=== PATIENT | female | born 1970 | race Caucasian/White ===

== ENCOUNTER → 2019-12-31 15:32 | Outpatient (BNVA) | payer MEDICAID, SELFPAY | PROVIDERS: PCP Nurse Practitioner Family; Referring Provider Nurse Practitioner Family; Visit Provider Nurse Practitioner | DX: Z76.89 Persons encountering health services in other specified circumstances (principal) ==

== ENCOUNTER → 2020-01-03 09:29 | Outpatient (BNVA) | payer MEDICAID, SELFPAY | PROVIDERS: PCP Nurse Practitioner Family; Visit Provider Nurse Practitioner | DX: R10.9 Unspecified abdominal pain (principal); N25.89 Other disorders resulting from impaired renal tubular function; K90.41 Non-celiac gluten sensitivity; E73.9 Lactose intolerance, unspecified; K21.9 Gastro-esophageal reflux disease without esophagitis; R14.0 Abdominal distension (gaseous); K58.0 Irritable bowel syndrome with diarrhea; Z87.891 Personal history of nicotine dependence; Z91.02 Food additives allergy status; Z91.040 Latex allergy status; Z91.048 Other nonmedicinal substance allergy status | CPT/HCPCS: 99212 ==

== ENCOUNTER → 2020-02-05 14:14 | Outpatient (BNVA) | payer MEDICAID, SELFPAY | PROVIDERS: PCP Nurse Practitioner Family; Referring Provider Nurse Practitioner Family; Visit Provider Nurse Practitioner | DX: Z76.89 Persons encountering health services in other specified circumstances (principal) ==

== ENCOUNTER → 2020-09-22 16:01 | Outpatient (BNVA) | payer MEDICAID, SELFPAY | PROVIDERS: PCP Nurse Practitioner Family; Visit Provider Nurse Practitioner ==

== ENCOUNTER 2020-09-23 14:58 | Outpatient (REF) | payer MEDICAID, SELFPAY ==
--- NOTE | ~2020-09-23 | MM_ITS ---
EXAMINATION: MM SCREENING DIGITAL BREAST TOMOSYNTHESIS, BILATERAL CLINICAL INFORMATION: Screening. Asymptomatic. The lifetime risk of breast cancer based on the Tyrer-Cuzick Model is 7%. COMPARISON: Mammography: 06/23/2016 TECHNIQUE: Digital breast tomosynthesis is performed in both the craniocaudal and mediolateral oblique views along with computer-aided detection (CAD). Synthesized 2D images are generated from the tomosynthesis. FINDINGS: There are scattered areas of fibroglandular density (ACR BI-RADS breast composition Category b). There are no significant masses, abnormal calcifications, or other abnormalities. Breast parenchymal pattern is similar to prior studies. The skin contours are smooth. MM/MM tomosynthesis screening BI IMPRESSION: No mammographic evidence of malignancy. ASSESSMENT: BI-RADS 1: Negative RECOMMENDATION: Routine annual mammography screening. This patient's information was entered into a reminder system with a target due date for their next mammogram.
[2020-09-23 15:42] LABS: MANUAL DIFF FLAG NO
[2020-09-23 15:44] LABS: Basophils Percent Auto 0.5 % (0-2); Eosinophils Absolute Auto 0.4 X10*3/uL (0.0-0.4); Eosinophils Percent Auto 4.2 % (0-4); Hematocrit 37.7 % (37-47); Hemoglobin 12.8 g/dl (12.0-16.0); Imm Gran Abs Auto 0.05 X10*3/uL (0.00-0.03); Imm Gran Pct Auto 0.6 % (0.0-0.4); Lymphocytes Absolute Auto 1.9 X10*3/uL (1.2-4.9); Lymphocytes Percent Auto 21.5 % (20-40); Mean Corpuscular Hemoglobin 31.7 pg (27.0-33.0); Mean Corpuscular Volume 93.3 fL (80-98); Mean Platelet Volume 9.7 fL (9.4-12.3); Monocytes Absolute Auto 0.6 X10*3/uL (0.1-1.2); Monocytes Percent Auto 7.2 % (2-11); Neutrophils Absolute Auto 5.7 X10*3/uL (2.0-8.3); Platelet Count 240 X10*3/uL (160-400); Red Blood Count 4.04 X10*6/uL (4.20-5.50); White Blood Count 8.6 X10*3/uL (4.8-10.8)
[2020-09-23 16:07] LABS: Alanine Aminotransferase 11 U/L (0-31); Aspartate Amino Transferase 18 U/L (5-31); Gamma Glutamyl Transpeptidase 22 U/L (7-33)
[2020-09-23 16:13] LABS: Anion Gap 11 (12-20); Aspartate Amino Transferase 19 U/L (5-31); Bilirubin Total 0.5 mg/dL (0.0-1.0); Calcium 9.3 mg/dL (8.4-10.2); Carbon Dioxide 26 mmol/L (22-29); Chloride 105 mmol/L (96-108); Potassium 4.4 mmol/L (3.3-5.1); Sodium 138 mmol/L (135-145); Total Protein 7.1 g/dL (6.5-8.0)
[2020-09-23 16:17] LABS: Alanine Aminotransferase 11 U/L (0-31); Albumin Level 4.3 g/dL (3.5-5.0); Alkaline Phosphatase 62 U/L (39-117); Blood Urea Nitrogen 10 mg/dL (9-16); Estimated Glomerular Filt Rate > 60; Glucose Random 82 mg/dL (60-115)
== END 2020-09-23 14:59 | disposition home or self-care (01) ==
LOC: HO.MAMMO 14:58
PROVIDERS: Specialist; PCP Nurse Practitioner Family; Referring Provider Nurse Practitioner; Visit Provider Registered Nurse Community Health
DX: Z12.31 Encounter for screening mammogram for malignant neoplasm of breast (principal); D12.6 Benign neoplasm of colon, unspecified
CPT/HCPCS: 36415; 77063; 77067; 80053; 82977; 84450; 84460; 85025

== ENCOUNTER 2020-12-02 12:50 | Day surgery (SDC) | payer MEDICAID, SELFPAY ==
[2020-11-27 12:06] VITALS: BMI 34.0
--- NOTE | 2020-12-01 10:53 | P.CONAN_ITS ---
Documented by User: Vonnie Sanchez NP 12/01/20 10:55 HPI - Anesthesia Eval Consult details Narrative: 49yo F for Colonoscopy suboxone daily PMFSH Active Problems Active Problems: All Active Problems (Updated 11/27/20 @ 12:02 by Ana Carranza, BRITTANY) Irritable bowel syndrome with diarrhea (Acute) Abdominal bloating (Acute) GERD (gastroesophageal reflux disease) (Acute) Lactose intolerance (Acute) Non-celiac gluten sensitivity (Acute) Renal tubular acidosis (Acute) Nausea and vomiting (Acute) Tubular adenoma of colon (Acute) Past Medical History Medical History (Updated 12/02/20 @ 13:59 by Ilene Wang MD) Asthma Chronic kidney disease COVID-19 vaccine series completed Depression Frequent headaches GERD (gastroesophageal reflux disease) Hiatal hernia History of intravenous drug use in remission Hx MRSA infection Hypoglycemia IBS (irritable bowel syndrome) OCD (obsessive compulsive disorder) NO (obstructive sleep apnea) PTSD (post-traumatic stress disorder) Renal tubular acidosis Seizure disorder Family History Family History Father Melanoma Mother Overdose Maternal Grandfather Cancer Melanoma Brother FH: testicular cancer Brother Brain aneurysm Brother HIV (human immunodeficiency virus infection) Surgical History Surgical History History of esophagogastroduodenoscopy (EGD) History of lung surgery Hx laparoscopic cholecystectomy Hx of section Hx of colonoscopy (~2013) Social History Social History Household Members: Spouse Housing: Apartment Are you a primary intensive care specialist to a significant other at home: No Do you presently have visiting nurse or other home services: Yes Alcohol intake: current Alcohol intake frequency: does not drink Patient Tobacco Use Status: Current everyday Tobacco user Tobacco use type: Cigarette Cigarette Packs Per Day: 0.25 Cigarettes Per Day: 5.0 Years Smoked: 20 + Smoked in Last 30 Days: Yes Patient Interested in Nicotine Replacement: Yes (Starting on Chantix) Patient Given Instructions on How to Stop Smoking: Yes Date Education Initiated: 11/27/20 Use of substances other than those prescribed or required for medical reasons: No Substance Use Type Other:: on Zubzolv Daily Have you been hit, kicked, punched, or otherwise hurt by someone within the past year? If so, by whom?: No Are you DNR?: No Advance Directives: No Advance Directives Information Provided: No (mailed to patient) Advance Directives on File: No Recently lost weight without trying: No Eating poorly because of decreased appetite: No Nutrition Risks: No Nutritional Risk Patient : No Meds Allergies Allergy/AdvReac Type Severity Reaction Status Date / Time gluten [GLUTEN] Allergy Severe VOMITING, Verified 12/02/20 13:43 DIARRHEA lactose [LACTOSE] Allergy Severe VOMITING, Verified 12/02/20 13:43 DIARRHEA adhesive tape [Adhesive Tape] Allergy Unknown RASH Verified 12/02/20 13:43 cedarwood [Cedarwood] Allergy Unknown THROAT Verified 12/02/20 13:43 CLOSES, SWELLING, RASH Home Medications Medication Instructions Recorded Confirmed Last Taken Type albuterol sulfate 90 mcg/actuation 2 puff PO Q4H PRN 11/27/20 11/27/20 Unknown History aerosol inhaler budesonide-formoterol HFA 160 2 puff PO BID 11/27/20 11/27/20 Unknown History mcg-4.5 mcg/actuation aerosol inhaler (Symbicort) buprenorphine 5.7 mg-naloxone 1.4 2 tab SUBLINGUAL DAILY 11/27/20 11/27/20 Unknown History mg sublingual tablet (Zubsolv) cholecalciferol (vitamin D3) 50 1 cap PO DAILY 11/27/20 11/27/20 Unknown History mcg (2,000 unit) capsule epinephrine 0.3 mg/0.3 mL 0.3 mg IM NEEDED 11/27/20 11/27/20 Unknown History injection, auto-injector ergocalciferol (vitamin D2) 1,250 1 cap PO QWEEK 11/27/20 11/27/20 Unknown History mcg (50,000 unit) capsule fenofibrate micronized 43 mg 1 cap PO DAILY 11/27/20 11/27/20 Unknown History capsule fluoxetine 20 mg capsule 2 cap PO DAILY 11/27/20 11/27/20 Unknown History fluticasone propionate 50 1 spray INTRANASAL Q OTHER DAY 11/27/20 11/27/20 Unknown History mcg/actuation nasal spray,suspension glycopyrronium tosylate 2.4 % TOPICAL DAILY 11/27/20 Unknown History towelette (Qbrexza) hydroxyzine pamoate 50 mg capsule 1 cap PO BID 11/27/20 11/27/20 Unknown History lamotrigine 100 mg tablet 1 tab PO BID 11/27/20 11/27/20 Unknown History lidocaine 5 % topical patch 1 patch TRANSDERMAL DAILY PRN 11/27/20 11/27/20 Unknown History loratadine 10 mg tablet 1 tab PO DAILY PRN 11/27/20 11/27/20 Unknown History multivitamin with folic acid 400 1 tab PO DAILY 11/27/20 11/27/20 Unknown History mcg tablet (Daily-Lisa (with folic acid)) naloxone 4 mg/actuation nasal 1 spray INTRANASAL 11/27/20 Unknown History spray (Narcan) prazosin 1 mg capsule 1 cap PO QAM 11/27/20 11/27/20 Unknown History prazosin 2 mg capsule 2 cap PO BEDTIME 11/27/20 11/27/20 Unknown History propranolol 80 mg capsule,24 1 cap PO BEDTIME 11/27/20 11/27/20 Unknown History hr,extended release quetiapine 200 mg tablet 1 tab PO BEDTIME 11/27/20 11/27/20 Unknown History quetiapine 50 mg tablet 1 tab PO QAM 11/27/20 11/27/20 Unknown History sumatriptan succinate 50 mg tablet mg PO 11/27/20 Unknown History valacyclovir 1 gram tablet 1 tab PO DAILY 11/27/20 11/27/20 Unknown History varenicline 1 mg tablet (Chantix) 1 tab PO BID 11/27/20 11/27/20 Unknown History zolpidem 10 mg tablet 1 tab PO BEDTIME 11/27/20 11/27/20 Unknown History Exam Exam Date and Time: December 01, 2020 1053 Height,Weight and Vital Signs: Height 5 ft 4 in Weight 89.811 kg Pertinent Lab Results Pertinent Lab Results: Laboratory Tests 09/23/20 09/23/20 15:26 15:26 WBC 8.6 Hgb 12.8 Hct 37.7 Plt Count 240 Sodium 138 Potassium 4.4 Chloride 105 Carbon Dioxide 26 BUN 10 Creatinine 0.97 Assessment and Plan Assessment Anesthesia Assessment: Chart Reviewed Documented by User: Ilene Wang MD 12/02/20 14:05 HPI - Anesthesia Eval Consult details Narrative: 49yo F for Colonoscopy suboxone daily. No suboxone today PMFSH Past Medical History Medical History (Updated 12/02/20 @ 13:59 by Ilene Wang MD) Asthma Chronic kidney disease COVID-19 vaccine series completed Depression Frequent headaches GERD (gastroesophageal reflux disease) Hiatal hernia History of intravenous drug use in remission Hx MRSA infection Hypoglycemia IBS (irritable bowel syndrome) OCD (obsessive compulsive disorder) NO (obstructive sleep apnea) PTSD (post-traumatic stress disorder) Renal tubular acidosis Seizure disorder Family History Family History Father Melanoma Mother Overdose Maternal Grandfather Cancer Melanoma Brother FH: testicular cancer Brother Brain aneurysm Brother HIV (human immunodeficiency virus infection) Family history of problems with anesthesia: No Surgical History Surgical History History of esophagogastroduodenoscopy (EGD) History of lung surgery Hx laparoscopic cholecystectomy Hx of section Hx of colonoscopy (~2013) History of Problems with Anesthesia: No Social History Social History Household Members: Spouse Housing: Apartment Are you a primary intensive care specialist to a significant other at home: No Do you presently have visiting nurse or other home services: Yes Alcohol intake: current Alcohol intake frequency: does not drink Patient Tobacco Use Status: Current everyday Tobacco user Tobacco use type: Cigarette Cigarette Packs Per Day: 0.25 Cigarettes Per Day: 5.0 Years Smoked: 20 + Smoked in Last 30 Days: Yes Patient Interested in Nicotine Replacement: Yes (Starting on Chantix) Patient Given Instructions on How to Stop Smoking: Yes Date Education Initiated: 11/27/20 Use of substances other than those prescribed or required for medical reasons: No Substance Use Type Other:: on Zubzolv Daily Have you been hit, kicked, punched, or otherwise hurt by someone within the past year? If so, by whom?: No Are you DNR?: No Advance Directives: No Advance Directives Information Provided: No (mailed to patient) Advance Directives on File: No Recently lost weight without trying: No Eating poorly because of decreased appetite: No Nutrition Risks: No Nutritional Risk Patient : No Meds Allergies Allergy/AdvReac Type Severity Reaction Status Date / Time gluten [GLUTEN] Allergy Severe VOMITING, Verified 12/02/20 13:43 DIARRHEA lactose [LACTOSE] Allergy Severe VOMITING, Verified 12/02/20 13:43 DIARRHEA adhesive tape [Adhesive Tape] Allergy Unknown RASH Verified 12/02/20 13:43 cedarwood [Cedarwood] Allergy Unknown THROAT Verified 12/02/20 13:43 CLOSES, SWELLING, RASH Home Medications Medication Instructions Recorded Confirmed Last Taken Type albuterol sulfate 90 mcg/actuation 2 puff PO Q4H PRN 11/27/20 11/27/20 Unknown History aerosol inhaler budesonide-formoterol HFA 160 2 puff PO BID 11/27/20 11/27/20 Unknown History mcg-4.5 mcg/actuation aerosol inhaler (Symbicort) buprenorphine 5.7 mg-naloxone 1.4 2 tab SUBLINGUAL DAILY 11/27/20 11/27/20 Unknown History mg sublingual tablet (Zubsolv) cholecalciferol (vitamin D3) 50 1 cap PO DAILY 11/27/20 11/27/20 Unknown History mcg (2,000 unit) capsule epinephrine 0.3 mg/0.3 mL 0.3 mg IM NEEDED 11/27/20 11/27/20 Unknown History injection, auto-injector ergocalciferol (vitamin D2) 1,250 1 cap PO QWEEK 11/27/20 11/27/20 Unknown History mcg (50,000 unit) capsule fenofibrate micronized 43 mg 1 cap PO DAILY 11/27/20 11/27/20 Unknown History capsule fluoxetine 20 mg capsule 2 cap PO DAILY 11/27/20 11/27/20 Unknown History fluticasone propionate 50 1 spray INTRANASAL Q OTHER DAY 11/27/20 11/27/20 Unknown History mcg/actuation nasal spray,suspension glycopyrronium tosylate 2.4 % TOPICAL DAILY 11/27/20 Unknown History towelette (Qbrexza) hydroxyzine pamoate 50 mg capsule 1 cap PO BID 11/27/20 11/27/20 Unknown History lamotrigine 100 mg tablet 1 tab PO BID 11/27/20 11/27/20 Unknown History lidocaine 5 % topical patch 1 patch TRANSDERMAL DAILY PRN 11/27/20 11/27/20 Unknown History loratadine 10 mg tablet 1 tab PO DAILY PRN 11/27/20 11/27/20 Unknown History multivitamin with folic acid 400 1 tab PO DAILY 11/27/20 11/27/20 Unknown History mcg tablet (Daily-Lisa (with folic acid)) naloxone 4 mg/actuation nasal 1 spray INTRANASAL 11/27/20 Unknown History spray (Narcan) prazosin 1 mg capsule 1 cap PO QAM 11/27/20 11/27/20 Unknown History prazosin 2 mg capsule 2 cap PO BEDTIME 11/27/20 11/27/20 Unknown History propranolol 80 mg capsule,24 1 cap PO BEDTIME 11/27/20 11/27/20 Unknown History hr,extended release quetiapine 200 mg tablet 1 tab PO BEDTIME 11/27/20 11/27/20 Unknown History quetiapine 50 mg tablet 1 tab PO QAM 11/27/20 11/27/20 Unknown History sumatriptan succinate 50 mg tablet mg PO 11/27/20 Unknown History valacyclovir 1 gram tablet 1 tab PO DAILY 11/27/20 11/27/20 Unknown History varenicline 1 mg tablet (Chantix) 1 tab PO BID 11/27/20 11/27/20 Unknown History zolpidem 10 mg tablet 1 tab PO BEDTIME 11/27/20 11/27/20 Unknown History Exam Height,Weight and Vital Signs: Height 5 ft 4 in Weight 89.811 kg Vital Signs Temp Pulse Resp BP Pulse Ox 12/02/20 13:43 97.9 F 65 16 105/64 95 Pertinent Lab Results Pertinent Lab Results: Lab Results 12/02/20 Range/Units 13:25 Urine Test NEGATIVE (NEGATIVE) Laboratory Tests 09/23/20 09/23/20 15:26 15:26 WBC 8.6 Hgb 12.8 Hct 37.7 Plt Count 240 Sodium 138 Potassium 4.4 Chloride 105 Carbon Dioxide 26 BUN 10 Creatinine 0.97 Airway Mallampati Class: II TM Dist: >3cm Neck ROM: Full Denture: Upper and Lower (Does not wear) Heart: RRR Lungs: CTAB Assessment and Plan Assessment Anesthesia Assessment: Anesthesia Plan Discussed Final Anesthetic Review Family History of Problems with Anesthesia: No History of Problems with Anesthesia: No NPO: Yes ASA Class: III Final Preanesthetic Review: No Changes in Pt Med Stat, Meds/Allgs Chart Reviewed, Consent Obtained/Reviewed and Anes Risks/Benef Reviewed Patient Risk: Intermediate Procedure Risk: Low Assessment/Block/Sedation in SS: Assess/Block/Sedation-SS Anesthetic Plan Anesthetic Plan: MAC: Disposition: Standard PACU
[2020-12-02 13:32] LABS: UPreg QC Valid YES
[2020-12-02 13:36] LABS: Urine Pregnancy NEGATIVE (NEGATIVE)
[2020-12-02 13:43] VITALS: BP 105/64; PULSE 65; RESP 16; TEMP 36.6; O2SAT 95
[2020-12-02] MEDS: Lactated Ringers 1,000 ML 100 ML IVCONT (13:59)
--- NOTE | 2020-12-02 14:39 | MHC.SHP ---
Pre-Procedural Eval Section A Date of Service: 12/02/20 Section B Chief Complaint: reflux disease,irritable bowel syndrome Relevant Family History (Specify if Yes): No Relevant Social History: Tobacco Use Present Medications: see Short Stay Collaborative assessment Medical History: Significant History (Asthma Chronic kidney disease COVID-19 vaccine series completed Depression Frequent headaches GERD (gastroesophageal reflux disease) Hiatal hernia History of intravenous drug use in remission Hx MRSA infection Hypoglycemia IBS (irritable bowel syndrome) OCD (obsessive compulsive disorder) NO (obstr) History of Previous Operations: Relevant previous surgery/procedure and date(s) (History of esophagogastroduodenoscopy (EGD) History of lung surgery Hx laparoscopic cholecystectomy Hx of section Hx of colonoscopy (~2013)) Allergies: Allergies Allergy/AdvReac Type Severity Reaction Status Date / Time gluten [GLUTEN] Allergy Severe VOMITING, Verified 12/02/20 13:43 DIARRHEA lactose [LACTOSE] Allergy Severe VOMITING, Verified 12/02/20 13:43 DIARRHEA adhesive tape [Adhesive Tape] Allergy Unknown RASH Verified 12/02/20 13:43 cedarwood [Cedarwood] Allergy Unknown THROAT Verified 12/02/20 13:43 CLOSES, SWELLING, RASH Review of Systems Sugical H&P ROS: Negative: Constitution, Cardiovascular, Respiratory, Neurological, Psychiatric, Hem-Onc, Allergic/Immunologic, Gastrointestinal, Genitourinary, Musculoskeletal, Integumentary, Endocrine and Eyes/Ears/Nose/Throat Exam Surgical H&P Exam: Normal: HEENT, Normal: Heart, Normal: Lungs, Normal: Extremities, Normal: Abdomen, Normal: Skin and Normal: Neurological Plan Diagnosis/Plan: Unchanged I have reviewed the history and physical and performed a pertinent physical examination on my patient. No changes have occurred unless specified.
--- NOTE | 2020-12-02 14:45 | PM.OP ---
Brief Operative Note Date of Service: 12/02/20 Pre-op diagnosis: diarrhea Post-op diagnosis: same Procedure: see op note Surgeon: Hazel Perez MD Anesthesia: MAC Was an Telephone Plant Power Operator used for this Procedure?: No Estimated blood loss (mL): 0 Condition: stable Disposition: PACU
--- NOTE | 2020-12-02 14:45 | W.PM.OPN ---
Operative Note Operative Note Date of Service: 12/02/20 Narrative: Operative Information Procedure Description: Colonoscopy COLONOSCOPY Instrument: Olympus variable stiffness adult scope 190L Colonoscopy Monitoring: Vital signs and clinical assessment, continuous EKG monitoring, Pulse oximetry, Carbon Dioxide monitoring and blood pressure monitoring were done throughout the procedure. Colon withdrawal time was 8 minutes. Procedure: The patient was placed in the left lateral decubitis position and pre-procedure medications were administered. After a digital rectal examination of the ano-rectum, the video colonoscope was inserted into the rectum and advanced through the colon to the cecum/TI. The colonoscope was slowly withdrawn in a retrograde panoramic fashion and the colon mucosa was carefully examined including a retroflexed view of the rectum. Findings and interventions are described below. Procedure Difficulty:moderate due to poor prep Findings: Terminal Ileum-normal, bx taken random colon bx taken Cecum:normal Ascending Colon: normal Transverse Colon -normal Descending Colon:normal Sigmoid Colon: normal Rectum: Retroflexion with small internal hemorrhoids, grade I---8-9 mm sessile polyp removed with cold snare Anorectum - normal Some formed stool balls seen with lots of corn and beans, particulate matter Colon preparation: [place] Bowel Preparation Scale Right colon; 1 Transverse colon: 2 Left colon; 1 (0 = Unprepared colon segment with mucosa not seen due to solid stool that cannot be cleared. 1 = Portion of mucosa of the colon segment seen, but other areas of the colon segment not well seen due to staining, residual stool and/or opaque liquid. 2 = Minor amount of residual staining, small fragments of stool and/or opaque liquid, but mucosa of colon segment seen well. 3 = Entire mucosa of colon segment seen well with no residual staining, small fragments of stool or opaque liquid) Impression and Post Procedure Diagnosis: polyp internal hemorrhoids Plan: High fiber diet leaflet Avoid straining at stool, epsom salts and sitz bath, anusol supps or cream Repeat Colonoscopy in 6-12 months or earlier if clinically indicated, r/v bowel prep instructions for next time Above findings were reviewed with the patient and relevant handouts were provided if indicated.
[2020-12-02 15:23] VITALS: BP 99/66; PULSE 89; RESP 16; TEMP 36.6; O2SAT 97
[2020-12-02 15:38] VITALS: BP 97/73; PULSE 78; RESP 16; O2SAT 99
[2020-12-02 15:53] VITALS: BP 105/65; PULSE 75; RESP 16; TEMP 36.6; O2SAT 99
== END 2020-12-02 16:06 | disposition home or self-care (01) ==
PROVIDERS: Nurse Practitioner; PCP Nurse Practitioner Family; Visit Provider Internal Medicine Gastroenterology
PROC: 0DJD8ZZ Inspection of Lower Intestinal Tract, Via Natural or Artificial Opening Endoscopic (ICD-10-PCS; CPT 45378; principal; 2020-12-02 14:00)
DX: K58.0 Irritable bowel syndrome with diarrhea (principal); Z86.010 Personal history of colon polyps; K62.1 Rectal polyp; K64.0 First degree hemorrhoids; K21.9 Gastro-esophageal reflux disease without esophagitis; R14.0 Abdominal distension (gaseous); G40.909 Epilepsy, unspecified, not intractable, without status epilepticus; K90.41 Non-celiac gluten sensitivity; E73.9 Lactose intolerance, unspecified; N18.2 Chronic kidney disease, stage 2 (mild); N25.89 Other disorders resulting from impaired renal tubular function; K44.9 Diaphragmatic hernia without obstruction or gangrene; J45.909 Unspecified asthma, uncomplicated; R11.2 Nausea with vomiting, unspecified; G47.33 Obstructive sleep apnea (adult) (pediatric); Z79.899 Other long term (current) drug therapy; F17.210 Nicotine dependence, cigarettes, uncomplicated; F11.11 Opioid abuse, in remission; Z90.49 Acquired absence of other specified parts of digestive tract; Z86.14 Personal history of Methicillin resistant Staphylococcus aureus infection; Z91.040 Latex allergy status
CPT/HCPCS: 45385; 45380; 81025; 88305

== ENCOUNTER → 2020-12-18 14:56 | Outpatient (BNVA) | payer MEDICAID, SELFPAY | PROVIDERS: PCP Nurse Practitioner Family; Visit Provider Nurse Practitioner ==

== ENCOUNTER 2021-06-02 13:16 | Outpatient (REF) | payer MEDICAID, SELFPAY ==
--- NOTE | ~2021-06-02 | US_ITS ---
EXAMINATION: US VENOUS ULTRASOUND WITH DOPPLER LOWER EXTREMITY, BILATERAL CLINICAL INFORMATION: Bilateral leg edema. COMPARISON: None TECHNIQUE: Ultrasound of the deep veins is performed from the hip to the calf with compression sonography and color and pulse Doppler assessment. Spectral analysis with color-flow imaging is performed. FINDINGS: RIGHT: There is normal venous compression and respiratory variation and augmented flow. The visualized common femoral vein, superficial femoral vein, profunda femoral vein, popliteal vein, and the trifurcation region shows no evidence of deep venous thrombosis. No popliteal cyst. The subcutaneous soft tissues are unremarkable. LEFT: There is normal venous compression and respiratory variation and augmented flow. The visualized common femoral vein, superficial femoral vein, profunda femoral vein, popliteal vein, and the trifurcation region shows no evidence of deep venous thrombosis. No popliteal cyst. The subcutaneous soft tissues are unremarkable. If the patient's symptoms persist, followup ultrasound in 5 days 7 days might be of value to exclude proximal propagation from a non-visualized calf vein. US/US venous duplex LE BI IMPRESSION: No evidence for deep venous thrombosis in the visualized veins of the bilateral lower extremities.
== END 2021-06-02 13:17 | disposition home or self-care (01) ==
LOC: HO.US 13:16
PROVIDERS: Visit Provider Registered Nurse
DX: R06.00 Dyspnea, unspecified (principal); R60.0 Localized edema
CPT/HCPCS: 93970

== ENCOUNTER → 2021-06-25 16:30 | Outpatient (BNVA) | payer MEDICAID, SELFPAY | PROVIDERS: PCP Nurse Practitioner Family; Visit Provider Nurse Practitioner | DX: K58.0 Irritable bowel syndrome with diarrhea (principal); K21.9 Gastro-esophageal reflux disease without esophagitis; Z86.010 Personal history of colon polyps; Z79.899 Other long term (current) drug therapy | CPT/HCPCS: 99212 ==

== ENCOUNTER → 2021-09-24 15:51 | Outpatient (BNVA) | payer MEDICAID, SELFPAY | PROVIDERS: PCP Nurse Practitioner Family; Visit Provider Nurse Practitioner | DX: K21.9 Gastro-esophageal reflux disease without esophagitis (principal); K58.0 Irritable bowel syndrome with diarrhea; R42 Dizziness and giddiness; R14.0 Abdominal distension (gaseous); Z86.010 Personal history of colon polyps; Z79.899 Other long term (current) drug therapy | CPT/HCPCS: 99212 ==

== ENCOUNTER → 2022-03-29 15:31 | Outpatient (BNVA) | payer MEDICAID, SELFPAY | PROVIDERS: Visit Provider Nurse Practitioner | DX: Z01.818 Encounter for other preprocedural examination (principal); K58.0 Irritable bowel syndrome with diarrhea; K21.9 Gastro-esophageal reflux disease without esophagitis; D12.6 Benign neoplasm of colon, unspecified | CPT/HCPCS: 99212 ==

== ENCOUNTER 2022-06-28 13:44 | Outpatient (RCR) | payer MEDICAID, SELFPAY ==
[2022-06-28 13:53] VITALS: BP 110/70; PULSE 72; O2SAT 95
== END 2023-04-14 09:25 | disposition home or self-care (01) ==
LOC: HO.PTWFD 13:44
PROVIDERS: PCP Registered Nurse; Visit Provider Registered Nurse
DX: H81.13 Benign paroxysmal vertigo, bilateral (principal)
CPT/HCPCS: 97163; 97535

== ENCOUNTER 2022-09-20 15:17 | Outpatient (REF) | payer MEDICAID, SELFPAY ==
[2022-09-20 16:27] LABS: MANUAL DIFF FLAG NO
[2022-09-20 18:19] LABS: Basophils Absolute Auto 0.1 X10*3/uL (0.0-0.2); Basophils Percent Auto 0.7 % (0-2); Eosinophils Absolute Auto 0.4 X10*3/uL (0.0-0.4); Eosinophils Percent Auto 5.1 % (0-4); Hematocrit 40.9 % (37.0-47.0); Hemoglobin 13.5 g/dl (12.0-16.0); Imm Gran Abs Auto 0.05 X10*3/uL (0.00-0.03); Imm Gran Pct Auto 0.6 % (0.0-0.4); Lymphocytes Absolute Auto 1.9 X10*3/uL (1.2-4.9); Lymphocytes Percent Auto 23.3 % (20-40); Mean Platelet Volume 10.3 fL (9.4-12.3); Monocytes Absolute Auto 0.6 X10*3/uL (0.1-1.2); Monocytes Percent Auto 7.2 % (2-11); Neutrophils Absolute Auto 5.2 x10*3/uL (2.0-8.3); Neutrophils Percent Auto 63.1 % (45-73); Platelet Count 282 X10*3/uL (160-400); Red Blood Count 4.35 X10*6/uL (4.20-5.50); Red Cell Distribution Width 11.6 % (11.0-16.0); White Blood Count 8.2 X10*3/uL (4.8-10.8)
[2022-09-20 18:41] LABS: Alanine Aminotransferase 12 U/L (0-31); Albumin Level 4.5 g/dL (3.5-5.0); Alkaline Phosphatase 37 U/L (39-117); Anion Gap 14 (12-20); Aspartate Amino Transferase 17 U/L (5-31); Bilirubin Total 0.4 mg/dL (0.0-1.0); Blood Urea Nitrogen 12 mg/dL (9-16); Carbon Dioxide 26 mmol/L (22-29); Chloride 106 mmol/L (96-108); Estimated Glomerular Filt Rate 49; Glucose Random 77 mg/dL (60-115); Potassium 4.5 mmol/L (3.3-5.1); Sodium 141 mmol/L (135-145); Total Protein 7.6 g/dL (6.5-8.0)
== END 2022-09-20 15:18 | disposition home or self-care (01) ==
LOC: HO.LAB 15:17
PROVIDERS: PCP Registered Nurse; Visit Provider Nurse Practitioner
DX: Z01.818 Encounter for other preprocedural examination (principal); K58.0 Irritable bowel syndrome with diarrhea; R14.0 Abdominal distension (gaseous); K21.9 Gastro-esophageal reflux disease without esophagitis; E73.9 Lactose intolerance, unspecified; D21.6 Benign neoplasm of connective and other soft tissue of trunk, unspecified
CPT/HCPCS: 36415; 80053; 85025; 99213

== ENCOUNTER 2022-09-20 15:17 | Outpatient (AMB) | payer MEDICAID, SELFPAY ==
[2022-09-20 15:20] VITALS: BP 139/76; PULSE 78; BMI 36.4
--- NOTE | 2022-09-20 15:20 | MHC.OFFVIS ---
Intake Vital Signs 09/20/22 15:20 Height 5 ft 6 in Weight 225 lb 4.999 oz BMI 36.4 BP 139/76 Blood Pressure Location Rt brachial Position Sitting Pulse 78 Intake Visit Reasons: 6 month follow up Intake Note: Sera presents in the office as a follow up for IBS, GERD. CC: Patient states my medications work . Patient reports she was told after having MRI done that she might have MS and that's what's causing her imbalance, dizziness, and nausea. She states diarrhea is controlled with medication and denies any other GI symptoms. [employer] Required: No Accompanied by: Self / Same As Patient Allergies gluten [GLUTEN] Allergy (Severe, Verified 09/20/22 15:33) VOMITING, DIARRHEA lactose [LACTOSE] Allergy (Severe, Verified 09/20/22 15:33) VOMITING, DIARRHEA adhesive tape [Adhesive Tape] Allergy (Unknown, Verified 09/20/22 15:33) RASH cedarwood [Cedarwood] Allergy (Unknown, Verified 09/20/22 15:33) THROAT CLOSES, SWELLING, RASH HPI 6 month follow up HPI Details Assessment & Plan (1) Irritable bowel syndrome with diarrhea: ?Code(s): K58.0 - Irritable bowel syndrome with diarrhea ?Plan: Overdue for repeat scope r/t poor prep in 2020. Needs 2 day prep, but mag citrate not available. She had trouble with the volume and taste of prep, see if smaller volume with dulcolax ? ins coverage? There are no prior problems with anesthesia or sedation.? She is on Suboxone therapy. She has obstructive sleep apnea but no cardiac disease.? She has a history of MRSA infection in 2011. Needs to send [facility]. Doing well with the meclizine and omeprazole. ROV 6 mos. (2) GERD (gastroesophageal reflux disease): ?Code(s): K21.9 - Gastro-esophageal reflux disease without esophagitis (3) Tubular adenoma of colon: ?Comment: 2013 SCOPE TA , 2020 scope insufficient prep repeat in 1 year, will need 2 day prep ?Code(s): D12.6 - Benign neoplasm of colon, unspecified (4) Pre-op examination: ?Code(s): Z01.818 - Encounter for other preprocedural examination ? ? ? Medications: Refilled diphenoxylate-atro pine 2.5-0.025 mgE 1 tab PO Q8H PRN 9 0 tabs 0RF diarrhe a 30 days K58.0 - Irritable bowel syndrome wit h diarrhea ? omeprazole 40 mg PO DAILY 30 caps 6RF 30 days ? ? meclizine 25 mg PO TID 90 ta bs 6RF R42 - Dizziness an d giddiness ? TODAY'S VISIT She says she was never called to schedule the colonoscopy. She continues to do well with her IBS on her Lomotil and omeprazole and also utilizes meclizine for dizziness. Her dizziness did not seem to be from BPV and they are considering if it is MS. There are no prior problems with anesthesia or sedation.? She is on Suboxone therapy. She has obstructive sleep apnea but no cardiac disease.? She has a history of MRSA infection in 2011. Return office visit in 6 months and after her colonoscopy. [facility] Medical History Asthma Chronic kidney disease COVID-19 vaccine series completed Depression Frequent headaches GERD (gastroesophageal reflux disease) Hiatal hernia History of intravenous drug use in remission Hx MRSA infection Hypoglycemia IBS (irritable bowel syndrome) OCD (obsessive compulsive disorder) NO (obstructive sleep apnea) PTSD (post-traumatic stress disorder) Renal tubular acidosis Seizure disorder Surgical History History of esophagogastroduodenoscopy (EGD) History of lung surgery Hx laparoscopic cholecystectomy Hx of section Hx of colonoscopy (~2013) Family History Father Melanoma Mother Overdose Maternal Grandfather Cancer Melanoma Brother FH: testicular cancer Brother Brain aneurysm Brother HIV (human immunodeficiency virus infection) Social History Household Members: Spouse Housing: Apartment Are you a primary career based intervention coordinator to a significant other at home: No Do you presently have visiting nurse or other home services: Yes Alcohol intake: current Alcohol intake frequency: does not drink Patient Tobacco Use Status: Former Tobacco user Tobacco use type: Cigarette Cigarette Packs Per Day: 0.25 Cigarettes Per Day: 5.0 Years Smoked: 20+, quit 2017 Review of Systems Const Denies fatigue, Denies fever(s), Denies night sweats, Denies poor appetite and Denies weight loss ENT Reports Normal hearing present, Denies dental pain, Denies dysphagia, Reports dizziness, Denies hearing loss, Denies mouth pain, Denies odynophagia, Denies throat swelling, Denies tongue swelling and Reports other (Dentition adequate) Card Reports no additional complaints Resp Reports no additional complaints GI Denies abdominal pain, Denies melena, Reports bloating, Denies hematochezia, Denies constipation, Reports GI cramping, Denies dysphagia, Denies excessive flatus, Denies early satiety, Reports heartburn, Reports diarrhea, Denies nausea, Denies odynophagia, Denies vomiting and Denies hematemesis Skin/Breast Denies pruritus, Denies lesions, Denies rash and Denies jaundice Neuro Reports Normal hearing present, Denies Abnormal speech present and Reports dizziness Endo Denies fatigue Aller/Immun Denies throat swelling and Denies tongue swelling Physical Exam Vital Signs: Last Vital Signs Pulse 78 09/20/22 15:20 BP 139/76 09/20/22 15:20 BMI result Body Mass Index 36.4 Const General: cooperative, no acute distress, well developed and well groomed Nutritional Appearance: well nourished and obese Orientation/consciousness: oriented to person, oriented to place and oriented to time Limitations: No language barrier HEENT Head: Yes normocephalic and Yes atraumatic Eyes General: appearance normal, both eyes and all related structures Pupils: Equal, round and reactive pupils present Neck Neck: Yes normal visual inspection and Yes no lymphadenopathy Thyroid: Thyroid normal Resp Effort & Inspection: normal respiratory effort and able to speak in complete sentences Auscultation: clear to auscultation bilaterally Cardio Rate: regular rate Rhythm: regular rhythm Heart sounds: Normal, physiologic split S2 sound present Peripheral pulses: radial pulses present and posterior tibial pulses present GI Inspection: No distended, Yes Abdominal panniculus present and Yes obesity Palpation (GI): Soft to palpation, nontender, no guarding, not rigid and No hepatosplenomegaly present Percussion: Yes normal to percussion Auscultation: normal bowel sounds Rectal Exam - Female: deferred Skin General skin exam: no rashes or lesions noted, turgor normal, skin not dry, no jaundice, No spider nevi and no striae Rashes: no rashes Nails: normal Neuro General: oriented to person, oriented to place and oriented to time Cranial nerves: Yes Equal, round and reactive pupils present and Yes Normal hearing present Speech: No Abnormal speech present Extrem General: Yes normal to inspection, No clubbing, No cyanosis and No edema Psych Appearance: grossly normal and well kempt Mental Status: mental status grossly normal Speech and movement: Normal speech and movement present Affect: normal affect Attitude: cooperative Thought process: Normal thought process present and not confabulating Thought content: Normal thought content present Insight: Limited insight present (Psych) Judgement: Limited judgement present (Psych) Assessment & Plan Assessment & Plan (1) Irritable bowel syndrome with diarrhea: Code(s): K58.0 - Irritable bowel syndrome with diarrhea Plan: She says she was never called to schedule the colonoscopy. She continues to do well with her IBS on her Lomotil and omeprazole and also utilizes meclizine for dizziness. Her dizziness did not seem to be from BPV and they are considering if it is MS. There are no prior problems with anesthesia or sedation.? She is on Suboxone therapy. She has obstructive sleep apnea but no cardiac disease.? She has a history of MRSA infection in 2011. Return office visit in 6 months and after her colonoscopy. COLONOSCOPY BIOPSY (2) Abdominal bloating: Code(s): R14.0 - Abdominal distension (gaseous) (3) GERD (gastroesophageal reflux disease): Code(s): K21.9 - Gastro-esophageal reflux disease without esophagitis (4) Lactose intolerance: Code(s): E73.9 - Lactose intolerance, unspecified (5) Tubular adenoma of colon: Comment: 2013 SCOPE TA , 2020 scope insufficient prep repeat in 1 year, will need 2 day prep Code(s): D12.6 - Benign neoplasm of colon, unspecified (6) Pre-op examination: Code(s): Z01.818 - Encounter for other preprocedural examination Orders: Orders Complete Blood Count Auto Diff 09/20/22 Z.818 - Encounter for other preprocedural examination Comprehensive Met. Panel 09/20/22 Z.818 - Encounter for other preprocedural examination Colonoscopy - GI Use Only 09/20/22 Z01.818 - Encounter for other preprocedural examination Medications: New sod picosulf-mag ox-citric ac 10 mg-3.5 gram- 12 gram/160 mL (Clenpiq) administer approximately 5 hours before colonoscopy 160 mL PO ONCE 320 mL 0RF 1 dose Refilled ondansetron 8 mg PO BID 60 tabs 3RF R11.2 - Nausea with vomiting, unspecified, N25.89 - Other disorders resulting from impaired renal tubular function Coding Level of Care Code Est Pt Level 3 (45815) Diagnoses Irritable bowel syndrome with diarrhea K58.0 Abdominal bloating R14.0 GERD (gastroesophageal reflux disease) K21.9 Lactose intolerance E73.9 Tubular adenoma of colon D12.6 Pre-op examination Z01.818
== END 2022-09-20 16:09 | disposition home or self-care (01) ==
PROVIDERS: Visit Provider Nurse Practitioner
DX: K58.0 Irritable bowel syndrome with diarrhea (principal); R14.0 Abdominal distension (gaseous); K21.9 Gastro-esophageal reflux disease without esophagitis; E73.9 Lactose intolerance, unspecified; D12.6 Benign neoplasm of colon, unspecified; Z01.818 Encounter for other preprocedural examination
CPT/HCPCS: 99213

== ENCOUNTER 2023-07-12 12:30 | Outpatient (AMB) | payer MEDICAID, SELFPAY ==
--- NOTE | 2023-07-12 12:31 | A.OFFVIS_ITS ---
Vital Signs 07/12/23 12:35 Height 5 ft 6 in Weight 225 lb 12.054 oz BMI 36.4 BP 115/60 Blood Pressure Location Lt brachial Position Sitting Pulse 77 Intake Visit Reasons: discuss prep Intake Note: Patient in office today in follow up to discuss prep for colonoscopy. CC: Patient states that she's had trouble with previous colonoscopy prep. Pt reports occasional diarrhea. [employer] Required: No Accompanied by: Self / Same As Patient Allergies gluten [GLUTEN] Allergy (Severe, Verified 07/12/23 12:42) VOMITING, DIARRHEA lactose [LACTOSE] Allergy (Severe, Verified 07/12/23 12:42) VOMITING, DIARRHEA adhesive tape [Adhesive Tape] Allergy (Unknown, Verified 07/12/23 12:42) RASH cedarwood [Cedarwood] Allergy (Unknown, Verified 07/12/23 12:42) THROAT CLOSES, SWELLING, RASH HPI HPI discuss prep: Details: Assessment & Plan (1) Irritable bowel syndrome with diarrhea: Code(s): K58.0 - Irritable bowel syndrome with diarrhea Plan: She says she was never called to schedule the colonoscopy. She continues to do well with her IBS on her Lomotil and omeprazole and also utilizes meclizine for dizziness. Her dizziness did not seem to be from BPV and they are considering if it is MS. There are no prior problems with anesthesia or sedation.? She is on Suboxone therapy. She has obstructive sleep apnea but no cardiac disease.? She has a history of MRSA infection in 2011. Return office visit in 6 months and after her colonoscopy. COLONOSCOPY Scheduled for 04/13/2023 BIOPSY (2) Abdominal bloating: Code(s): R14.0 - Abdominal distension (gaseous) (3) GERD (gastroesophageal reflux disease): Code(s): K21.9 - Gastro-esophageal reflux disease without esophagitis (4) Lactose intolerance: Code(s): E73.9 - Lactose intolerance, unspecified (5) Tubular adenoma of colon: Comment: 2013 SCOPE TA , 2020 scope insufficient prep repeat in 1 year, will need 2 day prep Code(s): D12.6 - Benign neoplasm of colon, unspecified (6) Pre-op examination: Code(s): Z01.818 - Encounter for other preprocedural examination Orders: Orders Complete Blood Count Auto Diff 09/20/22 Z01.818 - Encounter for other preprocedural examination Comprehensive Met. Panel 09/20/22 Z01.818 - Encounter for other preprocedural examination Colonoscopy - GI Use Only 09/20/22 Z01.818 - Encounter for other preprocedural examination Medications: New sod picosulf-mag ox-citric ac 10 mg-3.5 gram- 12 gram/160 mL (Clenpiq) administer approximately 5 hours before colonoscopy 160 mL PO ONCE 320 mL 0RF 1 dose Refilled ondansetron 8 mg PO BID 60 tabs 3RF R11.2 - Nausea with vomiting, unspecified, N25.89 - Other disorders resulting from impaired renal tubular function CORRESPONDENCE On 04/21/23 @ 14:44 Elvin Martínez Wrote To Colonoscopy was cancelled d/t poor prep she is waiting to be r/s for procedure. diphenoxylate-atropine 2.5 mg-0.025 mg tablet - 1 tab PO TID 90 tabs 0RF Last Rx written: 03/14/23 Chavez (could not tolerate PEG due to taste in volume, clean picked did not clear her, next try Dulcolax and MiraLax prep On 06/12/23 @ 16:22 Love Preciado Wrote To Chavez (2) Spoke to patient, reports she can not drink this prep even with using Crystal Light and zofran + emesis. Procedure will need to be r/s. June I think she will need to start prepping a week before. Clenpiq did not work and that was the second failed colonoscopies due to poor prep. We discussed potentially starting clear liquid diet 2 days before, and 3 days before that do Low residue diet. ? mag citrate also. I did not cancel her f/u appt, do you want to kept this appt (I can change reason for appt) and discuss prep? let me know. ty TODAY'S VISIT She thinks that she do a low residue diet a week before, use bisacodyl for 4 days prior, Miralax prep (she wanted Clenpic as this had a delayed effect but last time we gave her a sample and this is not available now.), and she admits she over ate magalis day before because of not being able to eat for the prep day. I think will will do is give her MiraLax prep to drink the night before but start her taking 2 bisacodyl twice a day 4 days prior to her colonoscopy while maintaining a low residue diet and encouraging her not to ovary prior to her procedure. She feels that she will be able to do this. So, I will send a request for reschedule. She takes omeprazole once a day with good control of her GERD. Return office visit in 6 months and after the colonoscopy [facility] Medical History Renal tubular acidosis Chronic kidney disease Asthma COVID-19 vaccine series completed History of intravenous drug use in remission Hiatal hernia Hx MRSA infection Hypoglycemia Frequent headaches OCD (obsessive compulsive disorder) PTSD (post-traumatic stress disorder) Depression Seizure disorder NO (obstructive sleep apnea) IBS (irritable bowel syndrome) GERD (gastroesophageal reflux disease) Surgical History Hx laparoscopic cholecystectomy History of lung surgery Hx of section History of esophagogastroduodenoscopy (EGD) Hx of colonoscopy (~2013) Family History Father Melanoma Mother Overdose Maternal Grandfather Cancer Melanoma Brother FH: testicular cancer Brother Brain aneurysm Brother HIV (human immunodeficiency virus infection) Social History Household Members: Spouse Housing: Apartment Are you a primary career placement services counselor to a significant other at home: No Do you presently have visiting nurse or other home services: Yes Alcohol intake: current Alcohol intake frequency: does not drink Patient Tobacco Use Status: Former Tobacco user Tobacco use type: Cigarette Cigarette Packs Per Day: 0.25 Cigarettes Per Day: 5.0 Years Smoked: 20+, quit 2017 Review of Systems Const Denies fatigue, Denies fever(s), Denies night sweats, Denies poor appetite and Denies weight loss ENT Reports Normal hearing present, Denies dental pain, Denies dysphagia, Denies hearing loss, Denies mouth pain, Denies odynophagia, Denies throat swelling, Denies tongue swelling and Reports other (Dentition adequate) Card Reports no additional complaints Resp Reports no additional complaints GI Details: Denies abdominal pain, Denies melena, Denies bloating, Denies hematochezia, Denies constipation, Reports GI cramping, Denies dysphagia, Denies excessive flatus, Denies early satiety, Reports heartburn, Denies diarrhea, Denies nausea, Denies odynophagia, Denies vomiting and Denies hematemesis Skin/Breast Denies pruritus, Denies lesions, Denies rash and Denies jaundice Neuro Reports Normal hearing present and Denies Abnormal speech present Endo Denies fatigue Aller/Immun Denies throat swelling and Denies tongue swelling Physical Exam Vital Signs: Last Vital Signs Pulse 77 07/12/23 12:35 BP 115/60 07/12/23 12:35 BMI result Body Mass Index 36.4 Const General: cooperative, no acute distress, well developed and well groomed Nutritional Appearance: well nourished and obese Orientation/consciousness: oriented to person, oriented to place and oriented to time Limitations: No language barrier HEENT Head: Yes normocephalic and Yes atraumatic Eyes General: appearance normal, both eyes and all related structures Pupils: Equal, round and reactive pupils present Neck Neck: Yes normal visual inspection and Yes no lymphadenopathy Thyroid: Thyroid normal Resp Effort & Inspection: normal respiratory effort and able to speak in complete sentences Auscultation: clear to auscultation bilaterally Cardio Rate: regular rate Rhythm: regular rhythm Heart sounds: Normal, physiologic split S2 sound present Peripheral pulses: radial pulses present and posterior tibial pulses present GI Inspection: No distended, Yes Abdominal panniculus present and Yes obesity Palpation (GI): Soft to palpation, nontender, no guarding, not rigid and No hepatosplenomegaly present Percussion: Yes normal to percussion Auscultation: normal bowel sounds Rectal Exam - Female: deferred Skin General skin exam: no rashes or lesions noted, turgor normal, skin not dry, no jaundice, No spider nevi and no striae Rashes: no rashes Nails: normal Neuro General: oriented to person, oriented to place and oriented to time Cranial nerves: Yes Equal, round and reactive pupils present and Yes Normal hearing present Speech: No Abnormal speech present Extrem General: Yes normal to inspection, No clubbing, No cyanosis and No edema Psych Appearance: grossly normal and well kempt Mental Status: mental status grossly normal Speech and movement: Normal speech and movement present Affect: normal affect Attitude: cooperative Thought process: Normal thought process present and not confabulating Thought content: Normal thought content present Insight: Limited insight present (Psych) Judgement: Limited judgement present (Psych) Assessment & Plan Assessment & Plan (1) Tubular adenoma of colon: Comment: 2013 SCOPE TA , 2020 scope insufficient prep repeat in 1 year, will need 2 day prep Code(s): D12.6 - Benign neoplasm of colon, unspecified Category: Medical (2) GERD (gastroesophageal reflux disease): Code(s): K21.9 - Gastro-esophageal reflux disease without esophagitis Category: Medical (3) Abdominal bloating: Code(s): R14.0 - Abdominal distension (gaseous) Category: Medical (4) Irritable bowel syndrome with diarrhea: Code(s): K58.0 - Irritable bowel syndrome with diarrhea Category: Medical Plan The patient has been lost to follow-up since 2021 She thinks that she do a low residue diet a week before, use bisacodyl for 4 days prior, Miralax prep (she wanted Clenpic as this had a delayed effect but last time we gave her a sample and this is not available now.), and she admits she over ate magalis day before because of not being able to eat for the prep day. I think will will do is give her MiraLax prep to drink the night before but start her taking 2 bisacodyl twice a day 4 days prior to her colonoscopy while maintaining a low residue diet and encouraging her not to ovary prior to her procedure. She feels that she will be able to do this. So, I will send a request for reschedule. She takes omeprazole once a day with good control of her GERD. Return office visit in 6 months and after the colonoscopy Medications: New polyethylene glycol 3350 (Miralax) 238 grams PO ONCE 1 day 238 grams 0RF bisacodyl (Dulcolax (bisacodyl)) 10 mg (2 x 5 mg) PO BEDTIME 8 tabs 0RF 4 days polyethylene glycol 3350 (Miralax) 238 grams PO ONCE 238 grams 0RF 1 day Refilled ondansetron 8 mg PO BID 60 tabs 3RF N25.89 - Other disorders resulting from impaired renal tubular function, R11.2 - Nausea with vomiting, unspecified omeprazole 40 mg PO DAILY 90 caps 1RF ondansetron 8 mg PO BID 60 tabs 3RF N25.89 - Other disorders resulting from impaired renal tubular function, R11.2 - Nausea with vomiting, unspecified Discontinued bisacodyl (Dulcolax (bisacodyl)) take at noon the day before colonoscopy Discontinued Reason: Doctor's Order 20 mg (4 x 5 mg) PO ONCE 1 day 4 tabs 0RF bisacodyl (Dulcolax (bisacodyl)) Discontinued Reason: Doctor's Order 10 mg (2 x 5 mg) PO BEDTIME 3 days 6 tabs 0RF Coding Level of Care Code Est Pt Level 3 (36526) Diagnoses Tubular adenoma of colon D12.6 GERD (gastroesophageal reflux disease) K21.9 Abdominal bloating R14.0 Irritable bowel syndrome with diarrhea K58.0
[2023-07-12 12:35] VITALS: BP 115/60; PULSE 77; BMI 36.4
== END 2023-07-12 13:02 | disposition home or self-care (01) ==
PROVIDERS: PCP Registered Nurse; Visit Provider Nurse Practitioner
DX: D12.6 Benign neoplasm of colon, unspecified (principal); K21.9 Gastro-esophageal reflux disease without esophagitis; R14.0 Abdominal distension (gaseous); K58.0 Irritable bowel syndrome with diarrhea
CPT/HCPCS: 99213

== ENCOUNTER → 2023-07-12 12:30 | Outpatient (BNVA) | payer MEDICAID, SELFPAY | PROVIDERS: PCP Registered Nurse; Visit Provider Nurse Practitioner | DX: K21.9 Gastro-esophageal reflux disease without esophagitis (principal); K58.0 Irritable bowel syndrome with diarrhea; D12.6 Benign neoplasm of colon, unspecified; R14.0 Abdominal distension (gaseous) | CPT/HCPCS: 99212 ==

== ENCOUNTER 2023-12-26 15:58 | Outpatient (REF) | payer MEDICAID, SELFPAY ==
[2023-12-26 17:57] LABS: Hematocrit 39.6 % (37.0-47.0); Hemoglobin 13.6 g/dl (12.0-16.0); Mean Corpuscular HGB Conc 34.3 g/dl (31.0-35.0); Mean Corpuscular Hemoglobin 31.2 pg (27.0-33.0); Mean Corpuscular Volume 90.8 fL (80.0-98.0); Platelet Count 302 X10*3/uL (160-400); Red Blood Count 4.36 X10*6/uL (4.20-5.50); Red Cell Distribution Width 11.7 % (11.0-16.0); White Blood Count 9.2 X10*3/uL (4.8-10.8)
[2023-12-26 18:16] LABS: Alanine Aminotransferase 11 U/L (0-31); Albumin Level 4.8 g/dL (3.5-5.0); Alkaline Phosphatase 43 U/L (39-117); Anion Gap 15 (12-20); Aspartate Amino Transferase 25 U/L (5-31); Bilirubin Total 0.4 mg/dL (0.0-1.0); Blood Urea Nitrogen 21 mg/dL (9-16); Calcium 10.7 mg/dL (8.4-10.2); Carbon Dioxide 23 mmol/L (22-29); Chloride 107 mmol/L (96-108); Cholesterol 203 mg/dL (<200); Estimated Glomerular Filt Rate 49; Glucose Random 95 mg/dL (60-115); HDL Cholesterol 63 mg/dL (>40); LDL Cholesterol Calculated 123 mg/dL (<100); Potassium 4.4 mmol/L (3.3-5.1); Sodium 141 mmol/L (135-145); Total Protein 8.2 g/dL (6.5-8.0); Triglycerides 85 mg/dL (<150)
[2023-12-26 18:23] LABS: Creatinine Urine 213.46 mg/dL; Microalbum/Creatinine Ratio Ur 4.6 ug/mg cr (<30)
[2023-12-26 18:36] LABS: Free T4 (Free Thyroxine) 0.97 ng/dL (0.71-1.85); Thyroid Stimulating Hormone 4.53 uIU/mL (0.32-4.0); Vitamin D 25-OH Total 48.9 ng/mL (>30)
[2023-12-26 18:48] LABS: Vitamin B12 344 pg/mL (200-900)
[2023-12-27 05:23] LABS: Estimated Average Glucose 108 mg/dL; Hemoglobin A1C 121.9862 umol/L; Hemoglobin A1c % 5.4 % (<6.0); Total Hemoglobin (HGBA1C) 3439.0702 umol/L
[2023-12-27 09:57] LABS: Syphilis Screen Nonreactive (Nonreactive)
[2023-12-27 10:43] LABS: HBS Num1 43.33 mIU/mL (0-7.99); HBc Num1 2.69 S/CO (0.00-0.79); HBsAGNum1 0.36 S/CO (0.00-0.99); HIV AB/AG Nonreactive (Nonreactive); HIV Num 1 0.05 S/CO (0.00-0.99); Hepatitis B Surface Antigen Negative (Negative); ~HepC Num1 14.26 S/CO (0.00-0.79); ~Hepatitis B Surface Antibody REACTIVE (Nonreactive); ~Hepatitis C Antibody Reactive (Nonreactive)
[2023-12-27 11:43] LABS: HBc Num2 2.72 S/CO; HBc Num3 2.72 S/CO; Hepatitis B Core Antibody Reactive (Nonreactive)
[2023-12-27 12:16] LABS: CT PCR NOT DETECTED (Not Detect.); NG PCR NOT DETECTED (Not Detect.)
[2023-12-29 14:29] LABS: HCV Log PCR <1.18 NOT DETECTED Log IU/mL (NOT DETECTED); HepC Viral Load <15 NOT DETECTED IU/mL (NOT DETECTED)
== END 2023-12-26 15:59 | disposition home or self-care (01) ==
LOC: HO.HHCL 15:58
PROVIDERS: Visit Provider Student in an Organized Health Care Education/Training Program
DX: Z00.00 Encounter for general adult medical examination without abnormal findings (principal)
CPT/HCPCS: 36415; 80053; 80061; 82043; 82306; 82570; 82607; 82746; 83036; 84439; 84443; 85027; 86704; 86706; 86780; 86803; 87340; 87389; 87491; 87522; 87591

== ENCOUNTER 2024-02-23 16:21 | Outpatient (AMB) | payer MEDICAID, SELFPAY ==
[2024-02-23 16:26] VITALS: BMI 38.6
--- NOTE | 2024-02-23 16:26 | MHC.OFFVIS ---
Vital Signs 02/23/24 16:26 Height 5 ft 6 in Weight 238 lb 15.697 oz BMI 38.6 Intake Visit Reasons: 6 months follow up Intake Note: Patient in office today in 6 months follow up of GERD. CC: Patient reports doing well and denies having any new GI symptoms. She states that she would like to discuss a medication prescribed to her to help her lose weight. Fisher [place] Net Required: No Accompanied by: Self / Same As Patient Allergies gluten [GLUTEN] Allergy (Severe, Verified 07/12/23 12:42) VOMITING, DIARRHEA lactose [LACTOSE] Allergy (Severe, Verified 07/12/23 12:42) VOMITING, DIARRHEA adhesive tape [Adhesive Tape] Allergy (Unknown, Verified 07/12/23 12:42) RASH cedarwood [Cedarwood] Allergy (Unknown, Verified 07/12/23 12:42) THROAT CLOSES, SWELLING, RASH No Known Drug Allergies Allergy (Unknown, Verified 02/23/24 16:29) none HPI HPI 6 months follow up: Details: Assessment & Plan (1) Tubular adenoma of colon: Comment: 2013 SCOPE TA , 2020 scope insufficient prep repeat in 1 year, will need 2 day prep Code(s): D12.6 - Benign neoplasm of colon, unspecified Category: Medical (2) GERD (gastroesophageal reflux disease): Code(s): K21.9 - Gastro-esophageal reflux disease without esophagitis Category: Medical (3) Abdominal bloating: Code(s): R14.0 - Abdominal distension (gaseous) Category: Medical (4) Irritable bowel syndrome with diarrhea: Code(s): K58.0 - Irritable bowel syndrome with diarrhea Category: Medical Plan The patient has been lost to follow-up since 2021 She thinks that she do a low residue diet a week before, use bisacodyl for 4 days prior, Miralax prep (she wanted Clenpic as this had a delayed effect but last time we gave her a sample and this is not available now.), and she admits she over ate magalis day before because of not being able to eat for the prep day. I think will will do is give her MiraLax prep to drink the night before but start her taking 2 bisacodyl twice a day 4 days prior to her colonoscopy while maintaining a low residue diet and encouraging her not to ovary prior to her procedure. She feels that she will be able to do this. So, I will send a request for reschedule. She takes omeprazole once a day with good control of her GERD. Return office visit in 6 months and after the colonoscopy Medications: New polyethylene glycol 3350 (Miralax) 238 grams PO ONCE 1 day 238 grams 0RF bisacodyl (Dulcolax (bisacodyl)) 10 mg (2 x 5 mg) PO BEDTIME 8 tabs 0RF 4 days polyethylene glycol 3350 (Miralax) 238 grams PO ONCE 238 grams 0RF 1 day Refilled ondansetron 8 mg PO BID 60 tabs 3RF N25.89 - Other disorders resulting from impaired renal tubular function, R11.2 - Nausea with vomiting, unspecified omeprazole 40 mg PO DAILY 90 caps 1RF ondansetron 8 mg PO BID 60 tabs 3RF N25.89 - Other disorders resulting from impaired renal tubular function, R11.2 - Nausea with vomiting, unspecified Discontinued bisacodyl (Dulcolax (bisacodyl)) take at noon the day before colonoscopy Discontinued Reason: Doctor's Order 20 mg (4 x 5 mg) PO ONCE 1 day 4 tabs 0RF bisacodyl (Dulcolax (bisacodyl)) Discontinued Reason: Doctor's Order 10 mg (2 x 5 mg) PO BEDTIME 3 days 6 tabs 0RF TODAY'S VISIT She continues on her omeprazole 40 mg once a day with good control of her GERD. Also continues to use Zofran intermittently. Her EGD was rescheduled for New Years Bernarda. SHe asks me about going on Wegovy, she is having increased difficulty breathing and wt loss is advised r/t restrictive lung disease. With her baseline nausea, she migh not do well on it - but she will not really know until she tries it. ROV after 03/05 EGD ON LICENSE OF [facility] Medical History (Updated 02/23/24 @ 16:38 by CROW Duff) Nausea and vomiting Pre-op examination Renal tubular acidosis Chronic kidney disease Asthma COVID-19 vaccine series completed History of intravenous drug use in remission Hiatal hernia Hx MRSA infection Hypoglycemia Frequent headaches OCD (obsessive compulsive disorder) PTSD (post-traumatic stress disorder) Depression Seizure disorder NO (obstructive sleep apnea) IBS (irritable bowel syndrome) GERD (gastroesophageal reflux disease) Surgical History Hx laparoscopic cholecystectomy History of lung surgery Hx of section History of esophagogastroduodenoscopy (EGD) Hx of colonoscopy (~2013) Family History Father Melanoma Mother Overdose Maternal Grandfather Cancer Melanoma Brother FH: testicular cancer Brother Brain aneurysm Brother HIV (human immunodeficiency virus infection) Social History Household Members: Spouse Housing: Apartment Are you a primary out of school hours care worker to a significant other at home: No Do you presently have visiting nurse or other home services: Yes Alcohol intake: current Alcohol intake frequency: does not drink Patient Tobacco Use Status: Former Tobacco user Tobacco use type: Cigarette Cigarette Packs Per Day: 0.25 Cigarettes Per Day: 5.0 Years Smoked: 20+, quit 2017 Review of Systems Const Denies fatigue, Denies fever(s), Denies night sweats, Denies poor appetite, Reports weight gain and Denies weight loss ENT Reports Normal hearing present, Denies dental pain, Denies dysphagia, Denies hearing loss, Denies mouth pain, Denies odynophagia, Denies throat swelling, Denies tongue swelling and Reports other (Dentition adequate) Card Reports no additional complaints and Reports dyspnea on exertion Resp Reports dyspnea on exertion GI Details: Denies abdominal pain, Denies melena, Denies bloating, Denies hematochezia, Denies constipation, Denies GI cramping, Denies dysphagia, Denies excessive flatus, Denies early satiety, Reports heartburn, Denies diarrhea, Reports nausea, Denies odynophagia, Denies vomiting and Denies hematemesis Skin/Breast Denies pruritus, Denies lesions, Denies rash and Denies jaundice Neuro Reports Normal hearing present and Denies Abnormal speech present Endo Denies fatigue Aller/Immun Denies throat swelling and Denies tongue swelling Physical Exam Vital Signs: BMI result Body Mass Index 38.6 Const General: cooperative, no acute distress, well developed and well groomed Nutritional Appearance: well nourished and obese Orientation/consciousness: oriented to person, oriented to place and oriented to time Limitations: No language barrier HEENT Head: Yes normocephalic and Yes atraumatic Eyes General: appearance normal, both eyes and all related structures Pupils: Equal, round and reactive pupils present Neck Neck: Yes normal visual inspection and Yes no lymphadenopathy Thyroid: Thyroid normal Resp Effort & Inspection: normal respiratory effort and able to speak in complete sentences Auscultation: clear to auscultation bilaterally Cardio Rate: regular rate Rhythm: regular rhythm Heart sounds: Normal, physiologic split S2 sound present Peripheral pulses: radial pulses present and posterior tibial pulses present GI Inspection: No distended, Yes Abdominal panniculus present and Yes obesity Palpation (GI): Soft to palpation, nontender, no guarding, not rigid and No hepatosplenomegaly present Percussion: Yes normal to percussion Auscultation: normal bowel sounds Rectal Exam - Female: deferred Skin General skin exam: no rashes or lesions noted, turgor normal, skin not dry, no jaundice, No spider nevi and no striae Rashes: no rashes Nails: normal Neuro General: oriented to person, oriented to place and oriented to time Cranial nerves: Yes Equal, round and reactive pupils present and Yes Normal hearing present Speech: No Abnormal speech present Extrem General: Yes normal to inspection, No clubbing, No cyanosis and No edema Psych Appearance: grossly normal and well kempt Mental Status: mental status grossly normal Speech and movement: Normal speech and movement present Affect: normal affect Attitude: cooperative Thought process: Normal thought process present and not confabulating Thought content: Normal thought content present Insight: Limited insight present (Psych) Judgement: Limited judgement present (Psych) Assessment & Plan Assessment & Plan (1) Irritable bowel syndrome with diarrhea: Code(s): K58.0 - Irritable bowel syndrome with diarrhea Category: Medical (2) Abdominal bloating: Code(s): R14.0 - Abdominal distension (gaseous) Category: Medical (3) GERD (gastroesophageal reflux disease): Code(s): K21.9 - Gastro-esophageal reflux disease without esophagitis Category: Medical (4) Lactose intolerance: Code(s): E73.9 - Lactose intolerance, unspecified Category: Medical Plan She continues on her omeprazole 40 mg once a day with good control of her GERD. Also continues to use Zofran intermittently. Her EGD was rescheduled for New Years Bernarda. SHe asks me about going on Wegovy, she is having increased difficulty breathing and wt loss is advised r/t restrictive lung disease. With her baseline nausea, she migh not do well on it - but she will not really know until she tries it. ROV after 03/05 EGD Coding Level of Care Code Est Pt Level 3 (06861) Diagnoses Irritable bowel syndrome with diarrhea K58.0 Abdominal bloating R14.0 GERD (gastroesophageal reflux disease) K21.9 Lactose intolerance E73.9
== END 2024-02-23 16:48 | disposition home or self-care (01) ==
PROVIDERS: PCP Student in an Organized Health Care Education/Training Program; Visit Provider Nurse Practitioner
DX: K58.0 Irritable bowel syndrome with diarrhea (principal); R14.0 Abdominal distension (gaseous); K21.9 Gastro-esophageal reflux disease without esophagitis; E73.9 Lactose intolerance, unspecified
CPT/HCPCS: 99213

== ENCOUNTER → 2024-02-23 16:21 | Outpatient (BNVA) | payer MEDICAID, SELFPAY | PROVIDERS: PCP Student in an Organized Health Care Education/Training Program; Visit Provider Nurse Practitioner | DX: K21.9 Gastro-esophageal reflux disease without esophagitis (principal); K58.0 Irritable bowel syndrome with diarrhea; R14.0 Abdominal distension (gaseous); E73.9 Lactose intolerance, unspecified; Z79.899 Other long term (current) drug therapy | CPT/HCPCS: 99212 ==

== ENCOUNTER 2024-05-02 13:23 | Outpatient (REF) | payer MEDICAID, SELFPAY ==
--- OUTSIDE RECORDS SUMMARY | 2024-05-02 16:00 | XMS_ITS | Encounter Summary ---
Author Organization [employer] Address [address] [facility] 7 [place] [address] Care Team Providers Care Sand Conditioner Machine Name Role Phone Nilda Dunn Primary Care Provider [phone] Ibeth Colby MD Primary Care Pro vider Encounter Details Date Type Department Care Team (Late st Contact Info) Description 03/09/2022 Orders Only [facility] MED & PEDS [address] [place], [place] [phone] Ange Leal LPN Social History Tobacco Use Types Packs/Day Years Used Date Smoking Tobacco: Never Assessed Comments Unknown Sex and Gender Information Value Date Recorded Sex Assigned at Female 01/03/2022 10:16 AM EDT Legal Sex Female 10:16 AM EDT Gender Identity Female 01/03/2022 10:16 AM EDT Sexual Orientation Straight 05/31/2022 2: 09 PM EDT documented as of this encounter Plan of Treatment Upcoming Encounters Date Type Department Care Team (Late st Contact Info) Description 06/14/2024 1:00 PM EDT Office Visit [facility] MEDIC[facility] [address] [place], [place] [phone] Ibeth Colby MD [address] [place], [place] [phone] documented as of this encounter Visit Diagnoses Not on filedocumented in this encounter Care Teams Sand Conditioner Machine Relationship Specialty Start Date End Date Nilda Dunn FNP PCP - General Family Medicine 11/03/21 12/12/22 Ibeth Colby MD [address] [place] [phone] PCP - General Internal Medicine 12/13/22 Suzanne Meyers Manhole BuilderNotary Public 03/15/23 documented as of this encounter
--- OUTSIDE RECORDS SUMMARY | 2024-05-02 16:00 | XMS_ITS | Encounter Summary ---
Author Organization [employer] Address [address] [facility] [address] [place] [address] Care Team Providers Care Production Line Technician Name Role Phone Ibeth Colby MD Primary Care Pro vider Reason for Visit * Reason Comments Med Refill Encounter Details Date Type Department Care Team (Late st Contact Info) Description 09/24/2023 Refill [facility] MEDICINE [address] [place] [address] Edmond Fuller FNP Social History Tobacco Use Types Packs/Day Years Used Date Smoking Tobacco: Former Cigarettes 2 38 1 978 - 2016 Smokeless Tobacco: Never Alcohol Use Standard Drinks/Week Comments Not Currently 0 (1 standard drink = 0.6 oz pur e alcohol) Depression Answer Date Recorded Patient Health Questionnaire-9 Score 0 07/13/2023 Patient Health Questionnaire-9 Score 0 07/13/2023 Last PHQ-9: Questionnaire Data Not on file 0 07/13/2023 Housing Stability Answer Date Recorded What is your housing situation today? I have araceli casey 12/19/[address] you li ve. Do you have problems with any of the following? None of the above 12/19/2022 Food Insecurity Answer Date Recorded Within the past 12 months, y ou worried that your food would run out before you got money to buy more: Never True 12/19/2022 Within the past 12 months,th e food you bought just didn't last and you didn't have enough money to get more: Never True Transportation Answer Date Recorded In the past 12 months, has l ack of transportation kept you from medical appts, meetings, work or from getting things needed for daily living? No 12/19/2022 Utilities Answer Date Recorded In the past 12 months, has t he electric, gas, oil or water company threatened to shut off services in your home? No 12/19/2022 Depression Answer Date Recorded Patient Health Questionnaire-2 Score 0 07/13/2023 Comments Unknown Sex and Gender Information Value [...] Description 06/14/2024 1:00 PM EDT Office Visit [facility] MED[facility]INE [address] [place] [phone] Ibeth Colby MD [address] [place] [phone] documented as of this encounter Visit Diagnoses Not on filedocumented in this encounter Additional Health Concerns Assessment Noted Time PHQ-9 Depression Total Score: 0 07/13/19 24 2:53 PM EDT documented as of this encounter Care Teams Production Line Technician Relationship Specialty Start Date End Date Ibeth Colby MD [address] [place] [phone] PCP - General Internal Medicine 12/13/22 Suzanne Meyers Chief Investment OfficerAccount Services Associate 03/15/23 documented as of this encounter
--- OUTSIDE RECORDS SUMMARY | 2024-05-02 16:00 | XMS_ITS | Encounter Summary ---
Author Organization [employer] Address [address] [facility] [facility] [address] [facility] [address] 7[address] [place] [address] Care Team Providers Care Public Opinion Survey Taker Name Role Phone Ibeth Colby MD Primary Care Pro vider Reason for Visit * Reason Comments Med Refill Encounter Details Date Type Department Care Team ([facility] st Contact Info) Description 04/17/[address] [facility] MED & PEDS [address] [place] [address] Ree Jenkins MD [address] [place], [place] [phone] Social History Tobacco Use Types Packs/Day Years Used Date Smoking Tobacco: Former Cigarettes 2 38 1 978 - 2016 Smokeless Tobacco: Never Comments:Started smoking 13 y of age and stopped at 38 y of age,smoked for 25 years so stopped for 14 years -used to smoke 30 cig a day .PQT a year 37.5 Alcohol Use Standard Drinks/Week Comments Not Currently 0 (1 standard drink = 0.6 oz pure alcohol) alcohol heavy drinking stopped 16 y ago Depression Answer Date Recorded Patient Health Questionnaire-9 Score 6 12/27/2023 Patient Health Questionnaire-9 Score 6 12/27/2023 Last PHQ-9: Questionnaire Data Not on file 1 Housing Stability Answer Date Recorded What is your housing situation today? I have araceli casey 10/18/[address] you li ve. Do you have problems with any of the following? None of the above 10/18/2023 Food Insecurity Answer Date Recorded Within the past 12 months, y ou worried that your food would run out before you got money to buy more: Never True 10/18/2023 Within the past 12 months,th e food you bought just didn't last and you didn't have enough money to get more: Never True Transportation Answer Date Recorded In the past 12 months, has l ack of transportation kept you from medical appts, meetings, work or from getting things needed for daily living? No 10/18/2023 Utilities Answer Date Recorded In the past 12 months, has t he electric, gas, oil or water company threatened to shut off services in your home? No 10/18/2023 Depression Answer Date Recorded Patient Health Questionnaire-2 Score 2 12/27/2023 Internet Access Answer Date Recorded Internet Access Q1 Yes 11/06/2023 Internet Access Q2 Not on file 11/06/2023 Comments Unknown Sex and Gender Information Value [...] Description 06/14/2024 1:00 PM EDT Office Visit [facility] [address] [place] [phone] Ibeth Colby MD [address] [place] [phone] documented as of this encounter Visit Diagnoses Not on filedocumented in this encounter Additional Health Concerns Assessment Noted Time PHQ-9 Depression Total Score: 6 12/27/19 24 9:10 AM EDT documented as of this encounter Care Teams Public Opinion Survey Taker Relationship Specialty Start Date End Date Ibeth Colby MD [address] [place] [id number] PCP - General Internal Medicine 12/13/22 Suaznne Meyers Byproducts Pump OperatorKiln Burner Helper 03/15/23 documented as of this encounter
--- OUTSIDE RECORDS SUMMARY | 2024-05-02 16:00 | XMS_ITS | Encounter Summary ---
Author Organization [employer] Address [address] [facility] 7t [place] [address] Care Team Providers Care Prosecuting Attorney Name Role Phone Ibeth Colby MD Primary Care Pro vider Reason for Visit * Reason Comments Med Refill Encounter Details Date Type Department Care Team (Late st Contact Info) Description 12/30/2022 Refill [facility] MEDICINE [address] [place] [address] Nilda Dunn, EDILBERTO [address] [facility] Dept [place] [address] Social History Tobacco Use Types Packs/Day Years Used Date Smoking Tobacco: Former Cigarettes 2 38 1 978 - 2016 Smokeless Tobacco: Never Alcohol Use Standard Drinks/Week Comments Not Currently 0 (1 standard drink = 0.6 oz pur e alcohol) Depression Answer Date Recorded Patient Health Questionnaire-9 Score 0 06/21/2022 Housing Stability Answer Date Recorded What is [...] Date Recorded Patient Health Questionnaire-2 Score 0 06/21/2022 Comments Unknown Sex and Gender Information Value [...] Description 06/14/2024 1:00 PM EDT Office Visit [facility] [address] [place] [phone] Ibeth Colby MD [address] [place] [phone] documented as of this encounter Visit Diagnoses Not on filedocumented in this encounter Additional Health Concerns Assessment Noted Time PHQ-9 Depression Total Score: 0 06/22/19 23 3:26 PM EDT documented as of this encounter Care Teams Prosecuting Attorney Relationship Specialty Start Date End Date Ibeth Colby MD [address] [place] [address] [phone] PCP - General Internal Medicine 12/13/22 Suzanne Meyers Distribution District SupervisorAssembler Unit 03/15/23 documented as of this encounter
--- OUTSIDE RECORDS SUMMARY | 2024-05-02 16:00 | XMS_ITS | Encounter Summary ---
Author Organization [employer] Address [address] [facility] 7t [place] [address] Care Team Providers Care Radiographer Technologist Name Role Phone Nilda Dunn Conchita CASANOVA Primary Care Provider [phone]- [phone] Ibeth Colby MD Primary Care Pro vider Reason for Visit * Reason Comments Med Refill Encounter Details Date Type Department Care Team (Late Contact Info) Description 11/03/2022 Refill [facility] MED & PEDS [address] [place], [place] [phone] Edmond Fuller FNP Mood disorder (CMS/HCC) Social History Tobacco Use Types Packs/Day Years Used Date Smoking Tobacco: Former Cigarettes 2 38 1 978 - 2016 Smokeless Tobacco: Never Alcohol Use Standard Drinks/Week Comments Not Currently 0 (1 standard drink = 0.6 oz pur e alcohol) Depression Answer Date Recorded Patient Health Questionnaire-9 Score 0 06/21/2022 Depression Answer Date Recorded Patient Health Questionnaire-2 Score 0 06/21/2022 Comments Unknown Sex and Gender Information Value Date Recorded Sex Assigned at Female 01/03/2022 10:16 AM EDT Legal Sex Female 10:16 AM EDT Gender Identity Female 01/03/2022 10:16 AM EDT Sexual Orientation Straight 05/31/2022 2: 09 PM EDT documented as of this encounter Plan of Treatment Upcoming Encounters Date Type Department Care Team ([facility] Contact Info) Description 06/14/2024 1:00 PM EDT Office Visit [facility] MEDICINE [address] [place], [place] [phone] Ibeth Colby MD [address] [place], [place] [phone] documented as of this encounter Visit Diagnoses Diagnosis Mood disorder (CMS/HCC) Unspecified episodic mood disorder documented in this encounter Additional Health Concerns Assessment Noted Time PHQ-9 Depression Total Score: 0 06/22/19 23 3:26 PM EDT documented as of this encounter Care Teams Radiographer Technologist Relationship Specialty Start Date End Date Nilda Dunn FNP PCP - General Family Medicine 11/03/21 12/12/22 Ibeth Colby MD [address] [place], [place] [phone] PCP - General Internal Medicine 12/13/22 Suzanne Meyers Wood Science ProfessorLathe Winder 03/15/23 documented as of this encounter
--- OUTSIDE RECORDS SUMMARY | 2024-05-02 16:00 | XMS_ITS | Clinical Summary ---
Author Organization [facility] Address [phone] [place] [address] Care Team Providers Care Java Developer With Security Clearance Name Role Phone Unavailable Primary Care Provider Unavailabl e Social History Tobacco Use Types Packs/Day Years Used Date Smoking Tobacco: Never Assessed Sex and Gender Information Value Date Recorded Sex Assigned at Not on file Gender Identity Not on file Sexual Orientation Not on file Plan of Treatment Not on file Medical Devices Not on file Additional Source Comments The information contained in this document represents components of the legal health record. It is not the complete legal health record.[facility]
--- OUTSIDE RECORDS SUMMARY | 2024-05-02 16:00 | XMS_ITS | Encounter Summary ---
Author Organization [employer] Address [address] [facility] [address] [place] [address] Care Team Providers Care Cigar Making Machine Supervisor Name Role Phone Nilda Dunn Conchita CASANOVA Primary Care Provider [phone]- [phone] Ibeth Colby MD Primary Care Pro vider Reason for Visit * Reason Comments Med Refill Encounter Details Date Type Department Care Team (Late st Contact Info) Description 08/16/2022 Refill [facility] CH[facility] MED & PEDS [address] [place], [place] [phone] Edmond Fuller FNP Social History Tobacco Use [...] Orientation Straight 05/31/2022 2: 09 PM EDT COVID-19 Exposure Response Date Recorded In the last 10 days, have yo u been in contact with someone who was confirmed or suspected to have Coronavirus/COVID-19? No / Unsure 08/05/2022 2:20 PM EDT documented as of this encounter Plan of Treatment Upcoming Encounters Date Type Department Care Team (Late st Contact Info) Description 06/14/2024 1:00 PM EDT Office Visit [facility] MEDICINE [address] [place], [place] [phone] Ibeth Colby MD [address] [place], [place] [phone] documented as of this encounter Visit Diagnoses Not on filedocumented in this encounter Additional Health Concerns Assessment Noted Time PHQ-9 Depression Total Score: 0 06/22/19 3:26 PM EDT documented as of this encounter Care Teams Cigar Making Machine Supervisor Relationship Specialty Start Date End Date Nilda Dunn FNP PCP - General Family Medicine 11/03/21 12/12/22 Ibeth Colby MD [address] [place] [address] [phone] PCP - General Internal Medicine 12/13/22 Suzanne Meyers Basketball PlayerWire Fence Erector 03/15/23 documented as of this encounter
--- OUTSIDE RECORDS SUMMARY | 2024-05-02 16:00 | XMS_ITS | Encounter Summary ---
Author Organization [facility] Address [address] [place] [address] Care Team Providers Care Materials Management Manager Name Role Phone Unavailable Primary Care Provider Unavailabl e Reason for Visit * Reason Comments Follow Up Encounter Details Date Type Department Care Team (Latest Contact Info) Description 04/18/2024 3:00 PM EST Behavioral Health Visit [facility] [address] [place] [phone] Vida Hernandez APRN [address] [place] [address] Posttraumatic stress disorder (Primary Dx); Episodic mood disorder (HCC-CMS); Mixed obsessional thoughts and acts Social History Tobacco Use Types Packs/Day Years Used Date Smoking Tobacco: Former Cigarettes 1983 Smokeless Tobacco: Never Alcohol Use Standard Drinks/Week Comments Never 0 (1 standard drink = 0.6 oz pur e alcohol) Social Connections Answer Date Recorded Connectedness 0 01/01/2024 Financial Resource Strain Answer Date R ecorded Financial Resource Strain 0 2023 Stress Answer Date Recorded Stress 0 01/01/2024 Physical Activity Answer Date Recorded Physical Activity 0 01/01/2024 Food Insecurity Answer Date Recorded Food 0 01/01/2024 Transportation Needs Answer Date Record ed Transportation 0 01/01/2024 Housing Stability Answer Date Recorded Housing 0 01/01/2024 Safety and Environment Answer Date Terrance rded Safety 0 01/01/2024 Utilities Answer Date Recorded Utilities 0 01/01/2024 Employment Answer Date Recorded Stress 0 01/01/2024 Comments Unknown Sex and Gender Information Value Date Recorded Sex Assigned at Female 01/01/2024 7:08 AM PDT Legal Sex Female 7:08 AM PDT Gender Identity Female 01/01/2024 7:08 AM PDT Sexual Orientation Not on file documented as of this encounter Progress Notes * Vida Hernandez APRN - 04/18/2024 3:22 PM ESTAssociated Problem(s): Obsessive- compulsive disorder A: Symptoms under control with current regiment P: No changes made, No refill needed * Vida Hernandez APRN - 04/18/2024 3:22 PM ESTAssociated Problem(s): Episodic mood disorder (HCC-CMS) Assessment: Symptoms under reasonable control Plan: Continue all current meds, no refills needed * Vida Hernandez APRN - 04/18/2024 3:21 PM ESTAssociated Problem(s): Posttraumatic stress disorder A: symptoms under reasonable control P: Continue all current meds, no refill needed except for Prazosin. * Vida Hernandez APRN - 04/18/2024 3:09 PM EST [facility] OFFICE VISIT Name: Sera Teran : 1970 PCP: No primary care provider on file. ASSESSMENT AND PLAN Problem List Items Addressed This Visit BH/MH Problems Obsessive-compulsive disorder A: Symptoms under control with current regiment P: No changes made, No refill needed Posttraumatic stress disorder - Primary A: symptoms under reasonable control P: Continue all current meds, no refill needed except for Prazosin. Episodic mood disorder (HCC-CMS) Assessment: Symptoms under reasonable control Plan: Continue all current meds, no refills needed Follow-up: Return in about 4 weeks (around 05/16/2024). Vida Hernandez APRN 04/18/2024 3:09 PM EST REASON FOR VISIT Chief Complaint Patient presents with Follow Up HPI/ROS Patient seen for medication follow-up, patient reports that she is feeling much better, reports that she will be starting Therapy in May, patient denies depressive symptoms, reports that medicationis helpful, symptoms under control except going out, plans to start working on exposure techniques,reports that it was helpful when she was doing it in the past. Sleep and appetite is ok althoughshe has a reverse circadian rhythm. Patient has MRI in May for MARKS, will be seeing a Neurologist, has sleep study on May 06 to get her c-pap back. Patient denies SI/HI/plan, denies AVH. PHQ No data to display Review of Systems Constitutional: Negative. HENT: Negative. Eyes: Negative. Respiratory: Negative. Cardiovascular: Negative. Gastrointestinal: Positive for diarrhea and heartburn. Endocrine: Negative. Genitourinary: Positive for decreased urine volume. Musculoskeletal: Negative. Skin: Negative. Allergic/Immunologic: Positive for environmental allergies and food allergies. Neurological: Positive for seizures and headaches. Hematological: Negative. Psychiatric/Behavioral: Positive for sleep disturbance. VITALS: There were no vitals filed for this visit. Physical Exam Neurological: Mental Status: She is alert and oriented to person, place, and time. Psychiatric: Attention and Perception: Attention and perception normal. Mood and Affect: Mood and affect normal. Speech: Speech normal. Behavior: Behavior normal. Behavior is cooperative. Thought Content: Thought content normal. Cognition and Memory: Cognition and memory normal. Judgment: Judgment normal. Visit conducted via Telehealth with video.. Telehealth Provided Other than in Patient's Home. TELEMEDICINE ATTESTATION I verified the patient by the patients name, date of and insurance ID. I disclosed my identity and credentials. I reviewed, as appropriate, relevant history and medical records with the patient. I determined that I could provide the same standard of care and if I determined I could not do that during the telemedicine visit, I directed the patient to seek in person care. I discussed confidentiality rights with the patient. I disclosed my location and discussed the patient location. I discussed how the patient can see a clinician in-person in the event of an emergency or as otherwise needed. . Vida Hernandez APRN 04/18/2024 documented in this encounter Plan of Treatment Upcoming Encounters Date Type Department Care Team ([facility] st Contact Info) Description 05/16/2024 2:30 PM EDT Behavioral Health Visit [facility] [address] [place] [phone] Vida Hernandez APRN [address] [facility] [place] [address] documented as of this encounter Visit Diagnoses Diagnosis Posttraumatic stress disorder- Primary Episodic mood disorder (HCC-CMS) Unspecified episodic mood disorder Mixed obsessional thoughts and acts documented in this encounter
--- OUTSIDE RECORDS SUMMARY | 2024-05-02 16:00 | XMS_ITS | Encounter Summary ---
Author Organization [facility] Address [phone] [place] [address] Care Team Providers Care Financial Sales Assistant Name Role Phone Unavailable Primary Care Provider Unavailabl e Encounter Details Date Type Department Care Team (Latest Contact Info) Description 07/20/2022 Transcribe Orders Virtual Department [address] [place] [address] Nilda Dunn NP Breast screening (Primary Dx) Social History Tobacco Use Types Packs/Day Years Used Date Smoking Tobacco: Never Assessed Sex and Gender Information Value Date Recorded Sex Assigned at Not on file Gender Identity Not on file Sexual Orientation Not on file documented as of this encounter Plan of Treatment Scheduled Orders Name Type Priority Associated Diagnoses Orde r Schedule Mammogram Screening (Bilateral) Imaging Routine Breast screening Expected: 07/20/2022, Expires: 01/20/2025 documented as of this encounter Visit Diagnoses Diagnosis Breast screening- Primary Breast screening, unspecified documented in this encounter Additional Source Comments The information contained in this document represents components of the legal health record. It is not the complete legal health record.[facility]
--- OUTSIDE RECORDS SUMMARY | 2024-05-02 16:00 | XMS_ITS | Encounter Summary ---
Author Organization [employer] Address [address] [facility] [address] [place] [address] Care Team Providers Care Prepared Foods Service Team Member Name Role Phone Ibeth Colby MD Primary Care Pro vider Reason for Visit * Reason Comments Med Refill Encounter Details Date Type Department Care Team (Late st Contact Info) Description 10/24/2023 Refill [facility] [address] [place] [address] Edmond Fuller FNP Social History Tobacco Use [...] Description 06/14/2024 1:00 PM EDT Office Visit [facility] [address] [place] [address] Ibeth Colby MD [address] [place] [phone] documented as of this encounter Visit Diagnoses Not on filedocumented in this encounter Additional Health Concerns Assessment Noted Time PHQ-9 Depression Total Score: 0 07/13/19 24 2:53 PM EDT documented as of this encounter Care Teams Prepared Foods Service Team Member Relationship Specialty Start Date End Date Ibeth Colby MD [address] [place] [address] PCP - General Internal Medicine 12/13/22 Suzanne Meyers Imaging Science ProfessorChange Over 03/15/23 documented as of this encounter
--- OUTSIDE RECORDS SUMMARY | 2024-05-02 16:00 | XMS_ITS | Encounter Summary ---
Author Organization [employer] Address [address] 7[address] [place] [address] Care Team Providers Care Flaring Machine Operator Name Role Phone Ibeth Colby MD Primary Care Pro vider Reason for Visit * Reason Comments Med Refill Encounter Details Date Type Department Care Team ([facility] st Contact Info) Description 02/02/2023 Refill [facility] [address] [place] [address] Edmond Fuller FNP Mood disorder (CMS/HCC) Social History Tobacco Use Types Packs/Day Years Used Date Smoking Tobacco: Former Cigarettes 2 38 1 978 - 2016 Smokeless Tobacco: Never Alcohol Use Standard Drinks/Week Comments Not Currently 0 (1 standard drink = 0.6 oz pur e alcohol) Depression Answer Date Recorded Patient Health Questionnaire-9 Score 0 01/12/2023 Patient Health Questionnaire-9 Score 0 01/12/2023 Last PHQ-9: Questionnaire Data Not on file 1 03/14/2022 Housing Stability Answer Date Recorded What is [...] Date Recorded Patient Health Questionnaire-2 Score 0 01/12/2023 Comments Unknown Sex and Gender Information Value [...] Description 06/14/2024 1:00 PM EDT Office Visit [facility] [address] [place] [address] Ibeth Colby MD [address] [place] [address] documented as of this encounter Visit Diagnoses Diagnosis Mood disorder (CMS/HCC) Unspecified episodic mood disorder documented in this encounter Additional Health Concerns Assessment Noted Time PHQ-9 Depression Total Score: 0 01/13/20 23 2:53 PM EST documented as of this encounter Care Teams Flaring Machine Operator Relationship Specialty Start Date End Date Ibeth Colby MD [address] [place] [phone] PCP - General Internal Medicine 12/13/22 Suzanne Meyers Biofuels Engineering ManagerHeating Equipment Repairer 03/15/23 documented as of this encounter
--- OUTSIDE RECORDS SUMMARY | 2024-05-02 16:00 | XMS_ITS | Encounter Summary ---
Author Organization [employer] Address [address] [facility] 7 [place] [address] Care Team Providers Care All Around Gear Machine Operator Name Role Phone Nilda Dunn EDILBERTO Primary Care Provider [phone]- [phone] Ibeth Colby MD Primary Care Pro vider Reason for Visit * Reason Comments Med Refill Encounter Details Date Type Department Care Team (Late st Contact Info) Description 04/11/2022 Refill [facility] [address] [place] [phone] Edmond Fuller FNP Social History Tobacco Use Types Packs/Day Years Used Date Smoking Tobacco: Never Assessed PHQ-2 Answer Date Recorded Patient Health Questionnaire-2 Score 0 03/22/2022 Comments Unknown Sex and Gender Information Value [...] Description 06/14/2024 1:00 PM EDT Office Visit [facility] [address] [place] [phone] Ibeth Cobly MD [address] [place], [place] [phone] documented as of this encounter Visit Diagnoses Not on filedocumented in this encounter Additional Health Concerns Assessment Noted Time PHQ-9 Depression Total Score: 0 03/22/19 23 1:19 PM EST documented as of this encounter Care Teams All Around Gear Machine Operator Relationship Specialty Start Date End Date Nilda Dunn FNP PCP - General Family Medicine 11/03/21 12/12/22 Ibeth Colby MD [address] [place] [address] PCP - General Internal Medicine 12/13/22 Suzanne Meyers Advertising AssistantPattern Wheel Maker 03/15/23 documented as of this encounter
--- OUTSIDE RECORDS SUMMARY | 2024-05-02 16:00 | XMS_ITS | Encounter Summary ---
Author Organization [employer] Address [address] [place] [address] 7 [place] [address] Care Team Providers Care Electric Power Line Examiner Name Role Phone Nilda Dunn COMMISSIONS ANALYST Primary Care Provider +1- [phone] Ibeth Colby MD Primary Care Pro vider Encounter Details Date Type Department Care Team (Late st Contact Info) Description 04/06/2022 Orders Only [facility] [address] [place] [phone] Ernestina Gutierrez LPN Social History Tobacco Use Types Packs/Day [...] Description 06/14/2024 1:00 PM EDT Office Visit [facility] [address] [place] [phone] Ibeth Colby MD [address] [place], [place] [phone] documented as of this encounter Visit Diagnoses Not on filedocumented in this encounter Additional Health Concerns Assessment Noted Time PHQ-9 Depression Total Score: 0 03/22/19 23 1:19 PM EST documented as of this encounter Care Teams Electric Power Line Examiner Relationship Specialty Start Date End Date Nilda Dunn FNP PCP - General Family Medicine 11/03/21 12/12/22 bIeth Colby MD [address] [place] [address] PCP - General Internal Medicine 12/13/22 Suzanne Meyers Sky DiverCore Java Software Engineer 03/15/23 documented as of this encounter
--- OUTSIDE RECORDS SUMMARY | 2024-05-02 16:00 | XMS_ITS | Encounter Summary ---
Author Organization [employer] Address [address] [facility] [address] [facility] [address] 7[address] [place] [address] Care Team Providers Care Medical Insurance Coder Name Role Phone Ibeth Colby MD Primary Care Pro vider Reason for Visit * Reason Comments Med Refill Encounter Details Date Type Department Care Team (Late st Contact Info) Description 03/10/2023 Refill [facility] [address] [place] [address] Edmond Fuller FNP Mood disorder (CMS/HCC) Social [...] 1:00 PM EDT Office Visit [facility] [address] [place] [phone] Ibeth Colby MD [address] [place] [address] documented as of this encounter Visit Diagnoses Diagnosis Mood disorder (CMS/HCC) Unspecified episodic mood disorder documented in this encounter Additional Health Concerns Assessment Noted Time PHQ-9 Depression Total Score: 0 01/13/20 23 2:53 PM EST documented as of this encounter Care Teams Medical Insurance Coder Relationship Specialty Start Date End Date Ibeth Colby MD [address] [place] [address] PCP - General Internal Medicine 12/13/22 Suzanne Meyers Pin Drafting Machine TenderClerical Investigator 03/15/23 documented as of this encounter
--- OUTSIDE RECORDS SUMMARY | 2024-05-02 16:00 | XMS_ITS | Encounter Summary ---
Author Organization [employer] Address [address] [facility] 7 [place] [address] Care Team Providers Care Convenience Store Clerk Name Role Phone Nilda Dunn SEEDLING SORTER Primary Care Provider +1- [phone] Ibeth Colby MD Primary Care Pro vider Encounter Details Date Type Department Care Team (Late st Contact Info) Description 05/10/2022 Orders Only [facility] [address] [place], [place] [phone] Ange Leal LPN Social History Tobacco Use [...] Description 06/14/2024 1:00 PM EDT Office Visit [facility] [address] [place], [place] [phone] Ibeth Colby MD [address] [place], [place] [phone] documented as of this encounter Visit Diagnoses Not on filedocumented in this encounter Additional Health Concerns Assessment Noted Time PHQ-9 Depression Total Score: 0 03/22/19 23 1:19 PM EST documented as of this encounter Care Teams Convenience Store Clerk Relationship Specialty Start Date End Date Nilda Dunn FNP PCP - General Family Medicine 11/03/21 12/12/22 Ibeth Colby MD [address] [place] [address] PCP - General Internal Medicine 12/13/22 Suzanne Meyers Utilization Management Um NurseTransplant Worker 03/15/23 documented as of this encounter
--- OUTSIDE RECORDS SUMMARY | 2024-05-02 16:00 | XMS_ITS | Encounter Summary ---
Author Organization [employer] Address [address] [facility] 7 [place] [address] Care Team Providers Care Financial Administration Officer Name Role Phone Nilda Dunn Primary Care Provider +1- [phone] Ibeth Colby MD Primary Care Pro vider Reason for Visit * Reason Onset Date Comments Medication Question 09/02/2022 Encounter Details Date Type Department Care Team (Late st Contact Info) Description 09/02/2022 Telephone [facility] [address] [place], [place] [phone] Nilda Dunn FNP [address] [place] [address] [place] [address] Medication Question Social History Tobacco Use Types Packs/Day Years [...] PM EDT documented as of this encounter Miscellaneous Notes * Telephone Encounter - Feli Denney - 09/02/2022 11:11 AM EDT Tc from Suzanne at [facility] requesting a script albuterol solution for patients nebulizer machine. documented in this encounter Plan of Treatment Upcoming Encounters Date Type Department Care Team (Late st Contact Info) Description 06/14/2024 1:00 PM EDT Office Visit [facility] [address] [place] [address] [phone] Ibeth Colby MD [address] [place] [phone] documented as of this encounter Visit Diagnoses Not on filedocumented in this encounter Additional Health Concerns Assessment Noted Time PHQ-9 Depression Total Score: 0 06/22/19 3:26 PM EDT documented as of this encounter Care Teams Financial Administration Officer Relationship Specialty Start Date End Date Nilda Dunn FNP PCP - General Family Medicine 11/03/21 12/12/22 Ibeth Colby MD [address] [place] [address] [phone] PCP - General Internal Medicine 12/13/22 Suzanne Meyers Circulation DirectorInside B2B Sales 03/15/23 documented as of this encounter
--- OUTSIDE RECORDS SUMMARY | 2024-05-02 16:00 | XMS_ITS | Clinical Summary ---
Author Organization [employer] Address [address] [facility] 7[address] [place] [address] Care Team Providers Care Marine Erector Name Role Phone Ibeth Colby MD Primary Care Pro vider Allergies Active Allergy Reactions Criticality Noted Date Comments [place] Anaphylaxis High 08/15/2013 Gluten Meal Anaphylaxis High 03/22/2022 Lactose 05/31/2022 Tapentadol 03/22/2022 Other reaction(s): Contact dermatitis with paper tape Wound Dressing Adhesive Hives High 12/14/2011 Other reaction(s): RASH ON SITE Medications * This document contains information received from the source organization and may not represent a complete record from that organization. albuterol (2.5 MG/3ML) 0.083% nebulizer solution Take 3 mL (2.5 mg) by nebulization every 4 (four) hours if needed for wheezing. 75 mL 3 023 Active hydrOXYzine pamoate (Vistaril) 50 MG capsuleIndicati ons:Mood disorder (CMS/HCC) Take 1 capsule (50 mg) by mouth if needed in the morning and at bedtime for anxiety. 180 capsule 5 024 Active lamoTRIgine (LaMICtal) 100 MG tabletIndicatio ns:Mood disorder (CMS/HCC) TAKE 1 TABLET BY MOUTH TWICE A DAY 180 tablet 3 024 Active melatonin 10 MG tabletIndicatio ns:Mood disorder (CMS/HCC) Take 1 tablet (10 mg) by mouth if needed at bedtime (sleep). 90 tablet 3 Active prazosin (Minipress) 5 MG capsuleIndicati ons:Mood disorder (CMS/HCC) Take 1 capsule (5 mg) by mouth at bedtime. 90 capsule 3 024 Active QUEtiapine (SEROquel) 100 MG tabletIndicatio ns:Mood disorder (CMS/HCC) Take 1 tablet (100 mg) by mouth at bedtime. 90 tablet 3 024 Active zolpidem (Ambien) 10 MG tabletIndicatio ns:Mood disorder (CMS/HCC) TAKE 1 TABLET BY MOUTH EVERY DAY AT BEDTIME NEEDED FOR SLEEP 30 tablet 5 Active glucose blood (FREESTYLE LITE) test strip USE 1 STRIP BY DIRECTED ROUTE EVERY DAY 50 strip 5 Active fenofibrate micronized (Antara) 130 MG capsule take 1 capsule by oral route every day 90 capsule 3 Active Zubsolv 5.7-1.[address] 2 TABLETS EVERY DAY BY SUBLINGUAL ROUTE IN THE MORNING FOR 28 DAYS. Active EPINEPHrine (Epipen) 0.3 MG/0.3ML injection syringe INJECT 0.3MG INTERMUSCULARLY WHEN NEEDED Active Breo Ellipta 100-25 MCG/ACT aerosol powder INHALE 1 PUFF EVERY DAY FOR 30 DAYS Active Levonorgestrel 20 MCG/DAY intrauterine device 1 each by Intrauterine route 1 (one) time. Active meclizine (Antivert) 25 MG tablet Take 25 mg by mouth 3 times daily. Active naloxone (Narcan) 4 mg/0.1 mL nasal spray TAKE 1 SPRAY BY NASAL ROUTE DIRECTED. Active omeprazole (PriLOSEC) [address] capsule TAKE 1 CAPSULE 2 TIMES EVERY DAY BEFORE BREAKFAST AND DINNER Active onabotulinumtox Nelida (Botox) 100 units injection Inject 50u into each axilla. Active ondansetron (Zofran) 4 MG tablet Take 1 tablet by mouth 4 times daily. Active Incruse Ellipta 62.5 MCG/ACT aerosol powder INHALE 1 INHALATION EVERY 24 HOURS. SHOULD BE TAKEN AT LEAST 24 HOURS APART 024 Active loratadine (Claritin) 10 MG tablet TAKE 1 TABLET BY MOUTH EVERY DAY NEEDED 90 tablet 1 024 Active fluticasone (Flonase) 50 MCG/ACT nasal sprayIndication s:Seasonal allergic rhinitis, unspecified trigger Administer 2 sprays into each nostril Once per day. Shake gently. Before first use, prime pump. After use, clean tip and replace cap. 48 mL 2 024 Active SUMAtriptan (Imitrex) 50 MG tabletIndicatio ns:Chronic migraine without aura without status migrainosus, not intractable TAKE 1 TABLET BY MOUTH SOON POSSIBLE AT ONSET FOR MIGRAINE HEADACHE MAY REPEAT AFTER 2 HOURS 9 tablet 5 024 Active Tirzepatide-Rogerio ght Management 2.5 MG/0.5ML solution auto-injector Inject 0.5 mL (2.5 mg) under the skin 1 (one) time per week. To increase dose in 4 weeks if tolerating 0.5 mL 1 024 Active propranolol LA (Inderal LA) 80 MG 24 hr capsule TAKE 1 CAPSULE BY MOUTH EVERYDAY AT BEDTIME 90 capsule 1 024 Active lidocaine (Lidoderm) 5 % patchIndication s:Chronic bilateral low back pain with bilateral sciatica APPLY 1 PATCH TOPICALLY IN THE MORNING. 30 patch 3 025 Active cholecalciferol VITAMIN D (Vitamin D-3) 50 MCG (2000 UT) capsuleIndicati ons:Vitamin D deficiency TAKE 1 CAPSULE BY MOUTH EVERY DAY 90 capsule 1 025 Active Multiple Vitamin (Multi-Vitamin) tablet TAKE 1 TABLET BY MOUTH EVERY DAY WITH FOOD 90 tablet 1 025 Active valACYclovir (Valtrex) 1 g tablet TAKE 1 TABLET BY MOUTH EVERY DAY 30 tablet 3 025 Active valACYclovir (Valtrex) 1 g tablet TAKE 1 TABLET BY MOUTH EVERY DAY 30 tablet 3 024 2024 Discontinued Active Problems Problem Noted Date Diagnosed Date History of tobacco use 10/18/2023 Migraine 10/18/2023 Class 2 obesity 05/31/2022 Health care maintenance 05/31/2022 Overview (05/31/2022): Pap: 05/02/2017 NILM; HPV neg Colonoscopy: 12/02/20; polyp removed Mammogram: 09/23/20 BIRADS 1 Asthma-COPD overlap syndrome 05/31/2022 Severe chronic obstructive pulmonary disease Obsessive-compulsive disorder 05/18/2022 Acid reflux 05/17/2022 Allergic rhinitis 05/17/2022 Chronic diarrhea 05/17/2022 Herpes simplex type 1 infection 05/17/2022 Hyperlipidemia 05/17/2022 Hypothyroidism 05/17/2022 Insomnia 05/17/2022 Opioid dependence 05/17/2022 Vertigo 05/17/2022 Mood disorder 03/22/2022 Assessment & Plan (07/13/2023 3:57 PM EDT): and PTSD. Doing very well. Continue current medications: Lamotrigine 100 mg BID, Seroquel 100 mg at bedtime, Prazosin 5 mg at bedtime, Zolpidem 10 mg at bedtime as needed, Melatonin 10 mg at bedtime as needed, and Hydroxyzine 50 mg BID prn anxiety. F/U with therapist as usual, and with agency prescriber as planned. All her questions were answered. I have wished her well! She agrees with the plan. Assessment & Plan (04/17/2023 3:38 PM EST): and PTSD. Doing very well. Continue current medications: Lamotrigine 100 mg BID, Seroquel 100 mg at bedtime, Prazosin 5 mg at bedtime, Zolpidem 10 mg at bedtime as needed, Melatonin 10 mg at bedtime as needed, and Hydroxyzine 50 mg BID prn anxiety. F/U with therapist as usual. On 01/12/2023 provider informed the pt that I would be retiring. She has discussed with her therapist the possiblity of referral to agency psychiatric prescriber. Meanwhile, F/U with me in 2-3 months. She agrees with the plan. Assessment & Plan (01/12/2023 3:40 PM EST): and PTSD. Doing very well. Continue current medications: Lamotrigine 100 mg BID, Seroquel 100 mg at bedtime, Prazosin 5 mg at bedtime, Zolpidem 10 mg at bedtime as needed, Melatonin 10 mg at bedtime as needed, and Hydroxyzine 50 mg BID prn anxiety. F/U with therapist as usual. Today 01/12/2023 provider informed the pt that I would be retiring within the next year or so, and suggest she discuss with her therapist the possiblity of referral to agency psychiatric prescriber. F/U with me in 2-3 months. She agrees with the plan. Assessment & Plan (06/21/2022 4:28 PM EDT): and PTSD. Doing very well. Continue current medications as usual. F/U with me in 3 months. She agrees with the plan. Assessment & Plan (03/22/2022 2:02 PM EST): and PTSD. Doing very well. Will continue simplifying regimen: Decrease am Seroquel to 25 mg for a couple of weeks, then may discontinue. Continue all other medications as usual. F/U with me in 2-3 months. She agrees with the plan. 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 Renal tubular acidosis 05/25/2020 Stage 2 chronic kidney disease 05/25/2020 Vesicoureteric reflux 05/25/2020 Vitamin D deficiency 07/23/2018 Major depression, single episode 02/06/2018 Generalized anxiety disorder 12/15/2014 Posttraumatic stress disorder 12/15/2014 Seizure disorder 12/15/2014 Hepatitis C 08/15/2013 Resolved Problems Problem Noted Date Diagnosed Date Resolved Date Type 2 diabetes mellitus 05/18/2022 Abnormal findings on examina tion of genitourinary organs 05/25/2020 10/18/2023 Moderate persistent asthma w ithout complication 02/06/2018 05/31/2022 Encounters Date Type Department Care Team Description 04/17/2024 Refill [facility] [address] [place] [address] Ree Jenkins MD 03/14/2024 Refill [facility] [address] [place] [address] Ibeth Colby MD Vitamin D deficiency 03/14/2024 Refill [facility] [address] [place], [place] [phone] Marisa Farrell MD 03/14/2024 Refill [facility] [address] [place] [address] Ree Jenkins MD Chronic bilateral low back pain with bilateral sciatica; Vitamin D deficiency 02/20/2024 Telephone [facility] [address] [place] [address] Isabella Rockwell, BRITTANY Results 02/11/2024 Refill [facility] [address] [place], [place] [phone] Marisa Farrell MD Chronic bilateral low back pain with bilateral sciatica 02/03/2024 Refill [facility] [address] [place], [place] [phone] Ibeth Colby MD from Last 3 Months Immunizations Name Administration Dates Next Due Hep A, Adult 05/23/2013,01/19/2011,07/20/2000 Hep B, adult 03/08/2016,01/16/2011,12/03/2009 INFLUENZA VACCINE QUADRIVALE NT RECOMBINANT PRESERVATIVE FREE RIV4 01/02/2020 Influenza injectable quadriv alent IIV4 with preservative 01/04/2018,11/23/2016 Influenza injectable quadriv alent preservative free 03/08/2016 Influenza, IIV3, injectable 02/11/2014, 4 Influenza, Split (incl. jess fied surface antigen) 12/14/2011 Influenza, seasonal, injecta ble, preservative free 12/26/2023 Pneumococcal Conjugate PCV 20 10/18/2023 Pneumococcal Polysaccharide PPSV23 02/17/2014 TD (adult), 2 Lf tetanus tox oid, preservative free, adsorbed 03/06/1996 Tdap 03/08/2016 Family History Medical History Relation Name Comments COPD Brother DM2 Brother HTN Brother Melanoma Father Pancreatic cancer Maternal Grandfather Relation Name Status Comments Brother Father Maternal Grandfather Social History Tobacco Use Types Packs/Day Years Used Date Smoking Tobacco: Former Cigarettes 2 38 1 978 - 2016 Smokeless Tobacco: Never Tobacco Cessation:Counseling Given: Not Answered Comments:Started smoking 13 y of age and [...] Orientation Straight 05/31/2022 2: 09 PM EDT Last Filed Vital Signs Vital Sign Reading Time Taken Comments Blood Pressure 123/74 01/23/2024 10:41 AM EST Pulse 71 01/23/2024 10:41 AM EST Temperature 36.6 ??C (97.8 ??F) 01/23/2024 10:[address] Respiratory Rate 18 01/23/2024 10:41 AM EST Oxygen Saturation 94% 01/23/2024 10:41 AM EST Inhaled Oxygen Concentration - - Weight 108 kg (239 lb) 01/23/2024 10:41 AM EST Height 162.6 cm (5' 4 ) 01/23/2024 10:41 AM EST Body Mass Index 41.02 01/23/2024 10:41 AM EST Plan of Treatment Upcoming Encounters Date Type Department Care Team (Late st Contact Info) Description 06/14/2024 1:00 PM EDT Office Visit [facility] [address], [place] [phone] Ibeth Colby MD [address] [place], [place] [phone] Health Maintenance Due Date Last Done Comments CT Colonography 1972 FIT DNA/Cologuard 1972 FIT 1972 FOBT 1972 Sigmoidoscopy 1972 Diabetes: Foot Exam 1982 Eye Exam 1982 Family Planning (PISQ) 12/10/1987 Pap Smear 1993 Colonoscopy 12/02/2021 12/02/2020 Colorectal Cancer Screening 12/02/2021 Cervical Cancer Screening 05/02/2022 HPV/Cotest 05/02/2022 05/02/2017 Mammogram 09/23/2022 09/23/2020 Lung Cancer Screening 2022 Zoster Vaccines (1 of 2) 2022 COVID-19 Vaccine ( season) 2023 06/30/2020, 06/02/2020 Diabetes: Hemoglobin A1C 06/25/2024 024, 10/18/2023, 05/31/2022 SDOH Screening 10/17/2024 10/18/2023 Tobacco Screening 10/17/2024 10/18/2023 Alcohol/Substance Use Screening 12/25/2024 12/26/2023 Diabetes: Urine Protein Screening 12/25/2024 12/26/2023 Lipid Panel 12/25/2024 12/26/2023, 05/31/2022 Depression Screening 12/26/2024 12/27/2023, 12/27/19 24 DTaP/Tdap/Td Vaccines (2 - Td or Tdap) 03/08/2026 03/08/2016, 03/06/1996 RSV Patients and Patients Aged 60 years or older (1 - 1-dose 75+ series) 12/10/2047 Hepatitis A Vaccines Completed 05/23/2013, 01/19/2011, 07/20/2000 Hepatitis B Vaccines Completed 03/08/2016, 01/16/2011, 12/03/2009 Pneumococcal Vaccine: 50+ Years Completed 10/18/2023, 02/17/2014 HIV Screening Completed 12/26/2023 Influenza Vaccine Completed 12/26/2023, , 01/04/2018, Additional history exists HIB Vaccines Aged Out No longer eligi ble based on patient's age to complete this topic HPV Vaccines Aged Out No longer eligi ble based on patient's age to complete this topic IPV Vaccines Aged Out No longer eligi ble based on patient's age to complete this topic Meningococcal Vaccine Aged Out No sylvester iqra eligible based on patient's age to complete this topic RSV under 20 months Aged Out No longe r eligible based on patient's age to complete this topic Rotavirus Vaccines Aged Out No longer eligible based on patient's age to complete this topic Procedures Procedure Name Priority Date/Time Associated Diagnosis Comments HIV 1/2 ANTIGEN/ANTIBODY, FOURTH GENERATION W/RFL Routine 12/26/2023 4:00 PM EDT Annual physical exam ALBUMIN, RANDOM URINE W/CREATININE Routine 12/26/2023 4:00 PM EDT Annual physical exam HEMOGLOBIN A1C Routine 12/26/2023 4:00 PM EDT Annual physical exam LIPID PANEL, STANDARD Routine 12/26/2023 4:00 PM EDT Annual physical exam HM COLONOSCOPY Routine 12/02/2020 11:44 AM EDT MAMMOGRAM GENERIC Routine 09/23/2020 3:3 0 PM EDT ZZZ HISTORICAL HPV MRNA E6/E7 Routine 05/02/2017 11:59 AM EST from Last 3 Months or Most Recently Relevant to Health Maintenance Results * Albumin, Random Urine W/Creatinine (12/26/2023 4:00 PM EDT) Creatinine, Urine 213.46 mg/dL [facility] Microalbumin Urine 10.0 mg/L [facility] Microalbum Creatinine Ratio Ur 4.6 <30 ug/mg cr [facility] Comment:Albumin/Creatinine R atio Reference Ranges: Normal: < 30 ug/mg creatinine Microalbuminuria: 30 - 300 ug/mg creatinineClinical Albuminuria: > 300 ug/mg creatinine Urine (Urine, Random) 12/26/2023 4:00 PM EDT 12/26/2023 5:33 PM EDT Ibeth Vasques MD LAB URINE ORDERAB LES Final Result [facility] [address] [place] [phone] * HIV-1/2 Antigen and Antibodies, Fourth Generation, with Reflexes (12/26/2023 4:00 PM EDT) HIV AB/AG Nonreactive Nonreactive [facility] Comment:HIV-1 p24 Ag and/or HIV-1/HIV-2 Ab not detected.A test result that is nonreactive does not exclude thepossibility of exposure to or infection with HIV-1 and/orHIV-2. Nonreactive results in this assay for individualswith prior exposure to HIV-1 and/or HIV-2 may be due toantigen and antibody levels that are below the limit ofdetection of this assay.The [employer] HIV Ag/Ab Combo assay result andsupplemental assay results should be interpreted inconjunction with the patient's clinical presentation,history and other laboratory results. If the results areinconsistent with clinical evidence, additional testing issuggested to confirm the result. Blood Venous blood specimen / Unknown 12/26/2023 4:00 PM EDT 12/26/2023 5:31 PM EDT us Ibeth Vasques MD LAB BLOOD ORDERAB LES Final Result Performing Organization Address City/[facility]/ZIP Co de Phone Number [facility] [address] [place] [phone] * Hemoglobin A1c (12/26/2023 4:00 PM EDT) Hemoglobin A1c 5.4 <6.0 % [facility] Comment:Hemoglobin A1C Refer ence Range Adults: 4.8 - 6.0 % Non diabetic: < 6.0 % Goal: < 7.0 %Additional Action Suggested: > 8.0 %Note: Hemoglobin A1c results are invalid for patients with abnormal amounts of HbF. Blood transfusions may impact the HbA1c concentration in the patient sample. Estimated Average Glucose 108 mg/dL [facility] Comment:eAG = Estimated ave rage glucose which is %A1C expressed asaverage glucose, using the formula of the M4X-RthvsntVhziogw Glucose study (ADAG), Diabetes Care, Vol.31,#8,Oct. 2007 Blood Venous blood specimen / Unknown 12/26/2023 4:00 PM EDT 12/26/2023 5:31 PM EDT us Ibeth Vasques MD LAB BLOOD ORDERAB LES Final Result Performing Organization Address City/[facility]/ZIP Co de Phone Number [facility] [address] [place] [phone] * (ABNORMAL) Lipid Panel, Standard (12/26/2023 4:00 PM EDT) Triglycerides 85 <150 mg/dL [facility] Comment:Desirable Triglyceri de: less than 150 mg/dLBorderline High Triglyceride 150-199 mg/dLHigh Triglyceride: 200-499 mg/dLVery High Triglyceride: greater than or equal to 5OO mg/dL Cholesterol 203(H) <200 mg/dL [facility] Comment:Desirable Cholestero l: less than 200 mg/dLBorderline High Cholesterol: 200-239 mg/dLHigh Cholesterol: greater than 239 mg/dL LDL Cholesterol Calculated 123(H) <100 mg/dL [facility] Comment:Desirable LDL: less than 100 mg/dLNear Optimal/Above Optimal LDL: 110- 129 mg/dLBorderline High LDL: 130-159 mg/dLHigh LDL: 160-189 mg/dLVery High LDL: greater than or equal to 190 mg/dL HDL Cholesterol 63 >40 mg/dL [facility] Comment:Desirable HDL: great er than 40 mg/dL Note: This HDL assay may give artificially low results in patients with liver disease. Blood Venous blood specimen / Unknown 12/26/2023 4:00 PM EDT 12/26/2023 5:31 PM EDT Ibeth Vasques MD LAB BLOOD ORDERAB LES Final Result [facility] [address] [place] [phone] * Hm Colonoscopy (12/02/2020 11:44 AM EDT) Historical Provider HEALTH MAINTENANCE Final Result * Mammography Report 1 (09/23/2020 3:30 PM EDT) Anatomical Region Laterality Modality Breast Bilateral Mammography 09/23/2020 3:30 PM EDT Narrative 09/24/2020 2:32 PM EDT Refer to the Notes tab for result details [facility] Procedure: Mammography Report 1 Procedure Note Provider, Edgar, - 05/29/2022 Refer to the Notes tab for result details [facility] Procedure: Mammography Report 1 Historical Provider IMLaurel BI PROCEDURES Final R esult * HPV mRNA E6/E7 (05/02/2017 11:59 AM EST) HPV mRNA E6/E7 Not Detected NOT DETECTED [facility] Comment: This test was performed using the APTIMA(R) HPV Assay ([employer] This assay detects E6/E7 viral messenger RNA (mRNA) from 14 high-risk HPV types (16,18,31,33,35,39,45,51, 52,56,58,59,66,68). For additional information please refer to: http://education.[employer]/faq/EKJ425k6 (This link is being provided for informational/ educational purposes only.) Test Performed by [employer], [employer] [facility], [address] [place] [address] Roddy Pickens M.D., Ph.D., Director of Laboratories , [place] [id number] Please note: ??Effective 11/16/2015, HPV testing will be performed using [employer]'s APTIMA test which targets mRNA. Detecting mRNA instead of DNA, as in older methods, offers significant improvements in specificity. 05/02/2017 11:5 9 AM EST Mis Harmon NP HISTORICAL/NON ORDERABLE LABS Fi nal Result [facility] [address] from Last 3 Months or Most Recently Relevant to Health Maintenance Insurance [facility] C[facility] * Guarantor: Sera Teran Account Type Relation to Patient Date of Phone Billing Address Personal/Family Self 1970 [address] [facility] [address] [place] [address] Care Teams Marine Erector Relationship Specialty Start Date End Date Ibeth Colby MD [address] [place] [phone] PCP - General Internal Medicine 12/13/22 Suzanne Meyers Children'S MinisterHuman Resources Trainer 03/15/23
--- OUTSIDE RECORDS SUMMARY | 2024-05-02 16:00 | XMS_ITS | Encounter Summary ---
Author Organization [employer] Address [address] [facility] [address] [place] [address] Care Team Providers Care Front Man Name Role Phone Nilda Dunn GAMING DEALER Primary Care Provider [phone] Ibeth Colby MD Primary Care Pro vider Encounter Details Date Type Department Care Team (Late Contact Info) Description 10/10/2022 Orders Only [facility] [address] [place], [place] [phone] Ange Leal LPN Social History Tobacco Use Types Packs/Day Years Used Date Smoking Tobacco: Former Cigarettes 2 38 1 978 - 2015 Smokeless Tobacco: Never Alcohol Use Standard Drinks/Week [...] Encounters Date Type Department Care Team (Late Contact Info) Description 06/14/2024 1:00 PM EDT Office Visit [facility] [address] [place], [place] [phone] Ibeth Colby MD [address] [place] [address] documented as of this encounter Visit Diagnoses Not on filedocumented in this encounter Additional Health Concerns Assessment Noted Time PHQ-9 Depression Total Score: 0 06/22/19 23 3:26 PM EDT documented as of this encounter Care Teams Front Man Relationship Specialty Start Date End Date Nilda Dunn FNP PCP - General Family Medicine 11/03/21 12/12/22 Ibeth Colby MD [address] [place] [address] PCP - General Internal Medicine 12/13/22 Suzanne Meyers Land EconomistFlight Reservations Manager 03/15/23 documented as of this encounter
--- OUTSIDE RECORDS SUMMARY | 2024-05-02 16:00 | XMS_ITS | Encounter Summary ---
Author Organization [employer] Address [address] [facility] [address] [place] [address] Care Team Providers Care Dishcloth Folder Name Role Phone Ibeth Colby MD Primary Care Pro vider Reason for Visit * Reason Comments Med Refill Encounter Details Date Type Department Care Team ([facility] st Contact Info) Description 10/24/2023 Refill [facility] [address] [place] [address] Ibeth Colby MD [address] [place], [place] [phone] Social History Tobacco Use Types Packs/Day Years [...] is your housing situation today? I have araceliazeb casey 10/18/[address] you [...] Office Visit [facility] [address] [place] [phone] Ibeth Colby MD [address] [place] [phone] documented as of this encounter Visit Diagnoses Not on filedocumented in this encounter Additional Health Concerns Assessment Noted Time PHQ-9 Depression Total Score: 0 07/13/19 24 2:53 PM EDT documented as of this encounter Care Teams Dishcloth Folder Relationship Specialty Start Date End Date Ibeth Colyb MD [address] [place] [phone] PCP - General Internal Medicine 12/13/22 Suzanne Meyers Bait DiggerMortarman 03/15/23 documented as of this encounter
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
--- OUTSIDE RECORDS SUMMARY | 2024-05-02 16:00 | XMS_ITS | Encounter Summary ---
Author Organization [facility] Address [address] [place] [address] Care Team Providers Care Transmitter Tester Name Role Phone Ibeth Colby MD Primary Care Pro vider Reason for Visit * Reason Comments Med Refill Encounter Details Date Type Department Care Team (Late st Contact Info) Description 07/24/2023 Refill [facility] [address] [place] [address] Edmond Fuller FNP Social History Tobacco Use [...] Description 06/14/2024 1:00 PM EDT Office Visit [facility] [address] [place] [phone] Ibeth Colby MD [address] [place] [phone] documented as of this encounter Visit Diagnoses Not on filedocumented in this encounter Additional Health Concerns Assessment Noted Time PHQ-9 Depression Total Score: 0 07/13/19 24 2:53 PM EDT documented as of this encounter Care Teams Transmitter Tester Relationship Specialty Start Date End Date Ibeth Colby MD [address] [place] [phone] PCP - General Internal Medicine 12/13/22 Suzanne Meyers AttenuatorBarn And Property Manager 03/15/23 documented as of this encounter
--- OUTSIDE RECORDS SUMMARY | 2024-05-02 16:00 | XMS_ITS | Clinical Summary ---
Author Organization [facility] Address [address] [place] [address] Phone Care Team Providers Care All Purpose Clerk Name Role Phone Mis Harmon NP Primary Care Provider [phone] Allergies No known active allergies Medications coenzyme Q-10 10 MG capsule Take 1 capsule by mouth 1 (one) time each day Active Multiple Vitamins-Minera ls (MULTIVITAMIN ADULTS PO) Take 1 capsule by mouth 1 (one) time each day Active Bacillus Coagulans-Inuli n (Probiotic) 1-250 BILLION-MG capsule Take 1 capsule by mouth 1 (one) time each day Active albuterol HFA (Proventil HFA) 108 (90 Base) MCG/ACT inhaler 1 puff by Other route 1 (one) time each day Active Apple Cider Vinegar 500 MG tablet Take 3 tablets by mouth 1 (one) time each day Active budesonide-form oterol (Symbicort) 160-4.5 MCG/ACT inhaler 1 puff by Other route 1 (one) time each day Active cholestyramine (QUESTRAN) 4 g packet Take 1 Scoop by mouth 2 (two) times a day Active diphenoxylate-a tropine (Lomotil) 2.5-0.025 MG per tablet Take 1 tablet by mouth 2 (two) times a day Active EPINEPHrine (EPIPEN) 0.3 MG/0.3ML injection syringe as directed Active ergocalciferol (VITAMIN D-2) 1.25 MG (36790 UT) capsule Take 1 capsule by mouth 1 (one) time per week Active fenofibrate micronized (ANTARA) 43 MG capsule Take 1 capsule by mouth 1 (one) time each day Active FLUoxetine (PROzac) 20 MG capsule Take 2 capsules by mouth 1 (one) time each day Active Fluticasone Furoate (Arnuity Ellipta) 50 MCG/ACT aerosol powder 1 puff by Other route 1 (one) time each day Active glycopyrrolate (ROBINUL) 1 MG tablet Take 1 tablet by mouth 2 (two) times a day Active hydrOXYzine (VISTARIL) 50 MG capsule Take 1 capsule by mouth 2 (two) times a day Active lamoTRIgine (LaMICtal) 100 MG tablet Take 1 tablet by mouth 2 (two) times a day Active loratadine (CLARITIN) 10 MG tablet Take 1 tablet by mouth at bed time Active Melatonin 10 MG capsule Take 1 capsule by mouth at bed time Active omeprazole OTC (PriLOSEC OTC) 20 MG EC tablet Take 1 tablet by mouth 2 (two) times a day Active ondansetron (Zofran) 4 MG tablet Take 1 tablet by mouth 4 (four) times a day Active propranolol (INDERAL) 80 MG tablet Take 1 tablet by mouth 1 (one) time each day Active QUEtiapine (SEROquel) 200 MG tablet Take 1 tablet by mouth 1 (one) time each day Active QUEtiapine (SEROquel) 50 MG tablet Take 1 tablet by mouth 1 (one) time each day Active SUMAtriptan (Imitrex) 50 MG tablet as directed Active valACYclovir (Valtrex) 500 MG tablet Take 2 tablets by mouth 1 (one) time each day Active varenicline (Chantix) 1 MG tablet as directed Active zolpidem (AMBIEN) 10 MG tablet Take 1 tablet by mouth 1 (one) time each day Active buprenorphine-n aloxone (SUBOXONE) 2-0.5 MG per SL tablet Place under the tongue 1 (one) time each day Active Active Problems Problem Noted Date Diagnosed Date Acute nontraumatic kidney injury 05/25/2020 Acute retention of urine 05/25/2020 Chronic kidney disease stage 2 05/25/2020 Renal tubular acidosis 05/25/2020 Urogenital finding 05/25/2020 Vesicoureteric reflux 05/25/2020 Vitamin D deficiency 05/25/2020 Family History Medical History Relation Comments Cancer Father skin cancer Heart disease Father Diabetes Mother Kidney disease Mother Relation Status Comments Father Mother Social History Tobacco Use Types Packs/Day Years Used Date Smoking Tobacco: Former Smokeless Tobacco: Never Comments:Smoking History Inf o:Every day Alcohol Use Standard Drinks/Week Comments Not Currently 0 (1 standard drink = 0.6 oz pur e alcohol) Comments Unknown Sex and Gender Information Value Date Recorded Sex Assigned at Not on file Legal Sex Female 5:22 PM EST Gender Identity Not on file Sexual Orientation Not on file Last Filed Vital Signs Vital Sign Reading Time Taken Comments Blood Pressure 136/87 05/26/2020 4:20 PM EDT Pulse 84 10/18/2019 12:00 PM EDT Temperature - - Respiratory Rate - - Oxygen Saturation - - Inhaled Oxygen Concentration - - Weight 88.9 kg (196 lb) 05/26/2020 4:20 PM EDT Height 165.1 cm (5' 5 ) 01/16/2020 12:00 PM EST Body Mass Index 32.62 01/16/2020 12:00 PM EST Plan of Treatment Health Maintenance Due Date Last Done Comments Breast Cancer Screening 1972 Pneumococcal Vaccine: Pediat rics (0 to 5 Years) and At-Risk Patients (6 to 64 Years) (1 of 2 - PCV) 1978 Hepatitis B Vaccine (1 of 3 - 19+ 3-dose series) 12/09 Colorectal Cancer Screening: Annual FOBT 2021 Colorectal Cancer Screening: Colonoscopy 2021 Colorectal Cancer Screening: Sigmoidoscopy 2021 Influenza Vaccine (#1) 2023 Insurance [place]ID [place] Care Teams All Purpose Clerk Relationship Specialty Start Date End Date Mis Harmon NP PCP - General 03/16/20
--- OUTSIDE RECORDS SUMMARY | 2024-05-02 16:00 | XMS_ITS | Continuity of Care Document ---
Author Organization [place] - [facility], [facility] Address [address] [place] [address] Care Team Providers Care Hired Help Name Role Phone MODESTO TAYLOR WILI Primary Care Provider Assessment No assessment recorded. Plan of Treatment Reminders Order Date Submit Date Provider Last Modified By Organization Details Last Modified Time Details Appointments Establish ed 30 2024 02:00P M JENNY Oneill MD Not available Not available Not available Lab None recorded. Referral None recorded. Procedures None recorded. Surgeries None recorded. Imaging None recorded. Medication Orders fluticaso ne propionat e 50 mcg/actua tion nasal spray,mad[place] pension 2024 025 [facility]/Pharmacy #[id number], [address] [place], [address], 05/01/2024 15:01:22 omeprazol e 40 mg capsule,d elayed release 2024 025 [facility]/Pharm[facility] #[id number], [address] [place], [address], 05/01/2024 15:01:22 Patient TargetsNo targets recorded. Patient InstructionsNo instructions recorded. Reason for Referral None Reported. Problems Name Problem SNOMED Code Status Onset Date Resolution Date Notes Provider Name and Address Organization Details Recorded Time Feeling of lump in throat 444400520 Active 2024 JENNY Oneill MD [address], [address] [place] - [facility] 14:51:18 Gastroesophage al reflux disease without esophagitis 569056057 Active 2024 JENNY Oneill MD [address] [address], [place], [phone], [facility] 14:51:23 Nasal congestion 44771146 Active 2024 JENNY Oneill MD [address] [address], [place], [phone], [facility] 14:51:27 Problem Notes None recorded. Procedures Surgical History Date Name Laterality Status Provider Name and Address Organization Details Recorded Time 05/01/2024 FFL_RE completed JENNY BROOKS MD [address] [address], [place], [address], [facility] 05/01/2024 15:00:21 Imaging Results None recorded. Procedure Notes None recorded. Medical Equipment None Reported. Medications Name Sig Start Date Stop Date Status Note LastModified by Organization Details LastModified Time albuterol sulfate 2.5 mg/3 mL (0.083 %) solution for nebulization INHALE 3 ML VIA NEBULIZER EVERY 6 HOURS NEEDED FOR WHEEZING active Not Available Not Available No t Available valacyclovir 1 gram tablet TAKE 1 TABLET BY MOUTH EVERY DAY active Not Available Not Available No t Available sumatriptan 50 mg tablet TAKE 1 TABLET BY MOUTH SOON POSSIBLE AT ONSET FOR MIGRAINE HEADACHE MAY REPEAT AFTER 2 HOURS active Not Available Not Available No t Available hydroxyzine pamoate 50 mg capsule TAKE 1 CAPSULE (50 MG) BY MOUTH IF NEEDED IN THE MORNING AND AT BEDTIME FOR ANXIETY. active Not Available Not Available No t Available diphenoxylat e-atropine 2.5 mg-0.025 mg tablet TAKE 1 TABLET BY MOUTH THREE TIMES A DAY active Not Available Not Available Not Available hydroxyzine HCl 50 mg tablet TAKE 1 TABLET BY MOUTH TWICE A DAY active Not Available Not Available No t Available omeprazole 40 mg capsule,agnes yed release Take 1 capsule every day by oral route. 2024 active Not Available Not Available Not Avai lable quetiapine 100 mg tablet TAKE 1 TABLET BY MOUTH AT BEDTIME active Not Available Not Available No t Available ondansetron 8 mg disintegrati ng tablet LET 1 TABLET DISSOLVE IN MOUTH TWICE A DAY active Not Available Not Available No t Available levothyroxin e 25 mcg tablet TAKE 1 TABLET (25 MCG) BY MOUTH BEFORE BREAKFAST active Not Available Not Available No t Available prazosin 5 mg capsule TAKE 1 CAPSULE (5 MG) BY MOUTH AT BEDTIME. active Not Available Not Available No t Available meclizine 25 mg tablet TAKE 1 TABLET BY MOUTH THREE TIMES A DAY active Not Available Not Available Not Available levothyroxin e 50 mcg tablet TAKE 1 TABLET (50 MCG) BY MOUTH BEFORE BREAKFAST active Not Available Not Available No t Available lidocaine 5 % topical patch APPLY 1 PATCH TOPICALLY IN THE MORNING. active Not Available Not Available No t Available propranolol ER 80 mg capsule,24 hr,extended release TAKE 1 CAPSULE BY MOUTH EVERYDAY AT BEDTIME active Not Available Not Available No t Available zolpidem 10 mg tablet TAKE 1 TABLET BY MOUTH AT BEDTIME NEEDED FOR INSOMNIA active Not Available Not Available No t Available fluticasone propionate 50 mcg/actuatio n nasal spray,suspen adela [place] 2 sprays every day by intranasal route. 2024 active Not Available Not Available Not Avai lable lamotrigine 100 mg tablet TAKE 1 TABLET BY MOUTH TWICE A DAY active Not Available Not Available No t Available loratadine 10 mg tablet TAKE 1 TABLET BY MOUTH EVERY DAY NEEDED active Not Available Not Available No t Available Ventolin HFA 90 mcg/actuatio n aerosol inhaler INHALE 2 PUFFS 4 TIMES A DAY NEEDED FOR WHEEZING active Not Available Not Available No t Available Laxative (bisacodyl) 5 mg tablet,delay ed release TAKE 4 TABS BY MOUTH ONCE. TAKE AT NOON THE DAY BEFORE COLONOSCOPY active Not Available Not Available Not Available Daily-Lisa tablet TAKE 1 TABLET BY MOUTH EVERY DAY WITH FOOD active Not Available Not Available No t Available fenofibrate micronized 130 mg capsule TAKE 1 CAPSULE BY MOUTH EVERY DAY active Not Available Not Available No t Available FreeStyle Lite Strips USE 1 STRIP BY DIRECTED ROUTE EVERY DAY active Not Available Not Available No t Available cholecalcife rol (vitamin D3) 50 mcg (2,000 unit) capsule TAKE 1 CAPSULE BY MOUTH EVERY DAY active Not Available Not Available No t Available GaviLyte-G 236 gram-22.74 gram-6.74 gram-5.86 gram oral solution PLEASE SEE ATTACHED FOR DETAILED DIRECTIONS active Not Available Not Available N ot Available Gavilax 17 gram/dose oral powder 238 G ORALLY ONCE FOR 1 DAY active Not Available Not Available No t Available Suboxone 8 mg-[address] FILMS UNDER THE TONGUE EVERY DAY active Not Available Not Available No t Available Breo Ellipta 100 mcg-25 mcg/dose powder for inhalation INHALE 1 PUFF EVERY DAY FOR 30 DAYS active Not Available Not Available No t Available Zubsolv 5.7 mg-1.[address] 2 TABLETS EVERY DAY BY SUBLINGUAL ROUTE IN THE MORNING FOR 29 DAYS. active Not Available Not Available No t Available Incruse Ellipta 62.5 mcg/actuatio n powder for inhalation INHALE 1 INHALATION EVERY 24 HOURS. SHOULD BE TAKEN AT LEAST 24 HOURS APART active Not Available Not Available Not Available Spiriva Respimat 1.25 mcg/actuatio n solution for inhalation INHALE 2 PUFFS BY MOUTH DAILY active Not Available Not Available Not Available naloxone 4 mg/actuation nasal spray TAKE 1 SPRAY BY NASAL ROUTE DIRECTED. active Not Available Not Available No t Available Trelegy Ellipta 100 mcg-62.5 mcg-25 mcg powder for inhalation active Not Available Not Available N ot Available Daily-Lisa (with folic acid) 400 mcg tablet TAKE 1 TABLET BY MOUTH EVERY DAY WITH FOOD active Not Available Not Available No t Available Vitals Date Recorded Body height Body mass index (BMI) Body weight Provider Name and Address Organization Details Last Updated DateTime 05/01/2024 162.56 cm 39.5 kg/m2 490315.25 g Yong Wong [place] - [facility] 05/01/2024 14:17:49 Social History None recorded. Functional Status None recorded. Mental Status None recorded. Family History Nothing Reported. Medical History No medical history recorded. Gynecological HistoryNo gynecological history recorded. Obstetrics History GPAL:G 0 P 0 0 0 0 Past Encounters Encounter ID Performer Location Encounter Start Date Encounter Closed Date Diagnosis/Indication Diagnosis SNOMED-CT Code Diagnosis ICD10 Code Diagnosis Note [id number] JENNY BROOKS MD [facility] of [address] [phone] 05/01/2024 14:03:14 05/01/2024 14:57:54 Feeling of lump in throat 740778417 R09.89 see GERD. FFL normal except for [place] ing. Gastroesop hageal reflux disease without esophagitis 205844157 K21.9 Likely has refractory GERD and tachyphyla xis on 20mg of omeprazole . I will increase the dose for 3 months and see if it helps with her globus. Nasal congestion 5562459 0 R09.81 I recommend she continue flonase since she has benefit. I will refill. Health Concerns Section Related Observation LastModified by Organization Detai ls LastModified Time None Recorded Concern Status LastModified by Organization Details LastModified Time None Recorded Payers Encounter Date Sequence Insurance Name Policy Number Policy Espinoza Covered Member ID Espinoza Member ID Guarantor Name 05/01/2024 1 [place]: [facility] PL[facility] Sera Griggsoctavio [id number] Sera Teran Notes Date Note Type Note Provider Name and Address Organization Details Recorded Time 05/01/2024 text/html She presents wit h globus sensation which comes and goes. It can occur on either side. It usually lasts for 2 weeks then resolves. She notes some swelling in her neck when this happens. She had a CT neck with contrast 04/2022 which did not show any tumors or masses. She endorses heartburn. She is on omeprazole 20mg which she has taken for 20 years. She still has heartburn even though she takes omeprazole. She reports nasal congestion which is worse on the right. She has been on fluticasone for many years and feels it does help. No hx of glaucoma. She does not smoke. quit 15 years ago. In general no difficulty eating and drinking. No hx of glaucoma. JENNY BROOKS MD [address] [place] [address], [place], [address], [place] - [facility] 05/01/2024 15:01:23 OBGyn Episode No OBEpisode recorded.
--- OUTSIDE RECORDS SUMMARY | 2024-05-02 16:00 | XMS_ITS | Encounter Summary ---
Author Organization [employer] Address [address] [place] [address] Care Team Providers Care Acid Extractor Name Role Phone Ibeth Colby MD Primary Care Pro vider Encounter Details Date Type Department Care Team (Late st Contact Info) Description 12/15/2022 Orders Only [facility] MED & PEDS [address] [place] [address] Ernestina Gutierrez LPN Social History Tobacco Use [...] Description 06/14/2024 1:00 PM EDT Office Visit [facility] MED[facility] [address] [place] [address] [phone] Ibeth Colby MD [address] [place] [address] [phone] documented as of this encounter Visit Diagnoses Not on filedocumented in this encounter Additional Health Concerns Assessment Noted Time PHQ-9 Depression Total Score: 0 06/22/19 23 3:26 PM EDT documented as of this encounter Care Teams Acid Extractor Relationship Specialty Start Date End Date Ibeth Colby MD [address] [place] [address] [phone] PCP - General Internal Medicine 12/13/22 Suzanne Meyers Svp Research And Strategic AnalysisReservation Sales Agent 03/15/23 documented as of this encounter
--- OUTSIDE RECORDS SUMMARY | 2024-05-02 16:00 | XMS_ITS | Encounter Summary ---
Author Organization [employer] Address [address] [facility] [place] [address] Care Team Providers Care Commercial Litigation Attorney Name Role Phone Ibeth Colby MD Primary Care Pro vider Reason for Visit * Reason Comments Med Refill Encounter Details Date Type Department Care Team ([facility] st Contact Info) Description 02/14/2023 Refill [facility] MED[facility]INE [address] [place] [address] Edmond Fuller FNP Mood disorder (CMS/HCC) Social [...] 06/14/2024 1:00 PM EDT Office Visit [facility] [address] [place] [phone] Ibeth Colby MD [address] [place] [phone] documented as of this encounter Visit Diagnoses Diagnosis Mood disorder (CMS/HCC) Unspecified episodic mood disorder documented in this encounter Additional Health Concerns Assessment Noted Time PHQ-9 Depression Total Score: 0 01/13/20 23 2:53 PM EST documented as of this encounter Care Teams Commercial Litigation Attorney Relationship Specialty Start Date End Date Ibeth Colby MD [address] [place] [phone] PCP - General Internal Medicine 12/13/22 Suzanne Meyers Mechanical TechHigh Man 03/15/23 documented as of this encounter
--- OUTSIDE RECORDS SUMMARY | 2024-05-02 16:01 | XMS_ITS | Encounter Summary ---
Author Organization [employer] Address [address] [facility] 7 [place] [address] Care Team Providers Care Cable Former Name Role Phone Ibeth Colby MD Primary Care Pro vider Reason for Visit * Reason Onset Date Comments Med Refill 01/30/2024 Encounter Details Date Type Department Care Team (Late st Contact Info) Description 01/30/2024 Refill [facility] [address] [place] [address] Ibeth Colby MD [address] [place], [place] [phone] Social History Tobacco Use Types Packs/Day Years [...] EDT Office Visit [facility] [address] [place] [phone] Ibeth Colby MD [address] [place] [phone] documented as of this encounter Visit Diagnoses Not on filedocumented in this encounter Additional Health Concerns Assessment Noted Time PHQ-9 Depression Total Score: 6 12/27/19 24 9:10 AM EDT documented as of this encounter Care Teams Cable Former Relationship Specialty Start Date End Date Ibeth Colby MD [address] [place] [phone] PCP - General Internal Medicine 12/13/22 Suzanne Meyers DraughtsmanAssociate Merchant 03/15/23 documented as of this encounter
--- OUTSIDE RECORDS SUMMARY | 2024-05-02 16:01 | XMS_ITS | Encounter Summary ---
Author Organization [employer] Address [address] [address] [place] [address] Care Team Providers Care Printing Services Coordinator Name Role Phone Ibeth Colby MD Primary Care Pro vider Encounter Details Date Type Department Care Team (Late st Contact Info) Description 06/26/2023 Orders Only [facility] MEDICINE [address] [place] [address] Provider, MD Edgar Social History Tobacco Use Types Packs/Day Years Used Date Smoking Tobacco: Former Cigarettes 2 38 1 978 - 2016 Smokeless Tobacco: Never Alcohol Use Standard Drinks/Week Comments Not Currently 0 (1 standard drink = 0.6 oz pur e alcohol) Depression Answer Date Recorded Patient Health Questionnaire-9 Score 0 04/17/2023 Patient Health Questionnaire-9 Score 0 04/17/2023 Last PHQ-9: Questionnaire Data Not on file 0 04/17/2023 Housing Stability Answer Date Recorded What is [...] Date Recorded Patient Health Questionnaire-2 Score 0 04/17/2023 Comments Unknown Sex and Gender Information Value [...] Description 06/14/2024 1:00 PM EDT Office Visit [facility] MEDICINE [address] [place] [address] Ibeth Colby MD [address] [place] [phone] documented as of this encounter Procedures Procedure Name Priority Date/Time Associated Diagnosis Comments HM COLONOSCOPY Routine 12/02/2020 11:44 AM EDT documented in this encounter Results * Hm Colonoscopy (12/02/2020 11:44 AM EDT) Historical Provider HEALTH MAINTENANCE Final Result documented in this encounter Visit Diagnoses Not on filedocumented in this encounter Additional Health Concerns Assessment Noted Time PHQ-9 Depression Total Score: 0 04/17/19 24 2:56 PM EST documented as of this encounter Care Teams Printing Services Coordinator Relationship Specialty Start Date End Date Ibeth Colby MD [address] [place] [address] [phone] PCP - General Internal Medicine 12/13/22 Suzanne Meyers Bag ShakerCoat Finisher 03/15/23 documented as of this encounter
--- OUTSIDE RECORDS SUMMARY | 2024-05-02 16:01 | XMS_ITS | Encounter Summary ---
Author Organization [employer] Address [address] [facility] 7 [place] [address] Care Team Providers Care Computer Forwarding System Markup Clerk Name Role Phone Ibeth Colby MD Primary Care Pro vider Reason for Visit * Reason Onset Date Comments Med Refill 01/01/2024 Encounter Details Date Type Department Care Team (Late st Contact Info) Description 01/01/2024 Refill [facility] MED[facility]INE [address] [place] [address] Ibeth Colby MD [address] [place], [place] [phone] Social History Tobacco Use Types Packs/Day Years [...] Description 06/14/2024 1:00 PM EDT Office Visit [facility] MED[facility] [address] [place] [phone] Ibeth Colby MD [address] [place] [phone] documented as of this encounter Visit Diagnoses Not on filedocumented in this encounter Additional Health Concerns Assessment Noted Time PHQ-9 Depression Total Score: 6 12/27/19 24 9:10 AM EDT documented as of this encounter Care Teams Computer Forwarding System Markup Clerk Relationship Specialty Start Date End Date Ibeth Colby MD [address] [place] [phone] PCP - General Internal Medicine 12/13/22 Suzanne Meyers Farm ConsultantNapper Runner 03/15/23 documented as of this encounter
--- OUTSIDE RECORDS SUMMARY | 2024-05-02 16:01 | XMS_ITS | Encounter Summary ---
Author Organization [employer] Address [address] [facility] [place] [address] Care Team Providers Care Certified Pedorthotist Name Role Phone Ibeth Colby MD Primary Care Pro vider Reason for Visit * Reason Comments Med Refill Encounter Details Date Type Department Care Team (Late st Contact Info) Description 03/28/2023 Refill [facility] MEDICINE [address] [place] [address] Edmond Fuller FNP Mood disorder (CMS/HCC) Social [...] Description 06/14/2024 1:00 PM EDT Office Visit [facility] MED[facility]INE [address] [place] [phone] Ibeth Colby MD [address] [place] [phone] documented as of this encounter Visit Diagnoses Diagnosis Mood disorder (CMS/HCC) Unspecified episodic mood disorder documented in this encounter Additional Health Concerns Assessment Noted Time PHQ-9 Depression Total Score: 0 01/13/20 23 2:53 PM EST documented as of this encounter Care Teams Certified Pedorthotist Relationship Specialty Start Date End Date Ibeth Colby MD [address] [place] [phone] PCP - General Internal Medicine 12/13/22 Suzanne Meyers Bobbin CollectorRelationship Management Lead 03/15/23 documented as of this encounter
== END 2024-05-02 13:24 | disposition home or self-care (01) ==
LOC: HO.NEURO 13:23
PROVIDERS: PCP Student in an Organized Health Care Education/Training Program; Visit Provider Student in an Organized Health Care Education/Training Program
DX: G40.909 Epilepsy, unspecified, not intractable, without status epilepticus (principal)
CPT/HCPCS: 95816

== ENCOUNTER 2024-07-02 14:45 | Outpatient (REF) | payer MEDICAID, SELFPAY ==
[2024-07-02 16:30] LABS: Alanine Aminotransferase 19 U/L (0-31); Albumin Level 4.4 g/dL (3.5-5.0); Alkaline Phosphatase 49 U/L (39-117); Anion Gap 12 (12-20); Aspartate Amino Transferase 22 U/L (5-31); Bilirubin Total 0.5 mg/dL (0.0-1.0); Blood Urea Nitrogen 13 mg/dL (9-16); Carbon Dioxide 26 mmol/L (22-29); Chloride 105 mmol/L (96-108); Cholesterol 215 mg/dL (<200); Estimated Glomerular Filt Rate > 60; Glucose Random 97 mg/dL (60-115); HDL Cholesterol 49 mg/dL (>40); LDL Cholesterol Calculated 137 mg/dL (<100); Potassium 4.2 mmol/L (3.3-5.1); Sodium 139 mmol/L (135-145); Total Protein 7.9 g/dL (6.5-8.0); Triglycerides 146 mg/dL (<150)
[2024-07-02 16:49] LABS: Free T4 (Free Thyroxine) 1.06 ng/dL (0.71-1.85); Thyroid Stimulating Hormone 4.25 uIU/mL (0.32-4.0)
--- OUTSIDE RECORDS SUMMARY | 2024-07-02 17:59 | XMS_ITS | Clinical Summary ---
Author Organization [facility] Address [address] [facility] [place] [address] Care Team Providers Care Tiger Machine Operator Name Role Phone Unavailable Primary Care Provider Unavailabl e Social History Tobacco Use Types Packs/Day Years Used Date Smoking Tobacco: Never Assessed Comments Unknown Sex and Gender Information Value Date Recorded Sex Assigned at Not on file Legal Sex Female 1:07 PM EST Gender Identity Not on file Sexual Orientation Not on file Plan of Treatment Health Maintenance Due Date Last Done Comments Colorectal Cancer: COLONOSCO PY Screening every 10 yrs (or Modifier) 1972 Depression: Screening Annual ly using PHQ-2/9 in Adults 18 yrs or above (or HM Modifier)([facility]) 1972 Hepatitis C Virus Infection in Adolescents and Adults: Screening (or Modifier) ([facility]) 1990 SDSC Screening Reminder: Judi truong for all adults ([facility]) 1990 Tobacco Smoking Cessation: i n Adults excluding Women: Behavioral and Pharmacotherapy Interventions ([facility]) 1990 DTaP/Tdap/Td Vaccines ([facility]) (1 - Tdap) 12/10/1991 Cervical Cancer Screenin 1-65 yrs of age (or Modifier) 1993 Cervical Cancer Screening: P ap every 3 yrs pts age 21-65 1993 Cervical Cancer: Pap Screeni ng with Modifier timing ([facility]) 1993 Cervical Cancer: hrHPV alone or with cotesting Pap for Pts 30-65yrs screening every 5yrs ([facility]) 1993 Colorectal Cancer Screening 45 -75 Yrs (or HM Modifier ) 2017 Colorectal Cancer: FLEXIBLE SIGMOIDOSCOPY Screening every 5 yrs 2017 Colorectal Cancer: Fecal Imm unochemical Test (FIT) Annually [facility] 2017 Colorectal Cancer: High-sens itivity gFOBT Screening Annually [facility] 2017 Colorectal Cancer: Stool Col oguard Screening every 3 yrs 2017 Colorectal Cancer:CT Colonography Screening every 5 yr s 2017 Lipid Screening: Every 5 yrs for Women aged 45+ (or HM Modifier) ([facility]) 2018 Breast Cancer: Screening Judi ually age 50-74 yrs (or HM Modifier)([facility]) 2022 Pneumococcal Vaccination Scr eening: Patients 50+ yrs of age ([facility]) (1 of 1 - PCV) 2022 Zoster/Shingles Vaccine Seri es Screening: Adults aged 18+ yrs (or HM Modifiers)([facility]) (1 of 2) 2022 COVID-19 Vaccine Screening: Initial Series and Booster Status ([facility]) (2023- season) 2023 Flu Vaccination: Yearly for ages 18mos through 64 years (or Modifier)([facility]) 10/04/2024 Medical Devices Not on file Insurance [facility]
--- OUTSIDE RECORDS SUMMARY | 2024-07-02 17:59 | XMS_ITS | Encounter Summary ---
Author Organization [employer] Address [address] [facility] [address] [place] [address] Care Team Providers Care Public Relations Associate Name Role Phone Nilda Dunn Conchita CASANOVA Primary Care Provider [phone] Ibeth Colby MD Primary Care Pro vider Reason for Visit * Reason Comments Med Refill Encounter Details Date Type Department Care Team (Late Contact Info) Description 11/03/2022 Refill [facility] MED & PEDS [address] [place], [place] [phone] Edmond Fuller FNP Mood disorder (CMS/HCC) Social [...] Upcoming Encounters Date Type Department Care Team ([facility] Contact Info) Description 07/23/2024 2:15 PM EDT Procedure Visit [facility] MEDICINE [address] [place], [place] [phone] Dawna Diego CNM [address] [place], [place] [phone] documented as of this encounter Visit Diagnoses Diagnosis Mood disorder (CMS/HCC) Unspecified episodic mood disorder documented in this encounter Additional Health Concerns Assessment Noted Time PHQ-9 Depression Total Score: 0 06/22/19 23 3:26 PM EDT documented as of this encounter Care Teams Public Relations Associate Relationship Specialty Start Date End Date Nilda Dunn FNP PCP - General Family Medicine 11/03/21 12/12/22 Ibeth Colby MD [address] [place], [place] [phone] PCP - General Internal Medicine 12/13/22 Suzanne Meyers Mail Processing Equipment MechanicConveyor System Dispatcher 03/15/23 documented as of this encounter
--- OUTSIDE RECORDS SUMMARY | 2024-07-02 18:00 | XMS_ITS | Encounter Summary ---
Author Organization [id number] Address [address] [facility] 7 [place] [address] Care Team Providers Care Broth Mixer Name Role Phone Ibeth Colby MD Primary Care Pro vider Reason for Visit * Reason Onset Date Comments switch appointment 06/13/2024 Encounter Details Date Type Department Care Team (Late st Contact Info) Description 06/13/2024 Telephone [facility] MEDICINE [address] [place], [place] [phone] Ibeth Colby MD [address] [place], [place] [phone] switch appointment Social History Tobacco Use Types Packs/Day Years [...] encounter Miscellaneous Notes * Telephone Encounter - Amber Pozo - 06/13/2024 1:45 PM EDT Tc from pt stating she's sick and wants to switch 06/14 DM appointment to Televisit, pt states doesn't want to miss the appointment. [phone] documented in this encounter Plan of Treatment Upcoming Encounters Date Type Department Care Team (Late st Contact Info) Description 07/23/2024 2:15 PM EDT Procedure Visit [facility] MEDICINE [address] [place], [place] [phone] Dawna Diego CNM [address] [place], [place] [phone] documented as of this encounter Visit Diagnoses Not on filedocumented in this encounter Additional Health Concerns Assessment Noted Time PHQ-9 Depression Total Score: 6 12/27/19 9:10 AM EDT documented as of this encounter Care Teams Broth Mixer Relationship Specialty Start Date End Date Ibeth Colby MD [address] [place] [address] PCP - General Internal Medicine 12/13/22 Suzanne Meeyrs Game Breeding Farm ManagerNumerical Control Operator 03/15/23 documented as of this encounter
--- OUTSIDE RECORDS SUMMARY | 2024-07-02 18:00 | XMS_ITS | Encounter Summary ---
Author Organization [employer] Address [address] [facility] 7 [place] [address] Care Team Providers Care Temperature Regulator Name Role Phone Ibeth Colby MD Primary Care Pro vider Reason for Visit * Reason Onset Date Comments Prior Auth Prescription 07/02/2024 Encounter Details Date Type Department Care Team (Late st Contact Info) Description 07/02/2024 Telephone [facility] MEDICINE [address] [place] [address] Ibeth Colby MD 230 [place], [place] [phone] Prior Auth Prescription Social History Tobacco Use Types Packs/Day Years [...] encounter Miscellaneous Notes * Telephone Encounter - Neetu Ty - 07/02/2024 2:56 PM EDT Patient walked in requesting PA for Tirzepatide 2.5mg/0.5ml medication. documented in this encounter Plan of Treatment Upcoming Encounters Date Type Department Care Team (Late st Contact Info) Description 07/23/2024 2:15 PM EDT Procedure Visit [facility] MEDICINE [address] [place] [address] Dawna Diego CNM [address] [place] [address] documented as of this encounter Visit Diagnoses Not on filedocumented in this encounter Additional Health Concerns Assessment Noted Time PHQ-9 Depression Total Score: 6 12/27/19 24 9:10 AM EDT documented as of this encounter Care Teams Temperature Regulator Relationship Specialty Start Date End Date Ibeth Colby MD [address] [place] [address] PCP - General Internal Medicine 12/13/22 Suzanne Meyers Family SpecialistRadio Program Director 03/15/23 documented as of this encounter
--- OUTSIDE RECORDS SUMMARY | 2024-07-02 18:01 | XMS_ITS | Encounter Summary ---
Author Organization [employer] Address [address] [facility] [address] 7[address] [place] [address] Care Team Providers Care Electrician Name Role Phone Ibeth Colby MD Primary Care Pro vider Encounter Details Date Type Department Care Team (Late st Contact Info) Description 12/15/2022 Orders Only [facility] MED & PEDS [address] [place] [address] Ernestina Gutierrez LPN Social History Tobacco Use [...] Description 07/23/2024 2:15 PM EDT Procedure Visit [facility] MEDICINE [address] [place], [place] [phone] Dawna Diego CNM [address] [place], [place] [phone] documented as of this encounter Visit Diagnoses Not on filedocumented in this encounter Additional Health Concerns Assessment Noted Time PHQ-9 Depression Total Score: 0 06/22/19 3:26 PM EDT documented as of this encounter Care Teams Electrician Relationship Specialty Start Date End Date Ibeth Colby MD [address] [place], [place] [phone] PCP - General Internal Medicine 12/13/22 Suzanne Meyers Digital Forensics ExaminerLifeguard 03/15/23 documented as of this encounter
--- OUTSIDE RECORDS SUMMARY | 2024-07-02 18:01 | XMS_ITS | Encounter Summary ---
Author Organization [employer] Address [address] 7[address] [place] [address] Care Team Providers Care Mass Spec Name Role Phone Ibeth Colby MD Primary Care Pro vider Reason for Visit * Reason Comments Med Refill Encounter Details Date Type Department Care Team (Late st Contact Info) Description 10/24/2023 Refill [facility] MEDICINE [address] [place] [address] Edmond Fuller FNP Social History Tobacco Use [...] Description 07/23/2024 2:15 PM EDT Procedure Visit [facility] MEDICINE [address] [place] [address] Dawna Diego CNM [address] [place] [address] documented as of this encounter Visit Diagnoses Not on filedocumented in this encounter Additional Health Concerns Assessment Noted Time PHQ-9 Depression Total Score: 0 07/13/19 2:53 PM EDT documented as of this encounter Care Teams Mass Spec Relationship Specialty Start Date End Date Ibeth Colby MD 230 [place] [address] PCP - General Internal Medicine 12/13/22 Suzanne Meyers Electronic News Gathering Camera PersonHydraulic Technician 03/15/23 documented as of this encounter
--- OUTSIDE RECORDS SUMMARY | 2024-07-02 18:01 | XMS_ITS | Encounter Summary ---
Author Organization [employer] Address [address] [facility] 7t [place] [address] Care Team Providers Care Restaurant Mgr Name Role Phone Nilda Dunn EDILBERTO Primary Care Provider +1- [phone] Ibeth Colby MD Primary Care Pro vider Encounter Details Date Type Department Care Team (Late Contact Info) Description 10/10/2022 Orders Only [facility] CHC MED & PEDS [address] [place], [place] [phone] Ange Leal LPN Social History Tobacco Use [...] Department Care Team (Late Contact Info) Description 07/23/2024 2:15 PM EDT Procedure Visit [facility] MEDICINE [address] [place], [place] [phone] Dawna Diego CNM [address] [place] [address] documented as of this encounter Visit Diagnoses Not on filedocumented in this encounter Additional Health Concerns Assessment Noted Time PHQ-9 Depression Total Score: 0 06/22/19 23 3:26 PM EDT documented as of this encounter Care Teams Restaurant Mgr Relationship Specialty Start Date End Date Nilda Dunn FNP PCP - General Family Medicine 11/03/21 12/12/22 Ibeth Colby MD [address] [place] [address] PCP - General Internal Medicine 12/13/22 Suzanne Meyers Account Retention RepresentativeTube Sizer And Cutter Operator 03/15/23 documented as of this encounter
--- OUTSIDE RECORDS SUMMARY | 2024-07-02 18:01 | XMS_ITS | Encounter Summary ---
Author Organization [employer] Address [address] [facility] 7t [place] [address] Care Team Providers Care Key Cutter Name Role Phone Ibeth Colby MD Primary Care Pro vider Reason for Visit * Reason Comments Med Refill Encounter Details Date Type Department Care Team (Late st Contact Info) Description 12/30/2022 Refill [facility] MEDICINE [address] [place] [address] Nilda Dunn, EDILBERTO [address] [facility] [place] [address] Social History Tobacco Use Types Packs/Day Years [...] Description 07/23/2024 2:15 PM EDT Procedure Visit [facility] MEDICINE [address] [place] [phone] Dawna Diego CNM [address] [place], [place] [phone] documented as of this encounter Visit Diagnoses Not on filedocumented in this encounter Additional Health Concerns Assessment Noted Time PHQ-9 Depression Total Score: 0 06/22/19 23 3:26 PM EDT documented as of this encounter Care Teams Key Cutter Relationship Specialty Start Date End Date Ibeth Colby MD [address] [place], [place] [phone] PCP - General Internal Medicine 12/13/22 Suzanne Meyers Pony RougherClinical Business Analyst 03/15/23 documented as of this encounter
--- OUTSIDE RECORDS SUMMARY | 2024-07-02 18:02 | XMS_ITS | Data Portability ---
Author Organization [place] - [facility], Allergy Address [address] [place] [id number] Care Team Providers Care Core Setter Name Role Phone SALVADOR BRANDON WILI Primary Care Provider Assessment No assessment [...] mcg/actua tion nasal spray,[employer] pension 2024 025 [facility] #[id number], [address] [place], [address], 05/01/2024 15:01:22 omeprazol e 40 mg capsule,d elayed release 2024 025 [facility]/Ph[facility] #[id number], [address] [place], [address], 05/01/2024 15:01:22 Patient TargetsNo targets recorded. Patient InstructionsNo instructions recorded. Reason for Referral None Reported. Results Created Date Observation Date Name Description Value Unit Range Abnormal Flag Note LastModifiedBy Organization Detail LastModifiedTime 05/09/19 25 07/15/2022 MRI, brain + brain stem, w/o contr ast No observ ation record ed. [email or web address] Not Available 07/2024 10:59:20 05/09/19 25 04/07/2022 CT, neck, soft tissu e, w/ contr ast No observ ation record ed. [email or web address] Not Available 01/2025 10:46:16 Result Notes None recorded. Problems Name Problem SNOMED Code Status Onset Date Resolution Date Notes Provider Name and Address Organization Details Recorded Time Feeling of lump in throat 892248510 Active 2024 JENNY Oneill MD [address] [facility],[place] [address], [place], [phone], [facility] 14:51:18 Gastroesophage al reflux disease without esophagitis 127187440 Active 2024 JENNY Oneill MD [address] [place] [address],[place] [address], [place], [address], [facility] 14:51:23 Nasal congestion 94684742 Active 2024 JENNY Oneill MD [address] [place] [address],[place] [address], [place], [address], [facility] 14:51:27 Problem Notes None recorded. Procedures Surgical History Date Name Laterality Status Provider Name and Address Organization Details Recorded Time 05/01/2024 FFL_RE completed JENNY BROOKS MD [address] [place] [address], [place], [address], [facility] 05/01/2024 15:00:21 Imaging Results Imaging Date Name Status LastModified by Organiz ation Details LastModified Time 07/15/2022 MRI, brain + brain stem, w/o contrast completed [email or web address] Information not available 05/08/2024 10:59:20 04/07/2022 CT, neck, soft tissue, w/ contrast completed [email or web address] Information not available 05/14/2024 10:46:16 Procedure Notes None recorded. Medical Equipment None [...] mg tablet TAKE 1 TABLET BY MOUTH NIGHTLY AT BEDTIME NEEDED FOR SLEEP, FOR INSOMNIA active Not Available Not Available No t Available fluticasone propionate 50 mcg/actuatio n nasal spray,suspen adela [place] 2 sprays every day by intranasal route. [...] ROUTE IN THE MORNING FOR 28 DAYS. active Not Available Not Available No [...] Updated DateTime 05/01/2024 162.56 cm 39.5 kg/m2 203495.25 g Yong Wong [place] - [facility] 05/01/2024 14:17:49 Social History None recorded. Functional Status None recorded. Mental Status None recorded. Family History Nothing Reported. Medical History No medical history recorded. Gynecological HistoryNo gynecological history recorded. Obstetrics History GPAL:G 0 P 0 0 0 0 Past Encounters Encounter ID Performer Location Encounter Start Date Encounter Closed Date Diagnosis/Indication Diagnosis SNOMED-CT Code Diagnosis ICD10 Code Diagnosis Note [id number] JENNY BROOKS MD [facility] [address] [place] [address] 05/01/2024 14:03:14 05/01/2024 14:57:54 Feeling of lump in throat 209194074 R09.89 see GERD. FFL normal except for [place] ing. Gastroesop hageal reflux disease without esophagitis 465287401 K21.9 Likely has refractory GERD and tachyphyla xis on 20mg of omeprazole . I will increase the dose for 3 months and see if it helps with her globus. Nasal congestion 5568930 0 R09.81 I recommend she continue flonase since she has benefit. I will refill. Health Concerns Section Related Observation LastModified by Organization Detai ls LastModified Time None Recorded Concern Status LastModified by Organization Details LastModified Time None Recorded Advance Directives Directive None Recorded Payers Encounter Date Sequence Insurance Name Policy Number Policy Espinoza Covered Member ID Espinoza Member ID Guarantor Name 05/01/2024 1 [place] [facility] Sera Teran [id number] Sera Teran Notes Date Note Type Note [...] No hx of glaucoma. JENNY BROOKS MD [address] [place] [address], [phone], [facility] - [facility] 05/01/2024 15:01:23 OBGyn Episode No OBEpisode recorded.
--- OUTSIDE RECORDS SUMMARY | 2024-07-02 18:03 | XMS_ITS | Encounter Summary ---
Author Organization [employer] Address [address] [facility] 7t [place] [address] Care Team Providers Care Showcase Maker Name Role Phone Nilda Dunn EDILBERTO Primary Care Provider +1- [phone] Ibeth Colby MD Primary Care Pro vider Encounter Details Date Type Department Care Team (Late st Contact Info) Description 05/10/2022 Orders Only [facility] CH[facility] MED & PEDS [address] [place], [place] [phone] Ange Leal LPN Social History Tobacco Use [...] Description 07/23/2024 2:15 PM EDT Procedure Visit [facility] MEDICINE [address] [place], [place] [phone] Dawna Diego CNM [address] [place], [place] [phone] documented as of this encounter Visit Diagnoses Not on filedocumented in this encounter Additional Health Concerns Assessment Noted Time PHQ-9 Depression Total Score: 0 03/22/19 23 1:19 PM EST documented as of this encounter Care Teams Showcase Maker Relationship Specialty Start Date End Date Nilda Dunn FNP PCP - General Family Medicine 11/03/21 12/12/22 Ibeth Colby MD [address] [place] [address] PCP - General Internal Medicine 12/13/22 Suzanne Meyers Circus ArtistCashier And Waiter/Waitress 03/15/23 documented as of this encounter
--- OUTSIDE RECORDS SUMMARY | 2024-07-02 18:03 | XMS_ITS | Encounter Summary ---
Author Organization [employer] Address [address] [facility] [address] 7[address] [place] [address] Care Team Providers Care Sand Bobber Name Role Phone Ibeth Colby MD Primary Care Pro vider Reason for Visit * Reason Comments Med Refill Encounter Details Date Type Department Care Team (Late st Contact Info) Description 07/24/2023 Refill [facility] MEDICINE [address] [place] [address] Edmond Fuller FNP Social History Tobacco Use [...] Description 07/23/2024 2:15 PM EDT Procedure Visit [facility] MEDICINE [address] [place] [address] Dawna Diego CNM [address] [place] [address] documented as of this encounter Visit Diagnoses Not on filedocumented in this encounter Additional Health Concerns Assessment Noted Time PHQ-9 Depression Total Score: 0 07/13/19 2:53 PM EDT documented as of this encounter Care Teams Sand Bobber Relationship Specialty Start Date End Date Ibeth Colby MD [address] [place] [address] PCP - General Internal Medicine 12/13/22 Suzanne Meyers Plumbing Assembler InstallerStudio Artist 03/15/23 documented as of this encounter
--- OUTSIDE RECORDS SUMMARY | 2024-07-02 18:03 | XMS_ITS | Clinical Summary ---
Author Organization [employer] Address [address] [facility] [address] [place] [address] Care Team Providers Care Disk Sharpener Name Role Phone Ibeth Colby MD Primary Care Pro vider Allergies Active Allergy Reactions Criticality Noted Date Comments [place] Anaphylaxis High 08/15/2013 Gluten Meal Anaphylaxis High [...] needed at bedtime (sleep). 90 tablet 3 024 Active prazosin (Minipress) 5 MG capsuleIndicati ons:Mood [...] syringe INJECT 0.3MG INTERMUSCULARLY WHEN NEEDED Active Levonorgestrel 20 MCG/DAY intrauterine device 1 [...] tablet by mouth 4 times daily. Active fluticasone (Flonase) 50 MCG/ACT nasal sprayIndication [...] 2 HOURS 9 tablet 5 024 Active propranolol LA (Inderal LA) 80 MG 24 hr capsule TAKE 1 CAPSULE BY MOUTH EVERYDAY AT BEDTIME 90 capsule 1 024 Active lidocaine (Lidoderm) 5 % patchIndication s:Chronic bilateral low back pain with bilateral sciatica APPLY 1 PATCH TOPICALLY IN THE MORNING. 30 patch 3 025 Active cholecalciferol VITAMIN D (Vitamin D-3) 50 MCG (1999 UT) capsuleIndicati ons:Vitamin D deficiency TAKE 1 CAPSULE BY MOUTH EVERY DAY 90 capsule 1 025 Active Multiple Vitamin (Multi-Vitamin) tablet TAKE 1 TABLET BY MOUTH EVERY DAY WITH FOOD 90 tablet 1 025 Active valACYclovir (Valtrex) 1 g tablet TAKE 1 TABLET BY MOUTH EVERY DAY 30 tablet 3 025 Active Tirzepatide-Rogerio ght Management 2.5 MG/0.5ML solution auto-injector Inject 0.5 mL (2.5 mg) under the skin 1 (one) time per week. To increase dose in 4 weeks if tolerating 0.5 mL 1 025 Active Trelegy Ellipta 100-62.5-25 MCG/ACT aerosol powder 1 PUFFS INHALATION DAILY, AT THE SAME TIME EVERY DAY Active loratadine (Claritin) 10 MG tablet TAKE 1 TABLET BY MOUTH EVERY DAY NEEDED 90 tablet 1 025 Active predniSONE (Deltasone) 20 MG tablet 2 tabs po daily for 5 days 10 tablet 025 Active Breo Ellipta 100-25 MCG/ACT aerosol powder INHALE 1 PUFF EVERY DAY FOR 30 DAYS 024 2024 Discontinued(O ther) Incruse Ellipta 62.5 MCG/ACT aerosol powder INHALE 1 INHALATION EVERY 24 HOURS. SHOULD BE TAKEN AT LEAST 24 HOURS APART 024 2024 Discontinued(O ther) loratadine (Claritin) 10 MG tablet TAKE 1 TABLET BY MOUTH EVERY DAY NEEDED 90 tablet 1 024 2024 Discontinued(R eorder (will not trigger notification to Pharmacy)) Tirzepatide-Rogerio ght Management 2.5 MG/0.5ML solution auto-injector Inject 0.5 mL (2.5 mg) under the skin 1 (one) time per week. To increase dose in 4 weeks if tolerating 0.5 mL 1 024 2024 Discontinued(R eorder (will not trigger notification to Pharmacy)) zoster vaccine-recombi nant adjuvanted (Shingrix) 50 MCG/0.5ML vaccineIndicati ons:Health care maintenance Inject 0.5 mL (50 mcg) into the muscle 1 (one) time for 1 dose. To start series 0.5 mL 025 2024 guaiFENesin (Mucinex) 600 MG 12 hr tablet Take 1 tablet (600 mg) by mouth 2 times daily for 7 days. Do not crush, chew, or split. 14 tablet 025 2024 Active Problems Problem Noted Date Diagnosed Date Upper respiratory disease 06/15/2024 NO (obstructive sleep apnea) 06/15/2024 Abnormal EEG 05/10/2024 History of tobacco use 10/18/2023 Migraine 10/18/2023 [...] Encounters Date Type Department Care Team Description 07/02/[address] [phone] Ibeth Colby MD Prior Auth Prescription 06/14/2024 1:00 PM EDT Telemedicine [address] [address] Ibeth Colby MD Health care maintenance (Primary Dx); Dietary counseling; Exercise counseling; Seizure disorder (CMS/HCC); Opioid dependence in remission (CMS/HCC); Pulmonary emphysema, unspecified emphysema type (CMS/HCC); Chronic hepatitis C without hepatic coma (CMS/HCC); Type 2 diabetes mellitus with other specified complication, without long-term current use of insulin (CMS/HCC); Hyperhidrosis of palms; Generalized anxiety disorder; Class 2 obesity; Asthma-COPD overlap syndrome (CMS/HCC); Abnormal EEG; Upper respiratory disease; NO (obstructive sleep apnea) 06/13/2024 Telephone [facility] [address] [place] [phone] Ibeth Colby MD Appointment; Centralized Scheduling 06/13/2024 Telephone [facility] [address] [place] [phone] Ibeth Colby MD switch appointment 06/06/2024 Telephone [facility] [address] [place] [phone] Ibeth Colby MD chart prep 06/03/2024 Patient Outreach [address] [phone] Ibeth Colby MD Pre-visit Planning (Pre-visit planning - LVM ) 05/17/2024 Population Health Risk Score [facility] () Department [address] [place] [phone] Provider, Population Health Generic 05/10/2024 Orders Only [facility] [address] [place] [phone] NameAdria MD Seizure disorder (CMS/[facility]) (Primary Dx); Abnormal EEG 04/17/2024 Refill [facility] [address] [place], [place] [phone] Ree Jenkins MD from Last 3 Months Immunizations Name Administration Dates Next Due Hep A, Adult 05/23/2013,01/19/2011,07/20/2000 Hep B, adult 03/08/2016,01/16/2011,12/03/2009 INFLUENZA VACCINE QUADRIVALE NT RECOMBINANT PRESERVATIVE FREE RIV4 01/02/2020 Influenza injectable quadriv alent IIV4 with preservative 01/04/2018,11/23/2016 Influenza injectable quadriv alent preservative free 03/08/2016 Influenza, IIV3, injectable 02/11/2014, 4 Influenza, Split (incl. jses fied surface antigen) 12/14/2011 Influenza, seasonal, injecta [...] Description 07/23/2024 2:15 PM EDT Procedure Visit [facility] [address], [place] [phone] Dawna Diego, CNM [address], [place] [phone] Health Maintenance Due Date Last Done Comments [...] Protein Screening 12/25/2024 12/26/2023 Lipid Panel 12/25/2024 07/02/2024, 12/05, 05/31/2022 Depression Screening 12/26/2024 12/27/2023, 12/27/19 DTaP/Tdap/Td Vaccines (2 - Td or Tdap) [...] Procedure Name Priority Date/Time Associated Diagnosis Comments LIPID PANEL, STANDARD Routine 07/02/2024 2:47 PM EDT Health care maintenance COMPREHENSIVE METABOLIC PANEL Routine 07/02/2024 2:47 PM EDT Class 2 obesity T4, FREE Routine 07/02/2024 2:47 PM EDT Class 2 obesity TSH Routine 07/02/2024 2:47 PM EDT Class 2 obesity HIV 1/2 ANTIGEN/ANTIBODY, FOURTH GENERATION W/RFL Routine [...] Recently Relevant to Health Maintenance Results * (ABNORMAL) TSH (07/02/2024 2:47 PM EDT) Thyroid Stimulating Hormone 4.25(H) 0.32 - 4.0 uIU/mL [facility] Comment:Note: A sustained TS H level above 2.5 uIU/mL may warrant further investigation. TSH 3rd Generation ([facility]) Blood Venous blood specimen / Unknown 07/02/2024 2:47 PM EDT 07/02/2024 3:59 PM EDT us Ibeth Vasques MD LAB BLOOD ORDERAB LES Final Result Performing Organization Address [facility] Co de Phone Number [facility] [address] [place] [phone] * T4, Free (07/02/2024 2:47 PM EDT) Free T4 (Free Thyroxine) 1.06 0.71 - 1.85 ng/dL [facility] Blood Venous blood specimen / Unknown 07/02/2024 2:47 PM EDT 07/02/2024 3:59 PM EDT Ibeth Vasques MD LAB BLOOD ORDERAB LES Final Result Performing Organization Address City/[facility]/ZIP Co de Phone Number [facility] [address] [place] [address] [phone] * (ABNORMAL) Lipid Panel, Standard (07/02/2024 2:47 PM EDT) Triglycerides 146 <150 mg/dL [facility] Comment:Desirable Triglyceri de: less than 150 mg/dLBorderline High Triglyceride 150-199 mg/dLHigh Triglyceride: 200-499 mg/dLVery High Triglyceride: greater than or equal to 5OO mg/dL Cholesterol 215(H) <200 mg/dL [facility] Comment:Desirable Cholestero l: less than 200 mg/dLBorderline High Cholesterol: 200-239 mg/dLHigh Cholesterol: greater than 239 mg/dL LDL Cholesterol Calculated 137(H) <100 mg/dL [facility] Comment:Desirable LDL: less than 100 mg/dLNear Optimal/Above Optimal LDL: 110- 129 mg/dLBorderline High LDL: 130-159 mg/dLHigh LDL: 160-189 mg/dLVery High LDL: greater than or equal to 190 mg/dL HDL Cholesterol 49 >40 mg/dL [facility] Comment:Desirable HDL: great er than 40 mg/dL Note: This HDL assay may give artificially low results in patients with liver disease. Blood Venous blood specimen / Unknown 07/02/2024 2:47 PM EDT 07/02/2024 3:59 PM EDT us Ibeth Vasques MD LAB BLOOD ORDERAB LES Final Result [facility] [address] [place] [phone] * Comprehensive Metabolic Panel (07/02/2024 2:47 PM EDT) Sodium 139 135 - 145 mmol/L [facility] Potassium 4.2 3.3 - 5.1 mmol/L [facility] Chloride 105 96 - 108 mmol/L [facility] Carbon Dioxide 26 22 - 29 mmol/L [facility] Anion Gap 12 12 - 20 [facility] Urea Nitrogen (BUN) 13 9 - 16 mg/dL [facility] Creatinine, Serum 0.96 0.5 - 1.4 mg/dL [facility] Estimated Glomerular Filt Rate >60 [facility] Comment:Chronic Kidney Disea se: Estimated GFR < 60 mL/min/1.62z8Qbdool Kidney Disease: Estimated GFR < 15 mL/min/1.73m2 Glucose 97 60 - 115 mg/dL [facility] Calcium 10.0 8.4 - 10.2 mg/dL [facility] Bilirubin, Total 0.5 0.0 - 1.0 mg/dL [facility] Aspartate Amino Transferase 22 5 - 31 U/L [facility] Alanine Aminotransferase 19 0 - 31 U/L [facility] Total Protein 7.9 6.5 - 8.0 g/dL [facility] Albumin Level 4.4 3.5 - 5.0 g/dL [facility] Alkaline Phosphatase 49 39 - 117 U/L [facility] Blood Venous blood specimen / Unknown 07/02/2024 2:47 PM EDT 07/02/2024 3:59 PM EDT us Ibeth Vasques MD LAB BLOOD ORDERAB LES Final Result [facility] [address] [place] [phone] * Albumin, Random Urine W/Creatinine (12/26/2023 4:00 PM EDT) Creatinine, Urine 213.46 mg/dL [facility] Microalbumin Urine 10.0 mg/L [facility] Microalbum Creatinine Ratio Ur 4.6 <30 ug/mg cr [facility] Comment:Albumin/Creatinine R atio Reference Ranges: Normal: < 30 ug/mg creatinine Microalbuminuria: 30 - 300 ug/mg creatinineClinical Albuminuria: > 300 ug/mg creatinine Urine (Urine, Random) 12/26/2023 4:00 PM EDT 12/26/2023 5:33 PM EDT us Ibeth Vasques MD LAB URINE ORDERAB LES Final Result Performing Organization Address [facility] Co de Phone Number [facility] [address] [place] [phone] * HIV-1/2 Antigen and Antibodies, Fourth Generation, with Reflexes (12/26/2023 4:00 PM EDT) Pathologist [facility] HIV AB/AG Nonreactive Nonreactive [facility] Comment:HIV-1 p24 Ag and/or HIV-1/HIV-2 Ab not detected.A test result that is nonreactive does not exclude thepossibility of exposure to or infection with HIV-1 and/orHIV-2. Nonreactive results in this assay for individualswith prior exposure to HIV-1 and/or HIV-2 may be due toantigen and antibody levels that are below the limit ofdetection of this assay.The [employer] HIV Ag/Ab Combo assay result andsupplemental assay results should be interpreted inconjunction with the patient's clinical presentation,history and other laboratory results. If the results areinconsistent with clinical evidence, additional testing issuggested to confirm the result. Blood Venous blood specimen / Unknown 12/26/2023 4:00 PM EDT 12/26/2023 5:31 PM EDT us Ibeth Vasques MD LAB BLOOD ORDERAB LES Final Result Performing Organization Address [facility]/ZIP Co de Phone Number [facility] [address] [place] [phone] * Hemoglobin A1c (12/26/2023 4:00 PM EDT) Hemoglobin A1c 5.4 <6.0 % [facility] Comment:Hemoglobin A1C Refer ence Range Adults: 4.8 - 6.0 % Non diabetic: < 6.0 % Goal: < 7.0 %Additional Action Suggested: > 8.0 %Note: Hemoglobin A1c results are invalid for patients with abnormal amounts of HbF. Blood transfusions may impact the HbA1c concentration in the patient sample. Estimated Average Glucose 108 mg/dL [facility] Comment:eAG = Estimated ave rage glucose which is %A1C expressed asaverage glucose, using the formula of the E7P-BskmmsrZvnptiu Glucose study (ADAG), Diabetes Care, Vol.31,#8,Oct. 2007 Blood Venous blood specimen / Unknown 12/26/2023 4:00 PM EDT 12/26/2023 5:31 PM EDT Ibeth Vasques MD LAB BLOOD ORDERAB LES Final Result [facility] [address] [place] [address] [phone] * Hm Colonoscopy (12/02/2020 11:44 AM [...] Legacy Procedure: Mammography Report 1 Historical Provider IMG BI PROCEDURES Final R esult * HPV mRNA E6/E7 (05/02/2017 11:59 AM EST) HPV mRNA E6/E7 Not Detected NOT DETECTED [facility] Comment: This test was performed using the APTIMA(R) HPV Assay ([employer] This assay detects E6/E7 viral messenger RNA (mRNA) from 14 high-risk HPV types (16,18,31,33,35,39,45,51, 52,56,58,59,66,68). For additional information please refer to: http://education.[employer]/faq/FSQ238j5 (This link is being provided for informational/ educational purposes only.) Test Performed by [employer], [employer] [facility], [address] [place] [phone] Roddy Pickens M.D., Ph.D., Director of Laboratories , [facility] [id number] Please note: ??Effective 11/16/2015, HPV testing will be performed using [employer]'s APTIMA test which targets mRNA. Detecting mRNA instead of DNA, as in older methods, offers significant improvements in specificity. 05/02/2017 11:5 9 AM EST Mis Harmon NP HISTORICAL/NON ORDERABLE LABS Fi nal Result [facility] Anywhere [address] from Last 3 Months or Most Recently Relevant to Health [place] [phone] [facility] C3 Jeane Dumont [place] Care Teams Disk Sharpener Relationship Specialty Start Date End Date Ibeth Colby MD [address] [place] [phone] PCP - General Internal Medicine 12/13/22 Suzanne Meyers Coffee RoasterElectromechanical Assembler 03/15/23
--- OUTSIDE RECORDS SUMMARY | 2024-07-02 18:03 | XMS_ITS | Clinical Summary ---
Author Organization [facility] Address [address] [place] [address] Care Team Providers Care Curriculum Assistant Principal Name Role Phone Unavailable Primary Care Provider [...] Adhesive Bandage Contact Dermatitis,Hives,Itch ing,Rash,Swelling Low 02/22/2024 [place] Anaphylaxis High 08/15/2013 Gluten Anaphylaxis High 03/22/2022 Lactose 05/31/2022 Tape, Occlusive Adhesive 02/22/2024 Other Reaction(s): Contact dermatitis with paper tape Tapentadol 03/22/2022 Other reaction(s): Contact dermatitis with paper tape Wheat Gluten Anaphylaxis,Diarrhea , Dizziness,GI intolerance,Headache, Hives,Itching,Nausea and Vomiting,Other Severe,Palpitations,R jabari,Swelling,Tinnitus ,Wheezing High 02/22/2024 Wound Dressings Hives High 12/14/2011 Other reaction(s): RASH ON SITE Medications duc.stocking, thigh,reg,med Use 2 Each as directed daily. [...] Refills, Maintenance, 11/21/23 3:54:00 PM EDT, Aerosol, [facility]/pharmacy #[id number], Partial fill upon patient request if the [...] (one) time as needed Migraine 01/16/20 Active propranolol LA (INDERAL LA) 80 mg [...] the uterus every 7 (seven) years Active BREO ELLIPTA 100-25 mcg/dose dsdv Take [...] once daily Active prazosin (MINIPRESS) 5 mg capsuleIndication s:Posttraumatic stress disorder Take 1 Capsule by mouth nightly at bedtime for 30 days 30 Capsule 2 05/17/19 25 Active hydrOXYzine pamoate (VISTARIL) 50 mg capsuleIndication s:Episodic mood disorder ([facility] V24) Take 1 Capsule by mouth 2 (two) times Daily for 30 days 60 Capsule 2 05/17/19 25 Active lamoTRIgine (LAMICTAL) 100 mg tabletIndications :Episodic mood disorder ([facility] V24) Take 1 Tablet by mouth 2 (two) times daily for 30 days 60 Tablet 2 05/17/19 25 Active QUEtiapine (SEROQUEL) 100 mg tabletIndications :Episodic mood disorder ([facility] V24) Take 1 Tablet by mouth nightly at bedtime for 30 days 30 Tablet 2 05/17/19 25 Active zolpidem (AMBIEN) 10 mg tablet Take 1 Tablet by mouth nightly at bedtime as needed for sleep for up to 30 days for insomnia 30 Tablet 1 06/14/19 25 025 Active zolpidem (AMBIEN) 10 mg tablet Take 1 Tablet by mouth nightly at bedtime as needed for sleep for up to 30 days for insomnia 30 Tablet 1 04/23/19 25 025 Discontin ued(Reord er (E-Cancel Not Sent)) Active Problems Problem Noted Date Diagnosed Date Severe obesity ([facility]) 02/22/2024 Other emphysema ([facility]) 02/22/2024 Acute kidney failure ([facility] V24) 02/22/2024 Overdose of antidepressant 02/22/2024 Migraine headache 10/18/2023 History of tobacco use 10/18/2023 Health care maintenance 05/31/2022 Overview (02/22/2024): Pap: 05/02/2017 NILM; HPV neg Colonoscopy: 12/02/20; polyp removed Mammogram: 09/23/20 BIRADS 1 Class 2 obesity 05/31/2022 Asthma-chronic obstructive p ulmonary disease overlap syndrome ([facility]) 05/31/2022 Obsessive-compulsive disorder 05/18/2022 Assessment & Plan (04/18/2024 3:22 PM EST): A: Symptoms under control with current regiment P: No changes made, No refill needed Assessment & Plan (03/21/2024 3:03 PM EST): A: Symptoms under control with current regiment P: No changes made, No refill needed Severe chronic obstructive pulmonary disease ([facility]) 05/18/2022 Vertigo 05/17/2022 Opioid dependence ([facility]) 05/17/2022 Assessment & Plan (02/22/2024 [...] 05/17/2022 Allergic rhinitis 05/17/2022 Acid reflux 05/17/2022 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 Vesicoureteric reflux 05/25/2020 Stage 2 chronic kidney disease 05/25/2020 Renal tubular acidosis 05/25/2020 Other symptoms and signs involving the genitouri nary system 05/25/2020 Acute retention of urine 05/25/2020 Acute nontraumatic kidney injury ([facility] V24) 05/25/2020 Vitamin D deficiency 07/23/2018 Overview (02/22/2024): I have several side effects Episodic mood disorder ([facility] V24) 02/06/2018 Assessment & Plan (05/16/2024 3:40 PM EDT): Assessment: Symptoms under reasonable control Plan: Continue all current meds, no refills needed Assessment & Plan (04/18/2024 3:22 PM EST): Assessment: Symptoms under reasonable control Plan: Continue all current meds, no refills needed Assessment & Plan (03/21/2024 3:02 PM EST): Assessment: Symptoms under reasonable control Plan: Continue all current meds, no refills needed Assessment & Plan (03/18/2024 3:55 PM EST): Assessment: Symptoms under reasonable control Plan: Continue all current meds, no refills needed Seizure disorder (HCC-CMS) 12/15/2014 Posttraumatic stress disorder 12/15/2014 Assessment & Plan (05/16/2024 3:44 PM EDT): A: flashbacks and nightmares P: Continue all current meds. Re-assess nightmares when patient starts using C-pap machine. Assessment & Plan (04/18/2024 3:21 PM EST): [...] Encounters Date Type Department Care Team Description 06/13/2024 2:00 PM EDT Behavioral Health Visit [facility] [address] [place] [phone] Vida Hernandez APRN Episodic mood disorder ([facility] V24); Posttraumatic stress disorder 05/16/2024 2:30 PM EDT Behavioral Health Visit [facility] [address] [place] [phone] Vida Hernandez APRN Episodic mood disorder (HCC-CMS) (Primary Dx); Posttraumatic stress disorder 04/18/2024 3:00 PM EST Behavioral Health Visit [facility] [address] [place] [phone] Vida Hernandez APRN Posttraumatic stress disorder (Primary Dx); Episodic mood disorder (HCC-CMS); Mixed obsessional thoughts and acts from Last 3 Months Immunizations Immunization Administration Dates Next Due Flu, Multi Dose 0.5 ML 01/04/2018,11/23/2016 Flu, Preservative Free 03/08/2016 Flu, Recombinant, 18y+, Flublok 01/02/2020 Hep A, adult 05/23/2013,01/19/2011,07/20/2000 Hep B, Adult/Adol (ENERGIX/RECOMBIVAX) 7,01/16/2011,12/03/2009 INFLUENZA, SEASONAL, INJECTABLE 02/11/2014,03/13 INFLUENZA, SEASONAL, INJECTA BLE, PRESERVATIVE FREE 12/26/2023 PNEUMOCOCCAL CONJUGATE PCV 20 (Prevnar) 10/18/19 24 PNEUMOCOCCAL POLYSACCHARIDE PPV23 02/17/2014 [facility] State Funded Flu Vaccine 12/14/2011 TDAP 03/08/2016 Td(adult),2 Lf tetanus toxoi d,preservative free 03/06/1996 Family History Medical History Relation Name Comments Skin cancer Father Drug Abuse Mother Relation Name Status Comments Brother Alive Father Mother Social History Tobacco Use Types Packs/Day Years Used Date Smoking Tobacco: Former Cigarettes 2 017 - 1983 Smokeless Tobacco: Never Tobacco Cessation:Counseling [...] Upcoming Encounters Date Type Department Care Team ([facility] st Contact Info) Description 07/18/2024 2:30 PM EDT Behavioral Health Visit [facility] [address] [place] [phone] Vida Hernandez APRN [address] [facility] [place] [address] Health Maintenance Due Date Last Done Comments Anxiety Screening 1972 HPV Screening 1972 LARC-Mirena IUD 1972 Pap + HPV 1972 Syphilis Screening 12/10/1986 Hypertension Screening (#1) 1990 Cervical Cancer Screening [address] Colonography 2017 Colonoscopy 2017 Colorectal Cancer Screening 2017 FIT/gFOBT 2017 Fecal DNA 2017 Flexible Sigmoidoscopy 2017 Breast Cancer Screening (Mammogram) 09/23/2022 09/23/2020 Imm-Zoster, Recombinant (1 of 2) 2022 Cik-ZMPMG-12 ( season) 11/05/202306/30/2 021, 06/02/2020 Alcohol and Drug Screen 03/06/2024 Depression Annual Screen 03/06/2024 TSH Monitoring 12/25/2024 12/26/2023 Tobacco Screening 02/21/2025 02/22/2024 Imm-DTaP/Tdap/Td (2 - Td or Tdap) 03/08/2026 017, 03/06/1996 Diabetes Screening 12/25/2026 12/26/2023, 1 , 12/26/2023, Additional history exists Lipid Screening 12/25/2028 12/26/2023 Imm-Hepatitis B Completed 03/08/2016, 01/04, 12/03/2009 Imm-Pneumococcal Completed 10/18/2023, 02/17/2014 HIV Screening Completed 12/26/2023, 12/26/2023 Imm-Influenza Completed 12/26/2023, 12/05, 01/04/2018, Additional history exists Cervical Ablation/Cold-Knife Conization Discontinued Cervical Cryotherapy Discontinued Colposcopy Discontinued Endometrial Biopsy Discontinued Excision/Leep Discontinued HPV Genotyping Discontinued Vaginal Pap Discontinued Vulvoscopy Discontinued Insurance [facility] [place]
--- OUTSIDE RECORDS SUMMARY | 2024-07-02 18:03 | XMS_ITS | Encounter Summary ---
Author Organization [employer] Address [address] [facility] [address] 7t [place] [address] Care Team Providers Care Cryogenics Repairer Name Role Phone Nilda Dunn Conchita CASANOVA Primary Care Provider [phone]- [phone] Ibeth Colby MD Primary Care Pro vider Reason for Visit * Reason Comments Med Refill Encounter Details Date Type Department Care Team (Late st Contact Info) Description 08/16/2022 Refill [facility] PEDS [address] [place], [place] [phone] Edmond Fuller FNP Social History Tobacco Use [...] Description 07/23/2024 2:15 PM EDT Procedure Visit [facility] [address] [place], [place] [phone] Dawna Diego CNM [address] [place], [place] [phone] documented as of this encounter Visit Diagnoses Not on filedocumented in this encounter Additional Health Concerns Assessment Noted Time PHQ-9 Depression Total Score: 0 06/22/19 3:26 PM EDT documented as of this encounter Care Teams Cryogenics Repairer Relationship Specialty Start Date End Date Nilda Dunn FNP PCP - General Family Medicine 11/03/21 12/12/22 Ibeth Colby MD 230 [place], [place] [phone] PCP - General Internal Medicine 12/13/22 Suzanne Meyers Assistance SpecialistTow Bar Driver 03/15/23 documented as of this encounter
--- OUTSIDE RECORDS SUMMARY | 2024-07-02 18:03 | XMS_ITS | Clinical Summary ---
Author Organization [facility] Address [address] [facility] [address] [place] [address] Phone Care Team Providers Care Crab Fisher Name Role Phone Mis Harmon NP Primary Care Provider [phone] Allergies No known active allergies Medications coenzyme [...] directed Active ergocalciferol (VITAMIN D-2) 1.25 MG (40576 UT) capsule Take 1 capsule by mouth [...] Last Done Comments Breast Cancer Screening 1972 Hepatitis B Vaccine (1 of 3 - 19+ 3-dose series) 12/09 Pneumococcal Vaccine: 50+ Years (1 of 2 - PCV) 992 Colorectal Cancer Screening: Annual FOBT 2021 Colorectal Cancer Screening: Colonoscopy 2021 Colorectal Cancer Screening: Sigmoidoscopy 2021 Influenza Vaccine (Season Ended) 2024 Insurance Medicaid [place] Medicaid [place] Care Teams Crab Fisher Relationship Specialty Start Date End Date Mis Harmon NP PCP - General 03/16/20
--- OUTSIDE RECORDS SUMMARY | 2024-07-02 18:03 | XMS_ITS | Encounter Summary ---
Author Organization [employer] Address [address] [facility] [address] 7t [place] [address] Care Team Providers Care Superintendent Terminal Name Role Phone Ibeth Colby MD Primary Care Pro vider Reason for Visit * Reason Comments Med Refill Encounter Details Date Type Department Care Team (Late st Contact Info) Description 09/24/2023 Refill [facility] [address] [place] [address] Edmond Fuller FNP Social History Tobacco Use [...] Description 07/23/2024 2:15 PM EDT Procedure Visit [facility] [address] [place] [address] Dawna Diego CNM [address] [place] [address] documented as of this encounter Visit Diagnoses Not on filedocumented in this encounter Additional Health Concerns Assessment Noted Time PHQ-9 Depression Total Score: 0 07/13/19 2:53 PM EDT documented as of this encounter Care Teams Superintendent Terminal Relationship Specialty Start Date End Date Ibeth Colby MD [address] [place] [address] PCP - General Internal Medicine 12/13/22 Suzanne Meyers Master ChefCategory Development Analyst 03/15/23 documented as of this encounter
--- OUTSIDE RECORDS SUMMARY | 2024-07-02 18:03 | XMS_ITS | Encounter Summary ---
Author Organization [employer] Address [address] [facility] 7t [place] [address] Care Team Providers Care Reeler Operator Name Role Phone Nilda Dunn Primary Care Provider [phone] Ibeth Colby MD Primary Care Pro vider Encounter Details Date Type Department Care Team (Late st Contact Info) Description 03/09/2022 Orders Only [facility] MED & PEDS [address] [place] [address] Ange Leal LPN Social History Tobacco Use [...] Description 07/23/2024 2:15 PM EDT Procedure Visit [facility] MED[facility] [address] [place], [place] [phone] Dawna Diego CNM [address] [place], [place] [phone] documented as of this encounter Visit Diagnoses Not on filedocumented in this encounter Care Teams Reeler Operator Relationship Specialty Start Date End Date Nilda Dunn FNP PCP - General Family Medicine 11/03/21 12/12/22 Ibeth Colby MD [address] [place] [address] PCP - General Internal Medicine 12/13/22 Suzanne Meyers Utility Helicopter RepairerCake Icer And Packer 03/15/23 documented as of this encounter
--- OUTSIDE RECORDS SUMMARY | 2024-07-02 18:03 | XMS_ITS | Encounter Summary ---
Author Organization [employer] Address [address] [facility] 7 [place] [address] Care Team Providers Care Digital Program Manager Name Role Phone Nilda Dunn Primary Care Provider [phone]- [phone] Ibeth Colby MD Primary Care Pro vider Reason for Visit * Reason Onset Date Comments Medication Question 09/02/2022 Encounter Details Date Type Department Care Team (Late st Contact Info) Description 09/02/2022 Telephone [facility] [address] [place], [place] [phone] Nilda Dunn FNP [address] [place] [address] [place] [address] Medication Question Social History Tobacco Use Types [...] 11:11 AM EDT Tc from Suzanne at [facility] requesting a script albuterol solution for patients nebulizer machine. documented in this encounter Plan of Treatment Upcoming Encounters Date Type Department Care Team (Late st Contact Info) Description 07/23/2024 2:15 PM EDT Procedure Visit [facility] [address] [place], [place] [phone] Dawna Diego CNM [address] [place], [place] [phone] documented as of this encounter Visit Diagnoses Not on filedocumented in this encounter Additional Health Concerns Assessment Noted Time PHQ-9 Depression Total Score: 0 06/22/19 3:26 PM EDT documented as of this encounter Care Teams Digital Program Manager Relationship Specialty Start Date End Date Nilda Dunn FNP PCP - General Family Medicine 11/03/21 12/12/22 Ibeth Colby MD 230 [place], [place] [phone] PCP - General Internal Medicine 12/13/22 Suzanne Meyers Hoist Cylinder LoaderPension Fund Manager 03/15/23 documented as of this encounter
--- OUTSIDE RECORDS SUMMARY | 2024-07-02 18:04 | XMS_ITS | Encounter Summary ---
Author Organization [employer] Address [address] [facility] [address] 7t [place] [address] Care Team Providers Care Forestry Instructor Name Role Phone Ibeth Colby MD Primary Care Pro vider Encounter Details Date Type Department Care Team (Late st Contact Info) Description 06/26/2023 Orders Only [facility] MED[facility]INE 230 [place] [address] Provider, MD Edgar Social History Tobacco Use [...] Description 07/23/2024 2:15 PM EDT Procedure Visit [facility] [address] [place] [address] Dawna Diego CNM 230 [place] [address] documented as of this encounter Procedures Procedure [...] documented as of this encounter Care Teams Forestry Instructor Relationship Specialty Start Date End Date Ibeth Colby MD 230 [place], [place] [phone] PCP - General Internal Medicine 12/13/22 Suzanne Meyers Grocery Team MemberRivet Sorter 03/15/23 documented as of this encounter
--- OUTSIDE RECORDS SUMMARY | 2024-07-02 18:04 | XMS_ITS | Encounter Summary ---
Author Organization [facility] Address [address] [facility] [address] [place] [address] Phone Care Team Providers Care Blade Sharpener Name Role Phone Unavailable Primary Care Provider Unavailabl e Encounter Details Date Type Department Care Team (Latest Contact Info) Description 07/20/2022 Transcribe Orders Virtual Department 30 [place] [address] Nilda Dunn NP Breast screening (Primary Dx) [...] It is not the complete legal health record.[facility]
--- OUTSIDE RECORDS SUMMARY | 2024-07-02 18:04 | XMS_ITS | Encounter Summary ---
Author Organization [employer] Address [address] [facility] [address] 7t [place] [address] Care Team Providers Care Senior Program Planner Name Role Phone Ibeth Colby MD Primary Care Pro vider Reason for Visit * Reason Comments Med Refill Encounter Details Date Type Department Care Team (Late st Contact Info) Description 03/10/2023 Refill [facility]INE [address] [place] [address] Edmond Fuller FNP Mood disorder (CMS/HCC) Social [...] Description 07/23/2024 2:15 PM EDT Procedure Visit [facility] MEDICINE [address] [place] [address] Danwa Diego CNM 230 [place] [address] documented as of this encounter Visit Diagnoses Diagnosis Mood disorder (CMS/HCC) Unspecified episodic mood disorder documented in this encounter Additional Health Concerns Assessment Noted Time PHQ-9 Depression Total Score: 0 01/13/20 23 2:53 PM EST documented as of this encounter Care Teams Senior Program Planner Relationship Specialty Start Date End Date Ibeth Colby MD [address] [place] [address] PCP - General Internal Medicine 12/13/22 Suzanne Meyers Panel SewerGrain Combiner 03/15/23 documented as of this encounter
--- OUTSIDE RECORDS SUMMARY | 2024-07-02 18:04 | XMS_ITS | Encounter Summary ---
Author Organization [email or web address] Address [address] [facility] 7 [place] [address] Care Team Providers Care Mounting Inspector Name Role Phone Ibeth Colby MD Primary Care Pro vider Reason for Visit * Reason Onset Date Comments Med Refill 01/30/2024 Encounter Details Date Type Department Care Team (Late st Contact Info) Description 01/30/2024 Refill [facility] MED[facility]INE 230 [place] [address] Ibeth Colby MD 230 [place], [place] [phone] Social History Tobacco Use Types Packs/Day Years [...] Description 07/23/2024 2:15 PM EDT Procedure Visit [facility] [address] [place] [address] Dawna Diego CNM 230 [place] [address] documented as of this encounter Visit Diagnoses Not on filedocumented in this encounter Additional Health Concerns Assessment Noted Time PHQ-9 Depression Total Score: 6 12/27/19 24 9:10 AM EDT documented as of this encounter Care Teams Mounting Inspector Relationship Specialty Start Date End Date Ibeth Colby MD 230 [place] [address] PCP - General Internal Medicine 12/13/22 Suzanne Meyers Beef Cattle Farm WorkerFront Desk Receptionist 03/15/23 documented as of this encounter
--- OUTSIDE RECORDS SUMMARY | 2024-07-02 18:04 | XMS_ITS | Encounter Summary ---
Author Organization [employer] Address [address] [facility] 7 [place] [address] Care Team Providers Care Association Executive Name Role Phone Ibeth Colby MD Primary Care Pro vider Reason for Visit * Reason Onset Date Comments Med Refill 01/01/2024 Encounter Details Date Type Department Care Team (Late st Contact Info) Description 01/01/2024 Refill [facility] MED[facility] 230 [place] [address] Ibeth Colby MD 230 [place], [place] [phone] Social History Tobacco Use Types Packs/Day Years [...] Description 07/23/2024 2:15 PM EDT Procedure Visit [facility] 230 [place] [address] Dawna Diego CNM 230 [place] [address] documented as of this encounter Visit Diagnoses Not on filedocumented in this encounter Additional Health Concerns Assessment Noted Time PHQ-9 Depression Total Score: 6 12/27/19 24 9:10 AM EDT documented as of this encounter Care Teams Association Executive Relationship Specialty Start Date End Date Ibeth Colby MD 230 [place] [address] PCP - General Internal Medicine 12/13/22 Suzanne Meyers Waterworks EmployeeNaturopath 03/15/23 documented as of this encounter
--- OUTSIDE RECORDS SUMMARY | 2024-07-02 18:04 | XMS_ITS | Encounter Summary ---
Author Organization [employer] Address [address] [facility] [address] 7t [place] [address] Care Team Providers Care Model Builder Display Name Role Phone Ibeth Colby MD Primary Care Pro vider Reason for Visit * Reason Comments Med Refill Encounter Details Date Type Department Care Team ([facility] st Contact Info) Description 02/14/2023 Refill [facility] [address] [place] [address] Edmond Fuller FNP Mood disorder (CMS/HCC) Social [...] Description 07/23/2024 2:15 PM EDT Procedure Visit [facility] [address] [place] [address] Dawna Diego CNM [address] [place] [address] documented as of this encounter Visit Diagnoses Diagnosis Mood disorder (CMS/HCC) Unspecified episodic mood disorder documented in this encounter Additional Health Concerns Assessment Noted Time PHQ-9 Depression Total Score: 0 01/13/20 23 2:53 PM EST documented as of this encounter Care Teams Model Builder Display Relationship Specialty Start Date End Date Ibeth Colby MD [address] [place] [address] PCP - General Internal Medicine 12/13/22 Suzanne Meyers Boarder MachineLicense Inspector 03/15/23 documented as of this encounter
--- OUTSIDE RECORDS SUMMARY | 2024-07-02 18:04 | XMS_ITS | Encounter Summary ---
Author Organization [employer] Address [address] [facility] 7 [place] [address] Care Team Providers Care Bilingual Nanny Name Role Phone Ibeth Colby MD Primary Care Pro vider Reason for Visit * Reason Comments Med Refill Encounter Details Date Type Department Care Team ([facility] st Contact Info) Description 10/24/2023 Refill [facility] MED & PEDS [address] [place] [address] Ibeth Colby MD [address] [place], [place] [phone] Social History Tobacco Use Types Packs/Day Years [...] Description 07/23/2024 2:15 PM EDT Procedure Visit [facility] MEDICINE [address] [place] [address] Dawna Diego CNM [address] [place] [address] documented as of this encounter Visit Diagnoses Not on filedocumented in this encounter Additional Health Concerns Assessment Noted Time PHQ-9 Depression Total Score: 0 07/13/19 24 2:53 PM EDT documented as of this encounter Care Teams Bilingual Nanny Relationship Specialty Start Date End Date Ibeth Colby MD 230 [place] [address] PCP - General Internal Medicine 12/13/22 Suzanne Meyers Resident Care CoordinatorCreative Services Designer 03/15/23 documented as of this encounter
--- OUTSIDE RECORDS SUMMARY | 2024-07-02 18:04 | XMS_ITS | Encounter Summary ---
Author Organization [employer] Address [address] [facility] [address] 7t [place] [address] Care Team Providers Care Rn Bariatric Name Role Phone Ibeth Colby MD Primary Care Pro vider Reason for Visit * Reason Comments Med Refill Encounter Details Date Type Department Care Team (Late st Contact Info) Description 03/28/2023 Refill [facility] MEDICINE 230 [place] [address] Edmond Fuller FNP Mood disorder (CMS/HCC) Social [...] Description 07/23/2024 2:15 PM EDT Procedure Visit [facility] MED[facility]INE [address] [place] [address] Dawna Diego CNM 230 [place] [address] documented as of this encounter Visit Diagnoses Diagnosis Mood disorder (CMS/HCC) Unspecified episodic mood disorder documented in this encounter Additional Health Concerns Assessment Noted Time PHQ-9 Depression Total Score: 0 01/13/20 23 2:53 PM EST documented as of this encounter Care Teams Rn Bariatric Relationship Specialty Start Date End Date Ibeth Colby MD [address] [place] [address] PCP - General Internal Medicine 12/13/22 Suzanne Meyers Aircraft NavigatorBreakdown Man 03/15/23 documented as of this encounter
--- OUTSIDE RECORDS SUMMARY | 2024-07-02 18:04 | XMS_ITS | Encounter Summary ---
Author Organization [employer] Address [address] [facility] 7t [place] [address] Care Team Providers Care Daily Sales Audit Clerk Name Role Phone Nilda Dunn EDILBERTO Primary Care Provider +1- [phone] Ibeth Colby MD Primary Care Pro vider Encounter Details Date Type Department Care Team (Late st Contact Info) Description 04/06/[address] [facility] MED[facility]INE 230 [place], [place] [phone] Ernestina Gutierrez LPN Social History Tobacco Use [...] Description 07/23/2024 2:15 PM EDT Procedure Visit [facility] 230 [place], [place] [phone] Dawna Diego CNM 230 [place], [place] [phone] documented as of this encounter Visit Diagnoses Not on filedocumented in this encounter Additional Health Concerns Assessment Noted Time PHQ-9 Depression Total Score: 0 03/22/19 23 1:19 PM EST documented as of this encounter Care Teams Daily Sales Audit Clerk Relationship Specialty Start Date End Date Nilda Dunn FNP PCP - General Family Medicine 11/03/21 12/12/22 Ibeth Colby MD [address] [place] [address] PCP - General Internal Medicine 12/13/22 Suzanne Meyers Mortgage Loan ReviewerMolder Trimmer 03/15/23 documented as of this encounter
--- OUTSIDE RECORDS SUMMARY | 2024-07-02 18:04 | XMS_ITS | Clinical Summary ---
Author Organization [facility] Address [address] [address] Phone Care Team Providers Care Derrick Boat Captain Name Role Phone Unavailable Primary Care Provider [...] It is not the complete legal health record.[facility]
--- OUTSIDE RECORDS SUMMARY | 2024-07-02 18:04 | XMS_ITS | Encounter Summary ---
Author Organization [employer] Address [address] [facility] 7t [place] [address] Care Team Providers Care Script Developer Name Role Phone Nilda Dunn EDILBERTO Primary Care Provider +1- [phone] Ibeth Colby MD Primary Care Pro vider Reason for Visit * Reason Comments Med Refill Encounter Details Date Type Department Care Team (Late st Contact Info) Description 04/11/2022 Refill [facility] MEDICINE 230 [place], [place] [phone] Edmond Fuller FNP Social History Tobacco Use [...] Description 07/23/2024 2:15 PM EDT Procedure Visit [facility] MEDICINE 230 [place], [place] [phone] Dawna Diego CNM 230 [place], [place] [phone] documented as of this encounter Visit Diagnoses Not on filedocumented in this encounter Additional Health Concerns Assessment Noted Time PHQ-9 Depression Total Score: 0 03/22/19 23 1:19 PM EST documented as of this encounter Care Teams Script Developer Relationship Specialty Start Date End Date Nilda Dunn FNP PCP - General Family Medicine 11/03/21 12/12/22 Ibeth Colby MD [address] [place] [address] PCP - General Internal Medicine 12/13/22 Suzanne Meyers Master Deputy Sheriff Court SecurityPromotional Model 03/15/23 documented as of this encounter
--- OUTSIDE RECORDS SUMMARY | 2024-07-02 18:04 | XMS_ITS | Encounter Summary ---
Author Organization [employer] Address [address] [facility] 7t [place] [address] Care Team Providers Care Ice Maker Name Role Phone Ibeth Colby MD Primary Care Pro vider Reason for Visit * Reason Comments Med Refill Encounter Details Date Type Department Care Team ([facility] st Contact Info) Description 02/02/2023 Refill [facility] MEDICINE [address] [place] [address] Edmond Fuller FNP Mood disorder (CMS/HCC) Social [...] Description 07/23/2024 2:15 PM EDT Procedure Visit [facility] MEDICINE [address] [place] [address] Dawna Diego CNM [address] [place] [address] documented as of this encounter Visit Diagnoses Diagnosis Mood disorder (CMS/HCC) Unspecified episodic mood disorder documented in this encounter Additional Health Concerns Assessment Noted Time PHQ-9 Depression Total Score: 0 01/13/20 23 2:53 PM EST documented as of this encounter Care Teams Ice Maker Relationship Specialty Start Date End Date Ibeth Colby MD [address] [place] [address] PCP - General Internal Medicine 12/13/22 Suzanne Meyers Loaf CounterRfp Writer 03/15/23 documented as of this encounter
== END 2024-07-02 14:46 | disposition home or self-care (01) ==
LOC: HO.HHCL 14:45
PROVIDERS: Visit Provider Student in an Organized Health Care Education/Training Program
DX: E66.812 Obesity, class 2 (principal); Z00.00 Encounter for general adult medical examination without abnormal findings
CPT/HCPCS: 36415; 80053; 80061; 84439; 84443

== ENCOUNTER 2024-07-24 10:45 | Outpatient (REF) | payer MEDICAID, SELFPAY ==
--- OUTSIDE RECORDS SUMMARY | 2024-07-24 12:15 | XMS_ITS | Encounter Summary ---
Author Organization [employer] Address [address] [facility] 7 [place] [address] Care Team Providers Care Automobile Mechanic Supervisor Name Role Phone Ibeth Colby MD Primary Care Pro vider Reason for Visit * Reason Comments Med Refill Encounter Details Date Type Department Care Team (Late st Contact Info) Description 07/22/2024 Refill [facility] MEDICINE 230 [place] [address] Ibeth Colby MD 230 [place], [place] [phone] Social History Tobacco Use Types Packs/Day Years [...] Care Team (Late st Contact Info) Description 10/25/2024 1:45 PM EDT Office Visit [facility] MEDICINE [address] [place] [address] Ibeth Colby MD [address] [place] [address] documented as of this encounter Visit Diagnoses Not on filedocumented in this encounter Additional Health Concerns Assessment Noted Time PHQ-9 Depression Total Score: 6 12/27/19 24 9:10 AM EDT documented as of this encounter Care Teams Automobile Mechanic Supervisor Relationship Specialty Start Date End Date Ibeth Colby MD [address] [place] [address] PCP - General Internal Medicine 12/13/22 Suzanne Meyers Green End ManDriver Sales 03/15/23 documented as of this encounter
--- OUTSIDE RECORDS SUMMARY | 2024-07-24 12:15 | XMS_ITS | Clinical Summary ---
Author Organization [facility] [employer] [facility] Address [address] [facility] [place] [address] Care Team Providers Care Fire Prevention Captain Name Role Phone Unavailable Primary Care [...] Adults 18 yrs or above (or HM Modifier)([facility]) 1972 Hepatitis C Virus Infection in Adolescents and Adults: Screening (or Modifier) ([facility]) 1990 SDME Screening Reminder: Judi truong for all adults ([facility]) 1990 Tobacco Smoking Cessation: i n Adults excluding Women: Behavioral and Pharmacotherapy Interventions ([facility]) 1990 DTaP/Tdap/Td Vaccines ([facility]) (1 - Tdap) 12/10/1991 Cervical Cancer Screenin 1-65 yrs of age (or Modifier) 1993 Cervical Cancer Screening: P ap every 3 yrs pts age 21-65 1993 Cervical Cancer: Pap Screeni ng with Modifier timing ([facility]) 1993 Cervical Cancer: hrHPV alone or with cotesting Pap for Pts 30-65yrs screening every 5yrs ([facility]) 1993 Colorectal Cancer Screening 45 -75 Yrs (or HM Modifier ) 2017 Colorectal Cancer: FLEXIBLE SIGMOIDOSCOPY Screening every 5 yrs 2017 Colorectal Cancer: Fecal Imm unochemical Test (FIT) Annually [facility] 2017 Colorectal Cancer: High-sens itivity gFOBT Screening Annually [facility] 2017 Colorectal Cancer: Stool Col oguard Screening every 3 yrs 2017 Colorectal Cancer:CT Colonography Screening every 5 yr s 2017 zzRETIRED Lipid Screening: E very 5 yrs for Women aged 45+ (or HM Modifier) ([facility]) 2018 Breast Cancer: Screening Judi ually age 50-74 yrs (or HM Modifier)([facility]) 2022 Pneumococcal Vaccination Scr eening: Patients 50+ yrs of age ([facility]) (1 of 1 - PCV) 2022 Zoster/Shingles Vaccine Seri es Screening: Adults aged 18+ yrs (or HM Modifiers)([facility]) (1 of 2) 2022 COVID-19 Vaccine Screening: Initial Series and Booster Status ([facility]) (2023- season) 2023 Flu Vaccination: Yearly for ages 18mos through 64 years (or Modifier)([facility]) 10/04/2024 Medical Devices Not on file Insurance [facility]
--- OUTSIDE RECORDS SUMMARY | 2024-07-24 12:15 | XMS_ITS | Encounter Summary ---
Author Organization [employer] Address [address] 7t [place] [address] Care Team Providers Care Decontamination Technician Name Role Phone Ibeth Colby MD Primary Care Pro vider Reason for Visit * Reason Comments Med Refill Encounter Details Date Type Department Care Team (Late st Contact Info) Description 03/10/2023 Refill [facility] MEDICINE [address] [place] [address] Edmond Fuller FNP Mood disorder (CMS/HCC) Social [...] Description 10/25/2024 1:45 PM EDT Office Visit [facility] MEDICINE [address] [place] [address] Ibeth Colby MD [address] [place] [address] documented as of this encounter Visit Diagnoses Diagnosis Mood disorder (CMS/HCC) Unspecified episodic mood disorder documented in this encounter Additional Health Concerns Assessment Noted Time PHQ-9 Depression Total Score: 0 01/13/20 23 2:53 PM EST documented as of this encounter Care Teams Decontamination Technician Relationship Specialty Start Date End Date Ibeth Colby MD [address] [place] [address] PCP - General Internal Medicine 12/13/22 Suzanne Meyers Director Of Restaurant OperationsTextile Machine Operator 03/15/23 documented as of this encounter
--- OUTSIDE RECORDS SUMMARY | 2024-07-24 12:15 | XMS_ITS | Encounter Summary ---
Author Organization [employer] Address [address] [facility] [facility] [address] 7t [place] [address] Care Team Providers Care Overlay Plastician Name Role Phone Nilda Dunn Conchita CASANOVA Primary Care Provider [phone]- [phone] Ibeth Colby MD Primary Care Pro vider Reason for Visit * Reason Comments Med Refill Encounter Details Date Type Department Care Team (Late Contact Info) Description 11/03/2022 Refill [facility] P[facility]S [address] [place] [address] Edmond Fuller FNP Mood disorder (CMS/HCC) Social [...] Department Care Team (Late Contact Info) Description 10/25/2024 1:45 PM EDT Office Visit [facility] MEDICINE 230 [place], [place] [phone] Ibeth Colby MD [address] [place] [address] documented as of this encounter Visit Diagnoses Diagnosis Mood disorder (CMS/HCC) Unspecified episodic mood disorder documented in this encounter Additional Health Concerns Assessment Noted Time PHQ-9 Depression Total Score: 0 06/22/19 23 3:26 PM EDT documented as of this encounter Care Teams Overlay Plastician Relationship Specialty Start Date End Date Nilda Dunn FNP PCP - General Family Medicine 11/03/21 12/12/22 Ibeht Colby MD [address] [place] [address] [phone] PCP - General Internal Medicine 12/13/22 Suzanne Meyers Obstetrics Gyn PhysicianBrim Setter 03/15/23 documented as of this encounter
--- OUTSIDE RECORDS SUMMARY | 2024-07-24 12:15 | XMS_ITS | Encounter Summary ---
Author Organization [employer] Address [address] [facility] [address] 7t [place] [address] Care Team Providers Care River Rafting Guide Name Role Phone Ibeth Colby MD Primary Care Pro vider Reason for Visit * Reason Comments Gynecologic Exam Encounter Details Date Type Department Care Team (Latest Contact Info) Description 07/23/2024 2:15 PM EDT Procedure Visit [facility] MEDICINE [address] [place], [place] [phone] Dawna Diego CNM [address] [place], [place] [phone] Cervical cancer screening (Primary Dx); Checking of intrauterine device; Vaginal odor Social History Tobacco Use Types Packs/Day Years [...] Q2 Not on file 11/06/2023 Comments Unknown Intention Date Recorded No desire to become (finding) 0 07/23/2024 Sex and Gender Information Value Date Recorded Sex Assigned at Female 01/03/2022 10:16 AM EDT Legal Sex Female 10:16 AM EDT Gender Identity Female 01/03/2022 10:16 AM EDT Sexual Orientation Straight 05/31/2022 2: 09 PM EDT documented as of this encounter Last Filed Vital Signs Vital Sign Reading Time Taken Comments Blood Pressure 118/74 07/23/2024 2:25 PM EDT Pulse 97 07/23/2024 2:25 PM EDT Temperature 37.3 ??C (99.1 ??F) 07/23/2024 2:25 PM ED T Respiratory Rate 22 07/23/2024 2:25 PM EDT Oxygen Saturation - - Inhaled Oxygen Concentration - - Weight 108 kg (238 lb 3.2 oz) 07/23/2024 2:25 PM EDT Height 162.6 cm (5' 4 ) 07/23/2024 2:25 PM EDT Body Mass Index 40.89 07/23/2024 2:25 PM EDT documented in this encounter Progress Notes * Dawna Diego CNM - 07/23/2024 2:15 PM EDT Subjective Patient ID: Sera Teran is a 53 y.o. female who presents for pap Progestin IUD replaced 02/2020 ([facility]). Using IUD for contraception and management of heavy menses. Very happy with IUD. Notes 1-2 days of spotting every few months since insertion. Otherwise amenorrheic. No vasomotor symptoms. Mammogram ordered 10/2023. She thinks she has appointment soon. Would like CBE today. Pap NIL/HPV neg 2017. No prior abnormal pap test. Usp AMAB partner, no safety concerns. Not sexually active as it exacerbates emphysema. She feels okay with this. Let me know if this changes and we can discuss with her technical services coordinator to see if there is a way to use short acting meds prior to sex. Review of Systems Genitourinary: Negative for dyspareunia, dysuria, frequency, genital sores, hematuria, menstrual problem, pelvic pain, urgency, vaginal bleeding, vaginal discharge and vaginal pain. No abnormal pap, no abnormal bleeding, no breast pain, no breast mass, no nipple discharge Objective BP 118/74 (BP Location: Left arm, Patient Position: Sitting, BP Cuff Size: Large adult) Pulse 97 Temp 99.1 ??F (37.3 ??C) (Oral) Resp 22 Ht 5' 4 (1.626 m) Wt 238 lb 3.2 oz (108 kg) BMI 40.89 kg/m?? Physical Exam Constitutional: Appearance: Normal appearance. Chest: Breasts: Right: Normal. No swelling, bleeding, inverted nipple, mass, nipple discharge, skin change or tenderness. Left: Normal. No swelling, bleeding, inverted nipple, mass, nipple discharge, skin change or tenderness. Genitourinary: General: Normal vulva. Labia: Right: No rash, tenderness, lesion or injury. Left: No rash, tenderness, lesion or injury. Vagina: Normal. No signs of injury and foreign body. No vaginal discharge, erythema, tenderness, bleeding or lesions. Cervix: No cervical motion tenderness, discharge, friability, lesion, erythema, cervical bleeding or eversion. Uterus: Normal. Not enlarged and not tender. Adnexa: Right adnexa normal and left adnexa normal. Right: No mass, tenderness or fullness. Left: No mass, tenderness or fullness. Comments: IUD strings noted. Body of IUD nonpalpable. Scant blood in vagina Lymphadenopathy: Upper Body: Right upper body: No supraclavicular or axillary adenopathy. Left upper body: No supraclavicular or axillary adenopathy. Neurological: Mental Status: She is alert. Psychiatric: Mood and Affect: Mood normal. Behavior: Behavior normal. Assessment/Plan Diagnoses and all orders for this visit: Cervical cancer screening - Pap Smear Cotest today. Will repeat in 5 years if normal/HPV negative. Checking of intrauterine device Largely amenorrheic. She wants to avoid heavy bleeding if possible. Reviewed average age of menopause 51-51. Let me know if menses become more frequent or bothersome and we can replace IUD at any time. If menses well controlled may leave until 2027. Vaginal odor - POCT fern test, vaginal fluid manually resulted No obvious vaginitis on wet mount. If bacterial vaginosis or vulvovaginal candidiasis noted on pap,will treat. documented in this encounter Plan of Treatment Upcoming Encounters Date Type Department Care Team (Late st Contact Info) Description 10/25/2024 1:45 PM EDT Office Visit [facility] MEDICINE [address] [place] [address] [phone] Ibeth Colby MD [address] [place], [place] [phone] Scheduled Orders Name Type Priority Associated Diagnoses Orde r Schedule Pap Smear Pathology and Cytology Routine Cervical cancer screening Ordered: 07/23/2024 documented as of this encounter Procedures Procedure Name Priority Date/Time Associated Diagnosis Comments POCT WET MOUNT/MARIEL Routine 07/23/2024 2: 55 PM EDT Vaginal odor documented in this encounter Results * POCT fern test, vaginal fluid manually resulted (07/23/2024 2:55 PM EDT) MARIEL Prep Negative Comment:pH 4.5, neg whiff, n eg clue, neg trich, neg wbc, neg yeast Vaginal Fluid Vaginal structure / Unknown 07/23/2024 2:55 PM EDT Dawna Diego CNM POINT OF CARE TEST ENTER/ EDIT ORDERABLES Final Result documented in this encounter Visit Diagnoses Diagnosis Cervical cancer screening- Primary Screening for malignant neoplasm of the cervix Checking of intrauterine device Vaginal odor Unspecified symptom associated with female genital organs documented in this encounter Additional Health Concerns Assessment Noted Time PHQ-9 Depression Total Score: 6 12/27/19 9:10 AM EDT documented as of this encounter Care Teams River Rafting Guide Relationship Specialty Start Date End Date Ibeth Colyb MD [address] [place] [address] PCP - General Internal Medicine 12/13/22 Suzanne Meyers Cell BiologistNougat Cutter Machine 03/15/23 documented as of this encounter
--- OUTSIDE RECORDS SUMMARY | 2024-07-24 12:15 | XMS_ITS | Encounter Summary ---
Author Organization [employer] Address [address] 7t [place] [address] Care Team Providers Care Coke Handling Supervisor Name Role Phone Ibeth Colby MD Primary Care Pro vider Encounter Details Date Type Department Care Team (Late st Contact Info) Description 06/26/2023 Orders Only [facility] MEDICINE [address] [place] [address] Provider, MD Edgar Social History Tobacco Use [...] Description 10/25/2024 1:45 PM EDT Office Visit [facility] MEDICINE [address] [place] [address] Ibeth Colby MD [address] [place] [address] documented as of this encounter Procedures Procedure [...] documented as of this encounter Care Teams Coke Handling Supervisor Relationship Specialty Start Date End Date Ibeth Colby MD [address] [place] [address] PCP - General Internal Medicine 12/13/22 Suzanne Meyers Hand Tire TrimmerDirector Television News 03/15/23 documented as of this encounter
--- OUTSIDE RECORDS SUMMARY | 2024-07-24 12:15 | XMS_ITS | Encounter Summary ---
Author Organization [employer] Address [address] [facility] [address] 7t [place] [address] Care Team Providers Care Shipyard Painting Supervisor Name Role Phone Ibeth Colby MD Primary Care Pro vider Reason for Visit * Reason Comments Med Refill Encounter Details Date Type Department Care Team (Late st Contact Info) Description 02/02/2023 Refill [facility] MEDICINE 230 [place] [address] Edmond Fuller FNP Mood disorder (CMS/HCC) Social [...] Description 10/25/2024 1:45 PM EDT Office Visit [facility] MEDICINE [address] [place] [phone] Ibeth Colby MD [address] [place] [address] documented as of this encounter Visit Diagnoses Diagnosis Mood disorder (CMS/HCC) Unspecified episodic mood disorder documented in this encounter Additional Health Concerns Assessment Noted Time PHQ-9 Depression Total Score: 0 01/13/20 23 2:53 PM EST documented as of this encounter Care Teams Shipyard Painting Supervisor Relationship Specialty Start Date End Date Ibeth Colby MD [address] [place] [address] PCP - General Internal Medicine 12/13/22 Suzanne Meyers Sugar GrinderDiabetes Clinical Manager 03/15/23 documented as of this encounter
--- OUTSIDE RECORDS SUMMARY | 2024-07-24 12:15 | XMS_ITS | Encounter Summary ---
Author Organization [employer] Address [address] [facility] [address] [facility] [facility] [address] 7t [place] [address] Care Team Providers Care Medical Management Trainer Name Role Phone Ibeth Colby MD Primary Care Pro vider Reason for Visit * Reason Comments Med Refill Encounter Details Date Type Department Care Team (Late st Contact Info) Description 10/24/2023 Refill [facility] MEDICINE 230 [place] [address] Edmond Fuller FNP Social History Tobacco Use [...] Description 10/25/2024 1:45 PM EDT Office Visit [facility] MEDICINE [address] [place] [address] Ibeth Colby MD [address] [place] [address] documented as of this encounter Visit Diagnoses Not on filedocumented in this encounter Additional Health Concerns Assessment Noted Time PHQ-9 Depression Total Score: 0 07/13/19 24 2:53 PM EDT documented as of this encounter Care Teams Medical Management Trainer Relationship Specialty Start Date End Date Ibeth Colby MD [address] [place] [address] PCP - General Internal Medicine 12/13/22 Suzanne Meyers Dispatcher RefineryCompensation And Benefits Manager 03/15/23 documented as of this encounter
--- OUTSIDE RECORDS SUMMARY | 2024-07-24 12:15 | XMS_ITS | Encounter Summary ---
Author Organization [employer] Address [address] [facility] 7 [place] [address] Care Team Providers Care Research & Insights Executive Name Role Phone Ibeth Colby MD Primary Care Pro vider Reason for Visit * Reason Onset Date Comments switch appointment 06/13/2024 Encounter Details Date Type Department Care Team (Late st Contact Info) Description 06/13/2024 Telephone [facility] MEDICINE 230 [place], [place] [phone] Ibeth Colby MD [address] [place], [place] [phone] switch appointment Social History Tobacco Use Types [...] states doesn't want to miss the appointment. [phone] documented in this encounter Plan of Treatment Upcoming Encounters Date Type Department Care Team (Late st Contact Info) Description 10/25/2024 1:45 PM EDT Office Visit [facility] MEDICINE [address] [place], [place] [phone] Ibeth Colby MD [address] [place], [place] [phone] documented as of this encounter Visit Diagnoses Not on filedocumented in this encounter Additional Health Concerns Assessment Noted Time PHQ-9 Depression Total Score: 6 12/27/19 9:10 AM EDT documented as of this encounter Care Teams Research & Insights Executive Relationship Specialty Start Date End Date Ibeth Cloby MD [address] [place] [address] PCP - General Internal Medicine 12/13/22 Suzanne Meyers Multi Disciplined Language AnalystPublic Relations Supervisor 03/15/23 documented as of this encounter
--- OUTSIDE RECORDS SUMMARY | 2024-07-24 12:15 | XMS_ITS | Encounter Summary ---
Author Organization [facility] Address [address] [facility] [address] [place] [phone] Phone Care Team Providers Care Extension Service Supervisor Name Role Phone Unavailable Primary Care Provider Unavailabl e Encounter Details Date Type Department Care Team (Latest Contact Info) Description 07/20/2022 Transcribe Orders Virtual Department [address] [place] [address] Nilda Dunn NP Breast screening (Primary Dx) Social History Tobacco Use Types Packs/Day Years Used Date Smoking Tobacco: Never Assessed Comments Unknown Sex and Gender Information Value Date Recorded Sex Assigned at Not on file Legal Sex Female 5:33 AM EST Gender Identity Not on file Sexual [...] It is not the complete legal health record.[facility]
--- OUTSIDE RECORDS SUMMARY | 2024-07-24 12:15 | XMS_ITS | Encounter Summary ---
Author Organization [employer] Address [address] [facility] [address] 7t [place] [address] Care Team Providers Care Advertising Sales Consultant Name Role Phone Ibeth Colby MD Primary Care Pro vider Reason for Visit * Reason Comments Med Refill Encounter Details Date Type Department Care Team (Late st Contact Info) Description 09/24/2023 Refill [facility] MEDICINE [address] [place] [address] Edmond Fuller FNP Social History Tobacco Use [...] Description 10/25/2024 1:45 PM EDT Office Visit [facility] MEDICINE [address] [place] [address] Ibeth Colby MD [address] [place] [address] documented as of this encounter Visit Diagnoses Not on filedocumented in this encounter Additional Health Concerns Assessment Noted Time PHQ-9 Depression Total Score: 0 07/13/19 24 2:53 PM EDT documented as of this encounter Care Teams Advertising Sales Consultant Relationship Specialty Start Date End Date Ibeth Colby MD [address] [place] [address] PCP - General Internal Medicine 12/13/22 Suzanne Meyers Senior Marketing AssociateLarriman Helper 03/15/23 documented as of this encounter
--- OUTSIDE RECORDS SUMMARY | 2024-07-24 12:15 | XMS_ITS | Clinical Summary ---
Author Organization [facility] Address [address] [address] Phone Care Team Providers Care Fruit Or Nut Grower Name Role Phone Unavailable Primary Care Provider [...] It is not the complete legal health record.[facility]
--- OUTSIDE RECORDS SUMMARY | 2024-07-24 12:15 | XMS_ITS | Encounter Summary ---
Author Organization [employer] Address [address] [facility] [address] 7t [place] [address] Care Team Providers Care Ladle Cleaner Name Role Phone Ibeth Colby MD Primary Care Pro vider Reason for Visit * Reason Comments Med Refill Encounter Details Date Type Department Care Team (Late st Contact Info) Description 07/24/2023 Refill [facility] MEDICINE 230 [place] [address] Edmond Fuller FNP Social History Tobacco Use [...] Description 10/25/2024 1:45 PM EDT Office Visit [facility] MEDICINE [address] [place] [address] Ibeth Colby MD [address] [place] [address] documented as of this encounter Visit Diagnoses Not on filedocumented in this encounter Additional Health Concerns Assessment Noted Time PHQ-9 Depression Total Score: 0 07/13/19 24 2:53 PM EDT documented as of this encounter Care Teams Ladle Cleaner Relationship Specialty Start Date End Date Ibeth Colby MD [address] [place] [address] PCP - General Internal Medicine 12/13/22 Suzanne Meyers Trolley Coach DriverSilk Screener 03/15/23 documented as of this encounter
--- OUTSIDE RECORDS SUMMARY | 2024-07-24 12:15 | XMS_ITS | Encounter Summary ---
Author Organization [employer] Address [address] [facility] [address] 7t [place] [address] Care Team Providers Care Glaze Grinder Name Role Phone Ibeth Colby MD Primary Care Pro vider Encounter Details Date Type Department Care Team (Latest Contact Info) Description 07/23/2024 Travel Social History Tobacco Use Types Packs/Day Years [...] Description 10/25/2024 1:45 PM EDT Office Visit [facility] MEDICINE [address] [place] [address] Ibeth Colby MD [address] [place] [address] documented as of this encounter Visit Diagnoses Not on filedocumented in this encounter Additional Health Concerns Assessment Noted Time PHQ-9 Depression Total Score: 6 12/27/19 9:10 AM EDT documented as of this encounter Care Teams Glaze Grinder Relationship Specialty Start Date End Date Ibeth Colby MD [address] [place] [address] PCP - General Internal Medicine 12/13/22 Suzanne Meyers Heart SpecialistDirector Mobile 03/15/23 documented as of this encounter
--- OUTSIDE RECORDS SUMMARY | 2024-07-24 12:15 | XMS_ITS | Encounter Summary ---
Author Organization [employer] Address [address] 7t [place] [address] Care Team Providers Care Sorter Lumber Straightener Name Role Phone Ibeth Colby MD Primary Care Pro vider Reason for Visit * Reason Comments Med Refill Encounter Details Date Type Department Care Team (Late st Contact Info) Description 02/14/2023 Refill [facility] MEDICINE [address] [place] [address] Edmond Fuller FNP Mood disorder (CMS/HCC) Social [...] Description 10/25/2024 1:45 PM EDT Office Visit [facility] MEDICINE [address] [place] [address] Ibeth Colby MD [address] [place] [address] documented as of this encounter Visit Diagnoses Diagnosis Mood disorder (CMS/HCC) Unspecified episodic mood disorder documented in this encounter Additional Health Concerns Assessment Noted Time PHQ-9 Depression Total Score: 0 01/13/20 23 2:53 PM EST documented as of this encounter Care Teams Sorter Lumber Straightener Relationship Specialty Start Date End Date Ibeth Colby MD [address] [place] [address] PCP - General Internal Medicine 12/13/22 Suzanne Meyers Concrete Float MakerFood Beverage Attendant 03/15/23 documented as of this encounter
--- OUTSIDE RECORDS SUMMARY | 2024-07-24 12:15 | XMS_ITS | Encounter Summary ---
Author Organization [employer] Address [address] [place] [address] Care Team Providers Care Associate Curator Name Role Phone Ibeth Colby MD Primary Care Pro vider Reason for Visit * Reason Comments Med Refill Encounter Details Date Type Department Care Team (Late st Contact Info) Description 03/28/[address] [facility] MEDICINE 230 [place] [address] Edmond Fuller FNP Mood disorder (CMS/HCC) Social [...] Description 10/25/2024 1:45 PM EDT Office Visit [facility] MEDICINE [address] [place] [address] Ibeth Colby MD [address] [place] [address] documented as of this encounter Visit Diagnoses Diagnosis Mood disorder (CMS/HCC) Unspecified episodic mood disorder documented in this encounter Additional Health Concerns Assessment Noted Time PHQ-9 Depression Total Score: 0 01/13/20 23 2:53 PM EST documented as of this encounter Care Teams Associate Curator Relationship Specialty Start Date End Date Ibeth Colby MD [address] [place] [address] PCP - General Internal Medicine 12/13/22 Suzanne Meyers Bank Compliance OfficerCable Splicer 03/15/23 documented as of this encounter
--- OUTSIDE RECORDS SUMMARY | 2024-07-24 12:15 | XMS_ITS | Encounter Summary ---
Author Organization [employer] Address [address] [facility] 7t [place] [address] Care Team Providers Care Broodmare Foreman Name Role Phone Nilda Dunn OLIVE PITTER Primary Care Provider +1- [phone] Ibeth Colby MD Primary Care Pro vider Encounter Details Date Type Department Care Team (Late Contact Info) Description 10/10/2022 Orders Only [facility]S [address] [place], [place] [phone] Ange Leal LPN Social History Tobacco Use [...] 1:45 PM EDT Office Visit [facility] MEDICINE 230 [place], [place] [phone] Ibeth Colby MD 230 [place] [address] documented as of this encounter Visit Diagnoses Not on filedocumented in this encounter Additional Health Concerns Assessment Noted Time PHQ-9 Depression Total Score: 0 06/22/19 23 3:26 PM EDT documented as of this encounter Care Teams Broodmare Foreman Relationship Specialty Start Date End Date Nilda Dunn FNP PCP - General Family Medicine 11/03/21 12/12/22 Ibeth Colby MD [address] [place], [place] [phone] PCP - General Internal Medicine 12/13/22 Suzanne Meyers Spray I PainterInformation Assurance Engineer 03/15/23 documented as of this encounter
--- OUTSIDE RECORDS SUMMARY | 2024-07-24 12:16 | XMS_ITS | Encounter Summary ---
Author Organization [employer] Address 75 [facility] 7t [place] [address] Care Team Providers Care Adhesive Bandage Machine Operator Name Role Phone Ibeth Colby MD Primary Care Pro vider Reason for Visit * Reason Comments Med Refill Encounter Details Date Type Department Care Team (Late st Contact Info) Description 12/30/2022 Refill [facility] [address] [place] [address] Nilda Dunn, EDILBERTO 75 [facility] Dept [place] [address] Social History Tobacco Use Types Packs/Day Years [...] Description 10/25/2024 1:45 PM EDT Office Visit [facility] [address] [place] [phone] Ibeth Colby MD [address] [place] [phone] documented as of this encounter Visit Diagnoses Not on filedocumented in this encounter Additional Health Concerns Assessment Noted Time PHQ-9 Depression Total Score: 0 06/22/19 23 3:26 PM EDT documented as of this encounter Care Teams Adhesive Bandage Machine Operator Relationship Specialty Start Date End Date Ibeth Colby MD [address] [place] [address] [phone] PCP - General Internal Medicine 12/13/22 Suzanne Meyers Licensed Nurse PractitionerConsulting Technical Director 03/15/23 documented as of this encounter
--- OUTSIDE RECORDS SUMMARY | 2024-07-24 12:16 | XMS_ITS | Clinical Summary ---
Author Organization [facility] Address [address] [facility] [address] [place] [address] Phone Care Team Providers Care French Polisher Name Role Phone Mis Harmon NP Primary Care Provider [phone] Allergies No known active allergies Medications coenzyme [...] directed Active ergocalciferol (VITAMIN D-2) 1.25 MG (51230 UT) capsule Take 1 capsule by mouth [...] Insurance Medicaid [place] Care Teams French Polisher Relationship Specialty Start Date End Date Mis Harmon NP PCP - General 03/16/20
--- OUTSIDE RECORDS SUMMARY | 2024-07-24 12:16 | XMS_ITS | Encounter Summary ---
Author Organization [employer] Address 75 [facility] 7 [place] [address] Care Team Providers Care Firer Marine Name Role Phone Ibeth Colby MD Primary Care Pro vider Reason for Visit * Reason Onset Date Comments Med Refill 01/30/2024 Encounter Details Date Type Department Care Team (Late st Contact Info) Description 01/30/2024 Refill [facility] 230 [place] [address] Ibeth Colby MD 230 [place] [address] Social History Tobacco Use Types Packs/Day Years [...] Description 10/25/2024 1:45 PM EDT Office Visit [facility] [address] [place] [phone] Ibeth Colby MD [address] [place] [phone] documented as of this encounter Visit Diagnoses Not on filedocumented in this encounter Additional Health Concerns Assessment Noted Time PHQ-9 Depression Total Score: 6 12/27/19 24 9:10 AM EDT documented as of this encounter Care Teams Firer Marine Relationship Specialty Start Date End Date Ibeth Colby MD [address] [place] [phone] PCP - General Internal Medicine 12/13/22 [facility] ObserverOperating System Programmer 03/15/23 documented as of this encounter
--- OUTSIDE RECORDS SUMMARY | 2024-07-24 12:16 | XMS_ITS | Encounter Summary ---
Author Organization [employer] Address 75 [facility] 7 [place] [address] Care Team Providers Care City Designer Name Role Phone Nilda Dunn Primary Care Provider [phone] Ibeth Colby MD Primary Care Pro vider Reason for Visit * Reason Onset Date Comments Medication Question 09/02/2022 Encounter Details Date Type Department Care Team (Late st Contact Info) Description 09/02/2022 Telephone [facility] 230 [place], [place] [phone] Nilda Dunn FNP [address] [place] [address] Dept [place] [address] Medication Question Social History Tobacco Use Types [...] 11:11 AM EDT Tc from Suzanne at [facility] requesting a script albuterol solution for patients nebulizer machine. documented in this encounter Plan of Treatment Upcoming Encounters Date Type Department Care Team (Late st Contact Info) Description 10/25/2024 1:45 PM EDT Office Visit [facility] [address] [place] [address] [phone] Ibeth Colby MD [address] [place] [address] [phone] documented as of this encounter Visit Diagnoses Not on filedocumented in this encounter Additional Health Concerns Assessment Noted Time PHQ-9 Depression Total Score: 0 06/22/19 3:26 PM EDT documented as of this encounter Care Teams City Designer Relationship Specialty Start Date End Date Nilda Dunn FNP PCP - General Family Medicine 11/03/21 12/12/22 Ibeth Colby MD [address] [place] [address] [phone] PCP - General Internal Medicine 12/13/22 Suzanne Meyers Machine Stoppage Frequency CheckerSod Farmer 03/15/23 documented as of this encounter
--- OUTSIDE RECORDS SUMMARY | 2024-07-24 12:16 | XMS_ITS | Encounter Summary ---
Author Organization [employer] Address 75 [facility] 7 [place] [address] Care Team Providers Care Document Improvement Specialist Name Role Phone Ibeth Colby MD Primary Care Pro vider Reason for Visit * Reason Onset Date Comments Med Refill 01/01/2024 Encounter Details Date Type Department Care Team (Late st Contact Info) Description 01/01/[address] [facility] 230 [place] [address] Ibeth Colby MD 230 [place], [place] [phone] Social History Tobacco Use Types Packs/Day Years [...] 1:45 PM EDT Office Visit [facility] [address] [place] [phone] Ibeth Colby MD [address] [place] [phone] documented as of this encounter Visit Diagnoses Not on filedocumented in this encounter Additional Health Concerns Assessment Noted Time PHQ-9 Depression Total Score: 6 12/27/19 24 9:10 AM EDT documented as of this encounter Care Teams Document Improvement Specialist Relationship Specialty Start Date End Date Ibeth Colby MD [address] [place] [phone] PCP - General Internal Medicine 12/13/22 [facility] LeadProfessional Wrestler 03/15/23 documented as of this encounter
--- OUTSIDE RECORDS SUMMARY | 2024-07-24 12:16 | XMS_ITS | Encounter Summary ---
Author Organization [employer] [facility] [employer] Address 75 [facility] 7 [place] [address] Care Team Providers Care Rubber Washer Name Role Phone Nilda Dunn MILL TENDER WASHING Primary Care Provider [phone] Ibeth Colby MD Primary Care Pro vider Encounter Details Date Type Department Care Team (Late st Contact Info) Description 03/09/2022 Orders Only [facility] [address] [place], [place] [phone] Ange Leal LPN Social History Tobacco Use [...] Description 10/25/2024 1:45 PM EDT Office Visit [facility] MED[facility] 230 [place], [place] [phone] Ibeth Colby MD 230 [place], [place] [phone] documented as of this encounter Visit Diagnoses Not on filedocumented in this encounter Care Teams Rubber Washer Relationship Specialty Start Date End Date Nilda Dunn FNP PCP - General Family Medicine 11/03/21 12/12/22 Ibeth Colby MD [address] [place] [phone] PCP - General Internal Medicine 12/13/22 Suzanne Meyers Construction Field EngineerFlume Ride Operator 03/15/23 documented as of this encounter
--- OUTSIDE RECORDS SUMMARY | 2024-07-24 12:16 | XMS_ITS | Encounter Summary ---
Author Organization [employer] Address 75 [facility] 7 [place] [address] Care Team Providers Care Piper Helper Name Role Phone Nilda Dunn EDILBERTO Primary Care Provider [phone] Ibeth Colby MD Primary Care Pro vider Reason for Visit * Reason Comments Med Refill Encounter Details Date Type Department Care Team (Late st Contact Info) Description 04/11/2022 Refill [facility] [address] [place] [address] [phone] Edmond Fuller FNP Social History Tobacco Use [...] 1:45 PM EDT Office Visit [facility] [address] [place] [address] [phone] Ibeth Colby MD 230 [place], [place] [phone] documented as of this encounter Visit Diagnoses Not on filedocumented in this encounter Additional Health Concerns Assessment Noted Time PHQ-9 Depression Total Score: 0 03/22/19 23 1:19 PM EST documented as of this encounter Care Teams Piper Helper Relationship Specialty Start Date End Date Nilda Dunn FNP PCP - General Family Medicine 11/03/21 12/12/22 Ibeth Colby MD [address] [place] [phone] PCP - General Internal Medicine 12/13/22 Suzanne Meyers Cyber Legal AdvisorProcess Plant Operator 03/15/23 documented as of this encounter
--- OUTSIDE RECORDS SUMMARY | 2024-07-24 12:16 | XMS_ITS | Clinical Summary ---
Author Organization [employer] Address 75 [facility] 7t [place] [address] Care Team Providers Care Rivet Spinner Name Role Phone Ibeth Colby MD Primary Care Pro vider Allergies Active Allergy Reactions Criticality Noted Date Comments Tarrant Anaphylaxis High 08/15/2013 Gluten Meal Anaphylaxis High [...] NEEDED FOR SLEEP 30 tablet 5 Active fenofibrate micronized (Antara) 130 MG [...] each by Intrauterine route 1 (one) time. 02/2020 Active meclizine (Antivert) 25 MG tablet Take [...] tip and replace cap. 48 mL 2 Active SUMAtriptan (Imitrex) 50 MG tabletIndicatio ns:Chronic migraine without aura without status migrainosus, not intractable TAKE 1 TABLET BY MOUTH SOON POSSIBLE AT ONSET FOR MIGRAINE HEADACHE MAY REPEAT AFTER 2 HOURS 9 tablet 5 024 Active propranolol LA (Inderal LA) 80 MG 24 hr capsule TAKE 1 CAPSULE BY MOUTH EVERYDAY AT BEDTIME 90 capsule 1 024 Active cholecalciferol VITAMIN D (Vitamin D-3) 50 [...] for 5 days 10 tablet 025 Active lidocaine (Lidoderm) 5 % patchIndication s:Chronic bilateral low back pain with bilateral sciatica APPLY 1 PATCH TOPICALLY IN THE MORNING. 30 patch 3 025 Active FREESTYLE LITE test strip USE 1 STRIP BY DIRECTED ROUTE EVERY DAY 50 strip 5 025 Active glucose blood (FREESTYLE LITE) test strip USE 1 STRIP BY DIRECTED ROUTE EVERY DAY 50 strip 5 024 2024 Discontinued lidocaine (Lidoderm) 5 % patchIndication s:Chronic bilateral low back pain with bilateral sciatica APPLY 1 PATCH TOPICALLY IN THE MORNING. 30 patch 3 025 2024 Discontinued Active Problems Problem Noted Date [...] Encounters Date Type Department Care Team Description 07/23/2024 2:15 PM EDT Procedure Visit [address] [address] Dawna Diego CNM Cervical cancer screening (Primary Dx); Checking of intrauterine device; Vaginal odor 07/23/2024 Travel 07/22/2024 Refill [facility] 230 [place] [address] Ibeth Colby MD 07/17/[address] [facility] 505 [place] [address] Bishop Vázquez MD Chronic bilateral low back pain with bilateral sciatica 07/15/[address] [address] Ibeth Colby MD recall 07/08/2024 1:30 PM EDT Clinical Support [address] [address] Serenity Cardozo RN Class 2 obesity 07/08/[address] [address] Ibeth Colby MD Prior Authorization 07/08/2024 Travel 07/02/[address] [address] Ibeth Colby MD Prior Auth Prescription 06/14/2024 1:00 PM EDT Telemedicine [address] [address] Ibeth Colby MD Health care maintenance (Primary [...] disease; NO (obstructive sleep apnea) 06/13/[address] [address] Ibeth Colby MD Appointment; Centralized Scheduling 06/13/2024 Telephone [facility] [address] [place] [phone] Ibeth Colby MD switch appointment 06/06/2024 Telephone [facility] [address] [place] [phone] Ibeth Colby MD chart prep 06/03/2024 Patient Outreach [facility] [address] [place] [phone] Ibeth Colby MD Pre-visit Planning (Pre-visit planning - LVM ) 05/17/2024 Population Health Risk Score [facility] () [address] [phone] Provider, Population Health Generic 05/10/2024 Orders Only [facility] [address] [place] [phone] NameAdria MD Seizure disorder ([facility]) (Primary Dx); Abnormal EEG from Last 3 Months Immunizations Immunization Administration Dates Next Due Hep A, Adult [...] 22 07/23/2024 2:25 PM EDT Oxygen Saturation 94% 01/23/2024 10:41 AM EST Inhaled Oxygen Concentration - - Weight 108 kg (238 lb 3.2 oz) 07/23/2024 2:25 PM EDT Height 162.6 cm (5' 4 ) 07/23/2024 2:25 PM EDT Body Mass Index 40.89 07/23/2024 2:25 PM EDT Plan of Treatment Upcoming Encounters Date Type Department Care Team (Late st Contact Info) Description 10/25/2024 1:45 PM EDT Office Visit [facility] [address] [place] [phone] Ibeth Colby MD 230 [place], [place] [phone] Health Maintenance Due Date Last Done Comments CT Colonography 1972 FIT DNA/Cologuard 1972 FIT 1972 FOBT 1972 Sigmoidoscopy 1972 Disability Screening 1972 Diabetes: Foot Exam 1982 Eye Exam 1982 Pap Smear 1993 Colonoscopy 12/02/2021 12/02/2020 Colorectal Cancer Screening 12/02/2021 Cervical Cancer Screening 05/02/2022 HPV/Cotest 05/02/2022 05/02/2017 Mammogram 09/23/2022 09/23/2020 Lung Cancer Screening 2022 Zoster Vaccines (1 of 2) 2022 COVID-19 Vaccine ( season) 2023 06/30/2020, 06/02/2020 Diabetes: Hemoglobin A1C 06/25/2024 024, 10/18/2023, 05/31/2022 SDOH Screening 10/17/2024 10/18/2023 Tobacco Screening 10/17/2024 10/18/2023 Alcohol/Substance Use Screening 12/25/2024 12/26/2023 Diabetes: Urine Protein Screening 12/25/2024 12/26/2023 Depression Screening 12/26/2024 12/27/2023, 12/27/19 Lipid Panel 07/02/2025 07/02/2024, 12/05, 05/31/2022 Family Planning (PISQ) 07/23/2025 07/23/2024 DTaP/Tdap/Td Vaccines (2 - Td or Tdap) [...] patient's age to complete this topic Meningococcal B Vaccine Aged Out No l onger eligible based on patient's age to complete [...] 07/23/2024 2: 55 PM EDT Vaginal odor LIPID PANEL, STANDARD Routine 07/02/2024 2:47 PM EDT Health care maintenance COMPREHENSIVE METABOLIC PANEL Routine 07/02/2024 2:47 PM EDT Class 2 obesity T4, FREE Routine 07/02/2024 2:47 PM EDT Class 2 obesity TSH Routine 07/02/2024 2:47 PM EDT Class 2 obesity AMB REFERRAL TO NEUROLOGY Routine 05/10/2024 Seizure disorder (CMS/HCC) Abnormal EEG HIV 1/2 ANTIGEN/ANTIBODY, FOURTH GENERATION W/RFL Routine 12/26/2023 4:00 PM EDT Annual physical exam ALBUMIN, RANDOM URINE W/CREATININE Routine 12/26/2023 4:00 PM EDT Annual physical exam HEMOGLOBIN A1C Routine 12/26/2023 4:00 PM EDT Annual physical exam HM COLONOSCOPY Routine 12/02/2020 11:44 AM EDT MAMMOGRAM GENERIC Routine 09/23/2020 3:3 0 PM EDT [employer] HISTORICAL HPV MRNA E6/E7 Routine 05/02/2017 11:59 AM EST from Last 3 Months or Most Recently Relevant to Health Maintenance Results * POCT fern test, vaginal fluid manually resulted (07/23/2024 2:55 PM EDT) MARIEL Prep Negative Comment:pH 4.5, neg whiff, n eg clue, neg trich, neg wbc, neg yeast Vaginal Fluid Vaginal structure / Unknown 07/23/2024 2:55 PM EDT Dawna CHOE POINT OF CARE TEST ENTER/ EDIT ORDERABLES Final Result * (ABNORMAL) TSH (07/02/2024 2:47 PM EDT) Thyroid Stimulating Hormone 4.25(H) 0.32 - 4.0 uIU/mL [facility] Comment:Note: A sustained TS H level above 2.5 uIU/mL may warrant further investigation. TSH 3rd Generation ([facility]) Blood Venous blood specimen / Unknown 07/02/2024 2:47 PM EDT 07/02/2024 3:59 PM EDT us Ibeth Vasques MD LAB BLOOD ORDERAB LES Final Result Performing Organization Address City/[facility]/ZIP Co de Phone Number [facility] [address] [place] [phone] * T4, Free (07/02/2024 2:47 PM EDT) Free T4 (Free Thyroxine) 1.06 0.71 - 1.85 ng/dL [facility] Blood Venous blood specimen / Unknown 07/02/2024 2:47 PM EDT 07/02/2024 3:59 PM EDT us Ibeth Vasques MD LAB BLOOD ORDERAB LES Final Result Performing Organization Address [facility]/ZIP Co de Phone Number [facility] [address] [place] [phone] * (ABNORMAL) Lipid Panel, Standard (07/02/2024 2:47 PM EDT) Triglycerides 146 <150 mg/dL [facility] Comment:Desirable Triglyceri de: less than 150 mg/dLBorderline High Triglyceride 150-199 mg/dLHigh Triglyceride: 200-499 mg/dLVery High Triglyceride: greater than or equal to 5OO mg/dL Cholesterol 215(H) <200 mg/dL [facility] Comment:Desirable Cholestero l: less than 200 mg/dLBorderline High Cholesterol: 200-239 mg/dLHigh Cholesterol: greater than 239 mg/dL LDL Cholesterol Calculated 137(H) <100 mg/dL [facility] Comment:Desirable LDL: less than 100 mg/dLNear Optimal/Above Optimal LDL: 110- 129 mg/dLBorderline High LDL: 130-159 mg/dLHigh LDL: 160-189 mg/dLVery High LDL: greater than or equal to 190 mg/dL HDL Cholesterol 49 >40 mg/dL [facility] Comment:Desirable HDL: great er than 40 mg/dL Note: This HDL assay may give artificially low results in patients with liver disease. Blood Venous blood specimen / Unknown 07/02/2024 2:47 PM EDT 07/02/2024 3:59 PM EDT us Ibeth Vasques MD LAB BLOOD ORDERAB LES Final Result [facility] [address] [place] [phone] [phone] * Comprehensive Metabolic Panel (07/02/2024 2:47 PM EDT) Sodium 139 135 - 145 mmol/L [facility] Potassium 4.2 3.3 - 5.1 mmol/L [facility] Chloride 105 96 - 108 mmol/L [facility] Carbon Dioxide 26 22 - 29 mmol/L [facility] Anion Gap 12 12 - 20 [facility] Urea Nitrogen (BUN) 13 9 - 16 mg/dL [facility] Creatinine, Serum 0.96 0.5 - 1.4 mg/dL [facility] Estimated Glomerular Filt Rate >60 [facility] Comment:Chronic Kidney Disea se: Estimated GFR < 60 mL/min/1.92n5Qoedyq Kidney Disease: Estimated GFR < 15 mL/min/1.73m2 Glucose 97 60 - 115 mg/dL [facility] Calcium 10.0 8.4 - 10.2 mg/dL [facility] Bilirubin, Total 0.5 0.0 - 1.0 mg/dL [facility] Aspartate Amino Transferase 22 5 - 31 U/L [facility] Alanine Aminotransferase 19 0 - 31 U/L [facility] Total Protein 7.9 6.5 - 8.0 g/dL [facility] Albumin Level 4.4 3.5 - 5.0 g/dL [facility] Alkaline Phosphatase 49 39 - 117 U/L [facility] Blood Venous blood specimen / Unknown 07/02/2024 2:47 PM EDT 07/02/2024 3:59 PM EDT us Ibeth Vasques MD LAB BLOOD ORDERAB LES Final Result Performing Organization Address City/[facility]/ZIP Co de Phone Number [facility] [address] [place] [phone] * Referral to Neurology (05/10/2024) Adria Price MD OUTPATIENT REFERRAL ORDERABLES F inal Result * Albumin, Random Urine W/Creatinine (12/26/2023 4:00 PM EDT) Creatinine, Urine 213.46 mg/dL [facility] Microalbumin Urine 10.0 mg/L [facility] Microalbum Creatinine Ratio Ur 4.6 <30 ug/mg cr [facility] Comment:Albumin/Creatinine R atio Reference Ranges: Normal: < 30 ug/mg creatinine Microalbuminuria: 30 - 300 ug/mg creatinineClinical Albuminuria: > 300 ug/mg creatinine Urine (Urine, Random) 12/26/2023 4:00 PM EDT 12/26/2023 5:33 PM EDT Ibeth Vasques MD LAB URINE ORDERAB LES Final Result Performing Organization Address [facility]/ZIP Co de Phone Number [facility] [address] [place] [phone] * HIV-1/2 Antigen and Antibodies, Fourth Generation, with Reflexes (12/26/2023 4:00 PM EDT) HIV AB/AG Nonreactive Nonreactive [facility] Comment:HIV-1 p24 Ag and/or HIV-1/HIV-2 Ab not detected.A test result that is nonreactive does not exclude thepossibility of exposure to or infection with HIV-1 and/orHIV-2. Nonreactive results in this assay for individualswith prior exposure to HIV-1 and/or HIV-2 may be due toantigen and antibody levels that are below the limit ofdetection of this assay.The [employer] HIV Ag/Ab Combo assay result andsupplemental assay results should be interpreted inconjunction with the patient's clinical presentation,history and other laboratory results. If the results areinconsistent with clinical evidence, additional testing issuggested to confirm the result. Blood Venous blood specimen / Unknown 12/26/2023 4:00 PM EDT 12/26/2023 5:31 PM EDT Ibeth Vasques MD LAB BLOOD ORDERAB LES Final Result Performing Organization Address City/[facility]/ZIP Co de Phone Number [facility] [address] [place] [address] [phone] * Hemoglobin A1c (12/26/2023 4:00 PM EDT) Hemoglobin A1c 5.4 <6.0 % [facility] Comment:Hemoglobin A1C Refer ence Range Adults: 4.8 - 6.0 % Non diabetic: < 6.0 % Goal: < 7.0 %Additional Action Suggested: > 8.0 %Note: Hemoglobin A1c results are invalid for patients with abnormal amounts of HbF. Blood transfusions may impact the HbA1c concentration in the patient sample. Estimated Average Glucose 108 mg/dL [facility] Comment:eAG = Estimated ave rage glucose which is %A1C expressed asaverage glucose, using the formula of the H8V-ZpumxriNfimzhs Glucose study (ADAG), Diabetes Care, Vol.31,#8,Oct. 2007 Blood Venous blood specimen / Unknown 12/26/2023 4:00 PM EDT 12/26/2023 5:31 PM EDT Ibeth Vasques MD LAB BLOOD ORDERAB LES Final Result Performing Organization Address [facility]/ZIP Co de Phone Number [facility] [address] [place] [phone] * Hm Colonoscopy (12/02/2020 11:44 AM EDT) us Historical Provider HEALTH MAINTENANCE Final Result * Mammography Report 1 (09/23/2020 3:30 PM EDT) Anatomical Region Laterality Modality Breast Bilateral Mammography 09/23/2020 3:30 PM EDT Narrative 09/24/2020 2:32 PM EDT Refer to the Notes tab for result details [facility] Procedure: Mammography Report 1 Procedure Note Provider, Edgar, - 05/29/2022 Refer to the Notes tab for result details [facility] Procedure: Mammography Report 1 us Historical Provider IMLaurel BI PROCEDURES Final R esult * HPV mRNA E6/E7 (05/02/2017 11:59 AM EST) HPV mRNA E6/E7 Not Detected NOT DETECTED [facility] Comment: This test was performed using the APTIMA(R) HPV Assay ([employer] This assay detects E6/E7 viral messenger RNA (mRNA) from 14 high-risk HPV types (16,18,31,33,35,39,45,51, 52,56,58,59,66,68). For additional information please refer to: http://education.PaperV/faq/GOK026h0 (This link is being provided for informational/ educational purposes only.) Test Performed by [employer], [employer], [address] [place] [address] Roddy Pickens M.D., Ph.D., Director of Laboratories , [facility] [id number] Please note: ??Effective 11/16/2015, HPV testing will be performed using [employer]'s APTIMA test which targets mRNA. Detecting mRNA instead of DNA, as in older methods, offers significant improvements in specificity. 05/02/2017 11:5 9 AM EST Mis Harmon NP HISTORICAL/NON ORDERABLE LABS Fi nal Result [facility] [address] from Last 3 Months or Most Recently Relevant to Health Maintenance Insurance [facility] STANDARD Care Teams Rivet Spinner Relationship Specialty Start Date End Date Ibeth Colby MD [address] [place] [address] [phone] PCP - General Internal Medicine 12/13/22 Iris Meyers Hand Sample MakerSpectrographer 03/15/23
--- OUTSIDE RECORDS SUMMARY | 2024-07-24 12:16 | XMS_ITS | Clinical Summary ---
Author Organization [facility] Address [address] [place] [address] Care Team Providers Care Car Usher Name Role Phone Unavailable Primary Care Provider [...] Adhesive Bandage Contact Dermatitis,Hives,Itch ing,Rash,Swelling Low 02/22/2024 [place] Anaphylaxis High 08/15/2013 Gluten Anaphylaxis High 03/22/2022 [...] Refills, Maintenance, 11/21/23 3:54:00 PM EDT, Aerosol, [facility]/pharmacy #[id number], Partial fill upon patient request if the [...] 1 Capsule by mouth once daily Active hydrOXYzine pamoate (VISTARIL) 50 mg capsuleIndication s:Episodic mood disorder ([facility] V24) Take 1 Capsule by mouth 2 (two) times Daily for 30 days 60 Capsule 2 07/19/19 25 025 Active lamoTRIgine (LAMICTAL) 100 mg tabletIndications :Episodic mood disorder ([facility] V24) Take 1 Tablet by mouth 2 (two) times daily for 30 days 60 Tablet 2 07/19/19 25 025 Active prazosin (MINIPRESS) 5 mg capsuleIndication s:Posttraumatic stress disorder Take 1 Capsule by mouth nightly at bedtime for 30 days 30 Capsule 2 07/19/19 25 025 Active QUEtiapine (SEROQUEL) 100 mg tabletIndications :Episodic mood disorder ([facility] V24) Take 1 Tablet by mouth nightly at bedtime for 30 days 30 Tablet 2 07/19/19 25 025 Active zolpidem (AMBIEN) 10 mg tablet Take 1 Tablet by mouth nightly at bedtime as needed for sleep for up to 30 days for insomnia 30 Tablet 1 07/19/19 25 025 Active prazosin (MINIPRESS) 5 mg capsuleIndication s:Posttraumatic stress disorder Take 1 Capsule by mouth nightly at bedtime for 30 days 30 Capsule 2 05/17/19 25 025 Discontin ued(Reord er (E-Cancel Not Sent)) hydrOXYzine pamoate (VISTARIL) 50 mg capsuleIndication s:Episodic mood disorder ([facility] V24) Take 1 Capsule by mouth 2 (two) times Daily for 30 days 60 Capsule 2 05/17/19 25 025 Discontin ued(Reord er (E-Cancel Not Sent)) lamoTRIgine (LAMICTAL) 100 mg tabletIndications :Episodic mood disorder ([facility] V24) Take 1 Tablet by mouth 2 (two) times daily for 30 days 60 Tablet 2 05/17/19 25 025 Discontin ued(Reord er (E-Cancel Not Sent)) QUEtiapine (SEROQUEL) 100 mg tabletIndications :Episodic mood disorder ([facility] V24) Take 1 Tablet by mouth nightly at bedtime for 30 days 30 Tablet 2 05/17/19 25 025 Discontin ued(Reord er (E-Cancel Not Sent)) zolpidem (AMBIEN) 10 mg tablet Take 1 Tablet by mouth nightly at bedtime as needed for sleep for up to 30 days for insomnia 30 Tablet 1 06/14/19 25 025 Discontin ued(Reord er (E-Cancel Not Sent)) Active Problems Problem Noted Date Diagnosed Date Severe obesity ([facility]) 02/22/2024 Other emphysema ([facility]) 02/22/2024 Acute kidney failure ([facility] V24) 02/22/2024 Overdose of antidepressant 02/22/2024 Migraine headache 10/18/2023 History of tobacco use 10/18/2023 Health care maintenance 05/31/2022 Overview (02/22/2024): Pap: 05/02/2017 NILM; HPV neg Colonoscopy: 12/02/20; polyp removed Mammogram: 09/23/20 BIRADS 1 Class 2 obesity 05/31/2022 Asthma-chronic obstructive p ulmonary disease overlap syndrome ([facility]) 05/31/2022 Obsessive-compulsive disorder 05/18/2022 Assessment & Plan (07/18/2024 3:07 PM EDT): A: Symptoms under control with current regiment P: No changes made, No refill needed Assessment & Plan (04/18/2024 3:22 PM EST): A: Symptoms under control with current regiment P: No changes made, No refill needed Assessment & Plan (03/21/2024 3:03 PM EST): A: Symptoms under control with current regiment P: No changes made, No refill needed Severe chronic obstructive pulmonary disease ( [facility]) 05/18/2022 Vertigo 05/17/2022 Opioid dependence ([facility]) 05/17/2022 Assessment & Plan (07/18/2024 3:06 PM EDT): Currently in remission, sobriety for the past 17 years. Assessment & Plan (02/22/2024 1:12 PM EST): [...] of urine 05/25/2020 Acute nontraumatic kidney injury ([facility] V24) 05/25/2020 Vitamin D deficiency 07/23/2018 Overview (02/22/2024): I have several side effects Episodic mood disorder ([facility] V24) 02/06/2018 Assessment & Plan (07/18/2024 3:08 PM EDT): Assessment: Symptoms under reasonable control Plan: Continue all current meds, no refills needed Assessment & Plan (05/16/2024 3:40 PM EDT): [...] Posttraumatic stress disorder 12/15/2014 Assessment & Plan (07/18/2024 3:06 PM EDT): A: symptoms under control. P: Continue all current meds. Re-assess nightmares when patient starts using C-pap machine. Assessment & Plan (05/16/2024 3:44 PM EDT): [...] Encounters Date Type Department Care Team Description 07/18/2024 2:30 PM EDT Behavioral Health Visit [facility] [address] [place] [phone] Vida Hernandez APRN Episodic mood disorder ([facility] V[facility]); Posttraumatic stress disorder 06/13/2024 2:00 PM EDT Behavioral Health Visit [facility] [address] [place] [phone] Vida Hernandez APRN Episodic mood disorder ([facility] V24); Posttraumatic stress disorder 05/16/2024 2:30 PM EDT Behavioral Health Visit [facility] [address] [place] [address] Melany HernandezKAUSHIK hernandez Episodic mood disorder ([facility]) (Primary Dx); Posttraumatic stress disorder from Last 3 Months Immunizations Immunization Administration Dates Next Due Flu, Multi Dose 0.5 ML 01/04/2018,11/23/2016 Flu, Preservative Free 03/08/2016 Flu, Recombinant, 18y+, Flublok 01/02/2020 Hep A, adult 05/23/2013,01/19/2011,07/20/2000 Hep B, Adult/Adol (ENERGIX/RECOMBIVAX) 7,01/16/2011,12/03/2009 INFLUENZA, SEASONAL, INJECTABLE 02/11/2014,03/13 INFLUENZA, SEASONAL, INJECTA BLE, PRESERVATIVE FREE 12/26/2023 PNEUMOCOCCAL CONJUGATE PCV 20 (Prevnar) 10/18/19 24 PNEUMOCOCCAL POLYSACCHARIDE PPV23 (Pneumovax 23) 02/17/2014 [facility] State Funded Flu Vaccine 12/14/2011 TDAP [...] Care Team (Late st Contact Info) Description 09/12/2024 2:30 PM EDT Behavioral Health Visit [facility] [address] [place] [address] Vida Hernandez, KAUSHIK [address] [facility] [place] [address] Health Maintenance Due Date Last Done Comments Anxiety Screening 1972 HPV Screening 1972 LARC-Mirena IUD 1972 Pap + HPV 1972 Syphilis Screening 12/10/1986 Hypertension Screening (#1) 1990 Cervical Cancer Screening [address] Colonography 2017 Colonoscopy 2017 Colorectal Cancer Screening 2017 FIT/gFOBT 2017 Fecal DNA 2017 Flexible Sigmoidoscopy 2017 Breast Cancer Screening (Mammogram) 09/23/2022 09/23/2020 Imm-Zoster, Recombinant (1 of 2) 2022 Beo-KHGWA-65 ( season) 11/05/202306/30/2 021, 06/02/2020 Alcohol and Drug Screen 03/06/2024 Depression Annual Screen 03/06/2024 Tobacco Screening 02/21/2025 02/22/2024 Diabetes Screening 07/02/2025 07/02/2024, 1 , 12/26/2023, Additional history exists Lipid Screening 07/02/2025 07/02/2024, 12/26/2023 TSH Monitoring 07/02/2025 07/02/2024, 12/26/2023 Imm-DTaP/Tdap/Td (2 - Td or Tdap) 03/08/2026 017, 03/06/1996 Imm-Hepatitis B Completed 03/08/2016, 01/04, 12/03/2009 Imm-Pneumococcal Completed 10/18/2023, 02/17/2014 HIV Screening Completed 12/26/2023, 12/26/2023 Imm-Influenza Completed 12/26/2023, 12/05, 01/04/2018, Additional history exists Cervical Ablation/Cold-Knife Conization Discontinued Cervical Cryotherapy Discontinued Colposcopy Discontinued Endometrial Biopsy Discontinued Excision/Leep Discontinued HPV Genotyping Discontinued Vaginal Pap Discontinued Vulvoscopy Discontinued Insurance [facility] [place] MEDICAID
--- OUTSIDE RECORDS SUMMARY | 2024-07-24 12:16 | XMS_ITS | Encounter Summary ---
Author Organization [employer] Address [address] 7[address] [place] [address] Care Team Providers Care Aurist Name Role Phone ShaunNilda ballard Conchita CASANOVA Primary Care Provider [phone]- [phone] Ibeth Colby MD Primary Care Pro vider Reason for Visit * Reason Comments Med Refill Encounter Details Date Type Department Care Team (Late st Contact Info) Description 08/16/2022 Refill [facility] CHC MED & PEDS [address] [place] [address] Edmond Fuller FNP Social History Tobacco Use [...] Description 10/25/2024 1:45 PM EDT Office Visit [facility] MEDICINE [address] [place], [place] [phone] Ibeth Colby MD [address] [place], [place] [phone] documented as of this encounter Visit Diagnoses Not on filedocumented in this encounter Additional Health Concerns Assessment Noted Time PHQ-9 Depression Total Score: 0 06/22/19 3:26 PM EDT documented as of this encounter Care Teams Aurist Relationship Specialty Start Date End Date Nilda Dunn FNP PCP - General Family Medicine 11/03/21 12/12/22 Ibeth Colby MD [address] [place] [phone] PCP - General Internal Medicine 12/13/22 Suzanne Meyers Nursing Support WorkerEdging Machine Setter 03/15/23 documented as of this encounter
--- OUTSIDE RECORDS SUMMARY | 2024-07-24 12:16 | XMS_ITS | Data Portability ---
Author Organization [place] [facility], Allergy Address [address] [place] [phone] Care Team Providers Care Drum Drier Operator Name Role Phone SALVADOR BRANDON WILI Primary [...] mcg/actua tion nasal spray,madison pension 2024 025 [facility]/Pharmacy #[id number], [address] [place], [address], 05/01/2024 15:01:22 omeprazol e 40 mg capsule,d elayed release 2024 025 [facility]/Pharmacy #[id number], [address] [place], [address], 05/01/2024 15:01:22 Patient TargetsNo targets recorded. Patient InstructionsNo instructions recorded. Reason for Referral None Reported. Results Created Date Observation Date Name Description Value Unit Range Abnormal Flag Note LastModifiedBy Organization Detail LastModifiedTime 05/09/19 25 07/15/2022 MRI, brain + brain stem, w/o contr ast No observ ation record ed. [email or web address] Not Available 07/2024 10:59:20 05/09/19 25 04/07/2022 CT, neck, soft tissu e, w/ contr ast No observ ation record ed. [email or web address] Not Available 01/2025 10:46:16 Result Notes None recorded. Problems Name Problem SNOMED Code Status Onset Date Resolution Date Notes Provider Name and Address Organization Details Recorded Time Feeling of lump in throat 189735943 Active 2024 JENNY Oneill MD [address] [facility],[place] [address], [facility] [place], [phone], [facility] [place] 14:51:18 Gastroesophage al reflux disease without esophagitis 981674774 Active 2024 JENNY Oneill MD [address] [place] [address],[place] [address], [facility] [place], [phone], [facility] 14:51:23 Nasal congestion 15279036 Active 2024 JENNY Oneill MD [address] [place] [address],[place] [address], [place], [phone], [facility] 14:51:27 Problem Notes None recorded. Procedures Surgical History Date Name Laterality Status Provider Name and Address Organization Details Recorded Time 05/01/2024 FFL_RE completed JENNY BROOKS MD [address] [place] [address], [place], [address], [facility] 05/01/2024 15:00:21 Imaging Results Imaging Date Name Status LastModified by Organiz ation Details LastModified Time 07/15/2022 MRI, brain + brain stem, w/o contrast completed [email or web address] Information not available 05/08/2024 10:59:20 04/07/2022 CT, neck, soft tissue, w/ contrast completed [email or web address] Information not available 05/14/2024 10:46:16 Procedure Notes [...] propionate 50 mcg/actuatio n nasal spray,suspen adela [place] 2 sprays every day by intranasal route. [...] Updated DateTime 05/01/2024 162.56 cm 39.5 kg/m2 163036.25 g Yong Wong [place] - [facility] 05/01/2024 14:17:49 Social History None recorded. Functional Status None recorded. Mental Status None recorded. Family History Nothing Reported. Medical History No medical history recorded. Gynecological HistoryNo gynecological history recorded. Obstetrics History GPAL:G 0 P 0 0 0 0 Past Encounters Encounter ID Performer Location Encounter Start Date Encounter Closed Date Diagnosis/Indication Diagnosis SNOMED-CT Code Diagnosis ICD10 Code Diagnosis Note [id number] JENNY BROOKS MD [facility] [address] [place] [address] 05/01/2024 14:03:14 05/01/2024 14:57:54 Feeling of lump in throat 799053267 R09.89 see GERD. FFL normal except for [place] ing. Gastroesop hageal reflux disease without esophagitis 418592623 K21.9 Likely has refractory GERD and tachyphyla xis on 20mg of omeprazole . I will increase the dose for 3 months and see if it helps with her globus. Nasal congestion 6339299 0 R09.81 I recommend she continue flonase since she has benefit. I will refill. Health Concerns Section Related Observation LastModified by Organization Detai ls LastModified Time None Recorded Concern Status LastModified by Organization Details LastModified Time None Recorded Advance Directives Directive None Recorded Payers Insurance Date Sequence Insurance Name Policy Number Policy Espinoza Covered Member ID Espinoza Member ID Guarantor Name 05/01/2024 1 [place] [id number] Sera Teran 05/01/2024 1 [place] [facility] PL[facility] Sera Teran [id number] Sera Teran Notes Date Note Type Note [...] No hx of glaucoma. JENNY BROOKS MD [address] [place] [address], [place], [phone], [place] [facility] 05/01/2024 15:01:23 OBGyn Episode No OBEpisode recorded.
--- OUTSIDE RECORDS SUMMARY | 2024-07-24 12:16 | XMS_ITS | Encounter Summary ---
Author Organization [employer] Address [address] 7[address] [place] [address] Care Team Providers Care Cnc Lathe Machine Operator Name Role Phone Ibeth Colby MD Primary Care Pro vider Encounter Details Date Type Department Care Team (Late st Contact Info) Description 12/15/2022 Orders Only [facility] CHC MED & PEDS [address] [place] [address] Ernestina Gutierrez LPN Social History Tobacco Use [...] EDT Office Visit [facility] MEDICINE [address] [place] [address] [phone] Ibeth Colby MD [address] [place] [phone] documented as of this encounter Visit Diagnoses Not on filedocumented in this encounter Additional Health Concerns Assessment Noted Time PHQ-9 Depression Total Score: 0 06/22/19 23 3:26 PM EDT documented as of this encounter Care Teams Cnc Lathe Machine Operator Relationship Specialty Start Date End Date Ibeth Colby MD [address] [place] [address] [phone] PCP - General Internal Medicine 12/13/22 Suzanne Meyers Process StripperRound Corner Cutter Operator 03/15/23 documented as of this encounter
--- OUTSIDE RECORDS SUMMARY | 2024-07-24 12:16 | XMS_ITS | Encounter Summary ---
Author Organization [employer] Address [address] [facility] 7 [place] [address] Care Team Providers Care Performance Improvement Specialist Name Role Phone Nilda Dunn FAMILY PRACTICE PHYSICIAN ASSISTANT Primary Care Provider [phone]- [phone] Ibeth Colby MD Primary Care Pro vider Encounter Details Date Type Department Care Team (Late st Contact Info) Description 05/10/2022 Orders Only [facility] CHC MED & PEDS [address] [place], [place] [phone] Ange Leal LPN Social History Tobacco Use [...] [facility] MED[facility] [address] [place], [place] [phone] Ibeth Colby MD [address] [place], [place] [phone] documented as of this encounter Visit Diagnoses Not on filedocumented in this encounter Additional Health Concerns Assessment Noted Time PHQ-9 Depression Total Score: 0 03/22/19 23 1:19 PM EST documented as of this encounter Care Teams Performance Improvement Specialist Relationship Specialty Start Date End Date Nilda Dunn FNP PCP - General Family Medicine 11/03/21 12/12/22 Ibeth Colby MD [address] [place] [phone] PCP - General Internal Medicine 12/13/22 Suzanne Meyers Office Coordinator ReceptionistClinical Dietician 03/15/23 documented as of this encounter
--- OUTSIDE RECORDS SUMMARY | 2024-07-24 12:16 | XMS_ITS | Encounter Summary ---
Author Organization [employer] Address [address] [place] [address] 7 [place] [address] Care Team Providers Care Electric Meter Repairer Helper Name Role Phone Nilda Dunn VEHICLE MAINTENANCE SUPERVISOR Primary Care Provider [phone]- [phone] Ibeth Colby MD Primary Care Pro vider Encounter Details Date Type Department Care Team (Late st Contact Info) Description 04/06/2022 Orders Only [facility] MEDICINE [address] [place] [phone] Ernestina Gutierrez LPN Social History Tobacco Use [...] Description 10/25/2024 1:45 PM EDT Office Visit [facility] MEDICINE [address] [place] [phone] Ibeth Colby MD [address] [place], [place] [phone] documented as of this encounter Visit Diagnoses Not on filedocumented in this encounter Additional Health Concerns Assessment Noted Time PHQ-9 Depression Total Score: 0 03/22/19 23 1:19 PM EST documented as of this encounter Care Teams Electric Meter Repairer Helper Relationship Specialty Start Date End Date Nilda Dunn FNP PCP - General Family Medicine 11/03/21 12/12/22 Ibeth Colby MD [address] [place] [address] PCP - General Internal Medicine 12/13/22 Suzanne Meyers Prototype SewerTimber Selector 03/15/23 documented as of this encounter
--- OUTSIDE RECORDS SUMMARY | 2024-07-24 12:16 | XMS_ITS | Encounter Summary ---
Author Organization [employer] Address [address] [facility] 7 [place] [address] Care Team Providers Care Procurement Technician Name Role Phone Ibeth Colby MD Primary Care Pro vider Reason for Visit * Reason Comments Med Refill Encounter Details Date Type Department Care Team (Late st Contact Info) Description 10/24/2023 Refill [facility] CHC MED & PEDS [address] [place] [address] Ibeth Colby MD [address] [place], [place] [phone] Social History Tobacco Use Types Packs/Day Years [...] Office Visit [facility] MEDICINE [address] [place] [phone] Ibeth Colby MD [address] [place] [phone] documented as of this encounter Visit Diagnoses Not on filedocumented in this encounter Additional Health Concerns Assessment Noted Time PHQ-9 Depression Total Score: 0 07/13/19 24 2:53 PM EDT documented as of this encounter Care Teams Procurement Technician Relationship Specialty Start Date End Date Ibeth Colby MD [address] [place] [address] [phone] PCP - General Internal Medicine 12/13/22 Suzanne Meyers Master CookStaff Mine Warfare Officer 03/15/23 documented as of this encounter
[2024-07-26 14:31] LABS: HPV Genotype 16 Negative (Negative); HPV Genotype 18 Negative (Negative); HPV High Risk Negative (Negative)
== END 2024-07-24 10:46 | disposition home or self-care (01) ==
LOC: HO.HHCLNP 10:45
PROVIDERS: Visit Provider Advanced Practice Midwife
DX: Z12.4 Encounter for screening for malignant neoplasm of cervix (principal); Z97.5 Presence of (intrauterine) contraceptive device
CPT/HCPCS: 87626; 88175

== ENCOUNTER 2024-09-03 13:56 | Outpatient (AMB) | payer MEDICAID, SELFPAY ==
--- NOTE | 2024-09-03 13:59 | A.OFFVIS_ITS ---
Intake Visit Reasons: Follow up Allergies gluten (GLUTEN) Allergy (Severe, Verified 07/12/23 12:42) VOMITING, DIARRHEA lactose (LACTOSE) Allergy (Severe, Verified 07/12/23 12:42) VOMITING, DIARRHEA adhesive tape (Adhesive Tape) Allergy (Unknown, Verified 07/12/23 12:42) RASH cedarwood (Cedarwood) Allergy (Unknown, Verified 07/12/23 12:42) THROAT CLOSES, SWELLING, RASH No Known Drug Allergies Allergy (Unknown, Verified 02/23/24 16:29) none HPI HPI Follow up: Details: History of Present Illness The patient is a 53-year-old female presenting with issues related to medication management for migraine and epilepsy. She conveys that the recent introduction of a triptan medication has significantly alleviated her migraine symptoms, providing much-needed relief from headache episodes. Approximately two weeks ago, she underwent an MRI with contrast at [facility], but results remain pending. Management of epilepsy remains stable with lamotrigine 100 mg administered twice daily, and she reports no recent seizures. For migraine treatment, she has been alternating between two triptan medications, reporting efficacious symptom control. During this visit, it was determined that only one triptan, eletriptan, should be utilized moving forward to optimize migraine management. Review of Systems - Neurological: Reports benefit from migraine medication; denies recent seizures. - Respiratory: No new complaints aside from previously noted sleep apnea. - No other systems were discussed. Physical Exam - Neurologic- Normal Mental Status Exam No mental-status observations documented. Plan The management of the patient's migraine will proceed with the exclusive use of eletripin due to its demonstrated effectiveness. It was recommended to discontinue alternating with a second triptan medication to optimize results and reduce risks. The patient is to retrieve her MRI results from [facility] for complete evaluation of her neurological condition. Lamotrigine will continue for seizure prevention, given the absence of recent seizure activity. Patient was informed and verbally consented to the use of an ambient scribe for clinic note documentation during this visit. Discussion Notes During this consultation, I discussed with the patient the importance of narrowing her migraine management to eletriptan, highlighting its satisfactory efficacy for her. I addressed concerns regarding the two triptan medications previously utilized by recommending the discontinuation of one, thus ensuring the safe and effective treatment of her migraines. We reviewed her need to personally obtain the MRI CD from [facility]. Additionally, there was a reinforcement of maintaining her current epilepsy management with lamotrigine, considering the positive response and lack of recent seizures. Patient Instructions - Use eletriptan as directed, 1 tablet as needed for migraines. - Obtain the MRI CD from [facility] for review. - Continue lamotrigine as currently prescribed. - Follow up in three months for reevaluation. - Contact us if you experience any adverse symptoms or require further assistance. HPI Comments Details: 53 yo woman with migraine and?seizure disorder started in her 20s. (Before the seizure, she remembered seeing a hue of cloudiness. Seizures made her passed out and shake.) [facility] Medical History (Updated 09/03/24 @ 18:51 by Leena Diez MD) Nausea and vomiting Pre-op examination Renal tubular acidosis Chronic kidney disease Asthma COVID-19 vaccine series completed History of intravenous drug use in remission Hiatal hernia Hx MRSA infection Hypoglycemia Frequent headaches OCD (obsessive compulsive disorder) PTSD (post-traumatic stress disorder) Depression Seizure disorder NO (obstructive sleep apnea) IBS (irritable bowel syndrome) GERD (gastroesophageal reflux disease) Surgical History Hx laparoscopic cholecystectomy History of lung surgery Hx of section History of esophagogastroduodenoscopy (EGD) Hx of colonoscopy (~2013) Family History Father Melanoma Mother Overdose Maternal Grandfather Cancer Melanoma Brother FH: testicular cancer Brother Brain aneurysm Brother HIV (human immunodeficiency virus infection) Social History Household Members: Spouse Housing: Apartment Are you a primary social worker palliative care to a significant other at home: No Do you presently have visiting nurse or other home services: Yes Alcohol intake: current Alcohol intake frequency: does not drink Patient Tobacco Use Status: Former Tobacco user Tobacco use type: Cigarette Cigarette Packs Per Day: 0.25 Cigarettes Per Day: 5.0 Years Smoked: 20+, quit 2018 Assessment & Plan Assessment & Plan (1) Epilepsy: Code(s): G40.909 - Epilepsy, unspecified, not intractable, without status epilepticus Category: Medical Qualifiers: Epilepsy type: partial symptomatic Partial seizure type: with complex partial seizures Intractability: not intractable Status epilepticus: without status epilepticus Qualified Code(s): G40.209 - Localization-related (focal) (partial) symptomatic epilepsy and epileptic syndromes with complex partial seizures, not intractable, without status epilepticus Plan: Continue taking Lamotrigine Please bring MRI CD for reveiw at next visit (2) Migraine without aura: Comment: Continue Eletriptan 40mg one a day if needed for headache Code(s): G43.009 - Migraine without aura, not intractable, without status migrainosus Category: Medical Qualifiers: Status migrainosus presence: without status migrainosus Intractability: not intractable Qualified Code(s): G43.009 - Migraine without aura, not intractable, without status migrainosus Plan Plan The management of the patient's migraine will proceed with the exclusive use of eletripin due to its demonstrated effectiveness. It was recommended to discontinue alternating with a second triptan medication to optimize results and reduce risks. The patient is to retrieve her MRI results from [facility] for complete evaluation of her neurological condition. Lamotrigine will continue for seizure prevention, given the absence of recent seizure activity. Patient was informed and verbally consented to the use of an ambient scribe for clinic note documentation during this visit. Discussion Notes During this consultation, I discussed with the patient the importance of narrowing her migraine management to eletriptan, highlighting its satisfactory efficacy for her. I addressed concerns regarding the two triptan medications previously utilized by recommending the discontinuation of one, thus ensuring the safe and effective treatment of her migraines. We reviewed her need to personally obtain the MRI CD from [facility]. Additionally, there was a reinforcement of maintaining her current epilepsy management with lamotrigine, considering the positive response and lack of recent seizures. Patient Instructions - Use eletriptan as directed, 1 tablet as needed for migraines. - Obtain the MRI CD from [facility] for review. - Continue lamotrigine as currently prescribed. - Follow up in three months for reevaluation. - Contact us if you experience any adverse symptoms or require further assistance. Coding Level of Care Code Est Pt Level 4 (15887) Diagnoses Partial symptomatic epilepsy with complex partial seizures, not intractable, without status epilepticus G40.209 Epilepsy type: partial symptomatic Partial seizure type: with complex partial seizures Intractability: not intractable Status epilepticus: without status epilepticus Migraine without aura and without status migrainosus, not intractable G43.009 Status migrainosus presence: without status migrainosus Intractability: not intractable
--- OUTSIDE RECORDS SUMMARY | 2024-09-03 15:08 | XMS_ITS | Encounter Summary ---
Author Organization [employer] Address [address] [facility] 7 [place] [address] Care Team Providers Care Transcription Coordinator Name Role Phone Ibeth Colby MD Primary Care Pro vider Reason for Visit * Reason Onset Date Comments switch appointment 06/13/2024 Encounter Details Date Type Department Care Team (Late st Contact Info) Description 06/13/2024 Telephone [facility] MEDICINE [address] [place], [place] [phone] Ibeth Colby MD [address] [place], [place] [phone] switch appointment Social History Tobacco Use Types [...] states doesn't want to miss the appointment. [phone] documented in this encounter Plan of Treatment Upcoming Encounters Date Type Department Care Team (Late st Contact Info) Description 10/25/2024 1:45 PM EDT Office Visit [facility] MEDICINE [address], [place] [phone] Ibeth Colby MD [address] [place], [place] [phone] documented as of this encounter Visit Diagnoses Not on filedocumented in this encounter Additional Health Concerns Assessment Noted Time PHQ-9 Depression Total Score: 6 12/27/19 9:10 AM EDT documented as of this encounter Care Teams Transcription Coordinator Relationship Specialty Start Date End Date Ibeth Colby MD [address] [place] [id number] PCP - General Internal Medicine 12/13/22 Suzanne Meyers Title Search ManagerComposition Weatherboard Installer 03/15/23 documented as of this encounter
--- OUTSIDE RECORDS SUMMARY | 2024-09-03 15:08 | XMS_ITS | Data Portability ---
Author Organization [place] [facility], Allergy Address [address] [place] [phone] Care Team Providers Care Chief Scientific Officer Name Role Phone SALVADOR WILI TAYLOR Primary Care Provider Assessment No assessment recorded. [...] mcg/actua tion nasal spray,[place] pension 2024 025 [facility]/Pharmacy #[id number], [address] [place], [address], 05/01/2024 15:01:22 omeprazol e 40 mg capsule,d elayed release 2024 025 [facility]/Pharmacy #[id number], [address] [place], [address], 05/01/2024 15:01:22 Patient TargetsNo targets recorded. Patient InstructionsNo instructions recorded. Reason for Referral None Reported. Results Created Date Observation Date Name Description Value Unit Range Abnormal Flag Note LastModifiedBy Organization Detail LastModifiedTime 05/09/19 25 07/15/2022 MRI, brain + brain stem, w/o contr ast No observ ation record ed. [email or web address] Not Available 07/2024 10:59:20 05/09/19 25 04/07/2022 CT, neck, soft tissu e, w/ contr ast No observ ation record ed. [email or web address] Not Available 01/2025 10:46:16 Result Notes None recorded. Problems Name Problem SNOMED Code Status Onset Date Resolution Date Notes Provider Name and Address Organization Details Recorded Time Feeling of lump in throat 673907931 Active 2024 JENNY Oneill MD [address] [place] [address],[place] [address], [place], [phone], [facility] 14:51:18 Gastroesophage al reflux disease without esophagitis 802236826 Active 2024 JENNY Oneill MD [address] [place] [address], [place], [phone], [facility] 14:51:23 Nasal congestion 77319117 Active 2024 JENNY Oneill MD [address] [place] [address], [place], [address], [facility] 14:51:27 Problem Notes None recorded. Procedures Surgical History Date Name Laterality Status Provider Name and Address Organization Details Recorded Time 05/01/2024 FFL_RE completed JENNY BROOKS MD [address] [place] [address], [phone], [facility] 05/01/2024 15:00:21 Imaging Results None recorded. Procedure [...] propionate 50 mcg/actuatio n nasal spray,suspen adela [facility] 2 sprays every day by intranasal route. [...] Updated DateTime 05/01/2024 162.56 cm 39.5 kg/m2 479020.25 g Yong Wong [place] - [facility] 05/01/2024 14:17:49 Social History None recorded. Functional Status None recorded. Mental Status None recorded. Family History Nothing Reported. Medical History No medical history recorded. Gynecological HistoryNo gynecological history recorded. Obstetrics History GPAL:G 0 P 0 0 0 0 Past Encounters Encounter ID Performer Location Encounter Start Date Encounter Closed Date Diagnosis/Indication Diagnosis SNOMED-CT Code Diagnosis ICD10 Code Diagnosis Note [id number] JENNY BROOKS MD [facility] [address] [place] [address] 05/01/2024 14:03:14 05/01/2024 14:57:54 Feeling of lump in throat 197235812 R09.89 see GERD. FFL normal except for [place] ing. Gastroesop hageal reflux disease without esophagitis 899820556 K21.9 Likely has refractory GERD and tachyphyla xis on 20mg of omeprazole . I will increase the dose for 3 months and see if it helps with her globus. Nasal congestion 6831626 0 R09.81 I recommend she continue flonase since she has benefit. I will refill. Health Concerns Section Related Observation LastModified by Organization Detai ls LastModified Time None Recorded Concern Status LastModified by Organization Details LastModified Time None Recorded Advance Directives Directive None Recorded Payers Insurance Date Sequence Insurance Name Policy Number Policy Espinoza Covered Member ID Espinoza Member ID Guarantor Name 05/01/2024 1 [place] [facility] [id number] Serarenea Teran 05/01/2024 1 [place] [facility] PLAN Serarenea Teran [id number] Sera Induoctavio Notes Date Note Type Note Provider Name [...] No hx of glaucoma. JENNY BROOKS MD [address] [place] [address], [phone], [place] [facility] 05/01/2024 15:01:23 OBGyn Episode No OBEpisode recorded.
--- OUTSIDE RECORDS SUMMARY | 2024-09-03 15:08 | XMS_ITS | Clinical Summary ---
Author Organization [facility] Address [address] [place] [address] Care Team Providers Care Braiding Machine Operator Name Role Phone Unavailable Primary [...] Adhesive Bandage Contact Dermatitis,Hives,Itch ing,Rash,Swelling Low 02/22/2024 [place] Anaphylaxis High 08/15/2013 Gluten Anaphylaxis High 03/22/2022 Lactose 05/31/2022 Tape, Occlusive Adhesive 02/22/2024 Other Reaction(s): Contact dermatitis with paper tape Tapentadol 03/22/2022 Other reaction(s): Contact dermatitis with paper tape Wheat Gluten Anaphylaxis,Diarrhea , Dizziness,GI intolerance,Headache, Hives,Itching,Nausea and Vomiting,Other Severe,Palpitations,R jabari,Swelling,Tinnitus ,Wheezing High 02/22/2024 Wound Dressings Hives High 12/14/2011 Other reaction(s): RASH ON SITE Medications duc.stocking,t high,reg,med Use 2 Each as directed daily. 06/09/19 [...] Refills, Maintenance, 11/21/23 3:54:00 PM EDT, Aerosol, [facility]/pharmacy #[id number], Partial fill upon patient request if the [...] Take 1 Puff by mouth daily. Active diphenoxylate-atro pine (LOMOTIL) 2.5-0.025 mg per tablet Take 1 [...] in both nostrils daily 12/26/19 24 Active fluticasone-umecli dinum-vilanterol (TRELEGY ELLIPTA) 100-62.5-25 mcg inhaler Inhale 1 Puff into the lungs daily. 11/27/19 24 Active fenofibrate micronized (ANTARA) 130 mg capsule Take 130 mg by mouth once daily Active MULTIVITAMIN COMBINATION NO.56 ORAL Take 1 Capsule by mouth once daily Active hydrOXYzine pamoate (VISTARIL) 50 mg capsuleIndications :Episodic mood disorder ([facility] V24) Take 1 Capsule by mouth 2 (two) times Daily for 30 days 60 Capsule 2 07/19/19 25 Active lamoTRIgine (LAMICTAL) 100 mg tabletIndications: Episodic mood disorder ([facility] V24) Take 1 Tablet by mouth 2 (two) times daily for 30 days 60 Tablet 2 07/19/19 25 Active prazosin (MINIPRESS) 5 mg capsuleIndications :Posttraumatic stress disorder Take 1 Capsule by mouth nightly at bedtime for 30 days 30 Capsule 2 07/19/19 25 Active QUEtiapine (SEROQUEL) 100 mg tabletIndications: Episodic mood disorder ([facility] V24) Take 1 Tablet by mouth nightly at bedtime for 30 days 30 Tablet 2 07/19/19 25 Active zolpidem (AMBIEN) 10 mg tablet Take 1 Tablet by mouth nightly at bedtime as needed for sleep for up to 30 days for insomnia 30 Tablet 1 07/19/19 25 Active Active Problems Problem Noted Date Diagnosed Date Severe obesity ([facility]) 02/22/2024 Other emphysema ([facility]) 02/22/2024 Acute kidney failure ([facility] V24) 02/22/2024 Overdose of antidepressant 02/22/2024 Migraine headache 10/18/2023 History of tobacco use 10/18/2023 Health care maintenance 05/31/2022 Overview (02/22/2024): Pap: 05/02/2017 NILM; HPV neg Colonoscopy: 12/02/20; polyp removed Mammogram: 09/23/20 BIRADS 1 Class 2 obesity 05/31/2022 Asthma-chronic obstructive p ulmonary disease overlap syndrome ([facility]) 05/31/2022 Obsessive-compulsive disorder 05/18/2022 Assessment & Plan [...] made, No refill needed Severe chronic obstructive p ulmonary disease ([facility]) 05/18/2022 Vertigo 05/17/2022 Opioid dependence ([facility]) 05/17/2022 Assessment & Plan (07/18/2024 3:06 PM [...] of urine 05/25/2020 Acute nontraumatic kidney injury ([facility] V24) 0 05/25/2020 Vitamin D deficiency 07/23/2018 Overview (02/22/2024): I have several side effects Episodic mood disorder ([facility] V24) 02/06/2018 Assessment & Plan (07/18/2024 3:08 [...] current meds, no refills needed Seizure disorder ([facility]) 12/15/2014 Posttraumatic stress disorder 12/15/2014 Assessment & [...] EDT Behavioral Health Visit [facility] [address] [place] [phone] Vida Hernandez APRN 06/13/2024 2:00 PM EDT Behavioral Health Visit [facility] [address] [place] [address] Vida Hernandez APRN from Last 3 Months Immunizations Immunization Administration Dates Next Due Flu, Multi Dose 0.5 ML 01/04/2018,11/23/2016 Flu, Preservative Free 03/08/2016 Flu, Recombinant, 18y+, Flublok 01/02/2020 Hep A, adult 05/23/2013,01/19/2011,07/20/2000 Hep B, Adult/Adol (ENERGIX/RECOMBIVAX) 7,01/16/2011,12/03/2009 INFLUENZA, SEASONAL, INJECTABLE 02/11/2014,03/13 INFLUENZA, SEASONAL, INJECTA BLE, PRESERVATIVE FREE 12/26/2023 PNEUMOCOCCAL CONJUGATE PCV 20 (Prevnar) 10/18/19 24 PNEUMOCOCCAL POLYSACCHARIDE PPV23 (Pneumovax 23) 02/17/2014 [facility] State Funded Flu Vaccine 12/14/2011 TDAP [...] Upcoming Encounters Date Type Department Care Team ([facility] st Contact Info) Description 09/12/2024 2:30 PM EDT Behavioral Health Visit [facility] [address] [place] [address] Vida Hernandez APRN [address] [place] [address] Health Maintenance Due Date Last Done Comments Anxiety Screening 1972 HPV Screening 1972 LARC-Mirena IUD 1972 Pap + HPV 1972 Syphilis Screening 12/10/1986 Hypertension Screening (#1) 1990 Cervical Cancer Screening [address] Colonography 2017 Colonoscopy 2017 Colorectal Cancer Screening 2017 FIT/gFOBT 2017 Fecal DNA 2017 Flexible Sigmoidoscopy 2017 Breast Cancer Screening (Mammogram) 09/23/2022 09/23/2020 Imm-Zoster, Recombinant (1 of 2) 2022 Gln-HODQI-15 ( season) 11/05/202306/30/2 021, 06/02/2020 Alcohol and Drug Screen 03/06/2024 Depression Annual Screen 03/06/2024 Imm-Influenza (#1) 2024 12/26/2023, 1 , 01/04/2018, Additional history exists Tobacco Screening 02/21/2025 02/22/2024 TSH Monitoring 07/02/2025 07/02/2024, 12/26/2023 Imm-DTaP/Tdap/Td (2 - Td or Tdap) 03/08/2026 017, 03/06/1996 Diabetes Screening 07/03/2027 07/02/2024, 1 , 12/26/2023, Additional history exists Lipid Screening 07/02/2029 07/02/2024, 12/26/2023 Imm-Hepatitis B Completed 03/08/2016, 01/04, 12/03/2009 Imm-Pneumococcal 50+ Completed 10/18/2023, 02/18/20 14 HIV Screening Completed 12/26/2023, 12/26/2023 Cervical Ablation/Cold-Knife Conization Discontinued Cervical Cryotherapy Discontinued Colposcopy Discontinued Endometrial Biopsy Discontinued Excision/Leep Discontinued HPV Genotyping Discontinued Vaginal Pap Discontinued Vulvoscopy Discontinued Insurance [facility] [employer]
--- OUTSIDE RECORDS SUMMARY | 2024-09-03 15:08 | XMS_ITS | Clinical Summary ---
Author Organization [facility] Address [address] [facility] [address] [place] [address] Phone Care Team Providers Care Solidworks Designer Name Role Phone Mis Harmon NP Primary Care Provider [phone] Allergies No known active allergies Medications coenzyme [...] directed Active ergocalciferol (VITAMIN D-2) 1.25 MG (40107 UT) capsule Take 1 capsule by mouth [...] Insurance Medicaid [place] Care Teams Solidworks Designer Relationship Specialty Start Date End Date Mis Harmon NP PCP - General 03/16/20
--- OUTSIDE RECORDS SUMMARY | 2024-09-03 15:08 | XMS_ITS | Clinical Summary ---
Author Organization [facility] [employer] [facility] Address [address] [facility] [place] [address] Care Team Providers Care Video Tape Duplicator Name Role Phone Unavailable Primary Care Provider [...] Adults 18 yrs or above (or HM Modifier)([facility]) 1990 Hepatitis C Virus Infection in Adolescents and Adults: Screening (or Modifier) ([facility]) 1990 SDOH Screening Reminder: Judi truong for all adults ([facility]) 1990 Tobacco Smoking Cessation: i n Adults excluding Women: Behavioral and Pharmacotherapy Interventions ([facility]) 1990 DTaP/Tdap/Td Vaccines ([facility]) (1 - Tdap) 12/10/1991 Cervical Cancer Screenin 1-65 yrs of age (or Modifier) 1993 Cervical Cancer Screening: P ap every 3 yrs pts age 21-65 1993 Cervical Cancer: Pap Screeni ng with Modifier timing ([facility]) 1993 Cervical Cancer: hrHPV alone or with cotesting Pap for Pts 30-65yrs screening every 5yrs ([facility]) 1993 Colorectal Cancer Screening 45 -75 Yrs (or HM Modifier ) 2017 Colorectal Cancer: FLEXIBLE SIGMOIDOSCOPY Screening every 5 yrs 2017 Colorectal Cancer: Fecal Imm unochemical Test (FIT) Annually [facility] 2017 Colorectal Cancer: High-sens itivity gFOBT Screening Annually [facility] 2017 Colorectal Cancer: Stool Col oguard Screening every 3 yrs 2017 Colorectal Cancer:CT Colonography Screening every 5 yr s 2017 Breast Cancer: Screening Judi dayollgisella age 50-74 yrs (or HM Modifier)([facility]) 2022 Pneumococcal Vaccination Scr eening: Patients 50+ yrs of age ([facility]) (1 of 1 - PCV) 2022 Zoster/Shingles Vaccine Seri es Screening: Adults aged 18+ yrs (or HM Modifiers)([facility]) (1 of 2) 2022 COVID-19 Vaccine Screening: Initial Series and Booster Status ([facility]) (2023- season) 2023 Flu Vaccination: Yearly for ages 18mos through 64 years (or Modifier)([facility]) 10/04/2024 Medical Devices Not on file Insurance [facility]
== END 2024-09-03 14:41 | disposition home or self-care (01) ==
LOC: HO.HSM 13:57
PROVIDERS: PCP Student in an Organized Health Care Education/Training Program; Visit Provider Psychiatry & Neurology Neurology
DX: G40.209 Localization-related (focal) (partial) symptomatic epilepsy and epileptic syndromes with complex partial seizures, not intractable, without status epilepticus (principal); G43.009 Migraine without aura, not intractable, without status migrainosus
CPT/HCPCS: 99214

== ENCOUNTER → 2024-09-03 13:56 | Outpatient (BNVA) | payer MEDICAID, SELFPAY | PROVIDERS: PCP Student in an Organized Health Care Education/Training Program; Visit Provider Psychiatry & Neurology Neurology | DX: G40.209 Localization-related (focal) (partial) symptomatic epilepsy and epileptic syndromes with complex partial seizures, not intractable, without status epilepticus (principal); G43.009 Migraine without aura, not intractable, without status migrainosus | CPT/HCPCS: 99212 ==

== ENCOUNTER 2024-09-19 14:21 | Outpatient (AMB) | payer MEDICAID, SELFPAY ==
--- NOTE | 2024-09-19 14:22 | MHC.OFFVIS ---
Vital Signs 09/19/24 14:25 Height 5 ft 6 in Weight 222 lb 10.67 oz BMI 35.9 BP 89/54 L Blood Pressure Location Lt radial Position Sitting Pulse 73 Intake Visit Reasons: IBS-D + GERD mgmt. 6 mos Intake Note: Sera presents in the office as a follow up for IBS and GERD. CC: She states that she is feeling okay other than some side effects from zepbound. She had yet to be scheduled for her procedures. Drawing Instructor Required: No Allergies gluten (GLUTEN) Allergy (Severe, Verified 09/19/24 14:25) VOMITING, DIARRHEA lactose (LACTOSE) Allergy (Severe, Verified 09/19/24 14:25) VOMITING, DIARRHEA adhesive tape (Adhesive Tape) Allergy (Unknown, Verified 09/19/24 14:25) RASH cedarwood (Cedarwood) Allergy (Unknown, Verified 09/19/24 14:25) THROAT CLOSES, SWELLING, RASH No Known Drug Allergies Allergy (Unknown, Verified 09/19/24 14:25) none HPI HPI IBS-D + GERD mgmt. 6 mos: Details: Assessment & Plan (1) Irritable bowel syndrome with diarrhea: Code(s): K58.0 - Irritable bowel syndrome with diarrhea Category: Medical (2) Abdominal bloating: Code(s): R14.0 - Abdominal distension (gaseous) Category: Medical (3) GERD (gastroesophageal reflux disease): Code(s): K21.9 - Gastro-esophageal reflux disease without esophagitis Category: Medical (4) Lactose intolerance: Code(s): E73.9 - Lactose intolerance, unspecified Category: Medical Plan She continues on her omeprazole 40 mg once a day with good control of her GERD. Also continues to use Zofran intermittently. Her EGD was rescheduled for New Years Bernard[place]. SHe asks me about going on Wegovy, she is having increased difficulty breathing and wt loss is advised r/t restrictive lung disease. With her baseline nausea, she migh not do well on it - but she will not really know until she tries it. ROV after 03/05 EGD TODAY'S VISIT It appears that the endoscopy was never performed She continues on her omeprazole 40 mg once a day with good control of her GERD. Also continues to use Zofran intermittently. Her nausea may be more r/t her renal tubular acidosis, so EGD may not be very fruitful and she has not been able to tolerate any prep from colonoscopy r/t N/V so we discuss Cologuard in the short term. ANOTHER COMPLICATING FACTOR IS THAT SHE IS NOW TAKING ZEPBOUND FOR HER WT LOSS AND THIS HAS MADE HER NAUSEA MUCH WORSE! She missed appts because she had a really hard time with a COVID infection. ROV 8 weeks for colonguard. [facility] Medical History (Updated 09/19/24 @ 14:33 by CROW Duff) Nausea and vomiting Pre-op examination Renal tubular acidosis Chronic kidney disease Asthma COVID-19 vaccine series completed History of intravenous drug use in remission Hiatal hernia Hx MRSA infection Hypoglycemia Frequent headaches OCD (obsessive compulsive disorder) PTSD (post-traumatic stress disorder) Depression Seizure disorder NO (obstructive sleep apnea) IBS (irritable bowel syndrome) GERD (gastroesophageal reflux disease) Surgical History Hx laparoscopic cholecystectomy History of lung surgery Hx of section History of esophagogastroduodenoscopy (EGD) Hx of colonoscopy (~2013) Family History Father Melanoma Mother Overdose Maternal Grandfather Cancer Melanoma Brother FH: testicular cancer Brother Brain aneurysm Brother HIV (human immunodeficiency virus infection) Social History Household Members: Spouse Housing: Apartment Are you a primary critical care specialist to a significant other at home: No Do you presently have visiting nurse or other home services: Yes Alcohol intake: current Alcohol intake frequency: does not drink Patient Tobacco Use Status: Former Tobacco user Tobacco use type: Cigarette Cigarette Packs Per Day: 0.25 Cigarettes Per Day: 5.0 Years Smoked: 20+, quit 2017 Review of Systems Const Denies fatigue, Denies fever(s), Denies night sweats, Denies poor appetite and Reports weight loss (22 lb on Zepbound) ENT Reports Normal hearing present, Denies dental pain, Denies dysphagia, Denies hearing loss, Denies mouth pain, Denies odynophagia, Denies throat swelling, Denies tongue swelling and Reports other (Dentition adequate) Card Reports no additional complaints and Reports dyspnea on exertion Resp Reports dyspnea on exertion GI Details: Denies abdominal pain, Denies melena, Denies bloating, Denies hematochezia, Denies constipation, Denies GI cramping, Denies dysphagia, Denies excessive flatus, Denies early satiety, Denies heartburn, Reports diarrhea, Reports nausea, Denies odynophagia, Reports vomiting and Denies hematemesis Skin/Breast Denies pruritus, Denies lesions, Denies rash and Denies jaundice Neuro Reports Normal hearing present and Denies Abnormal speech present Endo Denies fatigue Aller/Immun Denies throat swelling and Denies tongue swelling Physical Exam Vital Signs: BMI result Body Mass Index 35.9 Const General: cooperative, no acute distress, well developed and well groomed Nutritional Appearance: well nourished and obese Orientation/consciousness: oriented to person, oriented to place and oriented to time Limitations: No language barrier HEENT Head: Yes normocephalic and Yes atraumatic Eyes General: appearance normal, both eyes and all related structures Pupils: Equal, round and reactive pupils present Neck Neck: Yes normal visual inspection and Yes no lymphadenopathy Thyroid: Thyroid normal Resp Effort & Inspection: normal respiratory effort and able to speak in complete sentences Auscultation: clear to auscultation bilaterally Cardio Rate: regular rate Rhythm: regular rhythm Heart sounds: Normal, physiologic split S2 sound present Peripheral pulses: radial pulses present and posterior tibial pulses present GI Inspection: No distended, Yes Abdominal panniculus present and Yes obesity Palpation (GI): Soft to palpation, nontender, no guarding, not rigid and No hepatosplenomegaly present Percussion: Yes normal to percussion Auscultation: normal bowel sounds Rectal Exam - Female: deferred Skin General skin exam: no rashes or lesions noted, turgor normal, skin not dry, no jaundice, No spider nevi and no striae Rashes: no rashes Nails: normal Neuro General: oriented to person, oriented to place and oriented to time Cranial nerves: Yes Equal, round and reactive pupils present and Yes Normal hearing present Speech: No Abnormal speech present Extrem General: Yes normal to inspection, No clubbing, No cyanosis and No edema Psych Appearance: grossly normal and well kempt Mental Status: mental status grossly normal Speech and movement: Normal speech and movement present Affect: normal affect Attitude: cooperative Thought process: Normal thought process present and not confabulating Thought content: Normal thought content present Insight: Limited insight present (Psych) Judgement: Limited judgement present (Psych) Assessment & Plan Assessment & Plan (1) Irritable bowel syndrome with diarrhea: Code(s): K58.0 - Irritable bowel syndrome with diarrhea Category: Medical (2) GERD (gastroesophageal reflux disease): Code(s): K21.9 - Gastro-esophageal reflux disease without esophagitis Category: Medical (3) Nausea and vomiting: Code(s): R11.2 - Nausea with vomiting, unspecified Category: Medical (4) Renal tubular acidosis: Code(s): N25.89 - Other disorders resulting from impaired renal tubular function Category: Medical Plan It appears that the endoscopy was never performed She continues on her omeprazole 40 mg once a day with good control of her GERD. Also continues to use Zofran intermittently. Her nausea may be more r/t her renal tubular acidosis, so EGD may not be very fruitful and she has not been able to tolerate any prep from colonoscopy r/t N/V so we discuss Cologuard in the short term. ANOTHER COMPLICATING FACTOR IS THAT SHE IS NOW TAKING ZEPBOUND FOR HER WT LOSS AND THIS HAS MADE HER NAUSEA MUCH WORSE! She says that weight loss was mandated by her respiratory provider who seem to feel that she has some degree of restrictive respiratory disease. She missed appts because she had a really hard time with a COVID infection. ROV 8 weeks for colonguard. Medications: New ondansetron HCl 4 mg PO BID PRN 60 tabs 6RF nausea and vomiting 30 days N25.89 - Other disorders resulting from impaired renal tubular function, R11.2 - Nausea with vomiting, unspecified Refilled omeprazole 40 mg PO DAILY 90 caps 1RF Coding Level of Care Code Est Pt Level 3 (56772) Diagnoses Irritable bowel syndrome with diarrhea K58.0 GERD (gastroesophageal reflux disease) K21.9 Nausea and vomiting R11.2 Renal tubular acidosis N25.89
[2024-09-19 14:25] VITALS: BP 89/54; PULSE 73; BMI 35.9
--- OUTSIDE RECORDS SUMMARY | 2024-09-19 15:11 | XMS_ITS | Clinical Summary ---
Author Organization [facility] Address [address] [address] [place] [address] Phone Care Team Providers Care Bingo Usher Name Role Phone Mis Harmon NP Primary Care Provider [phone] Allergies No known active allergies Medications coenzyme [...] directed Active ergocalciferol (VITAMIN D-2) 1.25 MG (66937 UT) capsule Take 1 capsule by mouth [...] Cancer Screening: Sigmoidoscopy 2021 Influenza Vaccine (#1) 2024 [place] Care Teams Bingo Usher Relationship Specialty Start Date End Date Mis Harmon NP PCP - General 03/16/20
--- OUTSIDE RECORDS SUMMARY | 2024-09-19 15:11 | XMS_ITS | Clinical Summary ---
Author Organization [facility] [employer] [facility] lin Address [address] [facility] [place] [address] Care Team Providers Care Travel Coordinator Name Role Phone Unavailable Primary Care Provider [...] Adults 18 yrs or above (or HM Modifier)([facility]) 1990 Hepatitis C Virus Infection in Adolescents and Adults: Screening (or Modifier) ([facility]) 1990 SDOH Screening Reminder: Judi truong for all adults ([facility]) 1990 Tobacco Smoking Cessation: i n Adults excluding Women: Behavioral and Pharmacotherapy Interventions ([facility]) 1990 DTaP/Tdap/Td Vaccines ([facility]) (1 - Tdap) 12/10/1991 Cervical Cancer Screenin 1-65 yrs of age (or Modifier) 1993 Cervical Cancer Screening: P ap every 3 yrs pts age 21-65 1993 Cervical Cancer: Pap Screeni ng with Modifier timing ([facility]) 1993 Cervical Cancer: hrHPV alone or with cotesting Pap for Pts 30-65yrs screening every 5yrs ([facility]) 1993 Colorectal Cancer Screening 45 -75 Yrs (or HM Modifier ) 2017 Colorectal Cancer: FLEXIBLE SIGMOIDOSCOPY Screening every 5 yrs 2017 Colorectal Cancer: Fecal Imm unochemical Test (FIT) Annually [facility] 2017 Colorectal Cancer: High-sens itivity gFOBT Screening Annually [facility] 2017 Colorectal Cancer: Stool Col oguard Screening every 3 yrs 2017 Colorectal Cancer:CT Colonography Screening every 5 yr s 2017 Breast Cancer: Screening Judi dayollgisella age 50-74 yrs (or HM Modifier)([facility]) 2022 Pneumococcal Vaccination Scr eening: Patients 50+ yrs of age ([facility]) (1 of 1 - PCV) 2022 Zoster/Shingles Vaccine Seri es Screening: Adults aged 18+ yrs (or HM Modifiers)([facility]) (1 of 2) 2022 COVID-19 Vaccine Screening: Initial Series and Booster Status ([facility]) (2023- season) 2023 Flu Vaccination: Yearly for ages 18mos through 64 years (or Modifier)([facility]) 10/04/2024 Medical Devices Not on file Insurance [facility]
--- OUTSIDE RECORDS SUMMARY | 2024-09-19 15:11 | XMS_ITS | Data Portability ---
Author Organization [place] - [facility], Allergy Address [address] [place] [phone] Care Team Providers Care Telecommunications Professional Name Role Phone WILI YOUNG Primary Care Provider Assessment No assessment recorded. Plan of Treatment Reminders Order Date Submit Date Provider Last Modified By Organization Details Last Modified Time Details Appointments Establish ed 30 2024 09:30A M JENNY Oneill MD Not available Not available Not available Lab None recorded. Referral None recorded. Procedures None recorded. Surgeries None recorded. Imaging None recorded. Medication Orders fluticaso ne propionat e 50 mcg/actua tion nasal spray,[facility] pension 2024 025 [facility]/Pharmacy #[id number], [address] [place], [address], 05/01/2024 15:01:22 omeprazol e 40 mg capsule,d elayed release 2024 025 [facility]/Pharmacy #[id number], [address] [place], [address], 05/01/2024 15:01:22 Patient TargetsNo targets recorded. Patient InstructionsNo instructions recorded. Reason for Referral None Reported. Results Created Date Observation Date Name Description Value Unit Range Abnormal Flag Note LastModifiedBy Organization Detail LastModifiedTime 05/09/19 25 07/15/2022 MRI, brain + brain stem, w/o contr ast No observ ation record ed. [email or web address] Not Available 07/2024 10:59:20 05/09/19 25 04/07/2022 CT, neck, soft tissu e, w/ contr ast No observ ation record ed. [email or web address] Not Available 01/2025 10:46:16 Result Notes None recorded. Problems Name Problem SNOMED Code Status Onset Date Resolution Date Notes Provider Name and Address Organization Details Recorded Time Feeling of lump in throat 088524420 Active 2024 JENNY Oneill MD [address] [place] [address], [place], [phone], [facility] - [facility] 14:51:18 Gastroesophage al reflux disease without esophagitis 586863351 Active 2024 JENNY Oneill MD [address] [place] [address], [place], [phone], [facility] 14:51:23 Nasal congestion 39752689 Active 2024 JENNY Oneill MD [address] [place] [address], [place], [phone], [facility] 14:51:27 Problem Notes None recorded. Procedures Surgical History Date Name Laterality Status Provider Name and Address Organization Details Recorded Time 05/01/2024 FFL_RE completed JENNY BROOKS MD [address] [place] [address], [phone], [facility] 05/01/2024 15:00:21 Imaging Results None recorded. [...] Not Available Not Available No t Available prednisone 20 mg tablet TAKE 2 TABLETS BY MOUTH EVERY DAY FOR 5 DAYS active Not Available Not Available No t Available rizatriptan 10 mg tablet TAKE 1 TABLET BY MOUTH EVERY DAY NEEDED active Not Available Not Available No t Available sumatriptan 50 mg tablet TAKE 1 TABLET BY MOUTH EVERY DAY NEEDED FOR HEADACHE active Not Available Not Available No t Available hydroxyzine pamoate 50 mg capsule TAKE 1 CAPSULE BY MOUTH 2 TIMES DAILY FOR 30 DAYS. active Not Available Not Available No t Available diphenoxylat e-atropine 2.5 mg-0.025 mg tablet TAKE 1 TABLET BY MOUTH THREE TIMES A DAY active Not Available Not Available Not Available hydroxyzine HCl 50 mg tablet TAKE 1 TABLET BY MOUTH TWICE A DAY active Not Available Not Available No t Available omeprazole 40 mg capsule,agnes yed release TAKE 1 CAPSULE BY MOUTH EVERY DAY active Not Available Not Available No t Available quetiapine 100 mg tablet TAKE 1 TABLET BY MOUTH EVERYDAY AT BEDTIME active Not [...] prazosin 5 mg capsule TAKE 1 CAPSULE BY MOUTH EVERYDAY [...] tablet TAKE 1 TABLET BY MOUTH EVERY NIGHT AT BEDTIME NEEDED INSOMNIA active Not Available Not Available No t Available fluticasone propionate 50 mcg/actuatio n nasal spray,suspen adela INSTILL 2 SPRAYS BY INTRANASAL ROUTE EVERY DAY active Not Available Not Available No t Available lamotrigine 100 mg tablet TAKE 1 TABLET [...] Not Available Not Available No t Available eletriptan 40 mg tablet TAKE 1 TABLET ORALLY A DAY NEEDED FOR HEADACHE 30 DAYS active Not Available Not Available [...] 100 mcg-62.5 mcg-25 mcg powder for inhalation 1 PUFFS INHALATION DAILY, AT THE SAME TIME EVERY DAY active Not Available Not Available No t Available Daily-Lisa (with folic acid) 400 mcg tablet TAKE 1 TABLET BY MOUTH EVERY DAY WITH FOOD active Not Available Not Available No t Available Zepbound 2.5 mg/0.5 mL subcutaneous pen injector INJECT 1 PEN (2.5MG) SUBCUTANEOU SLY ONCE A WEEK DIRECTED active Not Available Not Available No t Available Vitals Date Recorded Body height Body mass index (BMI) Body weight Provider Name and Address Organization Details Last Updated DateTime 05/01/2024 162.56 cm 39.5 kg/m2 081521.25 g Yong Wong [place] - [facility] 05/01/2024 14:17:49 Social History None recorded. Functional Status None recorded. Mental Status None recorded. Family History Nothing Reported. Medical History No medical history recorded. Gynecological HistoryNo gynecological history recorded. Obstetrics History GPAL:G 0 P 0 0 0 0 Past Encounters Encounter ID Performer Location Encounter Start Date Encounter Closed Date Diagnosis/Indication Diagnosis SNOMED-CT Code Diagnosis ICD10 Code Diagnosis Note [id number] JENNY BROOKS MD [facility] [address] [place] [address] 05/01/2024 14:03:14 05/01/2024 14:57:54 Feeling of lump in throat 164389295 R09.89 see GERD. FFL normal except for [place] ing. Gastroesop hageal reflux disease without esophagitis 913307662 K21.9 Likely has refractory GERD and tachyphyla xis on 20mg of omeprazole . I will increase the dose for 3 months and see if it helps with her globus. Nasal congestion 1389301 0 R09.81 I recommend she continue flonase since she has benefit. I will refill. Health Concerns Section Related Observation LastModified by Organization Detai ls LastModified Time None Recorded Concern Status LastModified by Organization Details LastModified Time None Recorded Advance Directives Directive None Recorded Payers Insurance Date Sequence Insurance Name Policy Number Policy Epsinoza Covered Member ID Espinoza Member ID Guarantor Name 05/01/2024 1 [place] [facility] Sera Teran [id number] Sera Teran 09/10/2024 1 [place] [facility] PLAN Sera Teran [id number] Sera Teran Notes Date Note Type Note [...] No hx of glaucoma. JENNY BROOKS MD [address] [place] [address], [place], [phone], [facility] - [facility] 05/01/2024 15:01:23 OBGyn Episode No OBEpisode recorded.
--- OUTSIDE RECORDS SUMMARY | 2024-09-19 15:11 | XMS_ITS | Clinical Summary ---
Author Organization [facility] Address [address] [place] [address] Care Team Providers Care Stock Fitter Name Role Phone Unavailable Primary Care Provider [...] Adhesive Bandage Contact Dermatitis,Hives,Itch ing,Rash,Swelling Low 02/22/2024 [place] Anaphylaxis High 08/15/2013 Gluten Anaphylaxis High 03/22/2022 [...] Refills, Maintenance, 11/21/23 3:54:00 PM EDT, Aerosol, [facility]/pharmacy #[id number], Partial fill upon patient request if the [...] (VISTARIL) 50 mg capsuleIndication s:Episodic mood disorder ([facility] V24) Take 1 Capsule by mouth 2 (two) times Daily for 30 days. 60 Capsule 2 09/13/19 25 025 Active lamoTRIgine (LAMICTAL) 100 mg tabletIndications :Episodic mood disorder ([facility] V24) Take 1 Tablet by mouth 2 (two) times daily for 30 days. 60 Tablet 2 09/13/19 25 025 Active prazosin (MINIPRESS) 5 mg capsuleIndication s:Posttraumatic stress disorder Take 1 Capsule by mouth nightly at bedtime for 30 days. 30 Capsule 2 09/13/19 25 025 Active QUEtiapine (SEROQUEL) 100 mg tabletIndications :Episodic mood disorder ([facility] V24) Take 1 Tablet by mouth nightly at bedtime for 30 days. 30 Tablet 2 09/13/19 25 025 Active zolpidem (AMBIEN) 10 mg tablet Take 1 Tablet by mouth nightly at bedtime as needed for sleep for up to 30 days for insomnia. 30 Tablet 1 10/01/19 25 025 Active hydrOXYzine pamoate (VISTARIL) 50 mg capsuleIndication s:Episodic mood disorder ([facility] V24) Take 1 Capsule by mouth 2 (two) times Daily for 30 days 60 Capsule 2 07/19/19 25 025 Discontin ued(Reord er (E-Cancel Not Sent)) lamoTRIgine (LAMICTAL) 100 mg tabletIndications :Episodic mood disorder ([facility] V24) Take 1 Tablet by mouth 2 (two) times daily for 30 days 60 Tablet 2 07/19/19 25 025 Discontin ued(Reord er (E-Cancel Not Sent)) prazosin (MINIPRESS) 5 mg capsuleIndication s:Posttraumatic stress disorder Take 1 Capsule by mouth nightly at bedtime for 30 days 30 Capsule 2 07/19/19 25 025 Discontin ued(Reord er (E-Cancel Not Sent)) QUEtiapine (SEROQUEL) 100 mg tabletIndications :Episodic mood disorder ([facility] V24) Take 1 Tablet by mouth nightly at bedtime for 30 days 30 Tablet 2 07/19/19 25 025 Discontin ued(Reord er (E-Cancel Not Sent)) zolpidem (AMBIEN) 10 mg tablet Take 1 Tablet by mouth nightly at bedtime as needed for sleep for up to 30 days for insomnia 30 Tablet 1 07/19/19 25 025 Discontin ued(Reord er (E-Cancel Not Sent)) Active Problems Problem Noted Date Diagnosed Date Severe obesity ([facility]) 02/22/2024 Other emphysema ([facility]) 02/22/2024 Acute kidney failure ([facility] V24) 02/22/2024 Overdose of antidepressant 02/22/2024 Migraine headache 10/18/2023 History of tobacco use 10/18/2023 Health care maintenance 05/31/2022 Overview (02/22/2024): Pap: 05/02/2017 NILM; HPV neg Colonoscopy: 12/02/20; polyp removed Mammogram: 09/23/20 BIRADS 1 Class 2 obesity 05/31/2022 Asthma-chronic obstructive p ulmonary disease overlap syndrome ([facility]) 05/31/2022 Obsessive-compulsive disorder 05/18/2022 Assessment & Plan (09/12/2024 1:23 PM EDT): A: Symptoms under control with current regiment P: No changes made, No refill needed Continue therapy Assessment & Plan (07/18/2024 3:07 PM EDT): [...] needed Severe chronic obstructive p ulmonary disease ([facility]) 05/18/2022 Vertigo 05/17/2022 Opioid dependence ([facility]) 05/17/2022 Assessment & Plan (07/18/2024 3:06 [...] of urine 05/25/2020 Acute nontraumatic kidney injury ([facility] V24) 0 05/25/2020 Vitamin D deficiency 07/23/2018 Overview (02/22/2024): I have several side effects Episodic mood disorder ([facility] V24) 02/06/2018 Assessment & Plan (09/12/2024 1:23 PM EDT): Assessment: Symptoms under reasonable control Plan: Continue all current meds. Assessment & Plan (07/18/2024 3:08 PM EDT): [...] current meds, no refills needed Seizure disorder ([facility]) 12/15/2014 Posttraumatic stress disorder 12/15/2014 Assessment & Plan (09/12/2024 1:22 PM EDT): A: symptoms under control. P: Continue all current meds. Re-assess nightmares when patient starts using C-pap machine. Assessment & Plan (07/18/2024 3:06 PM EDT): [...] Encounters Date Type Department Care Team Description 09/12/2024 2:30 PM EDT Behavioral Health Visit [facility] [address] [place] [phone] V[place] Hernandez APRN 07/18/2024 2:30 PM EDT Behavioral Health Visit [facility] [address] [place] [address] Vida Hernandez APRN from Last 3 Months Immunizations Immunization Administration Dates Next Due Flu, Multi Dose 0.5 ML 01/04/2018,11/23/2016 Flu, Preservative Free 03/08/2016 Flu, Recombinant, 18y+, Flublok 01/02/2020 Hep A, adult 05/23/2013,01/19/2011,07/20/2000 Hep B, Adult/Adol ([id number]/RECOMBIVAX-ADULT) 03/08/2016,01/16/2011,12/03/2009 INFLUENZA, SEASONAL, INJECTABLE 02/11/2014,03/13 INFLUENZA, SEASONAL, INJECTA BLE, PRESERVATIVE FREE 12/26/2023 PNEUMOCOCCAL CONJUGATE PCV 20 (Prevnar 20) 10/17 PNEUMOCOCCAL POLYSACCHARIDE PPV23 (Pneumovax 23) 02/17/2014 [facility] State Funded Flu Vaccine 12/14/2011 TDAP 03/08/2016 Td (adult),2 Lf tetanus toxo id (TDVAX), preservative free 03/06/1996 Family History Medical History Relation [...] Upcoming Encounters Date Type Department Care Team ([facility] Contact Info) Description 11/28/2024 2:00 PM EDT Behavioral Health Visit [facility] [address] [place] [phone] Vida Hernandez, KAUSHI[address] [place] [address] Health Maintenance Due Date Last Done Comments Anxiety Screening 1972 HPV Screening 1972 LARC-Mirena IUD 1972 Pap + HPV 1972 Syphilis Screening 12/10/1986 Hypertension Screening (#1) 1990 Cervical Cancer Screening [address] Colonography 2017 Colonoscopy 2017 Colorectal Cancer Screening 2017 FIT/gFOBT 2017 Fecal DNA 2017 Flexible Sigmoidoscopy 2017 Breast Cancer Screening (Mammogram) 09/23/2022 09/23/2020 Imm-Zoster, Recombinant (1 of 2) 2022 [id number] (3 - season) 11/05/202306/30/2 021, 06/02/2020 Alcohol and Drug Screen 03/06/2024 Depression Annual Screen 03/06/2024 Imm-Influenza (#1) 2024 12/26/2023, 1 , 01/04/2018, Additional history exists Tobacco Screening 02/21/2025 02/22/2024 Diabetes Screening 07/02/2025 [...] Discontinued Vaginal Pap Discontinued Vulvoscopy Discontinued Insurance [facility] [employer] [place] MEDICAID
--- OUTSIDE RECORDS SUMMARY | 2024-09-19 15:11 | XMS_ITS | Encounter Summary ---
Author Organization [facility] Address [address] [facility] 7 [place] [address] Care Team Providers Care Tax Manager Public Name Role Phone Ibeth Colby MD Primary Care Pro vider Reason for Visit * Reason Onset Date Comments switch appointment 06/13/2024 Encounter Details Date Type Department Care Team (Late st Contact Info) Description 06/13/2024 Telephone [facility] [address] [place], [place] [phone] Ibeth Colby MD [address] [place], [place] [phone] switch appointment Social History Tobacco Use Types [...] states doesn't want to miss the appointment. [phone] documented in this encounter Plan of Treatment Upcoming Encounters Date Type Department Care Team (Late st Contact Info) Description 10/08/2024 10:20 AM EDT Office Visit [facility] [address] [place] [address] 10/25/2024 1:45 PM EDT Office Visit [facility] [address] [place] [address] Ibeth Colby MD [address] [place] [address] documented as of this encounter Visit Diagnoses Not on filedocumented in this encounter Additional Health Concerns Assessment Noted Time PHQ-9 Depression Total Score: 6 12/27/19 24 9:10 AM EDT documented as of this encounter Care Teams Tax Manager Public Relationship Specialty Start Date End Date Ibeth Colby MD [address] [place] [address] [place] [address] PCP - General Internal Medicine 12/13/22 Suzanne Meyers Human Resources Assistant ManagerLeaf Sticker 03/15/23 documented as of this encounter
== END 2024-09-19 14:55 | disposition home or self-care (01) ==
LOC: HO.HGI 14:22
PROVIDERS: PCP Student in an Organized Health Care Education/Training Program; Visit Provider Nurse Practitioner
DX: K58.0 Irritable bowel syndrome with diarrhea (principal); K21.9 Gastro-esophageal reflux disease without esophagitis; R11.2 Nausea with vomiting, unspecified; N25.89 Other disorders resulting from impaired renal tubular function
CPT/HCPCS: 99213

== ENCOUNTER → 2024-09-19 14:21 | Outpatient (BNVA) | payer MEDICAID, SELFPAY | PROVIDERS: PCP Student in an Organized Health Care Education/Training Program; Visit Provider Nurse Practitioner | DX: K21.9 Gastro-esophageal reflux disease without esophagitis (principal); K58.0 Irritable bowel syndrome with diarrhea; R11.2 Nausea with vomiting, unspecified; N25.89 Other disorders resulting from impaired renal tubular function | CPT/HCPCS: 99212 ==

== ENCOUNTER 2024-10-25 14:52 | Outpatient (REF) | payer MEDICAID, SELFPAY ==
--- OUTSIDE RECORDS SUMMARY | 2024-10-25 14:55 | XMS_ITS | Encounter Summary ---
Author Organization [facility] Address [address] [facility] [address] [place] [phone] Phone Care Team Providers Care Computer Terminal Operator Name Role Phone Unavailable Primary Care Provider Unavailabl e Encounter Details Date Type Department Care Team (Latest Contact Info) Description 07/20/2022 Transcribe Orders Virtual Department [address] [place] [phone] Nilda Dunn NP Breast screening (Primary Dx) [...] It is not the complete legal health record.[facility]
--- OUTSIDE RECORDS SUMMARY | 2024-10-25 14:55 | XMS_ITS | Clinical Summary ---
Author Organization [facility] Address [address] [place] [address] Care Team Providers Care Baggage Porter Head Name Role Phone Unavailable Primary Care Provider [...] Bandage Contact Dermatitis,Hives,Itch ing,Rash,Swelling Low 02/22/2024 [place] Anaphylaxis High 08/15/2013 Gluten Anaphylaxis High 03/22/2022 [...] Refills, Maintenance, 11/21/23 3:54:00 PM EDT, Aerosol, [facility]/pharmacy #[id number], Partial fill upon patient request if the [...] (VISTARIL) 50 mg capsuleIndications :Episodic mood disorder ([facility] V24) Take 1 Capsule by mouth 2 (two) times Daily for 30 days. 60 Capsule 2 09/13/19 25 Active lamoTRIgine (LAMICTAL) 100 mg tabletIndications: Episodic mood disorder ([facility] V24) Take 1 Tablet by mouth 2 (two) times daily for 30 days. 60 Tablet 2 09/13/19 25 Active prazosin (MINIPRESS) 5 mg capsuleIndications :Posttraumatic stress disorder Take 1 Capsule by mouth nightly at bedtime for 30 days. 30 Capsule 2 09/13/19 25 Active QUEtiapine (SEROQUEL) 100 mg tabletIndications: Episodic mood disorder ([facility] V24) Take 1 Tablet by mouth nightly at bedtime for 30 days. 30 Tablet 2 09/13/19 25 Active zolpidem (AMBIEN) 10 mg tablet Take 1 Tablet by mouth nightly at bedtime as needed for sleep for up to 30 days for insomnia. 30 Tablet 1 10/01/19 25 025 Active Active Problems Problem Noted Date Diagnosed Date Severe obesity ([facility]) 02/22/2024 Other emphysema ([facility]) 02/22/2024 Acute kidney failure ([facility] V24) 02/22/2024 Overdose of antidepressant 02/22/2024 Migraine headache 10/18/2023 History of tobacco use 10/18/2023 Health care maintenance 05/31/2022 Overview (02/22/2024): Pap: 05/02/2017 NILM; HPV neg Colonoscopy: 12/02/20; polyp removed Mammogram: 09/23/20 BIRADS 1 Class 2 obesity 05/31/2022 Asthma-chronic obstructive p ulmonary disease overlap syndrome ([facility]) 05/31/2022 Obsessive-compulsive disorder 05/18/2022 Assessment & Plan [...] needed Severe chronic obstructive p ulmonary disease ([facility]) 05/18/2022 Vertigo 05/17/2022 Opioid dependence ([facility]) 05/17/2022 Assessment & Plan (07/18/2024 3:06 PM [...] of urine 05/25/2020 Acute nontraumatic kidney injury ([facility] V24) 0 05/25/2020 Vitamin D deficiency 07/23/2018 Overview (02/22/2024): I have several side effects Episodic mood disorder ([facility] V24) 02/06/2018 Assessment & [...] current meds, no refills needed Seizure disorder ([facility]) 12/15/2014 Posttraumatic stress disorder 12/15/2014 Assessment & [...] EDT Behavioral Health Visit [facility] [address] [place] [phone] Vida Hernandez APRN from Last 3 Months Immunizations Immunization Administration Dates Next Due Flu, Multi Dose 0.5 ML 01/04/2018,11/23/2016 Flu, Preservative Free 03/08/2016 Flu, Recombinant, 18y+, Flublok 01/02/2020 Hep A, adult 05/23/2013,01/19/2011,07/20/2000 Hep B, Adult/Adol ([id number]/RECOMBIVAX-ADULT) 03/08/2016,01/16/2011,12/03/2009 INFLUENZA, SEASONAL, INJECTABLE 02/11/2014,03/13 INFLUENZA, SEASONAL, INJECTA BLE, PRESERVATIVE FREE 12/26/2023 PNEUMOCOCCAL CONJUGATE PCV 20 (Prevnar 20) 10/17 PNEUMOCOCCAL POLYSACCHARIDE PPV23 (Pneumovax 23) 02/17/2014 [facility] State Funded Flu Vaccine 12/14/2011 TDAP 03/08/2016 [...] Upcoming Encounters Date Type Department Care Team ([facility] Contact Info) Description 11/28/2024 2:00 PM EDT Behavioral Health Visit [facility] [address] [place] [address] Vida Hernandez APRN [address] [place] [address] Health Maintenance Due Date Last Done Comments Anxiety Screening 1972 HPV Screening 1972 LARC-Mirena IUD 1972 Pap + HPV 1972 Syphilis Screening 12/10/1986 Hypertension Screening (#1) 1990 Cervical Cancer Screening [address] Colonography 2017 Colonoscopy 2017 Colorectal Cancer Screening 2017 FIT/gFOBT 2017 Fecal DNA 2017 Flexible Sigmoidoscopy 2017 Breast Cancer Screening (Mammogram) 09/23/2022 09/23/2020 Imm-Zoster, Recombinant (1 of 2) 2022 [id number] (3 season) 2023 021, 06/02/2020 Alcohol and Drug [...] Discontinued Vaginal Pap Discontinued Vulvoscopy Discontinued Insurance [facility] [place] MEDICAID
--- OUTSIDE RECORDS SUMMARY | 2024-10-25 14:55 | XMS_ITS | Clinical Summary ---
Author Organization [facility] Address [address] [facility] [address] [place] [address] Phone Care Team Providers Care Ad Clerk Name Role Phone Mis Harmon NP Primary Care Provider [phone] Allergies No known active allergies Medications coenzyme [...] directed Active ergocalciferol (VITAMIN D-2) 1.25 MG (60874 UT) capsule Take 1 capsule by mouth [...] Insurance Medicaid [place] Care Teams Ad Clerk Relationship Specialty Start Date End Date Mis Harmon NP PCP - General 03/16/20
--- OUTSIDE RECORDS SUMMARY | 2024-10-25 14:55 | XMS_ITS | Encounter Summary ---
Author Organization [facility] Address [address] [facility] 7 [place] [address] Care Team Providers Care Diesel Crane Operator Name Role Phone Ibeth Colby MD Primary Care Pro vider Reason for Visit * Reason Onset Date Comments switch appointment 06/13/2024 Encounter Details Date Type Department Care Team (Late st Contact Info) Description 06/13/[address] [facility] [address] [place], [place] [phone] Ibeth Colby MD [address] [place], [place] [phone] switch appointment Social History Tobacco Use Types [...] states doesn't want to miss the appointment. [phone] documented in this encounter Plan of Treatment Not on file documented as of this encounter Visit Diagnoses Not on filedocumented in this encounter Additional Health Concerns Assessment Noted Time PHQ-9 Depression Total Score: 6 12/27/19 24 9:10 AM EDT documented as of this encounter Care Teams Diesel Crane Operator Relationship Specialty Start Date End Date Ibeth Colby MD [address] [place] [phone] PCP - General Internal Medicine 12/13/22 Suzanne Meyers Small Brake Form OperatorArtificial Leather Calender Operator 03/15/23 documented as of this encounter
--- OUTSIDE RECORDS SUMMARY | 2024-10-25 14:55 | XMS_ITS | Clinical Summary ---
Author Organization [facility] Address [address] [facility] [address] [place] [address] Care Team Providers Care Robotic Machine Operator Name Role Phone Unavailable Primary [...] Adults 18 yrs or above (or HM Modifier)([facility]) 1990 Hepatitis C Virus Infection in Adolescents and Adults: Screening (or Modifier) ([facility]) 1990 SDOH Screening Reminder: Judi truong for all adults ([facility]) 1990 Tobacco Smoking Cessation: i n Adults excluding Women: Behavioral and Pharmacotherapy Interventions ([facility]) 1990 DTaP/Tdap/Td Vaccines ([facility]) (1 - Tdap) 12/10/1991 Cervical Cancer Screenin 1-65 yrs of age (or Modifier) 1993 Cervical Cancer Screening: P ap every 3 yrs pts age 21-65 1993 Cervical Cancer: Pap Screeni ng with Modifier timing ([facility]) 1993 Cervical Cancer: hrHPV alone or with cotesting Pap for Pts 30-65yrs screening every 5yrs ([facility]) 1993 Colorectal Cancer Screening 45 -75 Yrs (or HM Modifier ) 2017 Colorectal Cancer: FLEXIBLE SIGMOIDOSCOPY Screening every 5 yrs 2017 Colorectal Cancer: Fecal Imm unochemical Test (FIT) Annually [facility] 2017 Colorectal Cancer: High-sens itivity gFOBT Screening Annually [facility] 2017 Colorectal Cancer: Stool Col oguard Screening every 3 yrs 2017 Colorectal Cancer:CT Colonography Screening every 5 yr s 2017 Breast Cancer: Screening Judi dayollgisella age 50-74 yrs (or HM Modifier)([facility]) 2022 Pneumococcal Vaccination Scr eening: Patients 50+ yrs of age ([facility]) (1 of 1 - PCV) 2022 Zoster/Shingles Vaccine Seri es Screening: Adults aged 18+ yrs (or HM Modifiers)([facility]) (1 of 2) 2022 COVID-19 Vaccine Screening: Initial Series and Booster Status ([facility]) (2023- season) 2023 Flu Vaccination: Yearly for ages 18mos through 64 years (or Modifier)([facility]) 10/04/2024 Medical Devices Not on file Insurance [facility]
[2024-10-25 17:04] LABS: Hemoglobin A1C 127.7343 umol/L; Total Hemoglobin (HGBA1C) 3587.7407 umol/L
[2024-10-25 17:08] LABS: Alanine Aminotransferase 15 U/L (0-31); Albumin Level 4.8 g/dL (3.5-5.0); Alkaline Phosphatase 46 U/L (39-117); Anion Gap 13 (12-20); Aspartate Amino Transferase 28 U/L (5-31); Blood Urea Nitrogen 16 mg/dL (9-16); Calcium 9.9 mg/dL (8.4-10.2); Carbon Dioxide 23 mmol/L (22-29); Chloride 110 mmol/L (96-108); Cholesterol 193 mg/dL (<200); Estimated Glomerular Filt Rate 49; HDL Cholesterol 50 mg/dL (>40); Potassium 4.1 mmol/L (3.3-5.1); Sodium 142 mmol/L (135-145); Total Protein 7.9 g/dL (6.5-8.0); Triglycerides 103 mg/dL (<150)
[2024-10-25 17:22] LABS: Hematocrit 41.5 % (37.0-47.0); Hemoglobin 14.2 g/dl (12.0-16.0); Mean Corpuscular HGB Conc 34.2 g/dl (31.0-35.0); Mean Corpuscular Hemoglobin 31.6 pg (27.0-33.0); Mean Corpuscular Volume 92.2 fL (80.0-98.0); NRBC Abs Auto 0.000 X10*3/uL (0.0-0.012); NRBC Pct Auto 0.0 /100WBC (0.0-0.2); PLT CLUMP 1; Red Blood Count 4.50 X10*6/uL (4.20-5.50); White Blood Count 7.9 X10*3/uL (4.8-10.8)
[2024-10-25 17:23] LABS: Platelet Count 118 X10*3/uL (160-400)
[2024-10-25 17:24] LABS: Free T4 (Free Thyroxine) 1.19 ng/dL (0.71-1.85); Thyroid Stimulating Hormone 3.82 uIU/mL (0.32-4.0)
[2024-10-25 17:33] LABS: Folate 10.0 ng/mL (> or = 4.0); Vitamin B12 412 pg/mL (200-900)
== END 2024-10-25 14:53 | disposition home or self-care (01) ==
LOC: HO.HHCL 14:52
PROVIDERS: PCP Student in an Organized Health Care Education/Training Program; Visit Provider Student in an Organized Health Care Education/Training Program
DX: Z00.00 Encounter for general adult medical examination without abnormal findings (principal)
CPT/HCPCS: 36415; 80053; 80061; 82306; 82607; 82746; 83036; 84439; 84443; 85027

== ENCOUNTER 2024-11-14 14:30 | Outpatient (AMB) | payer MEDICAID, SELFPAY ==
[2024-11-14 14:45] VITALS: BP 105/67; PULSE 75; BMI 34.7
--- NOTE | 2024-11-14 14:45 | MHC.OFFVIS ---
Vital Signs 11/14/24 14:45 Height 5 ft 6 in Weight 214 lb 11.684 oz BMI 34.7 BP 105/67 Blood Pressure Location Lt brachial Position Sitting Pulse 75 Intake Visit Reasons: review cologuard Intake Note: Sera returns to office in follow up to review cologuard results. CC: Patient reports a little bit of diarrhea, and nausea. Maintenance Mechanic 2Nd Shift Required: No Accompanied by: Self / Same As Patient Allergies gluten (GLUTEN) Allergy (Severe, Verified 11/14/24 14:51) VOMITING, DIARRHEA lactose (LACTOSE) Allergy (Severe, Verified 11/14/24 14:51) VOMITING, DIARRHEA adhesive tape (Adhesive Tape) Allergy (Unknown, Verified 11/14/24 14:51) RASH cedarwood (Cedarwood) Allergy (Unknown, Verified 11/14/24 14:51) THROAT CLOSES, SWELLING, RASH No Known Drug Allergies Allergy (Unknown, Verified 11/14/24 14:51) none HPI HPI review cologuard: Details: Assessment & Plan (1) Irritable bowel syndrome with diarrhea: Code(s): K58.0 - Irritable bowel syndrome with diarrhea Category: Medical (2) GERD (gastroesophageal reflux disease): Code(s): K21.9 - Gastro-esophageal reflux disease without esophagitis Category: Medical (3) Nausea and vomiting: Code(s): R11.2 - Nausea with vomiting, unspecified Category: Medical (4) Renal tubular acidosis: Code(s): N25.89 - Other disorders resulting from impaired renal tubular function Category: Medical Plan It appears that the endoscopy was never performed She continues on her omeprazole 40 mg once a day with good control of her GERD. Also continues to use Zofran intermittently. Her nausea may be more r/t her renal tubular acidosis, so EGD may not be very fruitful and she has not been able to tolerate any prep from colonoscopy r/t N/V so we discuss Cologuard in the short term. ANOTHER COMPLICATING FACTOR IS THAT SHE IS NOW TAKING ZEPBOUND FOR HER WT LOSS AND THIS HAS MADE HER NAUSEA MUCH WORSE! She says that weight loss was mandated by her respiratory provider who seem to feel that she has some degree of restrictive respiratory disease. She missed appts because she had a really hard time with a COVID infection. ROV 8 weeks for colonguard. Medications: New ondansetron HCl 4 mg PO BID PRN 60 tabs 6RF nausea and vomiting 30 days N25.89 - Other disorders resulting from impaired renal tubular function, R11.2 - Nausea with vomiting, unspecified Refilled omeprazole 40 mg PO DAILY 90 caps 1RF LABS: 10/05/2024 Cologuard is negative TODAY'S VISIT She continues to do well on her omeprazole and her Zofran. She asks me to switch the Zofran back to the ODT version and I will. She is doing really well on her Zepbound and has lost a significant amount of weight which will be helpful for her respiratory status. Her Cologuard was negative so we will repeat this in 3 years. However, she tells me she got a bill for mass help for it for 1600 dollars. I am uncertain why this is an asked her to call her insurance. If for any reason they say they do not cover it then she should call Cologuard and see if there is any supporting documentation I can provide to help her with this. Again, we tried multiple times to do a colonoscopy but she absolutely could not tolerate the prep, any prep without vomiting. Return office visit in 6 months [facility] Medical History Nausea and vomiting Pre-op examination Renal tubular acidosis Chronic kidney disease Asthma COVID-19 vaccine series completed History of intravenous drug use in remission Hiatal hernia Hx MRSA infection Hypoglycemia Frequent headaches OCD (obsessive compulsive disorder) PTSD (post-traumatic stress disorder) Depression Seizure disorder NO (obstructive sleep apnea) IBS (irritable bowel syndrome) GERD (gastroesophageal reflux disease) Surgical History Hx laparoscopic cholecystectomy History of lung surgery Hx of section History of esophagogastroduodenoscopy (EGD) Hx of colonoscopy (~2013) Family History Father Melanoma Mother Overdose Maternal Grandfather Cancer Melanoma Brother FH: testicular cancer Brother Brain aneurysm Brother HIV (human immunodeficiency virus infection) Social History Household Members: Spouse Housing: Apartment Are you a primary tire care manager to a significant other at home: No Do you presently have visiting nurse or other home services: Yes Alcohol intake: current Alcohol intake frequency: does not drink Patient Tobacco Use Status: Former Tobacco user Tobacco use type: Cigarette Cigarette Packs Per Day: 0.25 Cigarettes Per Day: 5.0 Years Smoked: 20+, quit 2017 Review of Systems Const Denies fatigue, Denies fever(s), Denies night sweats, Denies poor appetite and Reports weight loss ENT Reports Normal hearing present, Denies dental pain, Denies dysphagia, Denies hearing loss, Denies mouth pain, Denies odynophagia, Denies throat swelling, Denies tongue swelling and Reports other (Dentition adequate) Card Reports no additional complaints and Reports dyspnea on exertion Resp Reports dyspnea on exertion GI Details: Denies abdominal pain, Denies melena, Denies bloating, Denies hematochezia, Denies constipation, Denies GI cramping, Denies dysphagia, Denies excessive flatus, Denies early satiety, Reports heartburn, Denies diarrhea, Reports nausea, Denies odynophagia, Denies vomiting and Denies hematemesis Skin/Breast Denies pruritus, Denies lesions, Denies rash and Denies jaundice Neuro Reports Normal hearing present and Denies Abnormal speech present Endo Denies fatigue Aller/Immun Denies throat swelling and Denies tongue swelling Physical Exam Vital Signs: Last Vital Signs Pulse 75 11/14/24 14:45 BP 105/67 11/14/24 14:45 BMI result Body Mass Index 34.7 Const General: cooperative, no acute distress, well developed and well groomed Nutritional Appearance: well nourished and obese Orientation/consciousness: oriented to person, oriented to place and oriented to time Limitations: No language barrier HEENT Head: Yes normocephalic and Yes atraumatic Eyes General: appearance normal, both eyes and all related structures Pupils: Equal, round and reactive pupils present Neck Neck: Yes normal visual inspection and Yes no lymphadenopathy Thyroid: Thyroid normal Resp Effort & Inspection: normal respiratory effort and able to speak in complete sentences Auscultation: clear to auscultation bilaterally Cardio Rate: regular rate Rhythm: regular rhythm Heart sounds: Normal, physiologic split S2 sound present Peripheral pulses: radial pulses present and posterior tibial pulses present GI Inspection: No distended, Yes Abdominal panniculus present and Yes obesity Palpation (GI): Soft to palpation, nontender, no guarding, not rigid and No hepatosplenomegaly present Percussion: Yes normal to percussion Auscultation: normal bowel sounds Rectal Exam - Female: deferred Skin General skin exam: no rashes or lesions noted, turgor normal, skin not dry, no jaundice, No spider nevi and no striae Rashes: no rashes Nails: normal Neuro General: oriented to person, oriented to place and oriented to time Cranial nerves: Yes Equal, round and reactive pupils present and Yes Normal hearing present Speech: No Abnormal speech present Extrem General: Yes normal to inspection, No clubbing, No cyanosis and No edema Psych Appearance: grossly normal and well kempt Mental Status: mental status grossly normal Speech and movement: Normal speech and movement present Affect: normal affect Attitude: cooperative Thought process: Normal thought process present and not confabulating Thought content: Normal thought content present Insight: Good insight present (Psych) Judgement: Good judgement present (Psych) Results Reviewed Results Reviewed: LABS: 10/05/2024 Cologuard is negative Assessment & Plan Assessment & Plan (1) GERD (gastroesophageal reflux disease): Code(s): K21.9 - Gastro-esophageal reflux disease without esophagitis Category: Medical (2) Nausea and vomiting: Code(s): R11.2 - Nausea with vomiting, unspecified Category: Medical (3) Encounter for colorectal cancer screening using Cologuard test: Comment: 10/2024= negative Cologuard repeat in 3 years Code(s): Z12.11 - Encounter for screening for malignant neoplasm of colon; Z12.12 - Encounter for screening for malignant neoplasm of rectum Category: Medical Plan She continues to do well on her omeprazole and her Zofran. She asks me to switch the Zofran back to the ODT version and I will. She is doing really well on her Zepbound and has lost a significant amount of weight which will be helpful for her respiratory status. Her Cologuard was negative so we will repeat this in 3 years. However, she tells me she got a bill for mass help for it for 1600 dollars. I am uncertain why this is an asked her to call her insurance. If for any reason they say they do not cover it then she should call Cologuard and see if there is any supporting documentation I can provide to help her with this. Again, we tried multiple times to do a colonoscopy but she absolutely could not tolerate the prep, any prep without vomiting. Return office visit in 6 months Medications: New ondansetron 4 mg PO BID-TID PRN 60 tabs 6RF nausea and vomiting Refilled omeprazole 40 mg PO DAILY 90 caps 1RF Coding Level of Care Code Est Pt Level 3 (02784) Diagnoses GERD (gastroesophageal reflux disease) K21.9 Nausea and vomiting R11.2 Encounter for colorectal cancer screening using Cologuard test Z12.11; Z12.12
--- OUTSIDE RECORDS SUMMARY | 2024-11-14 18:13 | XMS_ITS | Encounter Summary ---
Author Organization [employer] Address [address] [facility] [address] [place] [address] Care Team Providers Care Search Lead Name Role Phone Ibeth Colby MD Primary Care Pro vider Reason for Visit * Reason Comments Med Refill Encounter Details Date Type Department Care Team (Late st Contact Info) Description 07/24/2023 Refill [facility] MEDICINE [address] [place] [address] Edmond Fuller FNP Social History Tobacco Use [...] as of this encounter Plan of Treatment Not on file documented as of this encounter Visit Diagnoses Not on filedocumented in this encounter Additional Health Concerns Assessment Noted Time PHQ-9 Depression Total Score: 0 07/13/19 24 2:53 PM EDT documented as of this encounter Care Teams Search Lead Relationship Specialty Start Date End Date Ibeth Colby MD [address] [place] [address] PCP - General Internal Medicine 12/13/22 Suzanne Meyers Glaze GrinderDelivery Coordinator 03/15/23 documented as of this encounter
--- OUTSIDE RECORDS SUMMARY | 2024-11-14 18:13 | XMS_ITS | Encounter Summary ---
Author Organization [employer] Address [address] [facility] 7 [place] [address] Care Team Providers Care Auditing Manager Name Role Phone Ibeth Colby MD Primary Care Pro vider Reason for Visit * Reason Onset Date Comments Med Refill 01/30/2024 Encounter Details Date Type Department Care Team (Late st Contact Info) Description 01/30/2024 Refill [facility] MEDICINE [address] [place] [address] Ibeth Colby MD [address] [place], [place] [phone] Social History Tobacco Use Types Packs/Day Years [...] documented as of this encounter Care Teams Auditing Manager Relationship Specialty Start Date End Date Ibeth Colby MD [address] [place] [phone] PCP - General Internal Medicine 12/13/22 Suzanne Meyers Unit ManagerProduct Development Scientist 03/15/23 documented as of this encounter
--- OUTSIDE RECORDS SUMMARY | 2024-11-14 18:13 | XMS_ITS | Encounter Summary ---
Author Organization [employer] Address [address] [facility] [address] 7[address] [place] [address] Care Team Providers Care Geothermal Powerplant Mechanic Helper Name Role Phone Ibeth Colby MD Primary Care Pro vider Reason for Visit * Reason Onset Date Comments Med Refill 08/23/2024 Encounter Details Date Type Department Care Team (Late st Contact Info) Description 08/23/2024 Refill [facility] MEDICINE 230 [place] [address] Ree Jenkins MD 230 [place] [address] Social History Tobacco Use Types Packs/Day Years [...] documented as of this encounter Care Teams Geothermal Powerplant Mechanic Helper Relationship Specialty Start Date End Date Ibeth Colby MD [address] [place] [phone] PCP - General Internal Medicine 12/13/22 Suzanne Meyers Ophthalmic AssistantOperating Room Aide 03/15/23 documented as of this encounter
--- OUTSIDE RECORDS SUMMARY | 2024-11-14 18:13 | XMS_ITS | Encounter Summary ---
Author Organization [employer] Address [address] [facility] [address] 7[address] [place] [address] Care Team Providers Care Equity Research Analyst Name Role Phone Nilda Dunn Primary Care Provider Ibeth Fox MD Primary Care Pro vider Reason for Visit * Reason Comments Med Refill Encounter Details Date Type Department Care Team (Late st Contact Info) Description 11/03/2022 Refill [facility] CHC MED & PEDS [address] [place] [address] Edmond Fuller FNP Mood disorder (CMS/HCC) Social [...] documented as of this encounter Care Teams Equity Research Analyst Relationship Specialty Start Date End Date Nilda Dunn FNP PCP - General Family Medicine 11/03/21 12/12/22 Ibeth Colby MD [address] [place] [phone] PCP - General Internal Medicine 12/13/22 Suzanne Meyers Rib Stiffener And Heel DipperEnvironmental Health Safety Engineer 03/15/23 documented as of this encounter
--- OUTSIDE RECORDS SUMMARY | 2024-11-14 18:13 | XMS_ITS | Encounter Summary ---
Author Organization [employer] Address [address] [facility] 7t [place] [address] Care Team Providers Care Commercial Management Accountant Name Role Phone Nilda Dunn Primary Care Provider Ibeth Fox MD Primary Care Pro vider Reason for Visit * Reason Comments Med Refill Encounter Details Date Type Department Care Team (Late st Contact Info) Description 04/11/2022 Refill [facility] MEDICINE 230 [place] [address] Edmond Fuller FNP Social History Tobacco Use [...] Time PHQ-9 Depression Total Score: 0 03/22/19 1:19 PM EST documented as of this encounter Care Teams Commercial Management Accountant Relationship Specialty Start Date End Date Nilda Dunn FNP PCP - General Family Medicine 11/03/21 12/12/22 Ibeth Colby MD [address] [place] [phone] PCP - General Internal Medicine 12/13/22 Suzanne Meyers Box Office ManagerState Farm Agent Team Member 03/15/23 documented as of this encounter
--- OUTSIDE RECORDS SUMMARY | 2024-11-14 18:13 | XMS_ITS | Encounter Summary ---
Author Organization [employer] Address [address] [facility] [address] 7t [place] [address] Care Team Providers Care Life Tester Out[employer] Motors Name Role Phone Ibeth Colby MD Primary Care Pro vider Reason for Visit * Reason Comments Med Refill Encounter Details Date Type Department Care Team (Late st Contact Info) Description 02/14/[address] [facility] MEDICINE [address] [place] [address] Edmond Fuller FNP Mood disorder (CMS/HCC) Social [...] documented as of this encounter Care Teams Life Tester Out[employer] Motors Relationship Specialty Start Date End Date Ibeth Colby MD [address] [place] [phone] PCP - General Internal Medicine 12/13/22 Suzanne Meyers Electrical Cad DesignerElectro Mechanic 03/15/23 documented as of this encounter
--- OUTSIDE RECORDS SUMMARY | 2024-11-14 18:13 | XMS_ITS | Encounter Summary ---
Author Organization [employer] Address [address] [facility] [address] 7[address] [place] [address] Care Team Providers Care Second Butler Name Role Phone Ibeth Colby MD Primary Care Pro vider Reason for Visit * Reason Comments Med Refill Encounter Details Date Type Department Care Team (Late st Contact Info) Description 10/24/2023 Refill [facility] MEDICINE 230 [place] [address] Edmond Fuller FNP Social History Tobacco Use [...] documented as of this encounter Care Teams Second Butler Relationship Specialty Start Date End Date Ibeth Colby MD [address] [place] [phone] PCP - General Internal Medicine 12/13/[address] Light Servicer HelperEmergency Communications Dispatcher 03/15/23 documented as of this encounter
--- OUTSIDE RECORDS SUMMARY | 2024-11-14 18:13 | XMS_ITS | Clinical Summary ---
Author Organization [facility] Address [address] [address] Phone Care Team Providers Care Home Theatre Technician Name Role Phone Unavailable Primary Care Provider [...] It is not the complete legal health record.[facility]
--- OUTSIDE RECORDS SUMMARY | 2024-11-14 18:13 | XMS_ITS | Encounter Summary ---
Author Organization [employer] Address [address] [facility] 7t [place] [address] Care Team Providers Care Music Autographer Name Role Phone Nilda Dunn Primary Care Provider Ibeth Fox MD Primary Care Pro vider Encounter Details Date Type Department Care Team (Late st Contact Info) Description 05/10/2022 Orders Only [facility] CHC MED & PEDS [address] [place] [address] Ange Leal LPN Social History Tobacco Use [...] documented as of this encounter Care Teams Music Autographer Relationship Specialty Start Date End Date Nilda Dunn FNP PCP - General Family Medicine 11/03/21 12/12/22 Ibeth Colby MD [address] [place] [address] PCP - General Internal Medicine 12/13/22 Suzanne Meyers Cricket CoachSecretary To Board Of Commissioners 03/15/23 documented as of this encounter
--- OUTSIDE RECORDS SUMMARY | 2024-11-14 18:13 | XMS_ITS | Encounter Summary ---
Author Organization [employer] Address [address] [place] [address] 7 [place] [address] Care Team Providers Care Button Sewer Name Role Phone Nilda Dunn Primary Care Provider Ibeth Fox MD Primary Care Pro vider Encounter Details Date Type Department Care Team (Late st Contact Info) Description 04/06/2022 Orders Only [facility] MEDICINE [address] [place] [address] Ernestina Gutierrez LPN Social History Tobacco Use [...] documented as of this encounter Care Teams Button Sewer Relationship Specialty Start Date End Date Nilda Dunn FNP PCP - General Family Medicine 11/03/21 12/12/22 Ibeth Colby MD [address] [place] [address] PCP - General Internal Medicine 12/13/22 Suzanne Meyers Clinical Assessment ManagerReceiving Team Member 03/15/23 documented as of this encounter
--- OUTSIDE RECORDS SUMMARY | 2024-11-14 18:13 | XMS_ITS | Encounter Summary ---
Author Organization [employer] Address [address] [facility] [address] 7t [place] [address] Care Team Providers Care Power Bender Operator Name Role Phone Nilda Dunn OUTSOLE ROUNDER Primary Care Provider Ibeth Fox MD Primary Care Pro vider Reason for Visit * Reason Comments Med Refill Encounter Details Date Type Department Care Team (Late st Contact Info) Description 08/16/2022 Refill [facility] CHC MED & PEDS [address] [place] [address] Edmond Fuller FNP Social History Tobacco Use [...] documented as of this encounter Care Teams Power Bender Operator Relationship Specialty Start Date End Date Nilda Dunn FNP PCP - General Family Medicine 11/03/21 12/12/22 Ibeth Colby MD [address] [place] [phone] PCP - General Internal Medicine 12/13/22 Suzanne Meyers Denture Laboratory TechnicianSuperintendent Laundry 03/15/23 documented as of this encounter
--- OUTSIDE RECORDS SUMMARY | 2024-11-14 18:13 | XMS_ITS | Encounter Summary ---
Author Organization [employer] Address [address] [facility] [address] 7t [place] [address] Care Team Providers Care Emergency Communications Officer Name Role Phone Ibeth Colby MD Primary Care Pro vider Reason for Visit * Reason Comments Med Refill Encounter Details Date Type Department Care Team (Late st Contact Info) Description 03/28/2023 Refill [facility] MEDICINE [address] [place] [address] Edmond Fuller FNP Mood disorder (CMS/HCC) Social [...] documented as of this encounter Care Teams Emergency Communications Officer Relationship Specialty Start Date End Date Ibeth Colby MD [address] [place] [phone] PCP - General Internal Medicine 12/13/22 Suzanne Myeers Benefits ConsultantX Ray Examiner Of Aircraft 03/15/23 documented as of this encounter
--- OUTSIDE RECORDS SUMMARY | 2024-11-14 18:13 | XMS_ITS | Encounter Summary ---
Author Organization [employer] Address [address] [facility] 7 [place] [address] Care Team Providers Care Client Manager Large Law Name Role Phone Ibeth Colby MD Primary Care Pro vider Reason for Visit * Reason Comments Med Refill Encounter Details Date Type Department Care Team (Late st Contact Info) Description 09/18/2024 Refill [facility] MEDICINE 230 [place] [address] Ibeth Colby MD 230 [place], [place] [phone] Social History Tobacco Use Types Packs/Day Years [...] documented as of this encounter Care Teams Client Manager Large Law Relationship Specialty Start Date End Date Ibeth Colby MD [address] [place] [phone] PCP - General Internal Medicine 12/13/22 Suzanne Meyers Electronics Production SupervisorAdvertising Operations Coordinator 03/15/23 documented as of this encounter
--- OUTSIDE RECORDS SUMMARY | 2024-11-14 18:13 | XMS_ITS | Encounter Summary ---
Author Organization [employer] Address [address] [facility] [address] 7t [place] [address] Care Team Providers Care Control Inspector Name Role Phone Ibeth Colby MD Primary Care Pro vider Reason for Visit * Reason Comments Med Refill Encounter Details Date Type Department Care Team (Late st Contact Info) Description 03/10/2023 Refill [facility] MEDICINE 230 [place] [address] Edmond Fuller FNP Mood disorder (CMS/HCC) Social [...] documented as of this encounter Care Teams Control Inspector Relationship Specialty Start Date End Date Ibeth Colby MD [address] [place] [address] PCP - General Internal Medicine 12/13/22 Suzanne Meyers Medical Records Field TechnicianWindlace Machine Operator 03/15/23 documented as of this encounter
--- OUTSIDE RECORDS SUMMARY | 2024-11-14 18:13 | XMS_ITS | Encounter Summary ---
Author Organization [employer] Address [address] [facility] 7 [place] [address] Care Team Providers Care Director Of Promotions Name Role Phone Ibeth Colby MD Primary Care Pro vider Reason for Visit * Reason Onset Date Comments Med Refill 01/01/2024 Encounter Details Date Type Department Care Team (Late st Contact Info) Description 01/01/2024 Refill [facility] MEDICINE 230 [place] [address] Ibeth Colby MD 230 [place], [place] [phone] Social History Tobacco Use Types Packs/Day Years [...] documented as of this encounter Care Teams Director Of Promotions Relationship Specialty Start Date End Date Ibeth Colby MD [address] [place] [phone] PCP - General Internal Medicine 12/13/22 Suzanne Meyers Sustainability AnalystMedical Director Occupational Health 03/15/23 documented as of this encounter
--- OUTSIDE RECORDS SUMMARY | 2024-11-14 18:13 | XMS_ITS | Encounter Summary ---
Author Organization [employer] Address [address] [facility] [address] 7[address] [place] [address] Care Team Providers Care Relocation Services Specialist Name Role Phone Ibeth Colby MD Primary Care Pro vider Reason for Visit * Reason Comments Med Refill Encounter Details Date Type Department Care Team (Late st Contact Info) Description 09/24/2023 Refill [facility] MEDICINE [address] [place] [address] Edmond Fuller FNP Social History Tobacco Use [...] documented as of this encounter Care Teams Relocation Services Specialist Relationship Specialty Start Date End Date Ibeth Colby MD [address] [place] [phone] PCP - General Internal Medicine 12/13/22 Suzanne Meyers Financial UnderwriterGut Dropper 03/15/23 documented as of this encounter
--- OUTSIDE RECORDS SUMMARY | 2024-11-14 18:13 | XMS_ITS | Encounter Summary ---
Author Organization [employer] Address [address] [place] [address] Care Team Providers Care Rotary Furnace Operator Name Role Phone Nilda Dunn Primary Care Provider Ibeth Fox MD Primary Care Pro vider Reason for Visit * Reason Onset Date Comments Medication Question 09/02/2022 Encounter Details Date Type Department Care Team (Late st Contact Info) Description 09/02/2022 Telephone [facility] MEDICINE [address] [place], [place] [phone] Nilda Dunn FNP Medication Question Social History Tobacco Use Types [...] Miscellaneous Notes * Telephone Encounter - Feli Олег - 09/02/2022 11:11 AM EDT Tc from Suzanne at [facility] requesting a script albuterol solution for patients nebulizer machine. documented in this encounter Plan of Treatment Not on file documented as of this encounter Visit Diagnoses Not on filedocumented in this encounter Additional Health Concerns Assessment Noted Time PHQ-9 Depression Total Score: 0 06/22/19 3:26 PM EDT documented as of this encounter Care Teams Rotary Furnace Operator Relationship Specialty Start Date End Date Nilda Dunn FNP PCP - General Family Medicine 11/03/21 12/12/22 Ibeth Colby MD [address] [place] [phone] PCP - General Internal Medicine 12/13/22 Suzanne Meyers Partner Integration PlannerPurchasing Administrative Assistant 03/15/23 documented as of this encounter
--- OUTSIDE RECORDS SUMMARY | 2024-11-14 18:13 | XMS_ITS | Encounter Summary ---
Author Organization [employer] Address [address] [facility] [address] [place] [address] Care Team Providers Care Real Estate Professional Name Role Phone Nilda Dunn Primary Care Provider Alma Ibeth Roe MD Primary Care Pro vider Encounter Details Date Type Department Care Team (Late st Contact Info) Description 03/09/2022 Orders Only [facility] MED & PEDS [address] [place] [address] Ange Leal LPN Social History Tobacco Use [...] on filedocumented in this encounter Care Teams Real Estate Professional Relationship Specialty Start Date End Date Nilda Dunn FNP PCP - General Family Medicine 11/03/21 12/12/22 Ibeth Colby MD [address] [place] [address] [phone] PCP - General Internal Medicine 12/13/22 [facility] Powerhouse LaborerAssistant County Attorney 03/15/23 documented as of this encounter
--- OUTSIDE RECORDS SUMMARY | 2024-11-14 18:13 | XMS_ITS | Encounter Summary ---
Author Organization [facility] Address [address] [facility] [address] [place] [phone] Phone Care Team Providers Care Inside Sales Supervisor Name Role Phone Unavailable Primary Care Provider Unavailabl e Encounter Details Date Type Department Care Team (Latest Contact Info) Description 07/20/2022 Transcribe Orders Virtual Department [address] [place] [phone] Nilda Dunn NP Breast screening (Primary Dx) [...] It is not the complete legal health record.[facility]
--- OUTSIDE RECORDS SUMMARY | 2024-11-14 18:13 | XMS_ITS | Encounter Summary ---
Author Organization [employer] Address [address] [place] [address] Care Team Providers Care Multicultural Services Librarian Name Role Phone Ibeth Colby MD Primary Care Pro vider Reason for Visit * Reason Comments Med Refill Encounter Details Date Type Department Care Team (Late st Contact Info) Description 12/30/[address] [facility] MEDICINE [address] [place] [address] Nilda Dunn FNP Social History Tobacco Use Types Packs/Day [...] documented as of this encounter Care Teams Multicultural Services Librarian Relationship Specialty Start Date End Date Ibeth Colby MD [address] [place] [phone] PCP - General Internal Medicine 12/13/22 Suzanne Meyers Exchange Underwriting ConsultantAnimal Researcher 03/15/23 documented as of this encounter
--- OUTSIDE RECORDS SUMMARY | 2024-11-14 18:13 | XMS_ITS | Encounter Summary ---
Author Organization [employer] Address [address] [place] [address] Care Team Providers Care Dsp Engineer Name Role Phone Ibeth Colby MD Primary Care Pro vider Reason for Visit * Reason Comments Med Refill Encounter Details Date Type Department Care Team (Late st Contact Info) Description 02/02/2023 Refill [facility] MEDICINE [address] [place] [phone] Edmond Fuller FNP Mood disorder (CMS/HCC) Social [...] documented as of this encounter Care Teams Dsp Engineer Relationship Specialty Start Date End Date Ibeth Colby MD [address] [place] [phone] PCP - General Internal Medicine 12/13/22 Suzanne Meyers Roll Over Press OperatorCoo 03/15/23 documented as of this encounter
--- OUTSIDE RECORDS SUMMARY | 2024-11-14 18:13 | XMS_ITS | Encounter Summary ---
Author Organization [employer] Address [address] [place] [address] Care Team Providers Care Acid Cutter Name Role Phone Nilda Dunn COMMERCIAL DRAFTER Primary Care Provider Ibeth Fox MD Primary Care Pro vider Encounter Details Date Type Department Care Team (Late st Contact Info) Description 10/10/2022 Orders Only [facility] CHC MED & PEDS [address] [place] [address] Ange Leal LPN Social History Tobacco Use [...] as of this encounter Care Teams Acid Cutter Relationship Specialty Start Date End Date Nilda Dunn FNP PCP - General Family Medicine 11/03/21 12/12/22 Ibeth Colby MD [address] [place] [phone] PCP - General Internal Medicine 12/13/22 Suzanne Meyers Administrative ClerkSticker Machine Operator 03/15/23 documented as of this encounter
--- OUTSIDE RECORDS SUMMARY | 2024-11-14 18:13 | XMS_ITS | Clinical Summary ---
Author Organization [employer] Address [address] [facility] [address] [place] [address] Care Team Providers Care Fine Patcher Name Role Phone Ibeth Colby MD Primary Care Pro vider Allergies Active Allergy Reactions Criticality Noted Date Comments Will Anaphylaxis High 08/15/2013 Gluten Meal Anaphylaxis High 03/22/2022 Lactose 05/31/2022 Tapentadol 03/22/2022 Other reaction(s): Contact dermatitis with paper tape Wound Dressing Adhesive Hives,Itching,Rash,Sw elling High 12/14/2011 Other reaction(s): RASH ON SITE Other Reaction(s): Contact Dermatitis Medications * This document contains information received [...] A DAY 180 tablet 3 024 Active prazosin (Minipress) 5 [...] NEEDED FOR SLEEP 30 tablet 5 Active Zubsolv 5.7-1.[address] 2 TABLETS EVERY DAY BY SUBLINGUAL ROUTE IN THE MORNING FOR 28 DAYS. Active Levonorgestrel 20 MCG/DAY intrauterine device 1 each by Intrauterine route 1 (one) time. 02/2020 Active meclizine (Antivert) 25 MG tablet Take 25 mg by mouth 3 times daily. Active naloxone (Narcan) 4 mg/0.1 mL nasal spray TAKE 1 SPRAY BY NASAL ROUTE DIRECTED. Active ondansetron (Zofran) 4 MG tablet Take 1 tablet by mouth 4 times daily. Active fluticasone (Flonase) 50 MCG/ACT nasal sprayIndication s:Seasonal allergic rhinitis, unspecified trigger Administer 2 sprays into each nostril Once per day. Shake gently. Before first use, prime pump. After use, clean tip and replace cap. 48 mL 2 Active Trelegy Ellipta 100-62.5-25 MCG/ACT aerosol powder 1 PUFFS INHALATION DAILY, AT THE SAME TIME EVERY DAY Active loratadine (Claritin) 10 MG tablet TAKE 1 TABLET BY MOUTH EVERY DAY NEEDED 90 tablet 1 025 Active lidocaine (Lidoderm) 5 % patchIndication s:Chronic bilateral low back pain with bilateral sciatica APPLY 1 PATCH TOPICALLY IN THE MORNING. 30 patch 3 025 Active FREESTYLE LITE test strip USE 1 STRIP BY DIRECTED ROUTE EVERY DAY 50 strip 5 025 Active propranolol LA (Inderal LA) 80 MG 24 hr capsule TAKE 1 CAPSULE BY MOUTH EVERYDAY AT BEDTIME 90 capsule 1 025 Active valACYclovir (Valtrex) 1 g tablet TAKE 1 TABLET BY MOUTH EVERY DAY 30 tablet 3 Active fenofibrate micronized (Antara) 130 MG capsule TAKE 1 CAPSULE BY MOUTH EVERY DAY 90 capsule 3 Active cholecalciferol VITAMIN D (Vitamin D-3) 50 MCG (1999 UT) capsuleIndicati ons:Vitamin D deficiency TAKE 1 CAPSULE BY MOUTH EVERY DAY 90 capsule 1 Active Multiple Vitamin (Multi-Vitamin) tablet TAKE 1 TABLET BY MOUTH EVERY DAY WITH FOOD 90 tablet 1 Active Tirzepatide-Rogerio ght Management (Zepbound) 7.5 MG/0.5ML solution auto-injector Inject 0.5 mL (7.5 mg) as directed 1 (one) time per week. INJECT ONE PEN (=7.5 MG) SUBCUTANEOUSLY ONCE A WEEK 2 mL Active EPINEPHrine (Epipen) 0.3 MG/0.3ML injection syringe Inject 0.3 mL (0.3 mg) as directed 1 (one) time for 1 dose. Inject into upper leg. Call 911 after use. 1 each Active diphenoxylate-a tropine (Lomotil) 2.5-0.025 MG tablet Take 1 tablet by mouth 3 times daily. Active eletriptan (Relpax) 40 MG tablet NEEDED FOR MIGRAINE HEADACHE 40 MG ONCE A DAY NEEDED DO NOT EXCEED 2 DOSES PER 24 HRS Active Breo Ellipta 100-25 MCG/ACT aerosol powder INHALE 1 PUFF EVERY DAY FOR 30 DAYS Active rizatriptan (Maxalt) 10 MG tablet Take 10 mg by mouth if needed each day. Active Spiriva Respimat 1.25 MCG/ACT inhaler 2 puffs Once per day. Active Ventolin HFA 108 (90 Base) MCG/ACT inhaler INHALE 2 PUFFS 4 TIMES A DAY NEEDED FOR WHEEZING Active omeprazole (PriLOSEC) [address] capsule Take 1 capsule by mouth Once per day. Active melatonin 10 MG tabletIndicatio ns:Mood disorder (CMS/HCC) Take 1 tablet (10 mg) by mouth if needed at bedtime (sleep). 90 tablet 3 024 2024 Discontinued(T herapy completed) EPINEPHrine (Epipen) 0.3 MG/0.3ML injection syringe INJECT 0.3MG INTERMUSCULARLY WHEN NEEDED 018 2024 Discontinued(R eorder (will not trigger notification to Pharmacy)) omeprazole (PriLOSEC) [address] capsule TAKE 1 CAPSULE 2 TIMES EVERY DAY BEFORE BREAKFAST AND DINNER 020 2024 Discontinued(T herapy completed) onabotulinumtox Nelida (Botox) 100 units injection Inject 50u into each axilla. 019 2024 Discontinued(O ther) SUMAtriptan (Imitrex) 50 MG tabletIndicatio ns:Chronic migraine without aura without status migrainosus, not intractable TAKE 1 TABLET BY MOUTH SOON POSSIBLE AT ONSET FOR MIGRAINE HEADACHE MAY REPEAT AFTER 2 HOURS 9 tablet 5 024 2024 Discontinued(O ther) predniSONE (Deltasone) 20 MG tablet 2 tabs po daily for 5 days 10 tablet 025 2024 Discontinued(O ther) Active Problems Problem Noted Date Diagnosed Date Bipolar 1 disorder 10/25/2024 NO (obstructive sleep apnea) 06/15/2024 Abnormal EEG [...] Encounters Date Type Department Care Team Description 10/25/2024 1:45 PM EDT Office Visit [facility] MEDIC[facility] [address] [place] [address] Ibeth Colby MD Breast cancer screening by mammogram (Primary Dx); Hyperhidrosis of palms; Annual physical exam; Bipolar 1 disorder ([facility]); Hyperlipidemia, unspecified hyperlipidemia type; Non-seasonal allergic rhinitis due to other allergic trigger; Hypothyroidism, unspecified type; Class 2 obesity; Health care maintenance; Herpes simplex type 1 infection; Major depressive disorder with single episode, remission status unspecified; Other migraine without status migrainosus, not intractable; Seizure disorder ([facility]/HCC) 10/25/2024 Orders Only [facility] [address] [place] [address] Ibeth Colby MD Thrombocytopenia ([facility]) (Primary Dx); DEEPTHI (acute kidney injury) ([facility]) 10/25/2024 Results Follow-Up [facility] [address] [place] [address] Ibeth Colby MD CBC, Comprehensive Metabolic Panel, Hemoglobin A1c, Additional followed-up results: 5 10/25/2024 Travel 10/24/2024 Telephone [facility] [address] [place] [address] Ibeth Colby MD chart prep 10/22/2024 11:00 AM EDT Office Visit [facility] OPTOMETRY [address] [place] [address] Neel, Monet, OD Chronic hepatitis C without hepatic coma (CMS/HCC) (Primary Dx) 10/22/2024 Travel 10/18/2024 Patient Outreach [facility] [address] [place] [address] Ibeth Colby MD Pre-visit Planning (Pre-visit planning - LVM ) 10/13/2024 Refill [facility] [address] [place] [address] Ibeth Colby MD 10/08/2024 Refill [facility] PEDS [address] [place] [address] Bishop Vázquez MD 10/07/2024 Refill [facility] [address] [place] [address] Bishop Vázquez MD Vitamin D deficiency 09/18/2024 Refill [facility] [address] [place] [address] Ibeth Colby MD 09/17/2024 Refill [facility] [address] [place] [address] Ibeth Colby MD 09/15/2024 Refill [facility] [address] [place] [address] Ibeth Colby MD 08/31/2024 Refill [facility] [address] [place] [address] Ibeth Colby MD 08/23/2024 Refill [facility] [address] [place] [address] Ree Jenkins MD 08/21/2024 Refill [facility] [address] [place] [address] Marisa Farrell MD from Last 3 Months Immunizations Immunization Administration [...] age,smoked for 25 years so stopped for 15 years -used to smoke 30 cig a day .PQT a year 37.5 Alcohol Use Standard Drinks/Week Comments Not Currently 0 (1 standard drink = 0.6 oz pure alcohol) alcohol heavy drinking stopped 17 y ago Depression Answer Date Recorded Patient Health Questionnaire-9 Score 6 12/27/2023 Patient Health Questionnaire-9 Score 6 12/27/2023 Last PHQ-9: Questionnaire Data Not on file 1 Housing Stability Answer Date Recorded What is your housing situation today? I have araceli casey 10/25/[address] you li ve. Do you have problems with any of the following? None of the above 10/25/2024 Food Insecurity Answer Date Recorded Within the past 12 months, y ou worried that your food would run out before you got money to buy more: Never True 10/25/2024 Within the past 12 months,th e food you bought just didn't last and you didn't have enough money to get more: Never True Transportation Answer Date Recorded In the past 12 months, has l ack of transportation kept you from medical appts, meetings, work or from getting things needed for daily living? Yes, it has kept me from medical appointments or getting medications. 10/25/2024 Utilities Answer Date Recorded In the past 12 months, has t he electric, gas, oil or water company threatened to shut off services in your home? No 10/25/2024 Depression Answer Date Recorded Patient Health Questionnaire-2 Score 2 12/27/2023 Internet Access Answer Date Recorded Internet Access Q1 Yes 10/25/2024 Internet Access Q2 Not on file 10/25/2024 Comments Unknown Intention Date Recorded No desire to become (finding) 0 07/23/2024 Sex and Gender Information Value Date Recorded Sex Assigned at Female 01/03/2022 10:16 AM EDT Legal Sex Female 10:16 AM EDT Gender Identity Female 01/03/2022 10:16 AM EDT Sexual Orientation Straight 05/31/2022 2: 09 PM EDT Last Filed Vital Signs Vital Sign Reading Time Taken Comments Blood Pressure 100/60 10/25/2024 1:56 PM EDT Pulse 76 10/25/2024 1:56 PM EDT Temperature 36.8 C (98.2 F) 10/25/2024 1:56 PM EDT Respiratory Rate 16 10/25/2024 1:56 PM EDT Oxygen Saturation 94% 01/23/2024 10:41 AM EST Inhaled Oxygen Concentration - - Weight 99.5 kg (219 lb 6.4 oz) 10/25/2024 1:56 P M EDT Height 162.6 cm (5' 4 ) 10/25/2024 1:56 PM EDT Body Mass Index 37.66 10/25/2024 1:56 PM EDT Plan of Treatment Health Maintenance Due Date Last Done Comments CT Colonography 1972 FIT DNA/Cologuard 1972 FIT 1972 FOBT 1970 Sigmoidoscopy 1972 Disability Screening 1972 Diabetes: Foot Exam 1982 Eye Exam 1982 Colonoscopy 12/02/2021 12/02/2020 Colorectal Cancer Screening 12/02/2021 Mammogram 09/23/2022 09/23/2020 Lung Cancer Screening 2022 Zoster Vaccines (1 of 2) 2022 COVID-19 Vaccine (3 - season) 2024 06/30/2020, 06/02/2020 Influenza Vaccine (#1) 2024 , 01/02/2020, 01/04/2018, Additional history exists Diabetes: Urine Protein Screening 12/25/2024 12/26/2023 Depression Screening 12/26/2024 12/27/2023, 12/27/19 24 Diabetes: Hemoglobin A1C 04/27/2025 025, 12/26/2023, 10/18/2023, Additional history exists Family Planning (PISQ) 07/23/2025 07/23/2024 Alcohol/Substance Use Screening 10/25/2025 10/25/2024 Lipid Panel 10/25/2025 10/25/2024, 04/2 11/2024, 12/26/2023, Additional history exists SDOH Screening 10/25/2025 10/25/2024 Tobacco Screening 11/12/2025 11/12/2024 DTaP/Tdap/Td Vaccines (2 - Td or Tdap) 03/08/2026 03/08/2016, 03/06/1996 Cervical Cancer Screening 07/23/2029 HPV/Cotest 07/23/2029 07/23/2024, 05/02/2017 Pap Smear 07/23/2029 07/23/2024 RSV Patients and Patients Aged 60 years or older (1 - 1-dose 75+ series) 12/10/2047 Hepatitis A Vaccines Completed 05/23/2013, 01/19/2011, 07/20/2000 Hepatitis B Vaccines Completed 03/08/2016, 01/16/2011, 12/03/2009 Pneumococcal Vaccine: 50+ Years Completed 10/18/2023, 02/17/2014 HIV Screening Completed 12/26/2023 HIB Vaccines Aged Out No longer eligi [...] Procedure Name Priority Date/Time Associated Diagnosis Comments VITAMIN D,25-OH,TOTAL,IA Routine 10/25/2024 2:57 PM EDT Annual physical exam VITAMIN B12/FOLATE, SERUM PANEL Routine 10/25/2024 2:57 PM EDT Annual physical exam T4, FREE Routine 10/25/2024 2:57 PM EDT Annual physical exam TSH Routine 10/25/2024 2:57 PM EDT Annual physical exam LIPID PANEL, STANDARD Routine 10/25/2024 2:57 PM EDT Annual physical exam HEMOGLOBIN A1C Routine 10/25/2024 2:57 PM EDT Annual physical exam COMPREHENSIVE METABOLIC PANEL Routine 10/25/2024 2:57 PM EDT Annual physical exam CBC Routine 10/25/2024 2:57 PM EDT Annual physical exam HPV DNA, LOW/HIGH RISK Routine 2:46 PM EDT PAP SMEAR Routine 07/23/2024 2:46 PM EDT Cervical cancer screening HIV 1/2 ANTIGEN/ANTIBODY, FOURTH GENERATION W/RFL Routine 12/26/2023 4:00 PM EDT Annual physical exam ALBUMIN, RANDOM URINE W/CREATININE Routine 12/26/2023 4:00 PM EDT Annual physical exam HM COLONOSCOPY Routine 12/02/2020 11:44 AM EDT MAMMOGRAM GENERIC Routine 09/23/2020 3:3 0 PM EDT from Last 3 Months or Most Recently Relevant to Health Maintenance Results * Vitamin D, 25-Hydroxy, Total, Immunoassay (10/25/2024 2:57 PM EDT) Vitamin D 25-OH Total 79.7 >30 ng/mL [facility] Comment: Health Based Reference Values*< 20 ng/mL [id number] ng/mL Insufficient> 30 ng/mL Sufficient*Andres MATTA. N Engl J Med. 2007;357:266-280There is no well-established upper level of normal vitamin Dlevels. Some laboratories use 50 ng/mL as an upper limit ofnormal. However, toxicity is patient-dependent and may occurat any level. Careful correlation with the patient'spresentation is necessary and, if there is concern forvitamin D toxicity, treatment should be consideredirrespective of the serum level.Care must be taken in interpreting Vitamin D results fromdifferent laboratories and methodologies. Published datademonstrated that results from patients undergoinghemodialysis may show a negative bias when tested withvarious automated 25-OH vitamin D assays when compared toLC-MS/MS.When testing samples from patients whose predominant form ofVitamin D is Vitamin D2, such as patients receiving VitaminD2 supplementation, results that are subtherapeutic shouldbe confirmed with another method such as LC-MS/MS. Blood Venous blood specimen / Unknown 10/25/2024 2:57 PM EDT 10/25/2024 4:42 PM EDT us Ibeth Vasques MD LAB BLOOD ORDERAB LES Final Result [facility] [address] [place] [phone] * Vitamin B12 (Cobalamin) and Folate Panel, Serum (10/25/2024 2:57 PM EDT) Vitamin B12 412 200 - 900 pg/mL [facility] Comment:NORMAL 200-900 PG/ML INDETERMINATE 160-199 PG/ML DEFICIENT < 160 PG/ML Folate 10.0 > or = 4.0 ng/mL [facility] Comment:Reference Values:> o r = 4.0 ng/mL< 4.0 ng/mL suggests folate deficiency Methotrexate, aminopterin and folinic acid(leucovorin) are chemotherapeutic agents whose molecularstructures are similar to folate; therefore, the Architectfolate assay cannot be used for patients using these drugs. Blood 10/25/2024 2:57 PM EDT 10/25/2024 4:42 PM EDT us Ibeth Vasques MD LAB BLOOD ORDERAB LES Final Result [facility] [address] [place] [phone] * (ABNORMAL) CBC (10/25/2024 2:57 PM EDT) Pathologist [facility] White Blood Count 7.9 4.8 - 10.8 X10*3/uL [facility] Red Blood Count 4.50 4.20 - 5.50 X10*6/uL [facility] Hemoglobin 14.2 12.0 - 16.0 g/dl [facility] Hematocrit 41.5 37.0 - 47.0 % [facility] Mean Corpuscular Volume 92.2 80.0 - 98.0 fL [facility] Mean Corpuscular Hemoglobin 31.6 27.0 - 33.0 pg [facility] Mean Corpuscular HGB Conc 34.2 31.0 - 35.0 g/dl [facility] Red Cell Distribution Width 12.4 11.0 - 16.0 % [facility] Platelet Count 118(L) 160 - 400 X10*3/uL [facility] Mean Platelet Volume 11.4 9.4 - 12.3 fL [facility] NRBC Pct Auto 0.0 0.0 - 0.2 /100WBC [facility] NRBC Abs Auto 0.000 0.0 - 0.012 X10*3/uL [facility] Blood Venous blood specimen / Unknown 10/25/2024 2:57 PM EDT 10/25/2024 4:42 PM EDT Ibeth Vasques MD LAB BLOOD ORDERAB LES Final Result Performing Organization Address City/[facility]/ZIP Co de Phone Number [facility] [address] [place] [phone] * TSH (10/25/2024 2:57 PM EDT) Thyroid Stimulating Hormone 3.82 0.32 - 4.0 uIU/mL [facility] Comment:Note: A sustained TS H level above 2.5 uIU/mL may warrant further investigation. TSH 3rd Generation ([facility]) Blood Venous blood specimen / Unknown 10/25/2024 2:57 PM EDT 10/25/2024 4:42 PM EDT Ibeth Vasques MD LAB BLOOD ORDERAB LES Final Result Performing Organization Address [facility] Co de Phone Number [facility] [address] [place] [phone] * T4, Free (10/25/2024 2:57 PM EDT) Free T4 (Free Thyroxine) 1.19 0.71 - 1.85 ng/dL [facility] Blood Venous blood specimen / Unknown 10/25/2024 2:57 PM EDT 10/25/2024 4:42 PM EDT Ibeth Vasques MD LAB BLOOD ORDERAB LES Final Result Performing Organization Address City/[facility]/ZIP Co de Phone Number [facility] [address] [place] [phone] * Hemoglobin A1c (10/25/2024 2:57 PM EDT) Hemoglobin A1c 5.4 <6.0 % [facility] Comment:Hemoglobin A1C Refer ence Range Adults: 4.8 - 6.0 % Non diabetic: < 6.0 % Goal: < 7.0 %Additional Action Suggested: > 8.0 %Note: Hemoglobin A1c results are invalid for patients with abnormal amounts of HbF. Blood transfusions may impact the HbA1c concentration in the patient sample. Estimated Average Glucose 108 mg/dL [facility] Comment:eAG = Estimated ave rage glucose which is %A1C expressed asaverage glucose, using the formula of the Z1F-GmakwuuRcgnzav Glucose study (ADAG), Diabetes Care, Vol.31,#8,Oct. 2007 Blood Venous blood specimen / Unknown 10/25/2024 2:57 PM EDT 10/25/2024 4:42 PM EDT Ibeth Vasques MD LAB BLOOD ORDERAB LES Final Result [facility] [address] [place] [phone] * (ABNORMAL) Lipid Panel, Standard (10/25/2024 2:57 PM EDT) Triglycerides 103 <150 mg/dL [facility] Comment:Desirable Triglyceri de: less than 150 mg/dLBorderline High Triglyceride 150-199 mg/dLHigh Triglyceride: 200-499 mg/dLVery High Triglyceride: greater than or equal to 5OO mg/dL Cholesterol 193 <200 mg/dL [facility] Comment:Desirable Cholestero l: less than 200 mg/dLBorderline High Cholesterol: 200-239 mg/dLHigh Cholesterol: greater than 239 mg/dL LDL Cholesterol Calculated 123(H) <100 mg/dL [facility] Comment:Desirable LDL: less than 100 mg/dLNear Optimal/Above Optimal LDL: 110- 129 mg/dLBorderline High LDL: 130-159 mg/dLHigh LDL: 160-189 mg/dLVery High LDL: greater than or equal to 190 mg/dL HDL Cholesterol 50 >40 mg/dL [facility] Comment:Desirable HDL: great er than 40 mg/dL Note: This HDL assay may give artificially low results in patients with liver disease. Blood Venous blood specimen / Unknown 10/25/2024 2:57 PM EDT 10/25/2024 4:42 PM EDT Ibeth Vasques MD LAB BLOOD ORDERAB LES Final Result [facility] [address], [place] [phone] * (ABNORMAL) Comprehensive Metabolic Panel (10/25/2024 2:57 PM EDT) Sodium 142 135 - 145 mmol/L [facility] Potassium 4.1 3.3 - 5.1 mmol/L [facility] Chloride 110(H) 96 - 108 mmol/L [facility] Carbon Dioxide 23 22 - 29 mmol/L [facility] Anion Gap 13 12 - 20 [facility] Urea Nitrogen (BUN) 16 9 - 16 mg/dL [facility] Creatinine, Serum 1.16 0.5 - 1.4 mg/dL [facility] Estimated Glomerular Filt Rate 49 [facility] Comment:Chronic Kidney Disea se: Estimated GFR < 60 mL/min/1.96k7Owhyie Kidney Disease: Estimated GFR < 15 mL/min/1.73m2 Glucose 86 60 - 115 mg/dL [facility] Calcium 9.9 8.4 - 10.2 mg/dL [facility] Bilirubin, Total 0.5 0.0 - 1.0 mg/dL [facility] Aspartate Amino Transferase 28 5 - 31 U/L [facility] Alanine Aminotransferase 15 0 - 31 U/L [facility] Total Protein 7.9 6.5 - 8.0 g/dL [facility] Albumin Level 4.8 3.5 - 5.0 g/dL [facility] Alkaline Phosphatase 46 39 - 117 U/L [facility] Blood Venous blood specimen / Unknown 10/25/2024 2:57 PM EDT 10/25/2024 4:42 PM EDT us Ibeth Vasques MD LAB BLOOD ORDERAB LES Final Result Performing Organization Address [facility] Co de Phone Number [facility] [address] [place] [phone] * HPV DNA, Low/High Risk (07/23/2024 2:46 PM EDT) HPV High Risk Negative Negative [facility] HPV Genotype 16 Negative Negative [facility] HPV Genotype 18 Negative Negative [facility] Comment:HPV testing performe d at [facility] (CLIA#[id number]), [address] [place] [address].Testing for HPV was performed using the Robert JOHN 6800system. The presence of HPV in the female genital tract isassociated with a number of diseases, including cervicalcarcinoma. The HPV DNA high risk pool tests for HPV 31, 33,35, 39, 45, 51, 52, 56, 58, 59, 66 and 68. The testing forHPV 16 and 18 genotypes has also been performed. A positiveresult indicates detection of nucleic acid sequences fromone or more subtypes, whereas a negative result indicatessuch sequences were not detected. 07/23/2024 2:46 PM EDT 07/24/2024 9:30 AM EDT us Cassidy CHOE LAB BLOOD ORDERABLES Dinah l Result Performing Organization Address [facility]/ZIP Co de Phone Number [facility] [address] [place] [phone] * Pap Smear (07/23/2024 2:46 PM EDT) Swab Cervical swab / Unknown 07/23/2024 2:46 PM EDT 07/24/2024 9:30 AM EDT Christina [facility] - 07/26/2024 9:25 AM EDT ----- ------- Name: Sera Teran Age/Sex: 53/F : 1970 Unit#: [id number] Attend Dr: CASSIDY GOMEZ CNM Re07/24/24 Status: DEP [facility] ----- ------- SPEC : [id number] RECD: 07/24/24 STATUS: LISA FATMATA NUM: [id number] ZINA: 07/23/24-1446 [facility] DR: CASSIDY GOMEZ CNM ENTERED: 07/24/24-1026 SP TYPE: Pap Smr OTHR : ORDERED: Pap Smear Interpretation Satisfactory for evaluation. Negative for intraepithelial lesion or malignancy. No endocervical cells seen. HPV High Risk: Negative HPV Genotyping 16: Negative HPV Genotyping 18: Negative Clinical Information LMP: Unknown date Previous PAP test: 2018, WNL Other surgery: IUD Material Received ThinPrep-Cervical ----- ------- Signed (signature on file) YUNG Tillman ([facility]) 07/26/24 0925 ----- ------- END OF REPORT us Cassidy Gomez CNM LAB CYTOLOGY ORDERABLES F inal Result Performing Organization Address [facility]/ZIP Co de Phone Number [facility] [address] [place] [phone] * Albumin, Random Urine W/Creatinine (12/26/2023 4:00 PM EDT) Pathologist [facility] Creatinine, Urine 213.46 mg/dL [facility] Microalbumin Urine 10.0 mg/L [facility] Microalbum Creatinine Ratio Ur 4.6 <30 ug/mg cr [facility] Comment:Albumin/Creatinine R atio Reference Ranges: Normal: < 30 ug/mg creatinine Microalbuminuria: 30 - 300 ug/mg creatinineClinical Albuminuria: > 300 ug/mg creatinine Urine (Urine, Random) 12/26/2023 4:00 PM EDT 12/26/2023 5:33 PM EDT us Ibeth Vasques MD LAB URINE ORDERAB LES Final Result Performing Organization Address [facility]/ZIP Co de Phone Number [facility] [address] [place] [phone] * HIV-1/2 Antigen and Antibodies, Fourth Generation, with Reflexes (12/26/2023 4:00 PM EDT) HIV AB/AG Nonreactive Nonreactive [facility] Comment:HIV-1 p24 Ag and/or HIV-1/HIV-2 Ab not detected.A test result that is nonreactive does not exclude thepossibility of exposure to or infection with HIV-1 and/orHIV-2. Nonreactive results in this assay for individualswith prior exposure to HIV-1 and/or HIV-2 may be due toantigen and antibody levels that are below the limit ofdetection of this assay.The [employer] HIV Ag/Ab Combo assay result andsupplemental assay results should be interpreted inconjunction with the patient's clinical presentation,history and other laboratory results. If the results areinconsistent with clinical evidence, additional testing issuggested to confirm the result. Blood Venous blood specimen / Unknown 12/26/2023 4:00 PM EDT 12/26/2023 5:31 PM EDT Ibeth Vasques MD LAB BLOOD ORDERAB LES Final Result [facility] [address] [place] [phone] * Hm Colonoscopy (12/02/2020 11:44 AM EDT) Historical Provider HEALTH MAINTENANCE Final Result * Mammography Report 1 (09/23/2020 3:30 PM EDT) Anatomical Region Laterality Modality Breast Bilateral Mammography 09/23/2020 3:30 PM EDT Narrative 09/24/2020 2:32 PM EDT Refer to the Notes tab for result details [facility] Procedure: Mammography Report 1 Procedure Note Provider, MD Edgar - 05/29/2022 Refer to the Notes tab for result details [facility] Procedure: Mammography Report 1 Historical Provider IMG BI PROCEDURES Final R esult from Last 3 Months or Most Recently Relevant to Health Maintenance Insurance [facility] C3 Care Teams Fine Patcher Relationship Specialty Start Date End Date Ibeth Colby MD [address] [place] [phone] PCP - General Internal Medicine 12/13/22 Suzanne Meyers Sheriffs OfficerProcurement Buyer 03/15/23
--- OUTSIDE RECORDS SUMMARY | 2024-11-14 18:13 | XMS_ITS | Encounter Summary ---
Author Organization [employer] Address [address] [facility] [place] [address] Care Team Providers Care Paperboard Box Maker Name Role Phone Ibeth Colby MD Primary Care Pro vider Encounter Details Date Type Department Care Team (Late st Contact Info) Description 06/26/2023 Orders Only [facility] MEDICINE [address] [place] [address] Provider, MD Edgar Social History Tobacco Use [...] on file documented as of this encounter Procedures Procedure [...] documented as of this encounter Care Teams Paperboard Box Maker Relationship Specialty Start Date End Date Ibeth Colby MD [address] [place] [phone] PCP - General Internal Medicine 12/13/22 Suzanne Meyers Vice President Of MarketingVamp Seamer 03/15/23 documented as of this encounter
--- OUTSIDE RECORDS SUMMARY | 2024-11-14 18:13 | XMS_ITS | Encounter Summary ---
Author Organization [employer] Address [address] [facility] 7 [place] [address] Care Team Providers Care Flower Picker Name Role Phone Ibeth Colby MD Primary Care Pro vider Reason for Visit * Reason Comments Med Refill Encounter Details Date Type Department Care Team (Late st Contact Info) Description 10/24/2023 Refill [facility] MED & PEDS [address] [place], [place] [phone] Ibeth Colby MD [address] [place], [place] [phone] Social History Tobacco Use Types Packs/Day Years [...] documented as of this encounter Care Teams Flower Picker Relationship Specialty Start Date End Date Ibeth Colby MD [address] [place] [phone] PCP - General Internal Medicine 12/13/22 Suzanne Meyers Division Order TechnicianAffirmative Action Specialist 03/15/23 documented as of this encounter
--- OUTSIDE RECORDS SUMMARY | 2024-11-14 18:13 | XMS_ITS | Clinical Summary ---
Author Organization [facility] Address [address] [place] [address] Care Team Providers Care Head Of Commission Department Name Role Phone Unavailable Primary Care Provider [...] Adhesive Bandage Contact Dermatitis,Hives,Itch ing,Rash,Swelling Low 02/22/2024 [place] Anaphylaxis High 08/15/2013 Gluten Anaphylaxis High 03/22/2022 [...] Refills, Maintenance, 11/21/23 3:54:00 PM EDT, Aerosol, [facility]/pharmacy #[id number], Partial fill upon patient request if the [...] (VISTARIL) 50 mg capsuleIndications :Episodic mood disorder ([facility] V24) Take 1 Capsule by mouth 2 (two) times Daily for 30 days. 60 Capsule 2 09/13/19 25 Active lamoTRIgine (LAMICTAL) 100 mg tabletIndications: Episodic mood disorder ([facility] V24) Take 1 Tablet by mouth 2 (two) times daily for 30 days. 60 Tablet 2 09/13/19 25 Active prazosin (MINIPRESS) 5 mg capsuleIndications :Posttraumatic stress disorder Take 1 Capsule by mouth nightly at bedtime for 30 days. 30 Capsule 2 09/13/19 25 Active QUEtiapine (SEROQUEL) 100 mg tabletIndications: Episodic mood disorder ([facility] V24) Take 1 Tablet by mouth nightly at bedtime for 30 days. 30 Tablet 2 09/13/19 25 Active zolpidem (AMBIEN) 10 mg tablet Take 1 Tablet by mouth nightly at bedtime as needed for sleep for up to 30 days for insomnia. 30 Tablet 1 10/01/19 25 Active Active Problems Problem Noted Date Diagnosed Date Severe obesity ([facility]) 02/22/2024 Other emphysema ([facility]) 02/22/2024 Acute kidney failure ([facility] V24) 02/22/2024 Overdose of antidepressant 02/22/2024 Migraine headache 10/18/2023 History of tobacco use 10/18/2023 Health care maintenance 05/31/2022 Overview (02/22/2024): Pap: 05/02/2017 NILM; HPV neg Colonoscopy: 12/02/20; polyp removed Mammogram: 09/23/20 BIRADS 1 Class 2 obesity 05/31/2022 Asthma-chronic obstructive p ulmonary disease overlap syndrome ([facility]) 05/31/2022 Obsessive-compulsive disorder 05/18/2022 Assessment [...] needed Severe chronic obstructive p ulmonary disease ([facility]) 05/18/2022 Vertigo 05/17/2022 Opioid dependence ([facility]) 05/17/2022 Assessment & Plan (07/18/2024 3:06 PM [...] of urine 05/25/2020 Acute nontraumatic kidney injury ([facility] V24) 0 05/25/2020 Vitamin D deficiency 07/23/2018 Overview (02/22/2024): I have several side effects Episodic mood disorder ([facility] V24) 02/06/2018 Assessment & Plan (09/12/2024 1:23 [...] current meds, no refills needed Seizure disorder ([facility]) 12/15/2014 Posttraumatic stress disorder 12/15/2014 Assessment & [...] EDT Behavioral Health Visit [facility] [address] [place] [phone] Vida Hernandez APRN from Last 3 Months Immunizations Immunization Administration Dates Next Due Flu, Multi Dose 0.5 ML 01/04/2018,11/23/2016 Flu, Preservative Free 03/08/2016 Flu, Recombinant, 18y+, Flublok 01/02/2020 Hep A, adult 05/23/2013,01/19/2011,07/20/2000 Hep B, Adult/Adol (CRIMTEY-I-CFPXN/RECOMBIVAX-ADULT) 03/08/2016,01/16/2011,12/03/2009 INFLUENZA, SEASONAL, INJECTABLE 02/11/2014,03/13 INFLUENZA, SEASONAL, INJECTA BLE, PRESERVATIVE FREE 12/26/2023 PNEUMOCOCCAL CONJUGATE PCV 20 (Prevnar 20) 10/17 PNEUMOCOCCAL POLYSACCHARIDE PPV23 (Pneumovax 23) 02/17/2014 [facility] State Funded Flu Vaccine [...] Upcoming Encounters Date Type Department Care Team ([facility] st Contact Info) Description 11/28/2024 2:00 PM EDT Behavioral Health Visit [facility] [address] [place] [phone] Vida Hernandez, KAUSHIK [address] [place] [address] Health Maintenance Due Date Last Done Comments Anxiety Screening 1972 HPV Screening 1972 LARC-Mirena IUD 1972 Pap + HPV 1972 Syphilis Screening 12/10/1986 Hypertension Screening (#1) 1990 Cervical Cancer Screening [address] Colonography 2017 Colonoscopy 2017 Colorectal Cancer Screening 2017 FIT/gFOBT 2017 Fecal DNA 2017 Flexible Sigmoidoscopy 2017 Breast Cancer Screening (Mammogram) 09/23/2022 09/23/2020 Imm-Zoster, Recombinant (1 of 2) 2022 Alcohol and Drug Screen 03/06/2024 Depression Annual Screen 03/06/2024 [id number] ( season) 2024 021, 06/02/2020 Imm-Influenza (#1) 2024 12/26/2023, 1 , 01/04/2018, [...] Discontinued Vaginal Pap Discontinued Vulvoscopy Discontinued Insurance [facility] [place] MEDICAID
--- OUTSIDE RECORDS SUMMARY | 2024-11-14 18:13 | XMS_ITS | Encounter Summary ---
Author Organization [email or web address] Address [address] [facility] [address] [place] [address] Care Team Providers Care Telemarketer Name Role Phone Ibeth Colby MD Primary Care Pro vider Encounter Details Date Type Department Care Team (Late st Contact Info) Description 12/15/2022 Orders Only [facility] MED & PEDS [address] [place] [address] Ernestina Gutierrez LPN Social History Tobacco Use [...] documented as of this encounter Care Teams Telemarketer Relationship Specialty Start Date End Date Ibeth Colby MD [address] [place] [phone] PCP - General Internal Medicine 12/13/22 Suzanne Meyers Glove OperatorGranite Block Paver 03/15/23 documented as of this encounter
--- OUTSIDE RECORDS SUMMARY | 2024-11-14 18:13 | XMS_ITS | Clinical Summary ---
Author Organization [facility] Address [address] [facility] [address] [place] [address] Phone Care Team Providers Care Fit Model Name Role Phone Mis Harmon NP Primary Care Provider [phone] Allergies No known active allergies Medications coenzyme [...] directed Active ergocalciferol (VITAMIN D-2) 1.25 MG (13158 UT) capsule Take 1 capsule by mouth [...] Insurance Medicaid [place] Care Teams Fit Model Relationship Specialty Start Date End Date Mis Harmon NP PCP - General 03/16/20
--- OUTSIDE RECORDS SUMMARY | 2024-11-14 18:13 | XMS_ITS | Encounter Summary ---
Author Organization [employer] Address [address] [facility] 7 [place] [address] Care Team Providers Care Jewel Bearing Driller Name Role Phone Ibeth Colby MD Primary Care Pro vider Reason for Visit * Reason Onset Date Comments switch appointment 06/13/2024 Encounter Details Date Type Department Care Team (Late st Contact Info) Description 06/13/2024 Telephone [facility] MEDICINE [address] [place], [place] [phone] Ibeth Colby MD [address] [place], [place] [phone] switch appointment Social History Tobacco Use Types [...] states doesn't want to miss the appointment. [phone] documented in this encounter Plan of Treatment Not on file documented as of this encounter Visit Diagnoses Not on filedocumented in this encounter Additional Health Concerns Assessment Noted Time PHQ-9 Depression Total Score: 6 12/27/19 24 9:10 AM EDT documented as of this encounter Care Teams Jewel Bearing Driller Relationship Specialty Start Date End Date Ibeth Colby MD [address] [place] [address] [phone] PCP - General Internal Medicine 12/13/22 Suzanne Meyers Design Engineer ProductsAerospace Technician 03/15/23 documented as of this encounter
== END 2024-11-14 15:17 | disposition home or self-care (01) ==
LOC: HO.HGI 14:30
PROVIDERS: PCP Student in an Organized Health Care Education/Training Program; Visit Provider Nurse Practitioner
DX: K21.9 Gastro-esophageal reflux disease without esophagitis (principal); R11.2 Nausea with vomiting, unspecified; Z12.11 Encounter for screening for malignant neoplasm of colon; Z12.12 Encounter for screening for malignant neoplasm of rectum
CPT/HCPCS: 99213

== ENCOUNTER → 2024-11-14 14:30 | Outpatient (BNVA) | payer MEDICAID, SELFPAY | PROVIDERS: PCP Student in an Organized Health Care Education/Training Program; Visit Provider Nurse Practitioner | DX: K21.9 Gastro-esophageal reflux disease without esophagitis (principal); R11.2 Nausea with vomiting, unspecified; N25.89 Other disorders resulting from impaired renal tubular function; Z12.11 Encounter for screening for malignant neoplasm of colon; Z12.12 Encounter for screening for malignant neoplasm of rectum | CPT/HCPCS: 99212 ==

== ENCOUNTER 2024-12-27 15:06 | Outpatient (REF) | payer MEDICAID, SELFPAY ==
--- OUTSIDE RECORDS SUMMARY | 2024-12-27 16:44 | XMS_ITS | Encounter Summary ---
Author Organization [employer] Address [address] [place] [address] [address] [place] [address] Care Team Providers Care Business Support Manager Name Role Phone Nilda Dunn Conchita SHELLFISH HARVESTER Primary Care Provider Ibeth Fox MD Primary Care Pro vider Encounter Details Date Type Department Care Team (Late st Contact Info) Description 04/06/2022 Orders Only [facility] MEDICINE [address] [place] [address] [phone] Ernestina Gutierrez LPN Social History Tobacco Use [...] Care Team (Late st Contact Info) Description 01/03/2025 1:00 PM EDT Telemedicine [facility] MEDICINE [address] [place] [address] [phone] Ibeth Colby MD [address] [place] [address] [phone] documented as of this encounter Visit Diagnoses Not on filedocumented in this encounter Additional Health Concerns Assessment Noted Time PHQ-9 Depression Total Score: 0 03/22/19 23 1:19 PM EST documented as of this encounter Care Teams Business Support Manager Relationship Specialty Start Date End Date Nilda Dunn FNP PCP - General Family Medicine 11/03/21 12/12/22 Ibeth Colby MD [address] [place] [phone] PCP - General Internal Medicine 12/13/22 Suzanne Meyers Energy AdministratorHomeland Security Program Specialist 03/15/23 documented as of this encounter
--- OUTSIDE RECORDS SUMMARY | 2024-12-27 16:44 | XMS_ITS | Clinical Summary ---
Author Organization [employer] Address [address] [facility] 7t [place] [address] Care Team Providers Care Pipe Or Steam Fitter Furnace Installer Name Role Phone Ibeth Colby MD Primary Care Pro vider Allergies Active Allergy Reactions Criticality Noted Date Comments [place] Anaphylaxis High 08/15/2013 Gluten Meal Anaphylaxis High [...] replace cap. 48 mL 2 024 Active Trelegy Ellipta 100-62.5-25 MCG/ACT aerosol powder 1 PUFFS INHALATION DAILY, AT THE SAME TIME EVERY DAY Active FREESTYLE LITE test strip USE 1 STRIP BY DIRECTED ROUTE EVERY DAY 50 strip 5 025 Active propranolol LA (Inderal LA) 80 MG 24 hr capsule TAKE 1 CAPSULE BY MOUTH EVERYDAY AT BEDTIME 90 capsule 1 025 Active fenofibrate micronized (Antara) 130 MG capsule TAKE 1 CAPSULE BY MOUTH EVERY DAY 90 capsule 3 025 Active cholecalciferol VITAMIN D (Vitamin D-3) 50 MCG (1999 UT) capsuleIndicati ons:Vitamin D deficiency TAKE 1 CAPSULE BY MOUTH EVERY DAY 90 capsule 1 025 Active Multiple Vitamin (Multi-Vitamin) tablet TAKE 1 TABLET BY MOUTH EVERY DAY WITH FOOD 90 tablet 1 Active EPINEPHrine (Epipen) 0.3 MG/0.3ML injection syringe [...] capsule by mouth Once per day. Active Tirzepatide-Rogerio ght Management (Zepbound) 7.5 MG/0.5ML solution auto-injector Inject 0.5 mL (7.5 mg) as directed 1 (one) time per week. INJECT ONE PEN (=7.5 MG) SUBCUTANEOUSLY ONCE A WEEK 2 mL Active lidocaine (Lidoderm) 5 % patchIndication s:Chronic bilateral low back pain with bilateral sciatica APPLY 1 PATCH TOPICALLY IN THE MORNING. 30 patch 3 Active loratadine (Claritin) 10 MG tablet TAKE 1 TABLET BY MOUTH EVERY DAY NEEDED 90 tablet 1 Active valACYclovir (Valtrex) 1 g tablet TAKE 1 TABLET BY MOUTH EVERY DAY 30 tablet 3 Active loratadine (Claritin) 10 MG tablet TAKE 1 TABLET BY MOUTH EVERY DAY NEEDED 90 tablet 1 025 2024 Discontinued lidocaine (Lidoderm) 5 % patchIndication s:Chronic bilateral low back pain with bilateral sciatica APPLY 1 PATCH TOPICALLY IN THE MORNING. 30 patch 3 025 2024 Discontinued valACYclovir (Valtrex) 1 g tablet TAKE 1 TABLET BY MOUTH EVERY DAY 30 tablet 3 025 2024 Discontinued Tirzepatide-Rogerio ght Management (Zepbound) 7.5 MG/0.5ML solution auto-injector Inject 0.5 mL (7.5 mg) as directed 1 (one) time per week. INJECT ONE PEN (=7.5 MG) SUBCUTANEOUSLY ONCE A WEEK 2 mL 025 2024 Discontinued(R eorder (will not trigger notification to Pharmacy)) Active Problems Problem Noted Date Diagnosed Date Bipolar 1 disorder (CMS/HCC) 10/25/2024 NO (obstructive sleep apnea) 06/15/2024 Abnormal EEG 05/10/2024 History of tobacco use 10/18/2023 Migraine 10/18/2023 Class 2 obesity 05/31/2022 Health care maintenance 05/31/2022 Overview (05/31/2022): Pap: 05/02/2017 NILM; HPV neg Colonoscopy: 12/02/20; polyp removed Mammogram: 09/23/20 BIRADS 1 Asthma-COPD overlap syndrome (CMS/HCC) Severe chronic obstructive pulmonary disease ( S/[facility]) 05/18/2022 Obsessive-compulsive disorder 05/18/2022 Acid reflux 05/17/2022 Allergic [...] 12/15/2014 Posttraumatic stress disorder 12/15/2014 Seizure disorder (CMS/HCC) 12/15/2014 Hepatitis C 08/15/2013 Resolved Problems Problem Noted Date Diagnosed Date Resolved Date Type 2 diabetes mellitus 05/18/2022 Abnormal findings on examina tion of genitourinary organs 05/25/2020 10/18/2023 Moderate persistent asthma w ithout complication 02/06/2018 05/31/2022 Encounters Date Type Department Care Team Description 12/25/2024 Refill [facility] MEDICINE [address] [place] [phone] Ibeth Colby MD 12/25/2024 Refill [facility] MEDICINE [address] [place] [address] Marisa Farrell MD 12/25/2024 Refill [facility] MEDICINE [address] [place] [address] Bishop Vázquez MD Chronic bilateral low back pain with bilateral sciatica 12/25/2024 Refill [facility] MEDICINE [address] [place] [address] Ibeth Colby MD 12/25/2024 Refill [facility] [address] [place] [address] Ibeth Colby MD Chronic bilateral low back pain with bilateral sciatica 12/14/2024 Refill [facility] MEDICINE [address] [place] [address] Ibeth Colby MD 12/11/2024 Telephone [facility] MEDICINE [address] [place] [address] Ibeth Colby MD Appointment 11/15/2024 Refill [facility] MEDICINE [address] [place] [phone] Ibeth Colby MD 10/25/2024 1:45 PM EDT Office Visit [facility] MEDICINE [address] [place] [phone] Ibeth Colby MD Breast cancer screening by mammogram (Primary Dx); Hyperhidrosis of palms; Annual physical exam; Bipolar 1 disorder ([facility]/HCC); Hyperlipidemia, unspecified hyperlipidemia type; Non-seasonal allergic rhinitis due to other allergic trigger; Hypothyroidism, unspecified type; Class 2 obesity; Health care maintenance; Herpes simplex type 1 infection; Major depressive disorder with single episode, remission status unspecified; Other migraine without status migrainosus, not intractable; Seizure disorder ([facility]/HCC) 10/25/2024 Orders Only [address] [address] Ibeth Colby MD Thrombocytopenia ([facility]) (Primary Dx); DEEPTHI (acute kidney injury) ([facility]) 10/25/2024 Results Follow-Up [address] [address] Ibeth Colby MD CBC, Comprehensive Metabolic Panel, Hemoglobin A1c, Additional followed-up results: 5 10/25/2024 Travel 10/24/[address] [address] Ibeth Colby MD chart prep 10/22/2024 11:00 AM EDT Office Visit [facility] OPTOMETRY [address] [place] [phone] Neel, Monet, OD Chronic hepatitis C without hepatic coma ([facility]/HCC) (Primary Dx) 10/22/2024 Travel 10/18/2024 Patient Outreach [facility] MEDICINE [address] [place] [phone] Ibeth Colby MD Pre-visit Planning (Pre-visit planning - LVM ) 10/13/2024 Refill [facility] MEDICINE [address] [place] [phone] Ibeth Colby MD 10/08/2024 Refill [facility] MED & PEDS [address] [place] [address] [phone] Bishop Vázquez MD 10/07/2024 Refill [facility] [address] [place] [address] Bishop Vázquez MD Vitamin D deficiency from Last 3 Months Immunizations Immunization Administration [...] 10/25/2024 1:56 PM EDT Plan of Treatment Upcoming Encounters Date Type Department Care Team (Late st Contact Info) Description 01/03/2025 1:00 PM EDT Telemedicine [facility] MEDICINE [address] [place], [place] [phone] Ibeth Colby MD [address] [place], [place] [phone] Health Maintenance Due Date Last Done Comments CT Colonography 1972 FIT DNA/Cologuard 1972 FIT 1972 FOBT 1972 Sigmoidoscopy 1972 Disability Screening 1972 Diabetes: Foot Exam 1982 Eye Exam 1982 Colonoscopy 12/02/2021 12/02/2020 Colorectal Cancer Screening 12/02/2021 Mammogram 09/23/2022 09/23/2020 Lung Cancer Screening 2022 Zoster Vaccines (1 of 2) 2022 COVID-19 Vaccine ( season) 2024 06/30/2020, 06/02/2020 Influenza Vaccine (#1) [...] 25-Hydroxy, Total, Immunoassay (10/25/2024 2:57 PM EDT) Pathologist [facility] Vitamin D 25-OH Total 79.7 >30 ng/mL [facility] Comment: Health Based Reference Values*< 20 ng/mL Wnzmmiaab10-62 ng/mL Insufficient> 30 ng/mL Sufficient*Andres MATTA. N [...] ORDERAB LES Final Result Performing Organization Address [facility]/ZIP Co de Phone Number [facility] [address] [place] [phone] * Vitamin B12 (Cobalamin) and Folate Panel, Serum (10/25/2024 2:57 PM EDT) [facility] Vitamin B12 412 200 - 900 pg/mL [facility] Comment:NORMAL 200-900 PG/ML INDETERMINATE 160-199 PG/ML DEFICIENT < 160 PG/ML Folate 10.0 > or = 4.0 ng/mL [facility] Comment:Reference Values:> o r = 4.0 ng/mL< 4.0 ng/mL suggests folate deficiency Methotrexate, aminopterin and folinic acid(leucovorin) are chemotherapeutic agents whose molecularstructures are similar to folate; therefore, the Architectfolate assay cannot be used for patients using these drugs. Blood 10/25/2024 2:57 PM EDT 10/25/2024 4:42 PM EDT us Ibeth Vasques MD LAB BLOOD ORDERAB LES Final Result Performing Organization Address [facility] Co de Phone Number [facility] [address] [place] [phone] * (ABNORMAL) CBC (10/25/2024 2:57 PM EDT) [facility] White Blood Count 7.9 4.8 - 10.8 X10*3/uL [facility] Red Blood Count 4.50 4.20 - 5.50 X10*6/uL [facility] Hemoglobin 14.2 12.0 - 16.0 g/dl [facility] Hematocrit 41.5 37.0 - 47.0 % [facility] Mean Corpuscular Volume 92.2 80.0 - 98.0 fL [facility] Mean Corpuscular Hemoglobin 31.6 27.0 - 33.0 pg [facility] Mean Corpuscular HGB Conc 34.2 31.0 - 35.0 g/dl [facility] Red Cell Distribution Width 12.4 11.0 - 16.0 % [facility] Platelet Count 118(L) 160 - 400 X10*3/uL [facility] Mean Platelet Volume 11.4 9.4 - 12.3 fL [facility] NRBC Pct Auto 0.0 0.0 - 0.2 /100WBC [facility] NRBC Abs Auto 0.000 0.0 - 0.012 X10*3/uL [facility] Blood Venous blood specimen / Unknown 10/25/2024 2:57 PM EDT 10/25/2024 4:42 PM EDT us Ibeth Vasqeus MD LAB BLOOD ORDERAB LES Final Result Performing Organization Address [facility]/ZIP Co de Phone Number [facility] [address] [place] [phone] * TSH (10/25/2024 2:57 PM EDT) [facility] Thyroid Stimulating Hormone 3.82 0.32 - 4.0 uIU/mL [facility] Comment:Note: A sustained TS H level above 2.5 uIU/mL may warrant further investigation. TSH 3rd Generation ([facility]) Blood Venous blood specimen / Unknown 10/25/2024 2:57 PM EDT 10/25/2024 4:42 PM EDT us Ibeth Vasques MD LAB BLOOD ORDERAB LES Final Result Performing Organization Address City/[facility]/ZIP Co de Phone Number [facility] [address] [place] [phone] * T4, Free (10/25/2024 2:57 PM EDT) Pathologist [facility] Free T4 (Free Thyroxine) 1.19 0.71 - 1.85 ng/dL [facility] Blood Venous blood specimen / Unknown 10/25/2024 2:57 PM EDT 10/25/2024 4:42 PM EDT Ibeth Vasques MD LAB BLOOD ORDERAB LES Final Result Performing Organization Address [facility] Co de Phone Number [facility] [address] [place] [phone] * Hemoglobin A1c (10/25/2024 2:57 PM EDT) Hemoglobin A1c 5.4 <6.0 % [facility] Comment:Hemoglobin A1C Refer ence Range Adults: 4.8 - 6.0 % Non diabetic: < 6.0 % Goal: < 7.0 %Additional Action Suggested: > 8.0 %Note: Hemoglobin A1c results are invalid for patients with abnormal amounts of HbF. Blood transfusions may impact the HbA1c concentration in the patient sample. Estimated Average Glucose 108 mg/dL [facility] Comment:eAG = Estimated ave rage glucose which is %A1C expressed asaverage glucose, using the formula of the J1Y-QfcpzspQnqvniw Glucose study (ADAG), Diabetes Care, Vol.31,#8,Oct. 2007 Blood Venous blood specimen / Unknown 10/25/2024 2:57 PM EDT 10/25/2024 4:42 PM EDT us Ibeth Vasques MD LAB BLOOD ORDERAB LES Final Result Performing Organization Address [facility]/ZIP Co de Phone Number [facility] [address] [place] [phone] * (ABNORMAL) Lipid Panel, Standard (10/25/2024 2:57 PM EDT) Triglycerides 103 <150 mg/dL [facility] Comment:Desirable Triglyceri de: less than 150 mg/dLBorderline High Triglyceride 150-199 mg/dLHigh Triglyceride: 200-499 mg/dLVery High Triglyceride: greater than or equal to 5OO mg/dL Cholesterol 193 <200 mg/dL [facility] Comment:Desirable Cholestero l: less than 200 mg/dLBorderline High Cholesterol: 200-239 mg/dLHigh Cholesterol: greater than 239 mg/dL LDL Cholesterol Calculated 123(H) <100 mg/dL [facility] Comment:Desirable LDL: less than 100 mg/dLNear Optimal/Above Optimal LDL: 110- 129 mg/dLBorderline High LDL: 130-159 mg/dLHigh LDL: 160-189 mg/dLVery High LDL: greater than or equal to 190 mg/dL HDL Cholesterol 50 >40 mg/dL [facility] Comment:Desirable HDL: great er than 40 mg/dL Note: This HDL assay may give artificially low results in patients with liver disease. Blood Venous blood specimen / Unknown 10/25/2024 2:57 PM EDT 10/25/2024 4:42 PM EDT Ibeth Vasques MD LAB BLOOD ORDERAB LES Final Result [facility] [address] [place] [phone] * (ABNORMAL) Comprehensive Metabolic Panel (10/25/2024 2:57 PM EDT) Sodium 142 135 - 145 mmol/L [facility] Potassium 4.1 3.3 - 5.1 mmol/L [facility] Chloride 110(H) 96 - 108 mmol/L [facility] Carbon Dioxide 23 22 - 29 mmol/L [facility] Anion Gap 13 12 - 20 [facility] Urea Nitrogen (BUN) 16 9 - 16 mg/dL [facility] Creatinine, Serum 1.16 0.5 - 1.4 mg/dL [facility] Estimated Glomerular Filt Rate 49 [facility] Comment:Chronic Kidney Disea se: Estimated GFR < 60 mL/min/1.75c9Oojajg Kidney Disease: Estimated GFR < 15 mL/min/1.73m2 Glucose 86 60 - 115 mg/dL [facility] Calcium 9.9 8.4 - 10.2 mg/dL [facility] Bilirubin, Total 0.5 0.0 - 1.0 mg/dL [facility] Aspartate Amino Transferase 28 5 - 31 U/L [facility] Alanine Aminotransferase 15 0 - 31 U/L [facility] Total Protein 7.9 6.5 - 8.0 g/dL [facility] Albumin Level 4.8 3.5 - 5.0 g/dL [facility] Alkaline Phosphatase 46 39 - 117 U/L [facility] Blood Venous blood specimen / Unknown 10/25/2024 2:57 PM EDT 10/25/2024 4:42 PM EDT Ibeth Vasques MD LAB BLOOD ORDERAB LES Final Result [facility] [address] [place] [phone] * HPV DNA, Low/High Risk (07/23/2024 2:46 PM EDT) HPV High Risk Negative Negative [facility] HPV Genotype 16 Negative Negative [facility] HPV Genotype 18 Negative Negative [facility] Comment:HPV testing performe d at [facility] (CLIA#[id number]), [address] [place] [address].Testing for HPV was performed using the Robert [...] 2:46 PM EDT 07/24/2024 9:30 AM EDT Cassidy Gomez CNM LAB BLOOD ORDERABLES Dinah thornton Result [facility] [address] [place] [phone] * Pap Smear (07/23/2024 2:46 PM EDT) Swab Cervical swab / Unknown 07/23/2024 2:46 PM EDT 07/24/2024 9:30 AM EDT Narrative [facility] - 07/26/2024 9:25 AM EDT ----- ------- Name: JeffrySera Age/Sex: 53/F : 1970 Unit#: [id number] Attend Dr: CASSIDY GOMEZ CNM Re07/24/24 Status: CARINA [facility] ----- ------- SPEC : [id number] RECD: 07/24/24 STATUS: LISA AVILEZ NUM: [id number] ZINA: 07/23/24-[address]: CASSIDY GOMEZ CNM ENTERED: 07/24/24-1026 SP TYPE: Pap Smr OTHR DR: ORDERED: Pap Smear Interpretation Satisfactory for evaluation. Negative for intraepithelial lesion or malignancy. No endocervical cells seen. HPV High Risk: Negative HPV Genotyping 16: Negative HPV Genotyping 18: Negative Clinical Information LMP: Unknown date Previous PAP test: 2018, WNL Other surgery: IUD Material Received ThinPrep-Cervical ----- ------- Signed (signature on file) YUNG Tillman (ASCP) 07/26/24 0925 ----- ------- END OF REPORT us Cassidy Gomez [facility] CYTOLOGY ORDERABLES F inal Result [facility] [address] [place] [phone] * Albumin, Random Urine W/Creatinine (12/26/2023 4:00 PM EDT) Creatinine, Urine 213.46 mg/dL [facility] Microalbumin Urine 10.0 mg/L [facility] Microalbum Creatinine Ratio Ur 4.6 <30 ug/mg cr [facility] Comment:Albumin/Creatinine R atio Reference Ranges: Normal: < 30 ug/mg creatinine Microalbuminuria: 30 - 300 ug/mg creatinineClinical Albuminuria: > 300 ug/mg creatinine Urine (Urine, Random) 12/26/2023 4:00 PM EDT 12/26/2023 5:33 PM EDT Ibeth Vasques MD LAB URINE ORDERAB LES Final Result Performing Organization Address [facility] Co de Phone Number [facility] [address] [place] [phone] * HIV-1/2 Antigen and Antibodies, Fourth Generation, with Reflexes (12/26/2023 4:00 PM EDT) HIV AB/AG Nonreactive Nonreactive [facility] Comment:HIV-1 p24 Ag and/or HIV-1/HIV-2 Ab not detected.A test result that is nonreactive does not exclude thepossibility of exposure to or infection with HIV-1 and/orHIV-2. Nonreactive results in this assay for individualswith prior exposure to HIV-1 and/or HIV-2 may be due toantigen and antibody levels that are below the limit ofdetection of this assay.The [employer] HIV Ag/Ab Combo assay result andsupplemental assay results should be interpreted inconjunction with the patient's clinical presentation,history and other laboratory results. If the results areinconsistent with clinical evidence, additional testing issuggested to confirm the result. Blood Venous blood specimen / Unknown 12/26/2023 4:00 PM EDT 12/26/2023 5:31 PM EDT Ibeth Vasques MD LAB BLOOD ORDERAB LES Final Result Performing Organization Address [facility] Co de Phone Number [facility] [address] [place] [phone] * Hm Colonoscopy (12/02/2020 11:44 AM EDT) Edgar Wynn MD HEALTH MAINTENANCE Final Result * Mammography Report 1 (09/23/2020 3:30 PM EDT) Anatomical Region Laterality Modality Breast Bilateral Mammography 09/23/2020 3:30 PM EDT Narrative 09/24/2020 2:32 PM EDT Refer to the Notes tab for result details [facility] Procedure: Mammography Report 1 Procedure Note Provider, Edgar, - 05/29/2022 Refer to the Notes tab for result details [facility] Procedure: Mammography Report 1 Historical Provider MD YI BI PROCEDURES Final R esult from Last 3 Months or Most Recently Relevant to Health Maintenance Insurance [employer] Care Teams Pipe Or Steam Fitter Furnace Installer Relationship Specialty Start Date End Date Ibeth Colby MD [address] [place] [phone] PCP - General Internal Medicine 12/13/22 [facility] Meyers Toxicology SupervisorCultural Centre Manager 03/15/23
--- OUTSIDE RECORDS SUMMARY | 2024-12-27 16:44 | XMS_ITS | Encounter Summary ---
Author Organization [facility] Address [address] [facility] [address] [place] [phone] Phone Care Team Providers Care Door Person Name Role Phone Unavailable Primary Care Provider Unavailabl e Encounter Details Date Type Department Care Team (Latest Contact Info) Description 07/20/2022 Transcribe Orders Virtual Department [address] [place] [phone] Nilda Dunn NP Breast screening (Primary Dx) [...] It is not the complete legal health record.[facility]
--- OUTSIDE RECORDS SUMMARY | 2024-12-27 16:44 | XMS_ITS | Encounter Summary ---
Author Organization [employer] Address [address] [facility] 7 [place] [address] Care Team Providers Care Manager Emergency Name Role Phone Ibeth Colby MD Primary Care Pro vider Reason for Visit * Reason Onset Date Comments switch appointment 06/13/2024 Encounter Details Date Type Department Care Team (Late st Contact Info) Description 06/13/2024 Telephone [facility] MEDICINE [address] [place], [place] [phone] Ibeth Colby MD [address] [place], [place] [phone] switch appointment Social History Tobacco Use Types [...] states doesn't want to miss the appointment. [phone] documented in this encounter Plan of Treatment Upcoming Encounters Date Type Department Care Team (Late st Contact Info) Description 01/03/2025 1:00 PM EDT Telemedicine [facility] MEDICINE [address] [place], [place] [phone] Ibeth Colby MD [address] [place], [place] [phone] documented as of this encounter Visit Diagnoses Not on filedocumented in this encounter Additional Health Concerns Assessment Noted Time PHQ-9 Depression Total Score: 6 12/27/19 9:10 AM EDT documented as of this encounter Care Teams Manager Emergency Relationship Specialty Start Date End Date Ibeth Colby MD [address] [place] [phone] PCP - General Internal Medicine 12/13/22 Suzanne Meyers Dean Of WomenBarrel Bung Remover And Dumper 03/15/23 documented as of this encounter
--- OUTSIDE RECORDS SUMMARY | 2024-12-27 16:44 | XMS_ITS | Encounter Summary ---
Author Organization [employer] Address [address] [facility] [address] [address] [place] [address] Care Team Providers Care Special Loan Officer Name Role Phone Ibeth Colby MD Primary Care Pro vider Reason for Visit * Reason Comments Med Refill Encounter Details Date Type Department Care Team (Late st Contact Info) Description 03/28/2023 Refill [facility] MED[facility] [address] [place] [address] Edmond Fuller FNP Mood disorder (CMS/HCC) Social [...] Info) Description 01/03/2025 1:00 PM EDT Telemedicine [facility] MEDICINE [address] [place] [phone] Ibeth Colby MD [address] [place] [phone] documented as of this encounter Visit Diagnoses Diagnosis Mood disorder (CMS/HCC) Unspecified episodic mood disorder documented in this encounter Additional Health Concerns Assessment Noted Time PHQ-9 Depression Total Score: 0 01/13/20 23 2:53 PM EST documented as of this encounter Care Teams Special Loan Officer Relationship Specialty Start Date End Date Ibeth Colby MD [address] [place] [phone] PCP - General Internal Medicine 12/13/22 Suzanne Meyers Sales And Service RepresentativePhotocopying Machine Operator 03/15/23 documented as of this encounter
--- OUTSIDE RECORDS SUMMARY | 2024-12-27 16:44 | XMS_ITS | Encounter Summary ---
Author Organization [employer] Address [address] [facility] [address] 7t [place] [address] Care Team Providers Care Fiber Machine Tender Name Role Phone Ibeth Colby MD Primary Care Pro vider Reason for Visit * Reason Onset Date Comments Med Refill 12/25/2024 Encounter Details Date Type Department Care Team (Late st Contact Info) Description 12/25/2024 Refill [facility] MEDICINE [address] [place] [address] Marisa Farrell MD [address] [place] [address] Social History Tobacco Use Types Packs/Day Years [...] Q2 Not on file 10/25/2024 Comments Unknown Sex and Gender Information Value Date Recorded Sex Assigned at Female 01/03/2022 10:16 AM EDT Legal Sex Female 10:16 AM EDT Gender Identity Female 01/03/2022 10:16 AM EDT Sexual Orientation Straight 05/31/2022 2: 09 PM EDT documented as of this encounter Plan of Treatment Upcoming Encounters Date Type Department Care Team (Late st Contact Info) Description 01/03/2025 1:00 PM EDT Telemedicine [facility] MEDICINE [address] [place] [address] Ibeth Colby MD [address] [place] [phone] documented as of this encounter Visit Diagnoses Not on filedocumented in this encounter Additional Health Concerns Assessment Noted Time PHQ-9 Depression Total Score: 6 12/27/19 24 9:10 AM EDT documented as of this encounter Care Teams Fiber Machine Tender Relationship Specialty Start Date End Date Ibeth Colby MD [address] [place] [phone] PCP - General Internal Medicine 12/13/[address] [facility] [place] ManagerPoint Of Sale Associate 03/15/23 documented as of this encounter
--- OUTSIDE RECORDS SUMMARY | 2024-12-27 16:44 | XMS_ITS | Encounter Summary ---
Author Organization [employer] Address [address] [place] [address] 7 [place] [address] Care Team Providers Care Customer Operations Specialist Name Role Phone Nilda Dunn Conchita BILLING SPEC Primary Care Provider Ibeth Fox MD Primary Care Pro vider Reason for Visit * Reason Comments Med Refill Encounter Details Date Type Department Care Team (Late st Contact Info) Description 04/11/2022 Refill [facility] MEDICINE [address] [place] [address] [phone] Edmond Fuller FNP Social History Tobacco Use [...] Department Care Team (Late Contact Info) Description 01/03/2025 1:00 PM EDT Telemedicine [facility] MEDICINE [address] [place] [address] [phone] Ibeth Colby MD 230 [place], [place] [phone] documented as of this encounter Visit Diagnoses Not on filedocumented in this encounter Additional Health Concerns Assessment Noted Time PHQ-9 Depression Total Score: 0 03/22/19 23 1:19 PM EST documented as of this encounter Care Teams Customer Operations Specialist Relationship Specialty Start Date End Date Nilda Dunn FNP PCP - General Family Medicine 11/03/21 12/12/22 Ibeth Colby MD [address] [place] [address] PCP - General Internal Medicine 12/13/22 Suzanne Meyers Cracker Dough MixerTelephone Surveyor 03/15/23 documented as of this encounter
--- OUTSIDE RECORDS SUMMARY | 2024-12-27 16:44 | XMS_ITS | Encounter Summary ---
Author Organization [employer] Address [address] 7t [place] [address] Care Team Providers Care Salesperson Sheet Music Name Role Phone Ibeth Colby MD Primary Care Pro vider Reason for Visit * Reason Onset Date Comments Med Refill 12/25/2024 Encounter Details Date Type Department Care Team (Late st Contact Info) Description 12/25/2024 Refill [facility] MEDICINE [address] [place] [address] Bishop Vázquez MD 230 [place], [place] [phone] Chronic bilateral low back pain with bilateral sciatica Social History Tobacco Use Types Packs/Day Years [...] Info) Description 01/03/2025 1:00 PM EDT Telemedicine [facility] MEDICINE [address] [place] [phone] Ibeth Colby MD [address] [place] [phone] documented as of this encounter Visit Diagnoses Diagnosis Chronic bilateral low back pain with bilateral sciatica documented in this encounter Additional Health Concerns Assessment Noted Time PHQ-9 Depression Total Score: 6 12/27/19 24 9:10 AM EDT documented as of this encounter Care Teams Salesperson Sheet Music Relationship Specialty Start Date End Date Ibeth Colby MD [address] [place] [phone] PCP - General Internal Medicine 12/13/22 Suzanne Meyers Hospitality Team MemberCopy Writer 03/15/23 documented as of this encounter
--- OUTSIDE RECORDS SUMMARY | 2024-12-27 16:44 | XMS_ITS | Encounter Summary ---
Author Organization [employer] Address [address] [address] [facility] [address] 7t [place] [address] Care Team Providers Care Disk Sander Name Role Phone Ibeth Colby MD Primary Care Pro vider Encounter Details Date Type Department Care Team (Late st Contact Info) Description 12/15/2022 Orders Only [facility] MED & PEDS [address] [place] [address] Ernestina Gutierrez LPN Social History Tobacco Use [...] Info) Description 01/03/2025 1:00 PM EDT Telemedicine [facility] MEDICINE [address] [place] [address] [phone] Ibeth Colby MD [address] [place] [address] [phone] documented as of this encounter Visit Diagnoses Not on filedocumented in this encounter Additional Health Concerns Assessment Noted Time PHQ-9 Depression Total Score: 0 06/22/19 23 3:26 PM EDT documented as of this encounter Care Teams Disk Sander Relationship Specialty Start Date End Date Ibeth Colby MD [address] [place] [address] [phone] PCP - General Internal Medicine 12/13/22 Suzanne Meyers Whiteprinting Machine OperatorBusiness Objects Developer 03/15/23 documented as of this encounter
--- OUTSIDE RECORDS SUMMARY | 2024-12-27 16:44 | XMS_ITS | Encounter Summary ---
Author Organization [employer] Address [address] [facility] 7 [place] [address] Care Team Providers Care Supervisor Photostat Name Role Phone Ibeth Colby MD Primary Care Pro vider Reason for Visit * Reason Comments Med Refill Encounter Details Date Type Department Care Team (Late st Contact Info) Description 10/24/2023 Refill [facility] CHC MED & PEDS [address] [place], [place] [phone] Ibeth Colby MD 230 [place], [place] [phone] Social History Tobacco Use Types Packs/Day Years [...] Info) Description 01/03/2025 1:00 PM EDT Telemedicine [facility] MEDICINE [address] [place] [address] [phone] Ibeth Colby MD [address] [place] [phone] documented as of this encounter Visit Diagnoses Not on filedocumented in this encounter Additional Health Concerns Assessment Noted Time PHQ-9 Depression Total Score: 0 07/13/19 24 2:53 PM EDT documented as of this encounter Care Teams Supervisor Photostat Relationship Specialty Start Date End Date Ibeth Colby MD [address] [place] [address] [phone] PCP - General Internal Medicine 12/13/22 Suzanne Meyers Deputy County AttorneyRotor Coil Taper 03/15/23 documented as of this encounter
--- OUTSIDE RECORDS SUMMARY | 2024-12-27 16:44 | XMS_ITS | Encounter Summary ---
Author Organization [employer] Address [address] [facility] [address] 7t [place] [address] Care Team Providers Care Oracle Agile Plm Consultant Name Role Phone Ibeth Colby MD Primary Care Pro vider Reason for Visit * Reason Comments Med Refill Encounter Details Date Type Department Care Team (Late st Contact Info) Description 02/14/2023 Refill [facility] MEDICINE 230 [place] [address] Edmond Fuller FNP Mood disorder (CMS/HCC) Social [...] Info) Description 01/03/2025 1:00 PM EDT Telemedicine [facility] MEDICINE [address] [place] [address] Ibeth Colby MD [address] [place] [address] documented as of this encounter Visit Diagnoses Diagnosis Mood disorder (CMS/HCC) Unspecified episodic mood disorder documented in this encounter Additional Health Concerns Assessment Noted Time PHQ-9 Depression Total Score: 0 01/13/20 23 2:53 PM EST documented as of this encounter Care Teams Oracle Agile Plm Consultant Relationship Specialty Start Date End Date Ibeth Colby MD [address] [place] [address] PCP - General Internal Medicine 12/13/22 Suzanne Meyers Stained Glass InstallerReinforcing Iron Worker Helper 03/15/23 documented as of this encounter
--- OUTSIDE RECORDS SUMMARY | 2024-12-27 16:44 | XMS_ITS | Encounter Summary ---
Author Organization [employer] Address [address] [facility] [address] 7t [place] [address] Care Team Providers Care Repairer Wood Furniture Name Role Phone Ibeth Colby MD Primary Care Pro vider Reason for Visit * Reason Comments Med Refill Encounter Details Date Type Department Care Team (Late st Contact Info) Description 03/10/2023 Refill [facility] MEDICINE 230 [place] [address] Edmond Fuller FNP Mood disorder (CMS/HCC) Social [...] Info) Description 01/03/2025 1:00 PM EDT Telemedicine [facility] MED[facility]INE [address] [place] [address] Ibeth Colby MD [address] [place] [phone] documented as of this encounter Visit Diagnoses Diagnosis Mood disorder (CMS/HCC) Unspecified episodic mood disorder documented in this encounter Additional Health Concerns Assessment Noted Time PHQ-9 Depression Total Score: 0 01/13/20 23 2:53 PM EST documented as of this encounter Care Teams Repairer Wood Furniture Relationship Specialty Start Date End Date Ibeth Colby MD [address] [place] [phone] PCP - General Internal Medicine 12/13/22 Suzanne Meyers Straddle BugSunglass Clip Attacher 03/15/23 documented as of this encounter
--- OUTSIDE RECORDS SUMMARY | 2024-12-27 16:44 | XMS_ITS | Encounter Summary ---
Author Organization [employer] Address [address] [facility] [address] 7t [place] [address] Care Team Providers Care Project Manager Name Role Phone Ibeth Colby MD Primary Care Pro vider Reason for Visit * Reason Comments Med Refill Encounter Details Date Type Department Care Team (Late st Contact Info) Description 10/24/2023 Refill [facility] MEDICINE 230 [place] [address] Edmond Fuller FNP Social History Tobacco Use [...] Info) Description 01/03/2025 1:00 PM EDT Telemedicine [facility] MEDICINE [address] [place] [address] Ibeth Colby MD [address] [place] [address] documented as of this encounter Visit Diagnoses Not on filedocumented in this encounter Additional Health Concerns Assessment Noted Time PHQ-9 Depression Total Score: 0 07/13/19 24 2:53 PM EDT documented as of this encounter Care Teams Project Manager Relationship Specialty Start Date End Date Ibeth Colby MD [address] [place] [address] PCP - General Internal Medicine 12/13/22 Suzanne Meyers Magazine WriterDobby Loom Fixer 03/15/23 documented as of this encounter
--- OUTSIDE RECORDS SUMMARY | 2024-12-27 16:44 | XMS_ITS | Encounter Summary ---
Author Organization [employer] Address [address] [facility] [address] 7t [place] [address] Care Team Providers Care Long Wall Mining Machine Tender Name Role Phone Ibeth Colby MD Primary Care Pro vider Reason for Visit * Reason Comments Med Refill Encounter Details Date Type Department Care Team (Late st Contact Info) Description 07/24/2023 Refill [facility] MEDICINE 230 [place] [address] Edmond Fuller FNP Social History Tobacco Use [...] Info) Description 01/03/2025 1:00 PM EDT Telemedicine [facility] MEDICINE [address] [place] [address] Ibeth Colby MD [address] [place] [phone] documented as of this encounter Visit Diagnoses Not on filedocumented in this encounter Additional Health Concerns Assessment Noted Time PHQ-9 Depression Total Score: 0 07/13/19 24 2:53 PM EDT documented as of this encounter Care Teams Long Wall Mining Machine Tender Relationship Specialty Start Date End Date Ibeth Colby MD [address] [place] [phone] PCP - General Internal Medicine 12/13/22 Suzanne Meyers Fire InvestigatorPeoplesoft Hr Developer 03/15/23 documented as of this encounter
--- OUTSIDE RECORDS SUMMARY | 2024-12-27 16:44 | XMS_ITS | Encounter Summary ---
Author Organization [employer] Address [address] [facility] 7 [place] [address] Care Team Providers Care Greens Tier Name Role Phone Ibeth Colby MD Primary Care Pro vider Reason for Visit * Reason Onset Date Comments Med Refill 12/25/2024 Encounter Details Date Type Department Care Team (Late st Contact Info) Description 12/25/2024 Refill [facility] MEDICINE 230 [place] [address] Ibeth Colby MD 230 [place] [address] Social History Tobacco Use Types Packs/Day Years [...] Info) Description 01/03/2025 1:00 PM EDT Telemedicine [facility] MEDICINE [address] [place] [address] Ibeth Cloby MD [address] [place] [phone] documented as of this encounter Visit Diagnoses Not on filedocumented in this encounter Additional Health Concerns Assessment Noted Time PHQ-9 Depression Total Score: 6 12/27/19 24 9:10 AM EDT documented as of this encounter Care Teams Greens Tier Relationship Specialty Start Date End Date Ibeth Colby MD [address] [place] [address] PCP - General Internal Medicine 12/13/22 Suzanne Meyers System ControllerLean Engineer 03/15/23 documented as of this encounter
--- OUTSIDE RECORDS SUMMARY | 2024-12-27 16:44 | XMS_ITS | Encounter Summary ---
Author Organization [employer] Address [address] [facility] [address] 7t [place] [address] Care Team Providers Care Orderly Name Role Phone Ibeth Colby MD Primary Care Pro vider Reason for Visit * Reason Comments Med Refill Encounter Details Date Type Department Care Team (Late st Contact Info) Description 02/02/2023 Refill [facility] MEDICINE 230 [place] [address] Edmond Fuller FNP Mood disorder (CMS/HCC) Social [...] Info) Description 01/03/2025 1:00 PM EDT Telemedicine [facility] MEDICINE [address] [place] [address] Ibeth Colby MD [address] [place] [address] documented as of this encounter Visit Diagnoses Diagnosis Mood disorder (CMS/HCC) Unspecified episodic mood disorder documented in this encounter Additional Health Concerns Assessment Noted Time PHQ-9 Depression Total Score: 0 01/13/20 23 2:53 PM EST documented as of this encounter Care Teams Orderly Relationship Specialty Start Date End Date Ibeth Colby MD [address] [place] [phone] PCP - General Internal Medicine 12/13/22 Suzanne Meyers Glassware VerifierPeriodontal Assistant 03/15/23 documented as of this encounter
--- OUTSIDE RECORDS SUMMARY | 2024-12-27 16:44 | XMS_ITS | Encounter Summary ---
Author Organization [employer] Address [address] [facility] 7t [place] [address] Care Team Providers Care Medicaid Specialist Name Role Phone Nilda Dunn Conchita WORKERS' COMPENSATION CLAIMS EXAMINER Primary Care Provider Ibeth Fox MD Primary Care Pro vider Encounter Details Date Type Department Care Team (Late st Contact Info) Description 05/10/2022 Orders Only [facility] CHC MED & PEDS 505 [place], [place] [phone] Ange Leal LPN Social History Tobacco Use [...] [facility] MED[facility]INE 230 [place], [place] [phone] Ibeth Colby MD 230 [place], [place] [phone] documented as of this encounter Visit Diagnoses Not on filedocumented in this encounter Additional Health Concerns Assessment Noted Time PHQ-9 Depression Total Score: 0 03/22/19 23 1:19 PM EST documented as of this encounter Care Teams Medicaid Specialist Relationship Specialty Start Date End Date Nilda Dunn FNP PCP - General Family Medicine 11/03/21 12/12/22 Ibeth Colby MD [address] [place] [address] PCP - General Internal Medicine 12/13/22 Suzanne Meyers Primer Expeditor And DrierBlister Packaging Machine Operator 03/15/23 documented as of this encounter
--- OUTSIDE RECORDS SUMMARY | 2024-12-27 16:44 | XMS_ITS | Encounter Summary ---
Author Organization [employer] Address [address] [facility] [address] 7t [place] [address] Care Team Providers Care Oyster Picker Name Role Phone Ibeth Colby MD Primary Care Pro vider Reason for Visit * Reason Onset Date Comments Med Refill 08/23/2024 Encounter Details Date Type Department Care Team (Late st Contact Info) Description 08/23/2024 Refill [facility] MEDICINE 230 [place] [address] Ree Jenkins MD 230 [place] [address] Social History Tobacco Use Types Packs/Day Years [...] Description 01/03/2025 1:00 PM EDT Telemedicine [facility] MEDICINE [address] [place] [address] Ibeth Colby MD [address] [place] [address] documented as of this encounter Visit Diagnoses Not on filedocumented in this encounter Additional Health Concerns Assessment Noted Time PHQ-9 Depression Total Score: 6 12/27/19 24 9:10 AM EDT documented as of this encounter Care Teams Oyster Picker Relationship Specialty Start Date End Date Ibeth Colby MD [address] [place] [address] PCP - General Internal Medicine 12/13/22 Suzanne Meyers Delinquency CounselorInsulation Worker Furnace Installer 03/15/23 documented as of this encounter
--- OUTSIDE RECORDS SUMMARY | 2024-12-27 16:44 | XMS_ITS | Data Portability ---
Author Organization [place] [facility] Address [address] [place] [phone] Care Team Providers Care Head Of English Name Role Phone WILI YOUNG Primary Care [...] mcg/actua tion nasal spray,[place] pension 2024 025 [facility]/Pharmacy #[id number], [address] [place], [address], 05/01/2024 15:01:22 omeprazol e 40 mg capsule,d elayed release 2024 025 [facility]/Pharmacy #[id number], [address] [place], [address], 05/01/2024 15:01:22 Patient TargetsNo targets recorded. Patient InstructionsNo instructions recorded. Reason for Referral None Reported. Results Created Date Observation Date Name Description Value Unit Range Abnormal Flag Note LastModifiedBy Organization Detail LastModifiedTime 05/09/19 25 07/15/2022 MRI, brain + brain stem, w/o contr ast No observ ation record ed. [email or web address] Not Available 07/2024 10:59:20 05/09/19 25 04/07/2022 CT, neck, soft tissu e, w/ contr ast No observ ation record ed. [email or web address] Not Available 01/2025 10:46:16 Result Notes None recorded. Problems Name Problem SNOMED Code Status Onset Date Resolution Date Notes Provider Name and Address Organization Details Recorded Time Feeling of lump in throat 277659397 Active 2024 JENNY Oneill MD [address] [place] [address], [place], [phone], [facility] - [facility] 14:51:18 Gastroesophage al reflux disease without esophagitis 342917080 Active 2024 JENNY Oneill MD [address] [place] [address], [place], [phone], [facility] 14:51:23 Nasal congestion 23231176 Active 2024 JENNY Oenill MD [address] [place] [address], [place], [phone], [facility] 14:51:27 Problem Notes None recorded. Procedures Surgical History Date Name Laterality Status Provider Name and Address Organization Details Recorded Time 05/01/2024 FFL_RE completed JENNY BROOKS MD [address] [place] [address], [phone], [facility] 05/01/2024 15:00:21 Imaging Results None recorded. Procedure [...] Updated DateTime 05/01/2024 162.56 cm 39.5 kg/m2 734549.25 g Yong Wong [place] - [facility] 05/01/2024 14:17:49 Social History None recorded. Functional Status None recorded. Mental Status None recorded. Family History Nothing Reported. Medical History No medical history recorded. Gynecological HistoryNo gynecological history recorded. Obstetrics History GPAL:G 0 P 0 0 0 0 Past Encounters Encounter ID Performer Location Encounter Start Date Encounter Closed Date Diagnosis/Indication Diagnosis SNOMED-CT Code Diagnosis ICD10 Code Diagnosis IMO Codes Diagnosis Note [id number] JENNY BROOKS MD [facility] [address] [phone] 05/01/2024 14:03:14 05/01/2024 14:57:54 Feeling of lump in throat 446825571 R09.89 see GERD. FFL normal except for [place] ing. Gastroesop hageal reflux disease without esophagitis 075534415 K21.9 Likely has refractory GERD and tachyphyla xis on 20mg of omeprazole . I will increase the dose for 3 months and see if it helps with her globus. Nasal congestion 6526947 0 R09.81 I recommend she continue flonase since she has benefit. I will refill. Health Concerns Section Related Observation LastModified by Organization Detai ls LastModified Time None Recorded Concern Status LastModified by Organization Details LastModified Time None Recorded Advance Directives Directive None Recorded Payers Insurance Date Sequence Insurance Name Policy Number Policy Espinoza Covered Member ID Espinoza Member ID Guarantor Name 05/01/2024 1 [place] [facility] Sera Teran [id number] Sera Teran 09/10/2024 1 [place] [facility] Sera Teran [id number] Sera Teran Notes Date Note Type Note Provider Name and Address Organization Details Recorded Time 05/01/2024 text/html ROS as noted in the HPI She presents with globus sensation which comes and goes. It [...] No hx of glaucoma. JENNY BROOKS MD [address] [place] [address], [place], [phone], [facility] - [facility] 05/01/2024 15:01:23 OBGyn Episode No OBEpisode recorded.
--- OUTSIDE RECORDS SUMMARY | 2024-12-27 16:44 | XMS_ITS | Encounter Summary ---
Author Organization [employer] Address [address] [facility] [address] 7t [place] [address] Care Team Providers Care Training And Development Director Name Role Phone Nilda Dunn Primary Care Provider Ibeth Fox MD Primary Care Pro vider Reason for Visit * Reason Onset Date Comments Medication Question 09/02/2022 Encounter Details Date Type Department Care Team (Late st Contact Info) Description 09/02/2022 Telephone [facility] MEDICINE [address] [place], [place] [phone] Nilda Dunn FNP Medication Question Social History [...] 11:11 AM EDT Tc from Suzanne at [facility] requesting a script albuterol solution for patients nebulizer machine. documented in this encounter Plan of Treatment Upcoming Encounters Date Type Department Care Team (Late st Contact Info) Description 01/03/2025 1:00 PM EDT Telemedicine [facility] MEDICINE [address] [place] [address] Ibeth Colby MD [address] [place] [address] [phone] documented as of this encounter Visit Diagnoses Not on filedocumented in this encounter Additional Health Concerns Assessment Noted Time PHQ-9 Depression Total Score: 0 06/22/19 3:26 PM EDT documented as of this encounter Care Teams Training And Development Director Relationship Specialty Start Date End Date Nilda Dunn FNP PCP - General Family Medicine 11/03/21 12/12/22 Ibeth Colby MD [address] [place] [address] [phone] PCP - General Internal Medicine 12/13/22 Suzanne Meyers Floor WaxerDirector Of Database Marketing 03/15/23 documented as of this encounter
--- OUTSIDE RECORDS SUMMARY | 2024-12-27 16:44 | XMS_ITS | Encounter Summary ---
Author Organization [employer] Address 75 [facility] 7 [place] [address] Care Team Providers Care Lead Military Analyst Name Role Phone Ibeth Colby MD Primary Care Pro vider Reason for Visit * Reason Comments Med Refill Encounter Details Date Type Department Care Team (Late st Contact Info) Description 09/18/[address] [facility] MEDICINE 230 [place] [address] Ibeth Colby MD 230 [place], [place] [phone] Social History Tobacco Use Types Packs/Day Years [...] Info) Description 01/03/2025 1:00 PM EDT Telemedicine [facility] [address] [place] [address] Ibeth Colby MD [address] [place] [address] documented as of this encounter Visit Diagnoses Not on filedocumented in this encounter Additional Health Concerns Assessment Noted Time PHQ-9 Depression Total Score: 6 12/27/19 9:10 AM EDT documented as of this encounter Care Teams Lead Military Analyst Relationship Specialty Start Date End Date Ibeth Colby MD [address] [place] [phone] PCP - General Internal Medicine 12/13/22 Suzanne Meyers Auto MechanicFlatwork Presser 03/15/23 documented as of this encounter
--- OUTSIDE RECORDS SUMMARY | 2024-12-27 16:44 | XMS_ITS | Encounter Summary ---
Author Organization [employer] Address 75 [facility] 7 [place] [address] Care Team Providers Care It Applications Manager Name Role Phone Ibeth Colby MD Primary Care Pro vider Reason for Visit * Reason Onset Date Comments Med Refill 12/25/2024 Encounter Details Date Type Department Care Team (Late st Contact Info) Description 12/25/2024 Refill [facility] MED[facility]INE 230 [place] [address] Ibeth Colby MD 230 [place] [address] Social History Tobacco Use Types Packs/Day Years [...] 1:00 PM EDT Telemedicine [facility] [address] [place] [phone] Ibeth Colby MD [address] [place] [address] documented as of this encounter Visit Diagnoses Not on filedocumented in this encounter Additional Health Concerns Assessment Noted Time PHQ-9 Depression Total Score: 6 12/27/19 24 9:10 AM EDT documented as of this encounter Care Teams It Applications Manager Relationship Specialty Start Date End Date Ibeth Colby MD [address] [place] [phone] PCP - General Internal Medicine 12/13/22 Suzanne Meyers Hand InspectorLitigation Coordinator 03/15/23 documented as of this encounter
--- OUTSIDE RECORDS SUMMARY | 2024-12-27 16:44 | XMS_ITS | Encounter Summary ---
Author Organization [employer] Address 75 [facility] 7t [place] [address] Care Team Providers Care Dog Barber Name Role Phone Ibeth Colby MD Primary Care Pro vider Reason for Visit * Reason Comments Med Refill Encounter Details Date Type Department Care Team (Late st Contact Info) Description 12/25/2024 Refill [facility] & PEDS [address] [place] [address] Ibeth Colby MD 230 [place], [place] [phone] Chronic bilateral low back pain with bilateral [...] Info) Description 01/03/2025 1:00 PM EDT Telemedicine [facility] MED[facility]INE [address] [place] [phone] Ibeth Colby MD [address] [place] [address] documented as of this encounter Visit Diagnoses Diagnosis Chronic bilateral low back pain with bilateral sciatica documented in this encounter Additional Health Concerns Assessment Noted Time PHQ-9 Depression Total Score: 6 12/27/19 24 9:10 AM EDT documented as of this encounter Care Teams Dog Barber Relationship Specialty Start Date End Date Ibeth Colby MD [address] [place] [phone] PCP - General Internal Medicine 12/13/22 Suzanne Meyers Hvac JourneymanGraphic Designer 03/15/23 documented as of this encounter
--- OUTSIDE RECORDS SUMMARY | 2024-12-27 16:44 | XMS_ITS | Encounter Summary ---
Author Organization [employer] Address 75 [facility] 7 [place] [address] Care Team Providers Care Social Sciences Professor Name Role Phone Ibeth Colby MD Primary Care Pro vider Reason for Visit * Reason Onset Date Comments Med Refill 01/01/2024 Encounter Details Date Type Department Care Team (Late st Contact Info) Description 01/01/2024 Refill [facility] MEDICINE 230 [place] [address] Ibeth Colby MD 230 [place], [place] [phone] Social History Tobacco Use Types Packs/Day Years [...] Info) Description 01/03/2025 1:00 PM EDT Telemedicine [facility] MEDICINE [address] [place] [phone] Ibeth Colby MD [address] [place] [address] documented as of this encounter Visit Diagnoses Not on filedocumented in this encounter Additional Health Concerns Assessment Noted Time PHQ-9 Depression Total Score: 6 12/27/19 24 9:10 AM EDT documented as of this encounter Care Teams Social Sciences Professor Relationship Specialty Start Date End Date Ibeth Colby MD [address] [place] [phone] PCP - General Internal Medicine 12/13/22 [facility] Hand Loom WeaverSatellite Technician 03/15/23 documented as of this encounter
--- OUTSIDE RECORDS SUMMARY | 2024-12-27 16:44 | XMS_ITS | Encounter Summary ---
Author Organization [employer] Address 75 [facility] 7t [place] [address] Care Team Providers Care Supervisor Paper Testing Name Role Phone Nilda Dunn OUTSIDE CUTTER HAND Primary Care Provider Ibeth Fox MD Primary Care Pro vider Encounter Details Date Type Department Care Team (Late st Contact Info) Description 10/10/2022 Orders Only [facility]EDS [address] [place] [address] Ange Leal LPN Social History Tobacco Use [...] Description 01/03/2025 1:00 PM EDT Telemedicine [facility] 230 [place], [place] [phone] Ibeth Colby MD 230 [place] [address] documented as of this encounter Visit Diagnoses Not on filedocumented in this encounter Additional Health Concerns Assessment Noted Time PHQ-9 Depression Total Score: 0 06/22/19 23 3:26 PM EDT documented as of this encounter Care Teams Supervisor Paper Testing Relationship Specialty Start Date End Date Nilda Dunn FNP PCP - General Family Medicine 11/03/21 12/12/22 Ibeth Colby MD 230 [place] [address] PCP - General Internal Medicine 12/13/22 Suzanne Meyers Benefits ManagerIntervention Analyst 03/15/23 documented as of this encounter
--- OUTSIDE RECORDS SUMMARY | 2024-12-27 16:44 | XMS_ITS | Encounter Summary ---
Author Organization [employer] Address [address] [facility] [address] 7t [place] [address] Care Team Providers Care Automatic Edger Name Role Phone Nilda Dunn RESEARCH CHIEF ENGINEER Primary Care Provider Ibeth Fox MD Primary Care Pro vider Reason for Visit * Reason Comments Med Refill Encounter Details Date Type Department Care Team (Late st Contact Info) Description 08/16/2022 Refill [facility] MED & PEDS [address] [place] [address] Edmond Fuller FNP Social History Tobacco Use [...] Info) Description 01/03/2025 1:00 PM EDT Telemedicine [facility] MEDICINE 230 [place], [place] [phone] Ibeth Colby MD 230 [place] [address] documented as of this encounter Visit Diagnoses Not on filedocumented in this encounter Additional Health Concerns Assessment Noted Time PHQ-9 Depression Total Score: 0 06/22/19 3:26 PM EDT documented as of this encounter Care Teams Automatic Edger Relationship Specialty Start Date End Date Nilda Dunn FNP PCP - General Family Medicine 11/03/21 12/12/22 Ibeth Colby MD [address] [place] [address] [phone] PCP - General Internal Medicine 12/13/22 Suzanne Meyers Fitness ManagerDrawing Checker 03/15/23 documented as of this encounter
--- OUTSIDE RECORDS SUMMARY | 2024-12-27 16:44 | XMS_ITS | Encounter Summary ---
Author Organization [employer] Address [address] [facility] [address] 7t [place] [address] Care Team Providers Care Bleach Analyst Name Role Phone Ibeth Colby MD Primary Care Pro vider Reason for Visit * Reason Comments Med Refill Encounter Details Date Type Department Care Team (Late st Contact Info) Description 09/24/2023 Refill [facility] MED[facility]INE 230 [place] [address] Edmond Fuller FNP Social History Tobacco Use [...] Info) Description 01/03/2025 1:00 PM EDT Telemedicine [facility] MED[facility]INE [address] [place] [address] Ibeth Colby MD [address] [place] [phone] documented as of this encounter Visit Diagnoses Not on filedocumented in this encounter Additional Health Concerns Assessment Noted Time PHQ-9 Depression Total Score: 0 07/13/19 24 2:53 PM EDT documented as of this encounter Care Teams Bleach Analyst Relationship Specialty Start Date End Date Ibeth Colby MD [address] [place] [address] PCP - General Internal Medicine 12/13/22 Suzanne Meyers Chalk Molding Machine OperatorButter Melter 03/15/23 documented as of this encounter
--- OUTSIDE RECORDS SUMMARY | 2024-12-27 16:44 | XMS_ITS | Encounter Summary ---
Author Organization [employer] Address 75 [facility] 7 [place] [address] Care Team Providers Care Orthotics Prosthetics Assistant Name Role Phone Nilda Dunn Primary Care Provider Ibeth Fox MD Primary Care Pro vider Encounter Details Date Type Department Care Team (Late st Contact Info) Description 03/09/2022 Orders Only [facility] 505 [place], [place] [phone] Ange Leal LPN Social History Tobacco Use [...] PM EDT Telemedicine [facility] 230 [place], [place] [phone] Ibeth Colby MD 230 [place] [address] documented as of this encounter Visit Diagnoses Not on filedocumented in this encounter Care Teams Orthotics Prosthetics Assistant Relationship Specialty Start Date End Date Nilda Dunn FNP PCP - General Family Medicine 11/03/21 12/12/22 Ibeth Colby MD [address] [place] [phone] PCP - General Internal Medicine 12/13/22 Suzanne Meyers City ClerkTire And Lube Technician 03/15/23 documented as of this encounter
--- OUTSIDE RECORDS SUMMARY | 2024-12-27 16:44 | XMS_ITS | Encounter Summary ---
Author Organization [employer] Address [address] [facility] [address] 7t [place] [address] Care Team Providers Care Social Research Assistant Name Role Phone Ibeth Colby MD Primary Care Pro vider Reason for Visit * Reason Comments Med Refill Encounter Details Date Type Department Care Team (Late st Contact Info) Description 12/30/2022 Refill [facility] MEDICINE 230 [place] [address] Nilda Dunn FNP Social History Tobacco Use [...] 01/03/2025 1:00 PM EDT Telemedicine [facility] MEDICINE [address] [place] [address] Ibeth Colby MD [address] [place] [address] [phone] documented as of this encounter Visit Diagnoses Not on filedocumented in this encounter Additional Health Concerns Assessment Noted Time PHQ-9 Depression Total Score: 0 06/22/19 23 3:26 PM EDT documented as of this encounter Care Teams Social Research Assistant Relationship Specialty Start Date End Date Ibeth Colby MD [address] [place] [address] [phone] PCP - General Internal Medicine 12/13/22 Suznane Meyers Button Breaker OperatorFarm Implement Mechanic 03/15/23 documented as of this encounter
--- OUTSIDE RECORDS SUMMARY | 2024-12-27 16:44 | XMS_ITS | Encounter Summary ---
Author Organization [employer] Address [address] [facility] [address] 7t [place] [address] Care Team Providers Care Archival Studies Professor Name Role Phone Ibeth Colby MD Primary Care Pro vider Encounter Details Date Type Department Care Team (Late st Contact Info) Description 06/26/2023 Orders Only [facility] MEDICINE 230 [place] [address] Provider, MD Edgar Social History Tobacco Use [...] Info) Description 01/03/2025 1:00 PM EDT Telemedicine [facility] MED[facility]INE [address] [place] [address] Ibeth Colby MD [address] [place] [address] documented as of this encounter Procedures Procedure [...] documented as of this encounter Care Teams Archival Studies Professor Relationship Specialty Start Date End Date Ibeth Colby MD [address] [place] [address] [phone] PCP - General Internal Medicine 12/13/22 Suzanne Meyers Sports Medicine SpecialistBromination Equipment Operator 03/15/23 documented as of this encounter
--- OUTSIDE RECORDS SUMMARY | 2024-12-27 16:44 | XMS_ITS | Clinical Summary ---
Author Organization [facility] [employer] [facility] lin Address 1 [facility] [place] [address] Care Team Providers Care Climbing Guide Name Role Phone Unavailable Primary Care Provider [...] Adults 18 yrs or above (or HM Modifier)([facility]) 1990 Hepatitis C Virus Infection in Adolescents and Adults: Screening (or Modifier) ([facility]) 1990 SDOH Screening Reminder: Judi truong for all adults ([facility]) 1990 Tobacco Smoking Cessation: i n Adults excluding Women: Behavioral and Pharmacotherapy Interventions ([facility]) 1990 DTaP/Tdap/Td Vaccines ([facility]) (1 - Tdap) 12/10/1991 Cervical Cancer Screenin 1-65 yrs of age (or Modifier) 1993 Cervical Cancer Screening: P ap every 3 yrs pts age 21-65 1993 Cervical Cancer: Pap Screeni ng with Modifier timing ([facility]) 1993 Cervical Cancer: hrHPV alone or with cotesting Pap for Pts 30-65yrs screening every 5yrs ([facility]) 1993 Colorectal Cancer Screening 45 -75 Yrs (or HM Modifier ) 2017 Colorectal Cancer: FLEXIBLE SIGMOIDOSCOPY Screening every 5 yrs 2017 Colorectal Cancer: Fecal Imm unochemical Test (FIT) Annually [facility] 2017 Colorectal Cancer: High-sens itivity gFOBT Screening Annually [facility] 2017 Colorectal Cancer: Stool Col oguard Screening every 3 yrs 2017 Colorectal Cancer:CT Colonography Screening every 5 yr s 2017 Breast Cancer: Screening Judi ually age 50-74 yrs (or HM Modifier)([facility]) 2022 Pneumococcal Vaccination Scr eening: Patients 50+ yrs of age ([facility]) (1 of 1 - PCV) 2022 Zoster/Shingles Vaccine Seri es Screening: Adults aged 18+ yrs (or HM Modifiers)([facility]) (1 of 2) 2022 Flu Vaccination: Yearly for ages 18mos through 64 years (or Modifier)([facility]) 10/04/2024 COVID-19 Vaccine Screening: Initial Series and Booster Status ([facility]) ( - 2023- season) 2024 Medical Devices Not on file Insurance [facility]
--- OUTSIDE RECORDS SUMMARY | 2024-12-27 16:44 | XMS_ITS | Clinical Summary ---
Author Organization [facility] Address [address] [facility] [address] [place] [address] Phone Care Team Providers Care Building Energy Retrofit Technician Name Role Phone Mis Harmon NP Primary Care Provider [phone] Allergies No known active allergies Medications coenzyme [...] directed Active ergocalciferol (VITAMIN D-2) 1.25 MG (53885 UT) capsule Take 1 capsule by mouth [...] Insurance Medicaid [place] Medicaid [place] Care Teams Building Energy Retrofit Technician Relationship Specialty Start Date End Date Mis Harmon NP PCP - General 03/16/20
--- OUTSIDE RECORDS SUMMARY | 2024-12-27 16:44 | XMS_ITS | Encounter Summary ---
Author Organization [employer] Address 75 [facility] 7t [place] [address] Care Team Providers Care Funeral Driver Name Role Phone Nilda Dunn INDUSTRIAL AUTOMATION SPECIALIST Primary Care Provider Ibeth Fox MD Primary Care Pro vider Reason for Visit * Reason Comments Med Refill Encounter Details Date Type Department Care Team (Late Contact Info) Description 11/03/2022 Refill [facility] MED & PEDS 505 [place], [place] [phone] Edmond Fuller FNP Mood disorder (CMS/HCC) Social [...] Info) Description 01/03/2025 1:00 PM EDT Telemedicine [facility] MEDICINE 230 [place] [address] Ibeth Colby MD 230 [place], [place] [phone] documented as of this encounter Visit Diagnoses Diagnosis Mood disorder (CMS/HCC) Unspecified episodic mood disorder documented in this encounter Additional Health Concerns Assessment Noted Time PHQ-9 Depression Total Score: 0 06/22/19 23 3:26 PM EDT documented as of this encounter Care Teams Funeral Driver Relationship Specialty Start Date End Date Nilda Dunn FNP PCP - General Family Medicine 11/03/21 12/12/22 Ibeth Colby MD 230 [place], [place] [phone] PCP - General Internal Medicine 12/13/22 Suzanne Meyers Pediatric NeurologistPilot Manager 03/15/23 documented as of this encounter
--- OUTSIDE RECORDS SUMMARY | 2024-12-27 16:44 | XMS_ITS | Clinical Summary ---
Author Organization [facility] Address [address] [place] [address] Care Team Providers Care Spline Rolling Machine Job Setter Name Role Phone Unavailable Primary Care Provider [...] Adhesive Bandage Contact Dermatitis,Hives,Itch ing,Rash,Swelling Low 02/22/2024 [place] Anaphylaxis High 08/15/2013 Gluten Anaphylaxis High 03/22/2022 [...] Refills, Maintenance, 11/21/23 3:54:00 PM EDT, Aerosol, [facility]/pharmacy #[id number], Partial fill upon patient request if the [...] (VISTARIL) 50 mg capsuleIndications :Episodic mood disorder Take 1 Capsule by mouth 2 (two) times Daily for 30 days. 60 Capsule 2 09/13/19 25 Active lamoTRIgine (LAMICTAL) 100 mg tabletIndications: Episodic mood disorder Take 1 Tablet by mouth 2 (two) times daily for 30 days. 60 Tablet 2 09/13/19 25 Active prazosin (MINIPRESS) 5 mg capsuleIndications :Posttraumatic stress disorder Take 1 Capsule by mouth nightly at bedtime for 30 days. 30 Capsule 2 09/13/19 25 Active QUEtiapine (SEROQUEL) 100 mg tabletIndications: Episodic mood disorder Take 1 Tablet by mouth nightly at bedtime for 30 days. 30 Tablet 2 09/13/19 25 Active zolpidem (AMBIEN) 10 mg tablet Take 1 Tablet by mouth nightly at bedtime as needed for sleep for up to 30 days for insomnia. 30 Tablet 1 10/01/19 25 Active Active Problems Problem Noted Date Diagnosed Date Severe obesity 02/22/2024 Other emphysema 02/22/2024 Acute kidney failure 02/22/2024 Overdose of antidepressant 02/22/2024 Migraine headache 10/18/2023 History of tobacco use 10/18/2023 Health care maintenance 05/31/2022 Overview (02/22/2024): Pap: 05/02/2017 NILM; HPV neg Colonoscopy: 12/02/20; polyp removed Mammogram: 09/23/20 BIRADS 1 Class 2 obesity 05/31/2022 Asthma-chronic obstructive p ulmonary disease overlap syndrome 05/31/2022 Obsessive-compulsive disorder 05/18/2022 Assessment & Plan [...] refill needed Severe chronic obstructive pulmonary disease Vertigo 05/17/2022 Opioid dependence 05/17/2022 Assessment & Plan (07/18/2024 3:06 PM [...] of urine 05/25/2020 Acute nontraumatic kidney injury 05/25/2020 Vitamin D deficiency 07/23/2018 Overview (02/22/2024): I have several side effects Episodic mood disorder 02/06/2018 Assessment & Plan (09/12/2024 1:23 PM [...] current meds, no refills needed Seizure disorder 12/15/2014 Posttraumatic stress disorder 12/15/2014 Assessment & [...] Resolved Date Generalized anxiety disorder 12/15/2014 03/21/2024 Immunizations Immunization Administration Dates Next Due Flu, Multi Dose 0.5 ML 01/04/2018,11/23/2016 Flu, Preservative Free 03/08/2016 Flu, Recombinant, 18y+, Flublok 01/02/2020 Hep A, adult 05/23/2013,01/19/2011,07/20/2000 Hep B, Adult/Adol ([id number]-ADULT) 03/08/2016,01/16/2011,12/03/2009 INFLUENZA, SEASONAL, INJECTABLE 02/11/2014,03/13 INFLUENZA, SEASONAL, INJECTA BLE, PRESERVATIVE FREE 12/26/2023 PNEUMOCOCCAL CONJUGATE PCV 20 (Prevnar 20) 10/17 PNEUMOCOCCAL POLYSACCHARIDE PPV23 (Pneumovax 23) 02/17/2014 [facility] State Funded Flu Vaccine 12/14/2011 TDAP [...] Drug Screen 03/06/2024 Depression Annual Screen 03/06/2024 [id number] ( season) 2024 021, 06/02/2020 Imm-Influenza (#1) [...] Discontinued Vaginal Pap Discontinued Vulvoscopy Discontinued Insurance [facility] [place] MEDICAID
--- OUTSIDE RECORDS SUMMARY | 2024-12-27 16:44 | XMS_ITS | Clinical Summary ---
Author Organization [facility] Address [address] [address] Phone Care Team Providers Care Storage And Backup Administrator Name Role Phone Unavailable Primary Care Provider [...] It is not the complete legal health record.[facility]
--- OUTSIDE RECORDS SUMMARY | 2024-12-27 16:45 | XMS_ITS | Encounter Summary ---
Author Organization [employer] Address 75 [facility] 7 [place] [address] Care Team Providers Care Carton Stenciler Name Role Phone Ibeth Colby MD Primary Care Pro vider Reason for Visit * Reason Onset Date Comments Med Refill 01/30/2024 Encounter Details Date Type Department Care Team (Late st Contact Info) Description 01/30/2024 Refill [facility] MEDICINE 230 [place] [address] Ibeth Colby MD 230 [place], [place] [phone] Social History Tobacco Use Types Packs/Day Years [...] Info) Description 01/03/2025 1:00 PM EDT Telemedicine [facility] MEDICINE [address] [place] [phone] Ibeth Colby MD [address] [place] [phone] documented as of this encounter Visit Diagnoses Not on filedocumented in this encounter Additional Health Concerns Assessment Noted Time PHQ-9 Depression Total Score: 6 12/27/19 24 9:10 AM EDT documented as of this encounter Care Teams Carton Stenciler Relationship Specialty Start Date End Date Ibeth Colby MD [address] [place] [phone] PCP - General Internal Medicine 12/13/22 [facility] Fire Management TechnicianBereavement Coordinator 03/15/23 documented as of this encounter
== END 2024-12-27 15:07 | disposition home or self-care (01) ==
LOC: HO.MAMMO 15:06
PROVIDERS: PCP Student in an Organized Health Care Education/Training Program; Visit Provider Student in an Organized Health Care Education/Training Program
DX: Z13.89 Encounter for screening for other disorder (principal)

== ENCOUNTER 2025-03-04 13:49 | Outpatient (AMB) | payer MEDICAID, SELFPAY ==
--- NOTE | 2025-03-04 14:07 | A.OFFVIS_ITS ---
Intake Visit Reasons: Follow Up Allergies gluten (GLUTEN) Allergy (Severe, Verified 11/14/24 14:51) VOMITING, DIARRHEA lactose (LACTOSE) Allergy (Severe, Verified 11/14/24 14:51) VOMITING, DIARRHEA adhesive tape (Adhesive Tape) Allergy (Unknown, Verified 11/14/24 14:51) RASH cedarwood (Cedarwood) Allergy (Unknown, Verified 11/14/24 14:51) THROAT CLOSES, SWELLING, RASH No Known Drug Allergies Allergy (Unknown, Verified 11/14/24 14:51) none HPI Comments Details: 53 yo woman with migraine and?seizure disorder started in her 20s. (Before the seizure, she remembered seeing a hue of cloudiness. Seizures made her passed out and shake.) She is presenting with issues related to medication management for migraine and epilepsy. She conveys that the recent introduction of a triptan medication has significantly alleviated her migraine symptoms, providing much-needed relief from headache episodes. Approximately two weeks ago, she underwent an MRI with contrast at [facility], but results remain pending. In April 2024, an EEG demonstrated some abnormalities, and in May 2024, a sleep study revealed an apnea-hypopnea index of 16 and a REM stage of 46, consistent with obstructive sleep apnea. Management of epilepsy remains stable with lamotrigine 100 mg administered twice daily, and she reports no recent seizures. For migraine treatment, she has been alternating between two triptan medications, reporting efficacious symptom control. During this visit, it was determined that only one triptan, renato- triptan, should be utilized moving forward to optimize migraine management. [facility] Medical History Nausea and vomiting Pre-op examination Renal tubular acidosis Chronic kidney disease Asthma COVID-19 vaccine series completed History of intravenous drug use in remission Hiatal hernia Hx MRSA infection Hypoglycemia Frequent headaches OCD (obsessive compulsive disorder) PTSD (post-traumatic stress disorder) Depression Seizure disorder NO (obstructive sleep apnea) IBS (irritable bowel syndrome) GERD (gastroesophageal reflux disease) Surgical History Hx laparoscopic cholecystectomy History of lung surgery Hx of section History of esophagogastroduodenoscopy (EGD) Hx of colonoscopy (~2013) Family History Father Melanoma Mother Overdose Maternal Grandfather Cancer Melanoma Brother FH: testicular cancer Brother Brain aneurysm Brother HIV (human immunodeficiency virus infection) Social History Household Members: Spouse Housing: Apartment Are you a primary rn progressive care unit to a significant other at home: No Do you presently have visiting nurse or other home services: Yes Alcohol intake: current Alcohol intake frequency: does not drink Patient Tobacco Use Status: Former Tobacco user Tobacco use type: Cigarette Cigarette Packs Per Day: 0.25 Cigarettes Per Day: 5.0 Years Smoked: 20+, quit 2017 Review of Systems Narrative - Neurological: Reports benefit from migraine medication; denies recent seizures. - Respiratory: No new complaints aside from previously noted sleep apnea. - No other systems were discussed. Physical Exam Neuro Other: Mental Status: Alert and oriented to person, place, and time. Normal attention. Normal spontaneous speech, fluency, and comprehension. Cranial Nerves: CN II: Visual ann full to confrontation, visual acuity intact. CN III, IV, : Pupils equal, round, reactive to light and accommodation. Extraocular movements are normal. CN V: Facial sensation is normal. CN VII: Facial movements symmetrical. CN VIII: Hearing intact to bedside conversation is normal. CN IX, X: Palate elevates symmetrically. CN XI: Shoulder shrug and head turn symmetrical. CN XII: Tongue midline without atrophy or fasciculations. Extrapyramidal: Full facial expressions and blinking. No rigidity. Movements are appropriate with no tremor or abnormality. Speech: Normal; no dysarthria or tremor. Assessment & Plan Assessment & Plan (1) Epilepsy: Comment: Meds tried: Sumatriptan EEG at [facility] in Apr 2024: R brooke sharp theta leading to generalized discharges PSG at [facility] in May 2024: TST AHI 16, REM AHI 46. Code(s): G40.909 - Epilepsy, unspecified, not intractable, without status epilepticus Category: Medical Qualifiers: Epilepsy type: partial symptomatic Partial seizure type: with complex partial seizures Intractability: not intractable Status epilepticus: without status epilepticus Qualified Code(s): G40.209 - Localization-related (focal) (partial) symptomatic epilepsy and epileptic syndromes with complex partial seizures, not intractable, without status epilepticus (2) Migraine without aura: Comment: Continue Eletriptan 40mg one a day if needed for headache Code(s): G43.009 - Migraine without aura, not intractable, without status migrainosus Category: Medical Qualifiers: Status migrainosus presence: without status migrainosus Intractability: not intractable Qualified Code(s): G43.009 - Migraine without aura, not intractable, without status migrainosus Plan Impression: 1. Complex partial secondarily generalized seizure disorder 2. Migraine without aura Recommendations: 1. Lamotrigine 150 mg twice a day 2. Eletriptan 40 mg 1 a day as needed for headaches During this consultation, I discussed with the patient the importance of narrowing her migraine management to renato-triptan, highlighting its satisfactory efficacy for her. I addressed concerns regarding the two triptan medications previously utilized by recommending the discontinuation of one, thus ensuring the safe and effective treatment of her migraines. We reviewed her need to personally obtain the MRI CD from [facility], due to the absence of results being sent directly to me. Additionally, there was a reinforcement of maintaining her current epilepsy management with lamotrigine, considering the positive response and lack of recent seizures. The need for ongoing monitoring of her obstructive sleep apnea was acknowledged without further specific recommendations at this time. I advised a follow-up in three months to continue appraising her condition and response to ongoing therapy. Medications: New lamotrigine 150 mg PO BID 180 tabs 0RF Coding Level of Care Code Est Pt Level 4 (48474) Diagnoses Partial symptomatic epilepsy with complex partial seizures, not intractable, without status epilepticus G40.209 Epilepsy type: partial symptomatic Partial seizure type: with complex partial seizures Intractability: not intractable Status epilepticus: without status epilepticus Migraine without aura and without status migrainosus, not intractable G43.009 Status migrainosus presence: without status migrainosus Intractability: not intractable
--- OUTSIDE RECORDS SUMMARY | 2025-03-04 17:38 | XMS_ITS | Clinical Summary ---
Author Organization [facility] Address [address] [address] Phone Care Team Providers Care Rotor Assembler Name Role Phone Unavailable Primary Care Provider [...] It is not the complete legal health record.[facility]
--- OUTSIDE RECORDS SUMMARY | 2025-03-04 17:38 | XMS_ITS | Encounter Summary ---
Author Organization [employer] Address [address] [facility] [address] [place] [address] Care Team Providers Care Legal Advisor Name Role Phone Ibeth Colby MD Primary Care Pro vider Reason for Visit * Reason Comments Med Refill Encounter Details Date Type Department Care Team (Late st Contact Info) Description 03/10/2023 Refill [facility] [address] [place] [address] Edmond Fuller FNP Mood disorder (CMS/HCC) Social [...] Care Team (Late st Contact Info) Description 05/16/2025 1:15 PM EDT Office Visit [facility] [address] [place] [address] Ibeth Colby MD [address] [place] [address] documented as of this encounter Visit Diagnoses Diagnosis Mood disorder (CMS/HCC) Unspecified episodic mood disorder documented in this encounter Additional Health Concerns Assessment Noted Time PHQ-9 Depression Total Score: 0 01/13/20 23 2:53 PM EST documented as of this encounter Care Teams Legal Advisor Relationship Specialty Start Date End Date Ibeth Colby MD [address] [place] [address] PCP - General Internal Medicine 12/13/22 Suzanne Meyers Nuclear Reactor OperatorTester Armature Or Fields 03/15/23 documented as of this encounter
--- OUTSIDE RECORDS SUMMARY | 2025-03-04 17:38 | XMS_ITS | Encounter Summary ---
Author Organization [employer] Address 75 [facility] 7 [place] [address] Care Team Providers Care Vacuum Forming Machine Operator Name Role Phone Ibeth Colby MD Primary Care Pro vider Reason for Visit * Reason Onset Date Comments Med Refill 12/25/2024 Encounter Details Date Type Department Care Team (Late st Contact Info) Description 12/25/2024 Refill [facility] [address] [place] [address] Ibeth Colby MD [address] [place] [address] Social History Tobacco Use Types Packs/Day Years [...] Description 05/16/2025 1:15 PM EDT Office Visit [facility] [address] [place] [address] Ibeth Colby MD [address] [place] [address] documented as of this encounter Visit Diagnoses Not on filedocumented in this encounter Additional Health Concerns Assessment Noted Time PHQ-9 Depression Total Score: 6 12/27/19 24 9:10 AM EDT documented as of this encounter Care Teams Vacuum Forming Machine Operator Relationship Specialty Start Date End Date Ibeth Colby MD [address] [place] [address] PCP - General Internal Medicine 12/13/22 Suzanne Meyers Pet Resort ConciergeSpike Driver 03/15/23 documented as of this encounter
--- OUTSIDE RECORDS SUMMARY | 2025-03-04 17:38 | XMS_ITS | Clinical Summary ---
Author Organization [employer] [facility] Address [address] [facility] [place] [address] Care Team Providers Care Croze Cutter Name Role Phone Unavailable Primary Care Provider [...] on file Medical Devices Not on file Insurance [facility]
--- OUTSIDE RECORDS SUMMARY | 2025-03-04 17:38 | XMS_ITS | Encounter Summary ---
Author Organization [employer] Address 75 [facility] 7 [place] [address] Care Team Providers Care Dive Master Name Role Phone Ibeth Colby MD Primary Care Pro vider Reason for Visit * Reason Comments Med Refill Encounter Details Date Type Department Care Team (Late st Contact Info) Description 09/18/2024 Refill [facility]INE [address] [place] [address] Ibeth Colby MD 230 [place], [place] [phone] Social History Tobacco Use Types Packs/Day Years [...] Description 05/16/2025 1:15 PM EDT Office Visit [facility]INE [address] [place] [address] Ibeth Colby MD [address] [place] [address] documented as of this encounter Visit Diagnoses Not on filedocumented in this encounter Additional Health Concerns Assessment Noted Time PHQ-9 Depression Total Score: 6 12/27/19 9:10 AM EDT documented as of this encounter Care Teams Dive Master Relationship Specialty Start Date End Date Ibeth Colby MD [address] [place] [address] PCP - General Internal Medicine 12/13/22 Suzanne Meyers Medical Massage TherapistFormula Technician 03/15/23 documented as of this encounter
--- OUTSIDE RECORDS SUMMARY | 2025-03-04 17:38 | XMS_ITS | Encounter Summary ---
Author Organization [employer] Address [address] [facility] [address] 7[address] [place] [address] Care Team Providers Care Day Worker Name Role Phone Ibeth Colby MD Primary Care Pro vider Reason for Visit * Reason Comments Med Refill Encounter Details Date Type Department Care Team (Late st Contact Info) Description 07/24/2023 Refill [facility] [address] [place] [address] Edmond Fuller FNP Social History Tobacco Use [...] Description 05/16/2025 1:15 PM EDT Office Visit [facility] MED[facility]INE [address] [place] [address] Ibeth Colby MD [address] [place] [address] documented as of this encounter Visit Diagnoses Not on filedocumented in this encounter Additional Health Concerns Assessment Noted Time PHQ-9 Depression Total Score: 0 07/13/19 24 2:53 PM EDT documented as of this encounter Care Teams Day Worker Relationship Specialty Start Date End Date Ibeth Colby MD [address] [place] [address] PCP - General Internal Medicine 12/13/22 Suzanne Meyers Sales ClerkBarber Shop Manager 03/15/23 documented as of this encounter
--- OUTSIDE RECORDS SUMMARY | 2025-03-04 17:38 | XMS_ITS | Encounter Summary ---
Author Organization [employer] Address [address] [facility] [address] 7t [place] [address] Care Team Providers Care Director Of Sales And Marketing Name Role Phone Ibeth Colby MD Primary Care Pro vider Reason for Visit * Reason Comments Med Refill Encounter Details Date Type Department Care Team (Late st Contact Info) Description 10/24/2023 Refill [facility] 230 [place] [address] Edmond Fuller FNP Social History Tobacco Use [...] Description 05/16/2025 1:15 PM EDT Office Visit [facility] [address] [place] [address] Ibeth Colby MD [address] [place] [address] documented as of this encounter Visit Diagnoses Not on filedocumented in this encounter Additional Health Concerns Assessment Noted Time PHQ-9 Depression Total Score: 0 07/13/19 24 2:53 PM EDT documented as of this encounter Care Teams Director Of Sales And Marketing Relationship Specialty Start Date End Date Ibeth Colby MD [address] [place] [address] PCP - General Internal Medicine 12/13/22 Suzanne Meyers Veterans Service OfficerMachine Clothing Man 03/15/23 documented as of this encounter
--- OUTSIDE RECORDS SUMMARY | 2025-03-04 17:38 | XMS_ITS | Encounter Summary ---
Author Organization [employer] Address [address] [facility] [address] 7t [place] [address] Care Team Providers Care Precast Concrete Products Installer Name Role Phone Ibeth Colby MD Primary Care Pro vider Reason for Visit * Reason Comments Med Refill Encounter Details Date Type Department Care Team (Late st Contact Info) Description 09/24/2023 Refill [facility] [address] [place] [address] Edmond Fuller FNP Social History Tobacco Use [...] Description 05/16/2025 1:15 PM EDT Office Visit [facility] [address] [place] [address] Ibeth Colby MD [address] [place] [address] documented as of this encounter Visit Diagnoses Not on filedocumented in this encounter Additional Health Concerns Assessment Noted Time PHQ-9 Depression Total Score: 0 07/13/19 24 2:53 PM EDT documented as of this encounter Care Teams Precast Concrete Products Installer Relationship Specialty Start Date End Date Ibeth Colby MD [address] [place] [address] PCP - General Internal Medicine 12/13/22 Suzanne Meyers Electro Mechanical TechnicianKnee Bolter 03/15/23 documented as of this encounter
--- OUTSIDE RECORDS SUMMARY | 2025-03-04 17:38 | XMS_ITS | Encounter Summary ---
Author Organization [employer] Address [address] [facility] [address] 7[address] [place] [address] Care Team Providers Care Nurse Auditor Name Role Phone Ibeth Colby MD Primary Care Pro vider Reason for Visit * Reason Onset Date Comments Med Refill 08/23/2024 Encounter Details Date Type Department Care Team (Late st Contact Info) Description 08/23/2024 Refill [facility] 230 [place] [address] Ree Jenkins MD [address] [place] [address] Social History Tobacco Use Types Packs/Day Years [...] Description 05/16/2025 1:15 PM EDT Office Visit [facility] [address] [place] [address] Ibeth Colby MD [address] [place] [address] documented as of this encounter Visit Diagnoses Not on filedocumented in this encounter Additional Health Concerns Assessment Noted Time PHQ-9 Depression Total Score: 6 12/27/19 24 9:10 AM EDT documented as of this encounter Care Teams Nurse Auditor Relationship Specialty Start Date End Date Ibeth Colby MD [address] [place] [address] PCP - General Internal Medicine 12/13/22 Suzanne Meyers Legal Support SpecialistSuperintendent Gas Distribution 03/15/23 documented as of this encounter
--- OUTSIDE RECORDS SUMMARY | 2025-03-04 17:38 | XMS_ITS | Encounter Summary ---
Author Organization [employer] Address 75 [facility] 7 [place] [address] Care Team Providers Care Spouting Installer Name Role Phone Ibeth Colby MD Primary Care Pro vider Reason for Visit * Reason Onset Date Comments Med Refill 12/25/2024 Encounter Details Date Type Department Care Team (Late st Contact Info) Description 12/25/2024 Refill [facility] 230 [place] [address] Ibeth Colby MD 230 [place] [address] Social History Tobacco Use Types Packs/Day Years [...] Description 05/16/2025 1:15 PM EDT Office Visit [facility] MEDICINE [address] [place] [address] Ibeth Colby MD [address] [place] [address] documented as of this encounter Visit Diagnoses Not on filedocumented in this encounter Additional Health Concerns Assessment Noted Time PHQ-9 Depression Total Score: 6 12/27/19 24 9:10 AM EDT documented as of this encounter Care Teams Spouting Installer Relationship Specialty Start Date End Date Ibeth Colby MD [address] [place] [address] PCP - General Internal Medicine 12/13/22 Suzanne Meyers Wire StitcherHot Frame Tender 03/15/23 documented as of this encounter
--- OUTSIDE RECORDS SUMMARY | 2025-03-04 17:38 | XMS_ITS | Encounter Summary ---
Author Organization [employer] Address [address] [facility] [address] 7t [place] [address] Care Team Providers Care Babcock Tester Name Role Phone Ibeth Colby MD Primary Care Pro vider Reason for Visit * Reason Onset Date Comments Med Refill 12/25/2024 Encounter Details Date Type Department Care Team (Late st Contact Info) Description 12/25/2024 Refill [facility]INE 230 [place] [address] Marisa Farrell MD 230 [place] [address] Social History Tobacco Use Types Packs/Day Years [...] 1:15 PM EDT Office Visit [facility] [address] [place] [address] Ibeth Colby MD [address] [place] [address] documented as of this encounter Visit Diagnoses Not on filedocumented in this encounter Additional Health Concerns Assessment Noted Time PHQ-9 Depression Total Score: 6 12/27/19 24 9:10 AM EDT documented as of this encounter Care Teams Babcock Tester Relationship Specialty Start Date End Date Ibeth Colby MD [address] [place] [phone] PCP - General Internal Medicine 12/13/22 Suzanne Meyers Salon ReceptionistMink Farmer 03/15/23 documented as of this encounter
--- OUTSIDE RECORDS SUMMARY | 2025-03-04 17:38 | XMS_ITS | Encounter Summary ---
Author Organization [employer] Address 75 [facility] 7 [place] [address] Care Team Providers Care Manufacturing Engineering Technician Name Role Phone Ibeth Colby MD Primary Care Pro vider Reason for Visit * Reason Onset Date Comments switch appointment 06/13/2024 Encounter Details Date Type Department Care Team (Late st Contact Info) Description 06/13/2024 Telephone [facility] MEDICINE 230 [place], [place] [phone] Ibeth Colby MD 230 [place], [place] [phone] switch appointment Social History Tobacco Use Types [...] states doesn't want to miss the appointment. [phone] documented in this encounter Plan of Treatment Upcoming Encounters Date Type Department Care Team (Late st Contact Info) Description 05/16/2025 1:15 PM EDT Office Visit [facility]INE [address] [place], [place] [phone] Ibeth Colby MD 230 [place], [place] [phone] documented as of this encounter Visit Diagnoses Not on filedocumented in this encounter Additional Health Concerns Assessment Noted Time PHQ-9 Depression Total Score: 6 12/27/19 9:10 AM EDT documented as of this encounter Care Teams Manufacturing Engineering Technician Relationship Specialty Start Date End Date Ibeth Colby MD [address] [place] [address] PCP - General Internal Medicine 12/13/22 Suzanne Meyers Production Machine Computer OperatorSoda Fountain Operator 03/15/23 documented as of this encounter
--- OUTSIDE RECORDS SUMMARY | 2025-03-04 17:38 | XMS_ITS | Encounter Summary ---
Author Organization [facility] Address [address] [facility] [address] [place] [address] Phone Care Team Providers Care Speech Lang Path Name Role Phone Unavailable Primary Care Provider Unavailabl e Encounter Details Date Type Department Care Team (Latest Contact Info) Description 07/20/2022 Transcribe Orders Virtual Department [address] [place] [address] Nilda Dunn NP Breast screening (Primary Dx) [...] It is not the complete legal health record.[facility]
--- OUTSIDE RECORDS SUMMARY | 2025-03-04 17:38 | XMS_ITS | Encounter Summary ---
Author Organization [employer] Address [address] [facility] [address] 7[address] [place] [address] Care Team Providers Care Receiver Dispatcher Name Role Phone Ibeth Colby MD Primary Care Pro vider Reason for Visit * Reason Comments Med Refill Encounter Details Date Type Department Care Team (Late st Contact Info) Description 02/02/2023 Refill [facility] 230 [place] [address] Edmond Fuller FNP Mood disorder (CMS/HCC) Social [...] Description 05/16/2025 1:15 PM EDT Office Visit [facility] [address] [place] [phone] Ibeth Colby MD [address] [place] [address] documented as of this encounter Visit Diagnoses Diagnosis Mood disorder (CMS/HCC) Unspecified episodic mood disorder documented in this encounter Additional Health Concerns Assessment Noted Time PHQ-9 Depression Total Score: 0 01/13/20 23 2:53 PM EST documented as of this encounter Care Teams Receiver Dispatcher Relationship Specialty Start Date End Date Ibeth Colby MD [address] [place] [address] PCP - General Internal Medicine 12/13/22 Suzanne Meyers Senior Sales Operations AnalystSwatch Clerk 03/15/23 documented as of this encounter
--- OUTSIDE RECORDS SUMMARY | 2025-03-04 17:38 | XMS_ITS | Encounter Summary ---
Author Organization [employer] Address [address] [facility] [address] 7[address] [place] [address] Care Team Providers Care Assistant Surveyor Name Role Phone Ibeth Colby MD Primary Care Pro vider Reason for Visit * Reason Onset Date Comments Med Refill 12/25/2024 Encounter Details Date Type Department Care Team (Late st Contact Info) Description 12/25/2024 Refill [facility] 230 [place] [address] Bishop Vázquez MD [address] [place], [place] [phone] Chronic bilateral low back pain with bilateral [...] Description 05/16/2025 1:15 PM EDT Office Visit [facility] MED[facility] [address] [place] [address] Ibeth Colby MD [address] [place] [phone] documented as of this encounter Visit Diagnoses Diagnosis Chronic bilateral low back pain with bilateral sciatica documented in this encounter Additional Health Concerns Assessment Noted Time PHQ-9 Depression Total Score: 6 12/27/19 24 9:10 AM EDT documented as of this encounter Care Teams Assistant Surveyor Relationship Specialty Start Date End Date Ibeth Colby MD [address] [place] [address] [phone] PCP - General Internal Medicine 12/13/22 Suzanne Meyers Prepared Foods Team LeaderDiesel Mechanic Farm 03/15/23 documented as of this encounter
--- OUTSIDE RECORDS SUMMARY | 2025-03-04 17:38 | XMS_ITS | Encounter Summary ---
Author Organization [employer] Address [address] [facility] 7t [place] [address] Care Team Providers Care Commuter Train Operator Name Role Phone Ibeth Colby MD Primary Care Pro vider Reason for Visit * Reason Comments Med Refill Encounter Details Date Type Department Care Team (Late st Contact Info) Description 02/14/2023 Refill [facility] [address] [place] [address] Edmond Fuller FNP Mood disorder (CMS/HCC) Social [...] your housing situation today? I have araceli csaey 12/19/[address] you li [...] EDT Office Visit [facility] [address] [place] [phone] Ibeth Colby MD [address] [place] [phone] documented as of this encounter Visit Diagnoses Diagnosis Mood disorder (CMS/HCC) Unspecified episodic mood disorder documented in this encounter Additional Health Concerns Assessment Noted Time PHQ-9 Depression Total Score: 0 01/13/20 23 2:53 PM EST documented as of this encounter Care Teams Commuter Train Operator Relationship Specialty Start Date End Date Ibeth Colby MD [address] [place] [phone] PCP - General Internal Medicine 12/13/22 Suzanne Meyers TaxonomistExtruding Press Adjuster 03/15/23 documented as of this encounter
--- OUTSIDE RECORDS SUMMARY | 2025-03-04 17:39 | XMS_ITS | Encounter Summary ---
Author Organization [employer] Address [address] 7t [place] [address] Care Team Providers Care Director Career Name Role Phone Ibeth Colby MD Primary Care Pro vider Reason for Visit * Reason Comments Med Refill Encounter Details Date Type Department Care Team (Late st Contact Info) Description 12/30/2022 Refill [facility] MED[facility]INE [address] [place] [address] Nilda Dunn FNP Social History Tobacco Use [...] Description 05/16/2025 1:15 PM EDT Office Visit [facility] [address] [place] [address] Ibeth Colby MD [address] [place] [address] [phone] documented as of this encounter Visit Diagnoses Not on filedocumented in this encounter Additional Health Concerns Assessment Noted Time PHQ-9 Depression Total Score: 0 06/22/19 23 3:26 PM EDT documented as of this encounter Care Teams Director Career Relationship Specialty Start Date End Date Ibeth Colby MD [address] [place] [address] [phone] PCP - General Internal Medicine 12/13/22 Suzanne Meyers Twenty One DealerSenior Oracle Database Developer 03/15/23 documented as of this encounter
--- OUTSIDE RECORDS SUMMARY | 2025-03-04 17:39 | XMS_ITS | Encounter Summary ---
Author Organization [employer] Address [address] 7t [place] [address] Care Team Providers Care Information Security Director Name Role Phone Ibeth Colby MD Primary Care Pro vider Reason for Visit * Reason Comments Med Refill Encounter Details Date Type Department Care Team (Late st Contact Info) Description 03/28/2023 Refill [facility] MEDICINE 230 [place] [address] Edmond Fuller FNP Mood disorder (CMS/HCC) Social [...] Description 05/16/2025 1:15 PM EDT Office Visit [facility] MEDICINE [address] [place] [address] Ibeth Colby MD [address] [place] [address] documented as of this encounter Visit Diagnoses Diagnosis Mood disorder (CMS/HCC) Unspecified episodic mood disorder documented in this encounter Additional Health Concerns Assessment Noted Time PHQ-9 Depression Total Score: 0 01/13/20 23 2:53 PM EST documented as of this encounter Care Teams Information Security Director Relationship Specialty Start Date End Date Ibeth Colby MD [address] [place] [phone] PCP - General Internal Medicine 12/13/22 Suzanne Meyers Assistant Professor Of TheaterConveyor Monitor 03/15/23 documented as of this encounter
--- OUTSIDE RECORDS SUMMARY | 2025-03-04 17:39 | XMS_ITS | Encounter Summary ---
Author Organization [employer] Address [address] [facility] 7 [place] [address] Care Team Providers Care Practicing Urologist Name Role Phone Ibeth Colby MD Primary Care Pro vider Reason for Visit * Reason Onset Date Comments Med Refill 01/01/2024 Encounter Details Date Type Department Care Team (Late st Contact Info) Description 01/01/2024 Refill [facility]INE 230 [place] [address] Ibeth Colby MD 230 [place], [place] [phone] Social History Tobacco Use Types Packs/Day Years [...] Description 05/16/2025 1:15 PM EDT Office Visit [facility] [address] [place] [address] Ibeth Colby MD [address] [place] [address] documented as of this encounter Visit Diagnoses Not on filedocumented in this encounter Additional Health Concerns Assessment Noted Time PHQ-9 Depression Total Score: 6 12/27/19 24 9:10 AM EDT documented as of this encounter Care Teams Practicing Urologist Relationship Specialty Start Date End Date Ibeth Colby MD [address] [place] [phone] PCP - General Internal Medicine 12/13/22 [facility] In Tube Conversion TechnicianDirector Of Oncology 03/15/23 documented as of this encounter
--- OUTSIDE RECORDS SUMMARY | 2025-03-04 17:39 | XMS_ITS | Encounter Summary ---
Author Organization [employer] Address [address] 7[address] [place] [address] Care Team Providers Care Thread Marker Name Role Phone Ibeth Colby MD Primary Care Pro vider Encounter Details Date Type Department Care Team (Late st Contact Info) Description 06/26/2023 Orders Only [facility]INE 230 [place] [address] Provider, MD Edgar Social History Tobacco Use [...] Description 05/16/2025 1:15 PM EDT Office Visit [facility] [address] [place] [address] Ibeth Colby MD [address] [place] [address] documented as of this encounter Procedures Procedure [...] documented as of this encounter Care Teams Thread Marker Relationship Specialty Start Date End Date Ibeth Colby MD [address] [place] [id number] PCP - General Internal Medicine 12/13/22 Suzanne Meyers Combat Systems EngineerOn Site Coordinator 03/15/23 documented as of this encounter
--- OUTSIDE RECORDS SUMMARY | 2025-03-04 17:39 | XMS_ITS | Encounter Summary ---
Author Organization [employer] Address [address] [place] [address] 7 [place] [address] Care Team Providers Care Toll Lineman Name Role Phone Nilda Dunn Conchita UNIT CLERK Primary Care Provider Ibeth Fox MD Primary Care Pro vider Reason for Visit * Reason Comments Med Refill Encounter Details Date Type Department Care Team (Late st Contact Info) Description 04/11/2022 Refill [facility] MEDICINE [address] [place] [address] [phone] Edmond Fuller FNP Social History Tobacco Use [...] Visit [facility] [address] [place] [address] [phone] Ibeth Colby MD [address] [place], [place] [phone] documented as of this encounter Visit Diagnoses Not on filedocumented in this encounter Additional Health Concerns Assessment Noted Time PHQ-9 Depression Total Score: 0 03/22/19 23 1:19 PM EST documented as of this encounter Care Teams Toll Lineman Relationship Specialty Start Date End Date Nilda Dunn FNP PCP - General Family Medicine 11/03/21 12/12/22 Ibeth Colby MD [address] [place] [phone] PCP - General Internal Medicine 12/13/22 Suzanne Meyers Literacy ConsultantAfterschool 03/15/23 documented as of this encounter
--- OUTSIDE RECORDS SUMMARY | 2025-03-04 17:39 | XMS_ITS | Encounter Summary ---
Author Organization [employer] Address [address] [facility] 7t [place] [address] Care Team Providers Care Rn Hospital Name Role Phone Nilda Dunn CHIEF SCIENTIST Primary Care Provider Ibeth Fox MD Primary Care Pro vider Reason for Visit * Reason Comments Med Refill Encounter Details Date Type Department Care Team (Late st Contact Info) Description 11/03/2022 Refill [facility] [address] [place], [place] [phone] Edmond Fuller FNP Mood disorder (CMS/HCC) Social [...] Department Care Team (Late Contact Info) Description 05/16/2025 1:15 PM EDT Office Visit [facility] MEDICINE 230 [place] [address] Ibeth Colby MD [address] [place], [place] [phone] documented as of this encounter Visit Diagnoses Diagnosis Mood disorder (CMS/HCC) Unspecified episodic mood disorder documented in this encounter Additional Health Concerns Assessment Noted Time PHQ-9 Depression Total Score: 0 06/22/19 23 3:26 PM EDT documented as of this encounter Care Teams Rn Hospital Relationship Specialty Start Date End Date Nilda Dunn FNP PCP - General Family Medicine 11/03/21 12/12/22 Ibeth Colby MD [address] [place], [place] [phone] PCP - General Internal Medicine 12/13/22 Suzanne Meyers Drywall TaperScrew Machine Operator 03/15/23 documented as of this encounter
--- OUTSIDE RECORDS SUMMARY | 2025-03-04 17:39 | XMS_ITS | Clinical Summary ---
Author Organization [facility] Address [address] [facility] [address] [place] [address] Phone Care Team Providers Care Cotton Classer Aide Name Role Phone Mis Harmon NP Primary Care Provider [phone] Allergies No known active allergies Medications coenzyme [...] directed Active ergocalciferol (VITAMIN D-2) 1.25 MG ([id number] UT) capsule Take 1 capsule by mouth [...] Insurance Medicaid [place] Medicaid [place] Care Teams Cotton Classer Aide Relationship Specialty Start Date End Date Mis Harmon NP PCP - General 03/16/20
--- OUTSIDE RECORDS SUMMARY | 2025-03-04 17:39 | XMS_ITS | Encounter Summary ---
Author Organization [employer] Address [address] [facility] 7t [place] [address] Care Team Providers Care Nursing Coordinator Name Role Phone Nilda Dunn RN ENTEROSTOMAL Primary Care Provider Ibeth Fox MD Primary Care Pro vider Encounter Details Date Type Department Care Team (Late st Contact Info) Description 10/10/2022 Orders Only [facility] [address] [place] [address] Ange Leal LPN Social History Tobacco Use [...] Description 05/16/2025 1:15 PM EDT Office Visit [facility] MEDICINE [address] [place], [place] [phone] Ibeth Colby MD 230 [place] [address] documented as of this encounter Visit Diagnoses Not on filedocumented in this encounter Additional Health Concerns Assessment Noted Time PHQ-9 Depression Total Score: 0 06/22/19 23 3:26 PM EDT documented as of this encounter Care Teams Nursing Coordinator Relationship Specialty Start Date End Date Nilda Dunn FNP PCP - General Family Medicine 11/03/21 12/12/22 Ibeth Colby MD [address] [place], [place] [phone] PCP - General Internal Medicine 12/13/22 Suzanne Meyers Food Quality TechnicianSizing Sponger 03/15/23 documented as of this encounter
--- OUTSIDE RECORDS SUMMARY | 2025-03-04 17:39 | XMS_ITS | Encounter Summary ---
Author Organization [employer] Address [address] [place] [address] 7 [place] [address] Care Team Providers Care Front Desk Manager Name Role Phone Nilda Dunn Conchita BASKET TURNER Primary Care Provider Ibeth Fox MD Primary Care Pro vider Encounter Details Date Type Department Care Team (Late st Contact Info) Description 04/06/2022 Orders Only [facility] MEDICINE [address] [place] [address] [phone] Ernestina Gutierrez LPN Social History Tobacco Use [...] Description 05/16/2025 1:15 PM EDT Office Visit [facility] MEDICINE [address] [place] [address] [phone] Ibeth Colby MD 230 [place], [place] [phone] documented as of this encounter Visit Diagnoses Not on filedocumented in this encounter Additional Health Concerns Assessment Noted Time PHQ-9 Depression Total Score: 0 03/22/19 23 1:19 PM EST documented as of this encounter Care Teams Front Desk Manager Relationship Specialty Start Date End Date Nilda Dunn FNP PCP - General Family Medicine 11/03/21 12/12/22 Ibeth Colby MD [address] [place] [phone] PCP - General Internal Medicine 12/13/22 Suzanne Meyers Auto Care Center ManagerGum Sprayer 03/15/23 documented as of this encounter
--- OUTSIDE RECORDS SUMMARY | 2025-03-04 17:39 | XMS_ITS | Encounter Summary ---
Author Organization [employer] Address [address] 7[address] [place] [address] Care Team Providers Care Economic Development Specialist Name Role Phone Nilda Dunn Primary Care Provider Ibeth Fox MD Primary Care Pro vider Reason for Visit * Reason Onset Date Comments Medication Question 09/02/2022 Encounter Details Date Type Department Care Team (Late st Contact Info) Description 09/02/2022 Telephone [facility]ICINE [address] [place], [place] [phone] Nilda Dunn FNP Medication Question Social History [...] 11:11 AM EDT Tc from Suzanne at [facility] requesting a script albuterol solution for patients nebulizer machine. documented in this encounter Plan of Treatment Upcoming Encounters Date Type Department Care Team (Late st Contact Info) Description 05/16/2025 1:15 PM EDT Office Visit [facility] MEDICINE [address] [place] [address] Ibeth Colby MD [address] [place] [address] [phone] documented as of this encounter Visit Diagnoses Not on filedocumented in this encounter Additional Health Concerns Assessment Noted Time PHQ-9 Depression Total Score: 0 06/22/19 3:26 PM EDT documented as of this encounter Care Teams Economic Development Specialist Relationship Specialty Start Date End Date Nilda Dunn FNP PCP - General Family Medicine 11/03/21 12/12/22 Ibeth Colby MD [address] [place] [phone] PCP - General Internal Medicine 12/13/22 Suzanne Meyers Change AnalystFruit Thinner Machine Operator 03/15/23 documented as of this encounter
--- OUTSIDE RECORDS SUMMARY | 2025-03-04 17:39 | XMS_ITS | Data Portability ---
Author Organization [place] - [facility], Allergy Address [address] [place] [phone] Care Team Providers Care Risk Control Field Representative Name Role Phone WILI YOUNG Primary Care Provider Assessment No assessment recorded. Plan of Treatment Reminders Order Date Submit Date Provider Last Modified By Organization Details Last Modified Time Details Appointments None recorded. Lab None recorded. Referral None recorded. Procedures None recorded. Surgeries None recorded. Imaging None recorded. Medication Orders fluticasone propionate 50 mcg/actuati on nasal spray,suspe nsion [address] [facility] #[id number], [address] [place], [address], 15:01:22 omeprazole 40 mg capsule,del ayed release [address] [facility][id number], [address] [place], [address], 15:01:22 Patient TargetsNo targets recorded. Patient InstructionsNo instructions recorded. Reason for Referral None Reported. Results Created Date Observation Date Name Description Value Unit Range Abnormal Flag Note LastModifiedBy Organization Detail LastModifiedTime 05/09/1907/15/2022 MRI, brain + brain stem, w/o contr ast No observ ation record ed. [email or web address] Not Available 07/2024 10:59:20 05/09/19 25 04/07/2022 CT, neck, soft tissu e, w/ contr ast No observ ation record ed. [email or web address] Not Available 01/2025 10:46:16 Result Notes None recorded. Problems Name Problem SNOMED Code Status Onset Date Resolution Date Notes Provider Name and Address Organization Details Recorded Time Feeling of lump in throat 341387960 Active 2024 JENNY Oneill MD [address] [address], [place], [phone], [facility] 14:51:18 Gastroesophage al reflux disease without esophagitis 456306723 Active 2024 JENNY Oneill MD [address] [place] [address], [place], [phone], [facility] 14:51:23 Nasal congestion 11183501 Active 2024 JENNY Oneill MD [address] [place] [address], [place], [phone], [facility] 14:51:27 Problem Notes None recorded. Procedures Surgical History Date Name Laterality Status Provider Name and Address Organization Details Recorded Time 05/01/2024 FFL_RE completed JENNY BROOKS MD [address], [phone], [facility] 05/01/2024 15:00:21 Imaging Results None recorded. Procedure Notes None recorded. Medical Equipment None Reported. Medications Name Sig Start Date Stop Date Status Note LastModified by Organization Details LastModified Time albuterol sulfate 2.5 mg/3 mL (0.083 %) solution for nebulizatio n INHALE 3 ML VIA NEBULIZER EVERY 6 HOURS NEEDED FOR WHEEZING, J45.40 active Not Available Not Available No t Available azithromyci n 250 mg tablet TAKE 2 TABLETS BY MOUTH TODAY, THEN TAKE 1 TABLET DAILY FOR 4 DAYS DIRECTED 12/30 completed Not Available Not Available Not Available valacyclovi r 1 gram tablet TAKE 1 TABLET BY MOUTH EVERY DAY active Not Available Not Available No t Available ondansetron HCl 4 mg tablet TAKE 1 TABLET (4 MG) ORALLY 2 TIMES A DAY NEEDED FOR NAUSEA AND VOMITING FOR 30 DAYS active Not Available Not [...] capsule TAKE 1 CAPSULE BY MOUTH EVERY NIGHT AT BEDTIME AND MAY TAKE A SECOND CAPSULE IF NEEDED INSOMNIA active Not Available Not Available No t Available diphenoxyla te-atropine 2.5 mg-0.025 mg tablet TAKE 1 TABLET BY MOUTH THREE TIMES A DAY active Not Available Not Available No t Available hydroxyzine HCl 50 mg tablet TAKE 1 TABLET BY MOUTH TWICE A DAY active Not Available Not Available No t Available omeprazole 40 mg capsule,del ayed release TAKE 1 CAPSULE BY MOUTH EVERY DAY active Not Available Not Available No t Available quetiapine 100 mg tablet TAKE 1 TABLET BY MOUTH EVERYDAY AT BEDTIME active Not Available Not Available No t Available ondansetron 8 mg disintegrat ing tablet LET 1 TABLET DISSOLVE IN MOUTH TWICE A DAY active Not Available Not Available No t Available levothyroxi ne 25 mcg tablet TAKE 1 TABLET (25 MCG) BY MOUTH BEFORE BREAKFAST active Not Available Not Available No t Available prazosin 5 mg capsule TAKE 1 CAPSULE BY MOUTH EVERYDAY AT BEDTIME active Not Available Not Available No t Available meclizine 25 mg tablet 25 MG ORALLY 3 TIMES A DAY active Not Available Not Available No t Available levothyroxi ne 50 mcg tablet TAKE 1 TABLET (50 MCG) BY MOUTH BEFORE BREAKFAST active Not Available Not Available No t Available lidocaine 5 % topical patch APPLY 1 PATCH TOPICALLY IN THE MORNING. active Not Available Not Available No t Available propranolol ER 80 mg capsule,24 hr,extended release TAKE 1 CAPSULE BY MOUTH EVERYDAY AT BEDTIME active Not Available Not Available No t Available epinephrine 0.3 mg/0.3 mL injection, auto-inject or INJECT 0.3 ML DIRECTED 1 TIME FOR 1 DOSE. INJECT INTO UPPER LEG. CALL 911 AFTER USE. active Not Available Not Available No t Available zolpidem 10 mg tablet TAKE 1 TABLET BY MOUTH NIGHTLY AT BEDTIME NEEDED FOR SLEEP FOR UP TO 30 DAYS FOR INSOMNIA active Not Available Not Available No t Available ondansetron 4 mg disintegrat ing tablet TAKE 1 TABLET BY MOUTH 2-3X/DAY NEEDED FOR NAUSEA AND VOMITING active Not Available Not Available No t Available fluticasone propionate 50 mcg/actuati on nasal spray,suspe nsion INSTILL 2 SPRAYS BY INTRANASA L ROUTE EVERY DAY active Not Available Not Available No t Available lamotrigine 100 mg tablet TAKE 1 TABLET BY MOUTH TWICE A DAY active Not Available Not Available No t Available loratadine 10 mg tablet TAKE 1 TABLET BY MOUTH EVERY DAY NEEDED active Not Available Not Available No t Available Ventolin HFA 90 mcg/actuati on aerosol inhaler INHALE 2 PUFFS 4 TIMES A DAY NEEDED FOR WHEEZING active Not Available Not Available No t Available Laxative (bisacodyl) 5 mg tablet,agnes yed release TAKE 4 TABS BY MOUTH ONCE. TAKE AT NOON THE DAY BEFORE COLONOSCO PY active Not Available Not Available No t Available Daily-Lisa tablet TAKE 1 TABLET BY MOUTH EVERY DAY WITH FOOD active Not Available Not Available No t Available eletriptan 40 mg tablet TAKE 1 TABLET BY MOUTH EVERY DAY NEEDED FOR MIGRAINE active Not Available Not Available No t Available fenofibrate micronized 130 mg capsule TAKE 1 CAPSULE BY MOUTH EVERY DAY active Not Available Not Available No t Available FreeStyle Lite Strips USE 1 STRIP BY DIRECTED ROUTE EVERY DAY active Not Available Not Available No t Available cholecalcif kirstin (vitamin D3) 50 mcg (2,000 unit) capsule TAKE 1 CAPSULE BY MOUTH EVERY DAY active Not Available Not Available No t Available GaviLyte-G 236 gram-22.74 gram-6.74 gram-5.86 gram oral solution PLEASE SEE ATTACHED FOR DETAILED DIRECTION S active Not Available Not Available No t Available Gavilax 17 gram/dose oral powder 238 [...] Zubsolv 5.7 mg-1.[address] 1 TABLET TWICE A DAY BY SUBLINGUA L ROUTE DIRECTED FOR 28 DAYS, FOR OPIOID DEPENDENC E. active Not Available Not Available No t Available Incruse Ellipta 62.5 mcg/actuati on powder for inhalation INHALE 1 INHALATIO N EVERY 24 HOURS. SHOULD BE TAKEN AT LEAST 24 HOURS APART active Not Available Not Available No t Available Spiriva Respimat 1.25 mcg/actuati on solution for inhalation INHALE 2 PUFFS BY MOUTH DAILY active Not Available Not Available No t Available naloxone 4 mg/actuatio n nasal spray TAKE 1 SPRAY BY NASAL ROUTE DIRECTED. active Not Available Not Available No t Available Trelegy Ellipta 100 mcg-62.5 mcg-25 mcg powder for inhalation 1 PUFFS INHALATIO N DAILY, AT THE SAME TIME EVERY DAY active Not Available Not Available No t Available Daily-Lisa (with folic acid) 400 mcg tablet TAKE 1 TABLET BY MOUTH EVERY DAY WITH FOOD active Not Available Not Available No t Available Zepbound 5 mg/0.5 mL subcutaneou s pen injector INJECT 1 PEN SUBCUTANE OUSLY ONCE A WEEK DIRECTED active Not Available Not Available No t Available Zepbound 2.5 mg/0.5 mL subcutaneou s pen injector INJECT 1 PEN (2.5MG) SUBCUTANE OUSLY ONCE A WEEK DIRECTED active Not Available Not Available No t Available Zepbound 7.5 mg/0.5 mL subcutaneou s pen injector INJECT 1 SYRINGE INTO THE SKIN ONCE WEEKLY DIRECTED active Not Available Not Available No t Available Vitals Date Recorded Body height Body mass index (BMI) Body weight Provider Name and Address Organization Details Last Updated DateTime 05/01/2024 162.56 cm 39.5 kg/m2 143893.25 g Yong Wong [place] - [facility] 05/01/2024 14:17:49 Social History None recorded. Functional Status None recorded. Mental Status None recorded. Family History Nothing Reported. Medical History No medical history recorded. Gynecological HistoryNo gynecological history recorded. Obstetrics History GPAL:G 0 P 0 0 0 0 Past Encounters Encounter ID Performer Location Encounter Start Date Encounter Closed Date Diagnosis/Indication Diagnosis SNOMED-CT Code Diagnosis ICD10 Code Diagnosis IMO Codes Diagnosis Note [id number] JENNY BROOKS MD [facility] [address] [phone] 05/01/2024 14:03:14 05/01/2024 14:57:54 Feeling of lump in throat 866357183 R09.89 see GERD. FFL normal except for [place] ing. Gastroesop hageal reflux disease without esophagitis 974236008 K21.9 Likely has refractory GERD and tachyphyla xis on 20mg of omeprazole . I will increase the dose for 3 months and see if it helps with her globus. Nasal congestion 7752518 0 R09.81 I recommend she continue flonase since she has benefit. I will refill. Health Concerns Section Related Observation LastModified by Organization Detai ls LastModified Time None Recorded Concern Status LastModified by Organization Details LastModified Time None Recorded Advance Directives Directive None Recorded Payers Insurance Date Sequence Insurance Name Policy Number Policy Espinoza Covered Member ID Espinoza Member ID Guarantor Name 05/01/2024 1 [place] [id number] Sera Teran 12/30/2024 1 [place] [facility] Sera Griggspacodie [id number] Sera Teran Notes Date Note Type Note [...] No hx of glaucoma. JENNY BROOKS MD [address] [place] [address], [phone], [facility] - [facility] 05/01/2024 15:01:23 OBGyn Episode No OBEpisode recorded.
--- OUTSIDE RECORDS SUMMARY | 2025-03-04 17:39 | XMS_ITS | Encounter Summary ---
Author Organization [employer] Address [address] [place] [address] Care Team Providers Care Inspector Receiving Name Role Phone Ibeth Colby MD Primary Care Pro vider Encounter Details Date Type Department Care Team (Late st Contact Info) Description 12/15/2022 Orders Only [facility] [address] [place] [address] Ernestina Gutierrez LPN Social History Tobacco Use [...] Description 05/16/2025 1:15 PM EDT Office Visit [facility] [address] [place] [address] [phone] Ibeth Colby MD [address] [place] [phone] documented as of this encounter Visit Diagnoses Not on filedocumented in this encounter Additional Health Concerns Assessment Noted Time PHQ-9 Depression Total Score: 0 06/22/19 23 3:26 PM EDT documented as of this encounter Care Teams Inspector Receiving Relationship Specialty Start Date End Date Ibeth Colby MD [address] [place] [address] [phone] PCP - General Internal Medicine 12/13/22 Suzanne Meyers Bed Control SpecialistVertical Punch Operator 03/15/23 documented as of this encounter
--- OUTSIDE RECORDS SUMMARY | 2025-03-04 17:39 | XMS_ITS | Clinical Summary ---
Author Organization [employer] Address 75 [facility] 7t [place] [address] Care Team Providers Care White Mixing Operator Name Role Phone Ibeth Colby MD Primary Care Pro vider Allergies Active Allergy Reactions Criticality Noted Date Comments Warren Anaphylaxis High 08/15/2013 Gluten Meal Anaphylaxis High 03/22/2022 Lactose 05/31/2022 Tapentadol 03/22/2022 Other reaction(s): Contact dermatitis with paper tape Wound Dressing Adhesive Hives,Itching,Rash,Sw elling High 12/14/2011 Other reaction(s): RASH ON SITE Other Reaction(s): Contact Dermatitis Medications * This document contains information received from the source organization and may not represent a complete record from that organization. hydrOXYzine pamoate (Vistaril) 50 MG capsuleIndicati ons:Mood [...] MOUTH EVERY DAY 90 capsule 3 Active Additional Information Patient not taking.Reported on 01/03/2025 cholecalciferol VITAMIN D (Vitamin D-3) 50 MCG (1999 UT) capsuleIndicati ons:Vitamin D deficiency TAKE 1 CAPSULE BY MOUTH EVERY DAY 90 capsule 1 Active EPINEPHrine (Epipen) 0.3 MG/0.3ML injection [...] capsule by mouth Once per day. Active lidocaine (Lidoderm) 5 % patchIndication s:Chronic bilateral low back pain with bilateral sciatica APPLY 1 PATCH TOPICALLY IN THE MORNING. 30 patch 3 Active loratadine (Claritin) 10 MG tablet TAKE 1 TABLET BY MOUTH EVERY DAY NEEDED 90 tablet 1 Active valACYclovir (Valtrex) 1 g tablet TAKE 1 TABLET BY MOUTH EVERY DAY 30 tablet 3 Active Multiple Vitamin (Multi-Vitamin) tablet TAKE 1 TABLET BY MOUTH EVERY DAY WITH FOOD 90 tablet 1 Active propranolol LA (Inderal LA) 80 MG 24 hr capsule TAKE 1 CAPSULE BY MOUTH EVERYDAY AT BEDTIME 90 capsule 1 Active Tirzepatide-Rogerio ght Management 12.5 MG/0.5ML solution auto-injectorIn dications:Class 2 obesity,NO (obstructive sleep apnea) Inject 0.5 mL (12.5 mg) under the skin 1 (one) time per week. 2 mL 025 2025 Active Tirzepatide-Rogerio ght Management (Zepbound) 10 MG/0.5ML solution auto-injector Inject 0.5 mL (10 mg) under the skin 1 (one) time per week. Increase monthly 2 mL 025 2024 Discontinued Tirzepatide-Rogerio ght Management (Zepbound) 12.5 MG/0.5ML solution auto-injector Inject 0.48 mL (12 mg) under the skin every 7 (seven) days. 2 mL 025 2024 Discontinued Tirzepatide-Rogerio ght Management 12.5 MG/0.5ML solution auto-injector Inject 0.5 mL (12.5 mg) under the skin 1 (one) time per week. 0.5 mL 025 2024 Discontinued(R eorder (will not [...] 09/23/20 BIRADS 1 Asthma-COPD overlap syndrome (CMS/HCC) 3 Severe chronic obstructive pulmonary disease (CM S/HCC) 05/18/2022 Obsessive-compulsive disorder 05/18/2022 Acid reflux 05/17/2022 [...] Encounters Date Type Department Care Team Description 02/13/2025 Telephone [facility] [address] [place] [phone] Ibeth Colby MD Medication Question 02/11/2025 Refill [facility] PED[facility] [address] [place] [address] Ibeth Colby MD Class 2 obesity; NO (obstructive sleep apnea) 02/06/2025 Refill [facility] [address] [place] [address] Ibeth Colby MD 02/04/2025 Refill [facility] [address] [place] [address] Ibeth Colby MD 01/30/2025 Refill [facility] [address] [place] [address] Ibeth Colby MD 01/22/2025 Refill [facility] [address] [place] [address] Ibeth Colby MD 01/13/2025 Refill [facility] [address] [place] [address] Ibeth Colby MD 01/06/2025 Refill [facility] [address] [place] [address] Ibeth Colby MD 01/03/2025 1:00 PM EDT Telemedicine [facility] [address] [place] [address] Ibeth Colby MD Hypertriglyceridemia (Primary Dx); Hyperlipidemia, unspecified hyperlipidemia type; Class 2 obesity; Health care maintenance; Bipolar 1 disorder (CMS/HCC) (HCC) 01/03/2025 Refill [facility] [address] [place] [address] Ibeth Colby MD 01/03/2025 Travel 01/02/2025 Refill [facility] [address] [place] [address] Ibeth Colby MD 01/02/2025 Telephone [facility] [address] [place] [address] Ibeth Colby MD chart prep 12/30/2024 Orders Only [facility] [address] [place] [address] Ibeth Colby MD Mass of left breast, unspecified quadrant (Primary Dx) 12/25/2024 Refill [facility] [address] [place] [address] Ibeth Colby MD 12/25/2024 Refill [facility] [address] [place] [address] Marisa Farrell MD 12/25/2024 Refill [facility] [address] [place] [address] Bishop Vázquez MD Chronic bilateral low back pain with bilateral sciatica 12/25/2024 Refill [facility] [address] [place] [address] Ibeth Colby MD 12/25/2024 Refill [facility] [address] [place] [address] Ibeth Colby MD Chronic bilateral low back pain with bilateral sciatica 12/14/2024 Refill [facility] [address] [place] [address] Ibeth Colby MD 12/11/2024 Telephone [facility] [address] [place] [address] Ibeth Colby MD Appointment from Last 3 Months Immunizations Immunization Administration [...] Description 05/16/2025 1:15 PM EDT Office Visit [facility] [address] [place] [address] Ibeth Colby MD [address] [place] [address] Health Maintenance Due Date Last Done Comments CT Colonography 1972 FIT DNA/Cologuard 1972 FIT 1972 FOBT 1972 Sigmoidoscopy 1972 Disability Screening 1972 Diabetes: Foot Exam 1982 Eye Exam 1982 Colonoscopy 12/02/2021 12/02/2020, 12/02/2020 Colorectal Cancer Screening 12/02/2021 Mammogram 09/23/2022 09/23/2020 RSV Patients and Patients Aged 60 years or older (1 - Risk 50-74 years 1-dose series) 2022 Zoster Vaccines (1 of 2) 2022 COVID-19 Vaccine (3 - season) 2024 06/30/2020, 06/02/2020 Influenza Vaccine (#1) 2024 , 01/02/2020, 01/04/2018, Additional history exists Diabetes: Urine Protein Screening 12/25/2024 12/26/2023, 12/10/2021 Depression Screening 12/26/2024 12/27/2023, 12/27/19 24 Lung Cancer Screening 12/27/2024 12/28/2023 Diabetes: Hemoglobin A1C 04/27/2025 025, 12/26/2023, 10/18/2023, Additional history exists Family Planning (PISQ) 07/23/2025 07/23/2024 Alcohol/Substance Use Screening 10/25/2025 10/25/2024 Lipid Panel 10/25/2025 10/25/2024, 04/2 11/2024, 12/26/2023, Additional history exists SDOH Screening 10/25/2025 10/25/2024 Tobacco Screening 11/12/2025 11/12/2024 DTaP/Tdap/Td Vaccines (2 - Td or Tdap) 03/08/2026 03/08/2016, 03/06/1996 Cervical Cancer Screening 07/23/2029 HPV/Cotest 07/23/2029 07/23/2024, 05/02/2017 Pap Smear 07/23/2029 07/23/2024 Hepatitis A Vaccines Completed 05/23/2013, 01/19/2011, 07/20/2000 [...] Procedure Name Priority Date/Time Associated Diagnosis Comments HEMOGLOBIN A1C Routine 10/25/2024 2:57 PM EDT Annual physical exam LIPID PANEL, STANDARD Routine 10/25/2024 2:57 PM EDT Annual physical exam HPV DNA, LOW/HIGH RISK Routine 07/23/2024 2:46 PM EDT PAP SMEAR Routine 07/23/2024 [...] Recently Relevant to Health Maintenance Results * Hemoglobin A1c (10/25/2024 2:57 PM EDT) Hemoglobin A1c 5.4 <6.0 % [facility] Comment:Hemoglobin A1C Refer ence Range Adults: 4.8 - 6.0 % Non diabetic: < 6.0 % Goal: < 7.0 %Additional Action Suggested: > 8.0 %Note: Hemoglobin A1c results are invalid for patients with abnormal amounts of HbF. Blood transfusions may impact the HbA1c concentration in the patient sample. Estimated Average Glucose 108 mg/dL [facility] Comment:eAG = Estimated ave rage glucose which is %A1C expressed asaverage glucose, using the formula of the P9V-HhdtymqKnrisdr Glucose study (ADAG), Diabetes Care, Vol.31,#8,Oct. 2007 Blood Venous blood specimen / Unknown 10/25/2024 2:57 PM EDT 10/25/2024 4:42 PM EDT us Ibeth Vasques MD LAB BLOOD ORDERAB LES Final Result [facility] [address] [place] [phone] * (ABNORMAL) Lipid Panel, Standard (10/25/2024 2:57 PM EDT) Triglycerides 103 <150 mg/dL [facility] Comment:Desirable Triglyceri de: less than 150 mg/dLBorderline High Triglyceride 150-199 mg/dLHigh Triglyceride: 200-499 mg/dLVery High Triglyceride: greater than or equal to 5OO mg/dL Cholesterol 193 <200 mg/dL [facility] Comment:Desirable Cholestero l: less than 200 mg/dLBorderline High Cholesterol: 200-239 mg/dLHigh Cholesterol: greater than 239 mg/dL LDL Cholesterol Calculated 123(H) <100 mg/dL [facility] Comment:Desirable LDL: less than 100 mg/dLNear Optimal/Above Optimal LDL: 110- 129 mg/dLBorderline High LDL: 130-159 mg/dLHigh LDL: 160-189 mg/dLVery High LDL: greater than or equal to 190 mg/dL HDL Cholesterol 50 >40 mg/dL [facility] Comment:Desirable HDL: great er than 40 mg/dL Note: This HDL assay may give artificially low results in patients with liver disease. Blood Venous blood specimen / Unknown 10/25/2024 2:57 PM EDT 10/25/2024 4:42 PM EDT us Ibeth Vasques MD LAB BLOOD ORDERAB LES Final Result Performing Organization Address [facility]/ZIP Co de Phone Number [facility] [address] [place] [phone] * HPV DNA, Low/High Risk (07/23/2024 2:46 PM EDT) HPV High Risk Negative Negative [facility] HPV Genotype 16 Negative Negative [facility] HPV Genotype 18 Negative Negative [facility] Comment:HPV testing performe d at [facility] (CLIA#[id number]), [address] [place] [address].Testing for HPV was performed using the Robert [...] result indicatessuch sequences were not detected. 07/23/2024 2:4 6 PM EDT 07/24/2024 9:30 AM EDT us Cassidy Gomez CNM LAB BLOOD ORDERABLES Dinah l Result Performing Organization Address [facility] Co de Phone Number [facility] [address] [place] [phone] * Pap Smear (07/23/2024 2:46 PM EDT) Swab Cervical swab / Unknown 07/23/2024 2:46 PM EDT 07/24/2024 9:30 AM EDT [facility] - 07/26/2024 9:25 AM EDT ----- ------- Name: Sera Teran Age/Sex: 53/F : 1970 Unit#: [id number] Attend Dr: CASSIDY GOMEZ CNM Re07/24/24 Status: [facility] Disch: ----- ------- SPEC : [id number] RECD: 07/24/24 STATUS: LISA AVILEZ NUM: [id number] ZINA: 07/23/24-14[address] [facility] DR: CASSIDY GOMEZ CNM ENTERED: 07/24/24-6 SP TYPE: Pap Smr OT DR: ORDERED: Pap Smear Interpretation Satisfactory for evaluation. Negative for intraepithelial lesion or malignancy. No endocervical cells seen. HPV High Risk: Negative HPV Genotyping 16: Negative HPV Genotyping 18: Negative Clinical Information LMP: Unknown date Previous PAP test: 2018, WNL Other surgery: IUD Material Received ThinPrep-Cervical ----- ------- Signed (signature on file) NomiYUNG Merchant ([facility]) 07/26/24 0925 ----- ------- END OF REPORT us Cassidy Gomez CNM LAB CYTOLOGY ORDERABLES F inal Result Performing Organization Address [facility]/ZIP Co de Phone Number [facility] [address] [place] [phone] * Albumin, Random Urine W/Creatinine (12/26/2023 4:00 PM EDT) Creatinine, Urine 213.46 mg/dL [facility] Microalbumin Urine 10.0 mg/L [facility] Microalbum Creatinine Ratio Ur 4.6 <30 ug/mg cr [facility] Comment:Albumin/Creatinine R atio Reference Ranges: Normal: < 30 ug/mg creatinine Microalbuminuria: 30 - 300 ug/mg creatinineClinical Albuminuria: > 300 ug/mg creatinine Urine (Urine, Random) 12/26/2023 4:00 PM EDT 12/26/2023 5:33 PM EDT us Ibeth Vasques MD LAB URINE ORDERAB LES Final Result Performing Organization Address [facility]/ZIP Co de Phone Number [facility] [address] [place] [address] [phone] * HIV-1/2 Antigen and Antibodies, Fourth Generation, with Reflexes (12/26/2023 4:00 PM EDT) HIV AB/AG Nonreactive Nonreactive [facility] Comment:HIV-1 p24 Ag and/or HIV-1/HIV-2 Ab not detected.A test result that is nonreactive does not exclude thepossibility of exposure to or infection with HIV-1 and/orHIV-2. Nonreactive results in this assay for individualswith prior exposure to HIV-1 and/or HIV-2 may be due toantigen and antibody levels that are below the limit ofdetection of this assay.The RhinoCyte HIV Ag/Ab Combo assay result andsupplemental assay results should be interpreted inconjunction with the patient's clinical presentation,history and other laboratory results. If the results areinconsistent with clinical evidence, additional testing issuggested to confirm the result. Blood Venous blood specimen / Unknown 12/26/2023 4:00 PM EDT 12/26/2023 5:31 PM EDT Ibeth Vasques MD LAB BLOOD ORDERAB LES Final Result [facility] [address] [place] [phone] * Hm Colonoscopy (12/02/2020 11:44 AM EDT) Historical Provider HEALTH MAINTENANCE Final Result * Mammography Report 1 (09/23/2020 3:30 PM EDT) Anatomical Region Laterality Modality Breast Bilateral Mammography 09/23/2020 3:30 PM EDT Narrative 09/24/2020 2:32 PM EDT Refer to the Notes tab for result details [facility] Procedure: Mammography Report 1 Procedure Note ProviderEdgar MD - 05/29/2022 Refer to the Notes tab for result details [facility] Procedure: Mammography Report 1 Historical Provider IMG BI PROCEDURES Final R esult from Last 3 Months or Most Recently Relevant to Health Maintenance Insurance [facility] C3 Care Teams White Mixing Operator Relationship Specialty Start Date End Date Ibeth Colby MD [address] [place] [phone] PCP - General Internal Medicine 12/13/22 [facility] Meyers Guest Relations ReceptionistFloor Service Worker [place] 03/15/23
--- OUTSIDE RECORDS SUMMARY | 2025-03-04 17:39 | XMS_ITS | Encounter Summary ---
Author Organization [employer] Address 75 [facility] 7 [place] [address] Care Team Providers Care Inspector Filters Name Role Phone Ibeth Colby MD Primary Care Pro vider Reason for Visit * Reason Onset Date Comments Med Refill 01/03/2025 Encounter Details Date Type Department Care Team (Late st Contact Info) Description 01/03/2025 Refill [facility] [address] [place] [address] Ibeth Colby MD [address] [place], [place] [phone] Social History Tobacco Use Types Packs/Day Years [...] Description 05/16/2025 1:15 PM EDT Office Visit [facility] [address] [place] [phone] Ibeth Colby MD [address] [place] [phone] documented as of this encounter Visit Diagnoses Not on filedocumented in this encounter Additional Health Concerns Assessment Noted Time PHQ-9 Depression Total Score: 6 12/27/19 24 9:10 AM EDT documented as of this encounter Care Teams Inspector Filters Relationship Specialty Start Date End Date Ibeth Colby MD [address] [place] [phone] PCP - General Internal Medicine 12/13/22 Suzanne Meyers Mining CaptainJoint Cutter 03/15/23 documented as of this encounter
--- OUTSIDE RECORDS SUMMARY | 2025-03-04 17:39 | XMS_ITS | Encounter Summary ---
Author Organization [employer] Address 75 [facility] 7 [place] [address] Care Team Providers Care Vat Operator Name Role Phone Ibeth Colby MD Primary Care Pro vider Reason for Visit * Reason Onset Date Comments Med Refill 01/30/2024 Encounter Details Date Type Department Care Team (Late st Contact Info) Description 01/30/2024 Refill [facility]INE [address] [place] [address] Ibeth Colby MD [address] [place], [place] [phone] Social History Tobacco Use Types Packs/Day Years [...] Description 05/16/2025 1:15 PM EDT Office Visit [facility] MED[facility]INE [address] [place] [phone] Ibeth Colby MD [address] [place] [phone] documented as of this encounter Visit Diagnoses Not on filedocumented in this encounter Additional Health Concerns Assessment Noted Time PHQ-9 Depression Total Score: 6 12/27/19 24 9:10 AM EDT documented as of this encounter Care Teams Vat Operator Relationship Specialty Start Date End Date Ibeth Colby MD [address] [place] [phone] PCP - General Internal Medicine 12/13/22 [facility] Sales AssociateBarge Hand 03/15/23 documented as of this encounter
--- OUTSIDE RECORDS SUMMARY | 2025-03-04 17:39 | XMS_ITS | Encounter Summary ---
Author Organization [email or web address] Address [address] [facility] [address] 7[address] [place] [address] Care Team Providers Care Linux Systems Engineer Name Role Phone Nilda Dunn OVERHEAD WORKER Primary Care Provider Ibeth Fox MD Primary Care Pro vider Reason for Visit * Reason Comments Med Refill Encounter Details Date Type Department Care Team (Late st Contact Info) Description 08/16/2022 Refill [facility] MED & PEDS [address] [place] [address] Edmond Fuller FNP Social History Tobacco Use [...] Description 05/16/2025 1:15 PM EDT Office Visit [facility] MED[facility] [address] [place], [place] [phone] Ibeth Colby MD [address] [place] [address] documented as of this encounter Visit Diagnoses Not on filedocumented in this encounter Additional Health Concerns Assessment Noted Time PHQ-9 Depression Total Score: 0 06/22/19 3:26 PM EDT documented as of this encounter Care Teams Linux Systems Engineer Relationship Specialty Start Date End Date Nilda Dunn FNP PCP - General Family Medicine 11/03/21 12/12/22 Ibeth Colby MD [address] [place] [address] [phone] PCP - General Internal Medicine 12/13/22 Suzanne Meyers Medical ReceptionSoftware Engineer Web Services 03/15/23 documented as of this encounter
--- OUTSIDE RECORDS SUMMARY | 2025-03-04 17:39 | XMS_ITS | Encounter Summary ---
Author Organization [employer] Address 75 [facility] 7 [place] [address] Care Team Providers Care Foamite Mixer Name Role Phone Ibeth Colby MD Primary Care Pro vider Reason for Visit * Reason Onset Date Comments Med Refill 01/06/2025 Prior Authorization 01/06/2025 Encounter Details Date Type Department Care Team (Late st Contact Info) Description 01/06/[address] [facility] MEDICINE [address] [place], [place] [phone] Ibeth Colby MD [address] [place], [place] [phone] Social History Tobacco Use Types Packs/Day Years [...] encounter Miscellaneous Notes * Telephone Encounter - Adela Mckeon - 01/07/2025 11:55 AM EST MITCHEL generated and faxed to . Pending decision. Confirmation received and sent to [facility]. documented in this encounter Plan of Treatment Upcoming Encounters Date Type Department Care Team (Late st Contact Info) Description 05/16/2025 1:15 PM EDT Office Visit [facility] MEDICINE [address] [place], [place] [phone] Ibeth Colby MD [address] [place], [place] [phone] documented as of this encounter Visit Diagnoses Not on filedocumented in this encounter Additional Health Concerns Assessment Noted Time PHQ-9 Depression Total Score: 6 12/27/19 9:10 AM EDT documented as of this encounter Care Teams Foamite Mixer Relationship Specialty Start Date End Date Ibeth Colby MD [address] [place] [phone] PCP - General Internal Medicine 12/13/22 Suzanne Meyers Operations DirectorFood Service Manager 03/15/23 documented as of this encounter
--- OUTSIDE RECORDS SUMMARY | 2025-03-04 17:39 | XMS_ITS | Encounter Summary ---
Author Organization [employer] Address 75 [facility] 7 [place] [address] Care Team Providers Care Rough Rice Tender Name Role Phone Nilda Dunn Conchita PAINT LINE PRODUCTION SUPERVISOR Primary Care Provider Ibeth Fox MD Primary Care Pro vider Encounter Details Date Type Department Care Team (Late st Contact Info) Description 05/10/2022 Orders Only [facility] MED & PEDS [address] [place], [place] [phone] Ange Leal LPN Social History Tobacco Use [...] Description 05/16/2025 1:15 PM EDT Office Visit [facility] MED[facility]INE [address] [place], [place] [phone] Ibeth Colby MD [address] [place], [place] [phone] documented as of this encounter Visit Diagnoses Not on filedocumented in this encounter Additional Health Concerns Assessment Noted Time PHQ-9 Depression Total Score: 0 03/22/19 23 1:19 PM EST documented as of this encounter Care Teams Rough Rice Tender Relationship Specialty Start Date End Date Nilda Dunn FNP PCP - General Family Medicine 11/03/21 12/12/22 Ibeth Colby MD [address] [place] [phone] PCP - General Internal Medicine 12/13/22 Suzanne Meyers Milk DriverSecure Software Assessor 03/15/23 documented as of this encounter
--- OUTSIDE RECORDS SUMMARY | 2025-03-04 17:39 | XMS_ITS | Encounter Summary ---
Author Organization [employer] Address 75 [facility] 7 [place] [address] Care Team Providers Care Rail Express Clerk Name Role Phone Ibeth Colby MD Primary Care Pro vider Reason for Visit * Reason Onset Date Comments Med Refill 01/02/2025 Encounter Details Date Type Department Care Team (Late st Contact Info) Description 01/02/2025 Refill [facility] MED[facility] [address] [place] [address] Ibeth Colby MD [address] [place], [place] [phone] Social History Tobacco Use Types Packs/Day Years [...] encounter Miscellaneous Notes * Telephone Encounter - Ibeth Vasques MD - 01/03/2025 4:11 PM EDT Discussed w pt today and will hold on med until repeats labs to evaluation if needs to continue med documented in this encounter Plan of Treatment Upcoming Encounters Date Type Department Care Team (Late st Contact Info) Description 05/16/2025 1:15 PM EDT Office Visit [facility] [address] [place] [address] Ibeth Colby MD [address] [place] [address] documented as of this encounter Visit Diagnoses Not on filedocumented in this encounter Additional Health Concerns Assessment Noted Time PHQ-9 Depression Total Score: 6 12/27/19 9:10 AM EDT documented as of this encounter Care Teams Rail Express Clerk Relationship Specialty Start Date End Date Ibeth Colby MD [address] [place] [phone] PCP - General Internal Medicine 12/13/22 Suzanne Meyers Econometrics ProfessorRelease Of Information Clerk 03/15/23 documented as of this encounter
--- OUTSIDE RECORDS SUMMARY | 2025-03-04 17:39 | XMS_ITS | Encounter Summary ---
Author Organization [employer] Address 75 [facility] 7 [place] [address] Care Team Providers Care Tool Turret Lathe Set Up Operator Name Role Phone Ibeth Colby MD Primary Care Pro vider Reason for Visit * Reason Comments Med Refill Encounter Details Date Type Department Care Team (Late st Contact Info) Description 10/24/2023 Refill [facility] MED & PEDS [address] [place], [place] [phone] Ibeth Colby MD [address] [place], [place] [phone] Social History Tobacco Use Types Packs/Day Years [...] Description 05/16/2025 1:15 PM EDT Office Visit [facility] MEDICINE [address] [place] [phone] Ibeth Colby MD [address] [place] [phone] documented as of this encounter Visit Diagnoses Not on filedocumented in this encounter Additional Health Concerns Assessment Noted Time PHQ-9 Depression Total Score: 0 07/13/19 24 2:53 PM EDT documented as of this encounter Care Teams Tool Turret Lathe Set Up Operator Relationship Specialty Start Date End Date Ibeth Colby MD [address] [place] [address] [phone] PCP - General Internal Medicine 12/13/22 Suzanne Meyers Hotel Or Motel ManagerCash Applications Clerk 03/15/23 documented as of this encounter
--- OUTSIDE RECORDS SUMMARY | 2025-03-04 17:39 | XMS_ITS | Encounter Summary ---
Author Organization [employer] Address [address] [place] [address] Care Team Providers Care Software Engineer Developer Name Role Phone Nilda Dunn Primary Care Provider Ibeth Fox MD Primary Care Pro vider Encounter Details Date Type Department Care Team (Late st Contact Info) Description 03/09/2022 Orders Only [facility] [address] [place], [place] [phone] Ange Leal LPN Social History Tobacco Use [...] 05/16/2025 1:15 PM EDT Office Visit [facility] [address] [place], [place] [phone] Ibeth Colby MD [address] [place], [place] [phone] documented as of this encounter Visit Diagnoses Not on filedocumented in this encounter Care Teams Software Engineer Developer Relationship Specialty Start Date End Date Nilda Dunn FNP PCP - General Family Medicine 11/03/21 12/12/22 Ibeth Colby MD [address] [place] [id number] PCP - General Internal Medicine 12/13/22 Suzanne Meyers Manager Of [employer] 03/15/23 documented as of this encounter
== END 2025-03-04 14:13 | disposition home or self-care (01) ==
LOC: HO.HSM 13:50
PROVIDERS: Visit Provider Psychiatry & Neurology Neurology
DX: G40.209 Localization-related (focal) (partial) symptomatic epilepsy and epileptic syndromes with complex partial seizures, not intractable, without status epilepticus (principal); G43.009 Migraine without aura, not intractable, without status migrainosus
CPT/HCPCS: 99214

== ENCOUNTER → 2025-03-04 13:49 | Outpatient (BNVA) | payer MEDICAID, SELFPAY | PROVIDERS: Visit Provider Psychiatry & Neurology Neurology | DX: G40.209 Localization-related (focal) (partial) symptomatic epilepsy and epileptic syndromes with complex partial seizures, not intractable, without status epilepticus (principal); G43.009 Migraine without aura, not intractable, without status migrainosus; G40.409 Other generalized epilepsy and epileptic syndromes, not intractable, without status epilepticus; Z79.899 Other long term (current) drug therapy | CPT/HCPCS: 99212 ==